=== PATIENT | male | born 1955 | race Caucasian/White ===

== ENCOUNTER 2020-07-19 09:59 | Outpatient (REF) | payer MEDICARE, OTHER, SELFPAY ==
--- NOTE | ~2020-07-19 | CT_ITS ---
EXAMINATION: CT CHEST SCREENING CLINICAL INFORMATION: Lung cancer screening COMPARISON: Previous chest x-rays most recent July 2014 TECHNIQUE: Multidetector volumetric CT imaging of the chest is performed without contrast using low dose technique. Additional 2D coronal and sagittal reformatted images and axial 3D maximum intensity projection (MIP) images are generated on the CT workstation. This CT examination was performed using dose optimization techniques as appropriate, variously including the following: *Automated exposure control *Adjustment of mA and/or kV according to patient size (this includes techniques or standardized protocols for targeted exams where dose is matched to indication/reason for exam; i.e. extremities or head) *Use of iterative reconstruction technique DLP: 72 mGy-cm FINDINGS: LUNGS: There is evidence of mild edema. There is a small 2 mm peripheral or subpleural left upper lobe nodule axial image 308 series 5. There is a 1.5 cm cyst in the left lower lobe axial image 426 series 5. There is scarring or subsegmental atelectasis in the left lung base the left lower lobe. The lungs are otherwise clear. MEDIASTINUM: There is mild coronary artery calcification. The mediastinum is otherwise normal. PLEURA: There is no pleural effusion. No pleural mass or thickening. AXILLA: No lymphadenopathy. UPPER ABDOMEN: Unremarkable OSSEOUS STRUCTURES: There are mild degenerative changes of the spine. CT/CT lung screening IMPRESSION: Mild emphysema. Small 2 mm left upper lobe nodule and scarring or subsegmental atelectasis in the left lower lobe. Mild coronary artery calcification. ASSESSMENT: Lung-RADS category 2: Benign RECOMMENDATION: Annual low-dose chest CT follow-up recommended.
== END 2020-07-19 10:00 | disposition home or self-care (01) ==
LOC: HO.CT 09:59
PROVIDERS: PCP Registered Nurse; Visit Provider Surgery
DX: Z12.2 Encounter for screening for malignant neoplasm of respiratory organs (principal); Z87.891 Personal history of nicotine dependence
CPT/HCPCS: 71271

== ENCOUNTER → 2022-03-24 13:49 | Outpatient (BNVA) | payer MEDICARE, OTHER, SELFPAY | PROVIDERS: PCP Registered Nurse; Visit Provider Internal Medicine | DX: M53.3 Sacrococcygeal disorders, not elsewhere classified (principal) | CPT/HCPCS: 99202 ==

== ENCOUNTER 2022-04-09 13:00 | Day surgery (SDC) | payer MEDICARE, OTHER, SELFPAY ==
--- NOTE | ~2022-04-09 | FL_ITS ---
EXAMINATION: XR FLUOROSCOPY WITH IMAGES CLINICAL INFORMATION: Back pain. Radiofrequency ablation. COMPARISON: MR lumbar spine 01/22/2016 TECHNIQUE: Fluoroscopy Supervised By: Dr. Conor Arroyo. Fluoroscopy Time: 0.7 minutes. Cumulative Dose: 32.6 mGy. DAP: 5.51 Gycm2. Images: 8. FINDINGS: There are 3 needles/electrodes overlying the left sacral wing. There are postsurgical changes lower lumbar spine with fusion hardware and probable disc spacer. FL/FL guidance in OR IMPRESSION: Fluoroscopy for pain management procedure.
[2022-04-09 13:53] VITALS: BMI 29.9
[2022-04-09 16:03] VITALS: BP 152/76; PULSE 53; RESP 16; TEMP 37.1; O2SAT 95
--- NOTE | 2022-04-10 11:48 | MHC.SHP ---
Pre-Procedural Eval Section A Date of Service: 04/09/22 The patient is an INPATIENT: No Changes since office visit: Yes Patient answered all questions The History & Physical has been completed within 30 days and I have reviewed it.: Yes Section B Chief Complaint: Sacrococcygeal disorders, not elsewhere classified Present Medications: see Short Stay Collaborative assessment Medical History: No relevant PMH History of Previous Operations: No relevant previous surgery Allergies: Allergies Allergy/AdvReac Type Severity Reaction Status Date / Time iodine [Iodine] Allergy Severe HIVES Verified 03/24/22 14:00 Penicillins Allergy Severe RASH Verified 03/24/22 14:00 sulfamethoxazole Allergy Severe RASH Verified 03/24/22 14:00 [From Decra] trimethoprim [From Decra] Allergy Severe RASH Verified 03/24/22 14:00 pravastatin Allergy Unknown Muscle Pain Verified 03/24/22 14:00 rosuvastatin Allergy Unknown Muscle Pain Verified 03/24/22 14:00 Seafood Allergy Severe HIVES Uncoded 03/24/22 14:00 Splenda Allergy Unknown Diarrhea Uncoded 03/24/22 14:00 Tetanus and Diphtheria Toxoid Allergy Unknown SWELLING Uncoded 03/24/22 14:00 Review of Systems Sugical H&P ROS: Negative: Constitution, Cardiovascular and Respiratory Exam Surgical H&P Exam: Normal: HEENT, Normal: Heart and Normal: Lungs Plan Diagnosis/Plan: Unchanged I have reviewed the history and physical and performed a pertinent physical examination on my patient. No changes have occurred unless specified. Time Spent With Patient Time: Total time managing care of this patient today ____ minutes.
--- NOTE | 2022-04-10 12:04 | W.PM.OPN ---
Operative Note Operative Note Date of Service: 04/09/22 Narrative: Cooled radiofrequency ablation, LEft L5 dorsal ramus and lateral branches of the S1, S2, S3 posterior primary rami nerves - fluoroscopic guided After obtaining written consent, pre-procedure blood pressure and heart rate were stable and recorded in the nursing record. The patient was placed prone on the fluoroscopy table. The area overlying the peripheral nerves was widely prepped with chloraprep, allowed to dry and sterilely draped. Using fluoroscopy, the appropriate landmarks were identified. The skin overlying the target was anesthetized with 0.5% lidocaine. 18 gauge 50mm radiofrequency needles were advanced under fluoroscopic guidance to the sacral ala (L5 medial branch) and around the lateral margins of the S1, S2 & S3 foramina (sacral lateral branches). Verification was done using lateral and AP views. Aspiration was negative for heme. Impedences were verified under 600 ohms. Motor testing (2 Hz) confirmed needle placement at each site within the appropriate voltage thresholds. Each site was injected with 0.5 ml 2% preservative-free lidocaine. Radiofrequency lesioning was performed for 165 seconds at 80 deg Celcius tissue temperature. Each site was then injected with 0.5 ml 0.5% preservative-free ropivacaine. The needles were removed, skin cleansed and a sterile bandage was applied. The patient tolerated the procedure well and no complications were encountered. No immediate evidence of skin damage was seen. Following the procedure the patient's vital signs were stable. The patient was discharged home in good condition with post-procedural instructions. Time Out: Immediately prior to the procedure, the following was verbally confirmed that there is a signed consent form and that the correct patient, planned procedure, site and side are consistent with documentation and that necessary equipment and/or blood products are available prior to the start of the case. Complications: none EBL: <5 cc
--- NOTE | 2022-04-10 12:05 | PM.OP ---
Brief Operative Note Date of Service: 04/09/22 Pre-op diagnosis: Sacroiliac joint pain Post-op diagnosis: same Procedure: Cooled radiofrequency ablation, Left L5 dorsal ramus and lateral branches of the S1, S2, S3 posterior primary rami nerves - fluoroscopic guided Implants: None Surgeon: Conor Arroyo MD Anesthesia: local Was an Systems Architecture Analyst used for this Procedure?: No Estimated blood loss (mL): 2 Pathology: none sent Condition: stable Disposition: same day
== END 2022-04-09 16:14 | disposition home or self-care (01) ==
PROVIDERS: PCP Registered Nurse; Visit Provider Internal Medicine
PROC: (CPT 64635; principal; 2022-04-09 14:00)
DX: M53.3 Sacrococcygeal disorders, not elsewhere classified (principal); G89.29 Other chronic pain; M51.26 Other intervertebral disc displacement, lumbar region; M48.00 Spinal stenosis, site unspecified; I77.811 Abdominal aortic ectasia; I10 Essential (primary) hypertension; D64.9 Anemia, unspecified; E11.9 Type 2 diabetes mellitus without complications; J45.909 Unspecified asthma, uncomplicated; F41.1 Generalized anxiety disorder; Z79.82 Long term (current) use of aspirin; Z79.84 Long term (current) use of oral hypoglycemic drugs; Z79.899 Other long term (current) drug therapy; Z88.0 Allergy status to penicillin; Z88.2 Allergy status to sulfonamides; Z88.8 Allergy status to other drugs, medicaments and biological substances; Z98.890 Other specified postprocedural states
CPT/HCPCS: 64625; J3301

== ENCOUNTER 2022-04-23 13:03 | Day surgery (SDC) | payer MEDICARE, OTHER, SELFPAY ==
--- NOTE | ~2022-04-23 | FL_ITS ---
EXAMINATION: XR FLUOROSCOPY WITH IMAGES CLINICAL INFORMATION: Pain. RF ablation. Pain management procedures. COMPARISON: Fluoroscopic spot views 04/09/2022, MR lumbar spine 01/22/2016 TECHNIQUE: Fluoroscopy Supervised By: Dr. Conor Arroyo. Fluoroscopy Time: 0.7 minutes. Cumulative Dose: 17.9 mGy. DAP: 2.38 Gycm2. Images: 6. FINDINGS: There are 3 needles/electrodes overlying the right sacral wing. The electrodes are repositioned on another view. The lower lumbar spine shows fusion hardware and probable disc spacer as before. FL/FL guidance in OR IMPRESSION: Fluoroscopy for pain management procedure.
[2022-04-23 13:13] VITALS: BP 138/67; PULSE 72; RESP 16; TEMP 37.2; O2SAT 96
[2022-04-23 13:23] VITALS: BMI 30.1
[2022-04-23 15:33] VITALS: BP 138/72; PULSE 53; RESP 14; TEMP 36.5; O2SAT 96
--- NOTE | 2022-04-24 10:19 | MHC.SHP ---
Pre-Procedural Eval Section A Date of Service: 04/23/22 The patient is an INPATIENT: No Changes since office visit: Yes Patient answered all questions The History & Physical has been completed within 30 days and I have reviewed it.: No Section B Chief Complaint: Sacrococcygeal disorders, not elsewhere classified Relevant Family History (Specify if Yes): No Relevant Social History: None Present Medications: see Short Stay Collaborative assessment Medical History: No relevant PMH History of Previous Operations: No relevant previous surgery Allergies: Allergies Allergy/AdvReac Type Severity Reaction Status Date / Time iodine [Iodine] Allergy Severe HIVES Verified 04/23/22 13:23 Penicillins Allergy Severe RASH Verified 04/23/22 13:23 sulfamethoxazole Allergy Severe RASH Verified 04/23/22 13:23 [From Decra] trimethoprim [From Decra] Allergy Severe RASH Verified 04/23/22 13:23 pravastatin Allergy Unknown Muscle Pain Verified 04/23/22 13:23 rosuvastatin Allergy Unknown Muscle Pain Verified 04/23/22 13:23 Seafood Allergy Severe HIVES Uncoded 03/24/22 14:00 Splenda Allergy Unknown Diarrhea Uncoded 03/24/22 14:00 Tetanus and Diphtheria Toxoid Allergy Unknown SWELLING Uncoded 03/24/22 14:00 Review of Systems Sugical H&P ROS: Negative: Constitution, Cardiovascular and Respiratory Exam Surgical H&P Exam: Normal: HEENT, Normal: Heart and Normal: Lungs Plan Diagnosis/Plan: Unchanged Patient reports 65-70% pain relief on the left side following the procedure 2 weeks ago. We will proceed with a right-sided procedure today. I have reviewed the history and physical and performed a pertinent physical examination on my patient. No changes have occurred unless specified. Time Spent With Patient Time: Total time managing care of this patient today ____ minutes.
--- NOTE | 2022-04-24 10:21 | PM.OP ---
Brief Operative Note Date of Service: 04/23/22 Pre-op diagnosis: Sacroiliac joint pain Post-op diagnosis: same Procedure: Cooled radiofrequency ablation, Right L5 dorsal ramus and lateral branches of the S1, S2, S3 posterior primary rami nerves Surgeon: Conor Arroyo MD Anesthesia: local Was an Veterinary Technician Instructor used for this Procedure?: No Estimated blood loss (mL): 2 Pathology: none sent Condition: stable Disposition: same day
--- NOTE | 2022-04-24 10:21 | W.PM.OPN ---
Operative Note Operative Note Date of Service: 04/23/22 Narrative: Cooled radiofrequency ablation, Right L5 dorsal ramus and lateral branches of the S1, S2, S3 posterior primary rami nerves - fluoroscopic guided After obtaining written consent, pre-procedure blood pressure and heart rate were stable and recorded in the nursing record. The patient was placed prone on the fluoroscopy table. The area overlying the peripheral nerves was widely prepped with chloraprep, allowed to dry and sterilely draped. Using fluoroscopy, the appropriate landmarks were identified. The skin overlying the target was anesthetized with 0.5% lidocaine. 18 gauge 50mm radiofrequency needles were advanced under fluoroscopic guidance to the sacral ala (L5 medial branch) and around the lateral margins of the S1, S2 & S3 foramina (sacral lateral branches). Verification was done using lateral and AP views. Aspiration was negative for heme. Impedences were verified under 600 ohms. Motor testing (2 Hz) and lateral imaging confirmed needle placement at each site within the appropriate voltage thresholds and depth respectively. Each site was injected with 0.5 ml 0.5% ropivacaine. Radiofrequency lesioning was performed for 165 seconds at 80 deg Celcius tissue temperature. The needles were removed, skin cleansed and a sterile bandage was applied. The patient tolerated the procedure well and no complications were encountered. No immediate evidence of skin damage was seen. Following the procedure the patient's vital signs were stable. The patient was discharged home in good condition with post-procedural instructions. Time Out: Immediately prior to the procedure, the following was verbally confirmed that there is a signed consent form and that the correct patient, planned procedure, site and side are consistent with documentation and that necessary equipment and/or blood products are available prior to the start of the case. Complications: none EBL: <5 cc
== END 2022-04-23 15:55 | disposition home or self-care (01) ==
PROVIDERS: PCP Registered Nurse; Visit Provider Internal Medicine
PROC: (CPT 64635; principal; 2022-04-23 14:10)
DX: M47.816 Spondylosis without myelopathy or radiculopathy, lumbar region (principal); M53.3 Sacrococcygeal disorders, not elsewhere classified; G89.29 Other chronic pain; M51.26 Other intervertebral disc displacement, lumbar region; M48.00 Spinal stenosis, site unspecified; Z98.890 Other specified postprocedural states; I10 Essential (primary) hypertension; I77.811 Abdominal aortic ectasia; D64.9 Anemia, unspecified; F41.1 Generalized anxiety disorder; J45.909 Unspecified asthma, uncomplicated; Z79.84 Long term (current) use of oral hypoglycemic drugs; Z79.82 Long term (current) use of aspirin; Z88.0 Allergy status to penicillin; Z88.2 Allergy status to sulfonamides; Z88.8 Allergy status to other drugs, medicaments and biological substances; Z88.7 Allergy status to serum and vaccine; Z79.899 Other long term (current) drug therapy
CPT/HCPCS: 64635; 64625; J2795; J3301

== ENCOUNTER → 2022-05-30 10:56 | Outpatient (BNVA) | payer MEDICARE, OTHER, SELFPAY | PROVIDERS: PCP Registered Nurse; Visit Provider Internal Medicine | DX: M47.816 Spondylosis without myelopathy or radiculopathy, lumbar region (principal); M53.3 Sacrococcygeal disorders, not elsewhere classified; Z98.890 Other specified postprocedural states | CPT/HCPCS: 99212 ==

== ENCOUNTER 2022-07-01 11:59 | Outpatient (REF) | payer MEDICARE, OTHER, SELFPAY ==
--- NOTE | ~2022-07-01 | XR_ITS ---
EXAMINATION: Sacrum/coccyx Coccyx and lumbar spine CLINICAL INDICATION: Pain. Fall. TECHNIQUE: 3 views lumbar spine and 4 views sacrum/coccyx. FINDINGS: Lumbar spine: There is normal lumbar lordosis. The vertebral heights and alignment is normal. There is L4-L5 disc prosthesis stabilized with bilateral L4 and L5 pedicle screws and interconnecting rods. There is mild loss of L5-S1 disc height. The vertebral heights and alignment is normal. No acute fracture or dislocation seen. Sacrum and coccyx: There is no visible acute fracture, dislocation or subluxation seen. The soft tissues are normal.
== END 2022-07-01 12:00 | disposition home or self-care (01) ==
LOC: HO.XRAY 11:59
PROVIDERS: PCP Registered Nurse; Visit Provider Registered Nurse
DX: M54.50 Low back pain, unspecified (principal); Z91.81 History of falling
CPT/HCPCS: 72100; 72220

== ENCOUNTER → 2022-07-04 11:14 | Outpatient (BNVA) | payer MEDICARE, OTHER, SELFPAY | PROVIDERS: PCP Registered Nurse; Visit Provider Internal Medicine | DX: M53.3 Sacrococcygeal disorders, not elsewhere classified (principal); M47.816 Spondylosis without myelopathy or radiculopathy, lumbar region | CPT/HCPCS: Q3014 ==

== ENCOUNTER 2023-09-14 09:05 | Outpatient (AMB) | payer MEDICARE, OTHER, SELFPAY ==
[2023-09-14 09:10] VITALS: BP 140/68; PULSE 74; RESP 14; O2SAT 98; BMI 31.9
--- NOTE | 2023-09-14 09:10 | A.OFFVIS_ITS ---
Vital Signs 09/14/23 09:10 Height 5 ft 8 in Weight 210 lb BMI 31.9 BP 140/68 H Blood Pressure Location Lt brachial Position Sitting Respiration 14 Pulse 74 Pulse Source Pulse Oximeter Pulse Oximetry (%) 98 Oxygen Delivery Method Room Air Intake Visit Reasons: low back pain LAURA 06/26 Allergies iodine [Iodine] Allergy (Severe, Verified 09/14/23 09:11) HIVES Penicillins Allergy (Severe, Verified 09/14/23 09:11) RASH sulfamethoxazole [From Septra] Allergy (Severe, Verified 09/14/23 09:11) RASH trimethoprim [From Septra] Allergy (Severe, Verified 09/14/23 09:11) RASH pravastatin Allergy (Unknown, Verified 09/14/23 09:11) Muscle Pain rosuvastatin Allergy (Unknown, Verified 09/14/23 09:11) Muscle Pain Seafood Allergy (Severe, Uncoded 09/14/23 09:11) HIVES Splenda Allergy (Unknown, Uncoded 09/14/23 09:11) Diarrhea Tetanus and Diphtheria Toxoid Allergy (Unknown, Uncoded 09/14/23 09:11) SWELLING Medication List - Last Reconciled 09/14/23 by Jessica Vargas, MACKENZIE albuterol sulfate 90 mcg/actuation 2 puffs inhalation Q4H PRN aspirin (Adult Aspirin Regimen) 81 mg PO DAILY chlorthalidone 25 mg PO DAILY fluticasone propion-salmeterol 250-50 mcg/dose (Wixela Inhub) 1 inh inhalation Q12H gabapentin 400 mg PO QID lisinopril 40 mg PO DAILY lorazepam 1 mg PO Q8H PRN mecobalamin (vitamin B12) mcg PO metformin 500 mg PO BID montelukast 10 mg PO DAILY sildenafil 50 mg PO DAILY PRN HPI HPI low back pain LAURA 06/26: Details: 68-year-old male presenting for follow-up 15 months following sacroiliac joint innervation radiofrequency ablation for bilateral sacroiliac joint related pain. Patient states he had good relief for about 9-12 months following the procedure. Over the last 3-5 months his symptoms have gradually worsened, and are now back to where he started with us. He is interested in either repeating a radiofrequency ablation or trialing other long-term interventions. He has been considering a referral to [facility] for potential sacroiliac joint fusion. [facility] Medical History (Updated 09/14/23 @ 10:28 by Conor Arroyo MD) Spinal stenosis Lumbar disc herniation Hypertension Hematuria Gout Diabetes Asthma Anxiety Anemia Abdominal aortic ectasia Physical Exam Vital Signs: Last Vital Signs Pulse 74 09/14/23 09:10 Resp 14 09/14/23 09:10 BP 140/68 H 09/14/23 09:10 Pulse Ox 98 09/14/23 09:10 Oxygen Delivery Method Room Air 09/14/23 09:10 BMI result Body Mass Index 31.9 On exam today: Appears afebrile. Alert and oriented. Mood and affect appropriate. Follows and participates in conversation appropriately. Respiratory effort is unlabored. Able to transition from sit to stand unassisted. Ambulates with bilaterally normal heel strike and toe off with the help of a cane. Able to stand and walk on toes and heels. 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 I discussed repeating either an RFA or trialing a nerve stimulation device for medial cluneal nerves, which might be a more longer term solution for his problem. The patient is interested in pursuing this potentially longer-term options without the need for repeated RFA of his sacroiliac joint innervation. I went over the details of the procedure as well as the process for implantation of a PNS device for bilateral medial cluneal nerves. Patient is interested in moving forward with this plan. I will place a referral for psychologic clearance with [facility]. Patient was advised to call our office if he does not get a call from [facility] over the next 2-3 weeks. Patient is in agreement with the plan. Coding Level of Care Code Est Pt Level 4 (33991) Diagnoses Sacroiliac joint dysfunction M53.3 Cluneal neuropathy G58.8
== END 2023-09-14 09:35 | disposition home or self-care (01) ==
LOC: HO.PMC 09:05
PROVIDERS: PCP Registered Nurse; Visit Provider Internal Medicine
DX: M53.3 Sacrococcygeal disorders, not elsewhere classified (principal); G58.8 Other specified mononeuropathies
CPT/HCPCS: 99214

== ENCOUNTER → 2023-09-14 09:05 | Outpatient (BNVA) | payer MEDICARE, OTHER, SELFPAY | PROVIDERS: PCP Registered Nurse; Visit Provider Internal Medicine | DX: M53.3 Sacrococcygeal disorders, not elsewhere classified (principal); G58.8 Other specified mononeuropathies | CPT/HCPCS: 99212 ==

== ENCOUNTER 2023-11-06 11:12 | Outpatient (AMB) | payer MEDICARE, OTHER, SELFPAY ==
[2023-11-06 11:19] VITALS: BP 195/84; PULSE 71; RESP 14; O2SAT 95; BMI 31.9
--- NOTE | 2023-11-06 11:19 | A.OFFVIS_ITS ---
Vital Signs 11/06/23 11:19 Height 5 ft 8 in Weight 210 lb BMI 31.9 BP 195/84 H Blood Pressure Location Lt brachial Position Sitting Respiration 14 Pulse 71 Pulse Source Pulse Oximeter Pulse Oximetry (%) 95 Oxygen Delivery Method Room Air Intake Visit Reasons: Back pain Allergies iodine [Iodine] Allergy (Severe, Verified 11/06/23 11:20) HIVES Penicillins Allergy (Severe, Verified 11/06/23 11:20) RASH sulfamethoxazole [From Septra] Allergy (Severe, Verified 11/06/23 11:20) RASH trimethoprim [From Septra] Allergy (Severe, Verified 11/06/23 11:20) RASH pravastatin Allergy (Unknown, Verified 11/06/23 11:20) Muscle Pain rosuvastatin Allergy (Unknown, Verified 11/06/23 11:20) Muscle Pain Seafood Allergy (Severe, Uncoded 11/06/23 11:20) HIVES Splenda Allergy (Unknown, Uncoded 11/06/23 11:20) Diarrhea Tetanus and Diphtheria Toxoid Allergy (Unknown, Uncoded 11/06/23 11:20) SWELLING Medication List - Last Reconciled 11/06/23 by Jessica Vargas LPN albuterol sulfate 90 mcg/actuation 2 puffs inhalation Q4H PRN aspirin (Adult Aspirin Regimen) 81 mg PO DAILY chlorthalidone 25 mg PO DAILY fluticasone propion-salmeterol 250-50 mcg/dose (Wixela Inhub) 1 inh inhalation Q12H gabapentin 400 mg PO QID lisinopril 40 mg PO DAILY lorazepam 1 mg PO Q8H PRN mecobalamin (vitamin B12) mcg PO metformin 500 mg PO BID montelukast 10 mg PO DAILY sildenafil 50 mg PO DAILY PRN HPI HPI Back pain: Details: 68-year-old male who presents today to the office for a back pain. He has completed his second psychological evaluation. He has no concerns today to discuss with us. We are waiting for the prior authorization from the insurance company. Past Procedures: 04/23/22: Right SIJ Innervation RFA ? 90% relief. 04/09/22: Left SIJ Innervation RFA ? 90% relief. [facility] Medical History (Updated 09/14/23 @ 10:28 by Conor Arroyo MD) Spinal stenosis Lumbar disc herniation Hypertension Hematuria Gout Diabetes Asthma Anxiety Anemia Abdominal aortic ectasia Review of Systems Const All systems reviewed & are unremarkable except as noted in HPI and below Physical Exam Vital Signs: Last Vital Signs Pulse 71 11/06/23 11:19 Resp 14 11/06/23 11:19 BP 195/84 H 11/06/23 11:19 Pulse Ox 95 11/06/23 11:19 Oxygen Delivery Method Room Air 11/06/23 11:19 BMI result Body Mass Index 31.9 General: Appears afebrile. Alert and oriented. Mood and affect appropriate. Follows and participates in conversation appropriately. Respiratory effort is unlabored. Able to transition from sit to stand unassisted. Ambulates with bilaterally normal heel strike and toe off. Results Reviewed Results Reviewed: No imaging is available for review. 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 Once we receive the prior authorization approval from the insurance, we will schedule an appointment for trial of cluneal nerve Curonix PNS. Scribed for Dr. Arroyo by Sulaiman Zee, medical technologist generalist, on 11/06/2023. I, Dr. Arroyo, have personally reviewed and agree with the information entered by the scribe. Coding Level of Care Code Est Pt Level 2 (76725) Diagnoses Cluneal neuropathy G58.8 Lumbar spondylosis M47.816 Sacroiliac joint dysfunction M53.3
== END 2023-11-06 11:48 | disposition home or self-care (01) ==
PROVIDERS: PCP Registered Nurse; Visit Provider Internal Medicine
DX: G58.8 Other specified mononeuropathies (principal); M47.816 Spondylosis without myelopathy or radiculopathy, lumbar region; M53.3 Sacrococcygeal disorders, not elsewhere classified
CPT/HCPCS: 99212

== ENCOUNTER → 2023-11-06 11:12 | Outpatient (BNVA) | payer MEDICARE, OTHER, SELFPAY | PROVIDERS: PCP Registered Nurse; Visit Provider Internal Medicine | DX: G58.8 Other specified mononeuropathies (principal); M47.816 Spondylosis without myelopathy or radiculopathy, lumbar region; M53.3 Sacrococcygeal disorders, not elsewhere classified | CPT/HCPCS: 99212 ==

== ENCOUNTER 2024-02-01 11:05 | Outpatient (AMB) | payer MEDICARE, OTHER, SELFPAY ==
--- OUTSIDE RECORDS SUMMARY | 2024-02-01 11:08 | XMS_ITS | Continuity of Care Document ---
Author Organization [facility] Address [address] [address]- Care Team Providers Care Environmental Attorney Name Role Phone Lincoln KLINE, Jyothi Fragoso Primary Care Physician Encounter [facility] [place] Date(s): 12/27/21 - 01/26/22 [facility] [address] [address]- Attending Physician: Ángel Larry Admitting Physician: AdmtrÁngel Referring Physician: Admtr, Ar8 Allergies, Adverse Reactions, Alerts Substance Reaction Severity Status penicillin Active tetanus toxoid Active Septra Active iodine Active Medications Aerochamber See Instructions, # 1 each, Maintenance, use with mdi, 02/20/10 10:54:57 Start Date: 02/20/10 Status: Ordered allopurinol 300 mg oral tablet 1 tablet = 300 mg, By Mouth, Daily, 0 Refills, Maintenance Start Date: 02/20/10 Status: Ordered Aspirin = 81 mg, Daily, 0 Refills, Maintenance Start Date: 02/20/10 Status: Ordered chlorthalidone 25 mg oral tablet 25 mg, 1, tablet, By Mouth, Daily, # 90 tablet, Refills 3, Tot. Refills 3, Maintenance, 01/01/22 12:59:00 EDT, Route to Pharmacy Electronically, [facility]/pharmacy #[id number], Partial fill upon patient request if the prescription is for a schedule II opioid drug... Start Date: 01/01/22 Status: Ordered Januvia 100 mg oral tablet 1 tablet = 100 mg, By Mouth, Daily, 0 Refills, Maintenance Start Date: 02/20/10 Status: Ordered Lisinopril = 40 mg, By Mouth, Daily, 0 Refills, Maintenance Start Date: 02/20/10 Status: Ordered PredniSONE By Mouth, Daily, 0 Refills, Maintenance Start Date: 11/17/10 Status: Ordered Proventil HFA 90 mcg/inh inhalation aerosol with adapter 2 puffs, Inhalation, 4 times a day, 0 Refills, Maintenance Start Date: 02/20/10 Status: Ordered Spiriva HandiHaler 18 mcg Inhalation Capsule 1 each = 18 mcg, Inhalation, Daily, # 30 Doses, 11 Refills, Maintenance Start Date: 02/20/10 Status: Ordered Symbicort 160mcg/4.5mcg Inhaler 2 puffs, Inhalation, 2 times a day, 0 Refills, Maintenance Start Date: 02/20/10 Status: Ordered Patient Care team information Personnel Name: Lincoln KLINE, Jyothi Fragoso Address: Address: [address] [place] [id number]
--- OUTSIDE RECORDS SUMMARY | 2024-02-01 11:08 | XMS_ITS | Continuity of Care Document ---
Author Organization [facility] [place] Address [address] [place] [address]- Care Team Providers Care Bakery Chef Name Role Phone Lincoln KLINE, Jyothi Fragoso Primary Care Physician Encounter [facility] Date(s): 02/19/23 - 03/21/23 [facility] [address] [place] [address]- Attending Physician: Ángel Larry Admitting Physician: AdmÁngel vilchis Referring Physician: Admtr, Ar8 Allergies, Adverse Reactions, Alerts Substance Reaction Severity Status penicillin Active tetanus toxoid Active Other Food Allergy SPLENDA Active iodine Active Septra Active Medications Aerochamber See Instructions, # 1 [...] 01/01/22 12:59:00 EDT, Route to Pharmacy Electronically, [facility]/pharmacy #[id number], Partial fill upon patient request if the prescription is for a schedule II opioid drug... Start Date: 01/01/22 Status: Ordered Lisinopril = 40 mg, By Mouth, Daily, 0 Refills, Maintenance Start Date: 02/20/10 Status: Ordered metFORMIN 500 mg oral tablet 1 tablet = 500 mg, By Mouth, Daily, with meals, # 30 tablet, 0 Refills, Maintenance, 02/19/23 11:02:00 EST, Tablet, Partial fill upon patient request if the prescription is for a schedule II opioid drug. Start Date: 02/19/23 Status: Ordered Proventil HFA 90 mcg/inh inhalation aerosol with adapter 2 puffs, Inhalation, 4 times a day, 0 Refills, Maintenance Start Date: 02/20/10 Status: Ordered Symbicort 160mcg/4.5mcg Inhaler 2 puffs, Inhalation, 2 times a day, 0 Refills, Maintenance Start Date: 02/20/10 Status: Ordered Problem List Condition Confirmation Course Effective Dates Status Health St atus Informant Obese class I Confirmed Active Social History Social History Type Response Smoking Status Former smoker, quit more than 30 days ago entered on: 02/19/23 Sex Patient Care team information Care Team Personnel Name: Lincoln KLINE, Jyothi Fragoso Position: [facility] Outreach Member Role: PCP Address: Address: [address] [place] [address]- Care Team Related Persons Name: LORENA YUN Name: JULIÁN YUN Address: home [address] [place] [id number]
--- OUTSIDE RECORDS SUMMARY | 2024-02-01 11:08 | XMS_ITS | Continuity of Care Document ---
Author Organization [facility] Address [address] [address]- Care Team Providers Care Out Of Town Collection Clerk Name Role Phone Lincoln KLINE, Jyothi Fragoso Primary Care Physician Encounter [facility] [place] [place] Date(s): 12/27/21 - 01/03/22 [facility] [address] [address]- Attending Physician: Bertram Anders MD Admitting Physician: Bertram Anders MD Referring Physician: Bertram Anders MD Allergies, Adverse Reactions, Alerts Substance Reaction Severity [...] 01/01/22 12:59:00 EDT, Route to Pharmacy Electronically, [facility]/pharmacy #[id number], Partial fill upon patient [...] Refills, Maintenance Start Date: 02/20/10 Status: Ordered Proventil HFA 90 mcg/inh inhalation [...] Name: Lincoln KLINE, Jyothi Fragoso Address: Address: [address] [place] [id number]
--- OUTSIDE RECORDS SUMMARY | 2024-02-01 11:08 | XMS_ITS | Continuity of Care Document ---
Author Organization [facility] Address [address] [place] [address]- Care Team Providers Care Players Club Representative Name Role Phone Lincoln KLINE, Jyothi Fragoso Primary Care Physician Encounter [facility] Date(s): 12/01/23 - 12/01/[address] [address]- Discharge Disposition: A-D/C Home Attending Physician: Giovani SANTIAGO, Lorena Diza Admitting Physician: Lorena Matute MD Referring Physician: Not on Staff, Referring MD Allergies, Adverse Reactions, Alerts Substance Reaction Severity Status penicillin Active tetanus toxoid Active iodine Active Septra Active Other Food Allergy SPLENDA Active Medications Aerochamber See Instructions, # 1 [...] 01/01/22 12:59:00 EDT, Route to Pharmacy Electronically, [facility]/pharmacy #1111, Partial fill upon patient request if [...] opioid drug. Start Date: 02/19/23 Status: Ordered oxyCODONE 5 mg oral tablet 2.5 mg, Tablet, By Mouth, Once, PRN for Pain , Moderate, Routine, 12/01/23 10:01:00 EDT Start Date: 12/01/23 Stop Date: 12/01/23 Status: Completed oxyCODONE 5 mg oral tablet 2.5 mg, 0.5, tablet, By Mouth, Every 6 hours, PRN, # 5 tablet, Refills 0, Tot. Refills 0, Acute 12/07/23 11:07:00 EDT, as needed for pain, 12/01/23 11:07:00 EDT, Route to Pharmacy Electronically, [facility]/pharmacy #[id number], Partial fill upon patient request i... Start Date: 12/01/23 Stop Date: 12/07/23 Status: Ordered predniSONE 20 mg oral tablet 2 tablet = 40 mg, By Mouth, Daily, for 5 days, # 10 tablet, 0 Refills, Acute 12/06/23 11:07:00 EDT,12/01/23 11:07:00 EDT, Tablet, [facility]/pharmacy #[id number], Partial fill upon patient request if the prescription is for a schedule II opioid drug., 173, cm, 08... Start Date: 12/01/23 Stop Date: 12/06/23 Status: Ordered Proventil HFA 90 mcg/inh inhalation aerosol with adapter 2 puffs, Inhalation, 4 times a day, 0 Refills, Maintenance Start Date: 02/20/10 Status: Ordered Symbicort 160mcg/4.5mcg Inhaler 2 puffs, Inhalation, 2 times a day, 0 Refills, Maintenance Start Date: 02/20/10 Status: Ordered Problem List Condition Confirmation Course Effective Dates Status Health St atus Informant Obese class I Confirmed Active Results Radiology Reports * Exam Date Time Procedure Performing Provider Status 12/01/23 10:08 AM Ankle Min 3 Views Left Willie Grigsby; Auth (Verified) Notes: (Ankle Min 3 Views Left) Reason For Exam: Pain RESULT: Ankle Min 3 Views Left Examination: Left ankle performed on 12/01/2023. History: Hx of Present Illness: History of gout, last PM increased stiffness and pain left foot with difficulty ambulating; Reason: Pain; Clinical Question(s): Arthritis Findings: Frontal, oblique, and lateral views of the left ankle are submitted. The mortise is preserved. No fractures or dislocations are demonstrated. There is a small plantar spur. Soft tissue swelling overlies the foot and ankle. Impression: There is no osseous abnormality. Soft tissue swelling. WSN: [id number] Ordering Physician: Janet Aguirre Dictated By: Reta Chang MD Dictated Date/Time: 12/01/23 10:47 a Reviewed By: Reta Chang MD Signed By: Reta Chang MD Signed Date/Time: 12/01/23 10:47 am Transcribed By: JEANCARLOS Transcribed Date/Time: 12/01/23 10:46 am Vital Signs Most recent to oldest [Reference Range]: 1 2 3 Height 173 cm (12/01/23 11:09 AM) 173 cm (12/01/23 9:13 AM) Weight 94 kg (12/01/23:09 AM) 94 kg (12/01/23 9:13 AM) Oxygen Saturation [94-100 %] 93 % *L* (12/01/23 11:09 AM) 95 % (12/01/23 9:16 AM) Pulse Rate [55-90 bpm] 63 bpm (12/01/23 11:09 AM) 76 bpm (12/01/23 9:16 AM) Body Mass Index [18.5-24.99 kg/m2] 31.41 kg/m2 *>HHI* (12/01/23 11:09 AM) Blood Pressure [90-138/55-84 mm Hg] 138/68mm Hg (12/01/23 11:09 AM) 134/72mm Hg (12/01/23 9:16 AM) Respiratory Rate [16-30 br/min] 17 br/min (12/01/23 11:09 AM) 16 br/min (12/01/23 9:41 AM) 18 br/min (12/01/23 9:16 AM) Temperature [96.8-100.4 DegF] 98.7 DegF (12/01/23 9:16 AM) Mode of Delivery (Oxygen) Room air (12/01/23 11:09 AM) Room air (12/01/23 9:16 AM) Blood pressure sites Arm, left (12/01/23 11:09 AM) Arm, left (12/01/23 9:16 AM) Temperature Route Oral (12/01/23 9:16 AM) Dry Weight 94 kg (12/01/23 11:09 AM) 94 kg (12/01/23 9:13 AM) Social History Social History Type Response Smoking Status Former smoker, quit more than 30 days ago entered on: 02/19/23 Sex Note * Janet Vasquez: PERFORM Event Display: Patient Education Leaflets Authored Date: [id number] Renal (Kidney) Insufficiency ?? [id number] Renal (Kidney) Insufficiency Your kidneys remove waste products and extra water from your body. When your kidneys don???t work as they should, waste products build up in your blood.??The early stage of this process is called renal insufficiency.??If renal insufficiency gets worse, you can develop chronic renal failure. This??allows extra water, waste, and toxic substances to build up in your body. This can become life-threatening. You may need dialysis or a kidney transplant.??The most serious form of renal insufficiency is end-stage renal disease. Diabetes is the main cause of renal insufficiency.?? Other causes include: ??? High blood pressure ??? Hardening of the arteries ??? Lupus ??? Inflammation of the blood vessels (vasculitis) ??? Viral or bacterial infection Some bmyk-sqc-fcvaguw (OTC) pain medicines can cause renal failure if you take them for a long time. These include aspirin, ibuprofen, naproxen, and other nonsteroidal anti-inflammatory drugs (NSAIDs). Home care Follow these tips when caring for yourself at home: ??? If you have diabetes, talk with your healthcare provider about controlling your blood sugar.??Ask if you need to make any changes to your diet,??lifestyle,??or medicines. ??? If you have high blood pressure: o Take your??prescribed medicine. Your goal is to lower your blood pressure to??less than 130/80, or as recommended by your provider. oStart a regular exercise program that you enjoy.??Check with your provider to be sure your planned exercise program is right for you. o Cut back on the amount of salt (sodium) you eat.??Your providercan tell you how much salt each day is safe for you. o Monitor and record your blood pressure at home on a regular schedule. Ask your provider to teach you how to correctly check your BP. Bring the BP records with you to your appointments. ??? If you are overweight, talk with your provider about a weight loss plan. ??? If you smoke, quit.??Smoking makes kidney disease worse.??Talk with your provider about ways to help you quit.??For more information, visit: o Clearing the Air: Quit Smoking Today, a booklet from the National Cancer [place], at smokefree.gov/sites/default/files/pdf/vvjqxngq-ynq-eep-accessible.pdf o Tools, tips, and articles on quitting at www.[place].gov o The [place] [employer] Society's guide to quitting smoking at www.cancer.org/healthy/stayawayfromtobacco/guidetoquittingsmoking/ ??? Talk with your healthcare provider about any restrictions you should make in your diet. In general, you should limit the amount of protein, salt, potassium, and phosphorus.??Don???t drink too many fluids. Don???t add salt at the table and stay away from salty foods.??You may need a calcium supplement to help prevent osteoporosis. ??? If you or your family feel overwhelmed by the dietary restrictions, ask for a referral to a registered dietitian. This person can help you understandand plan your diet. ??? Talk with your provider about any medicines you are currently taking to find out if they need to be reduced or stopped. ??? Before starting any ssjp-fua-lvnpqlv (OTC) medicines, herbal supplements, or vitamins, talk with your healthcare provider or pharmacist. Make sure theywon't harm your kidneys or interact with other medicines you take. ??? Don???t take the following OTC medicines. Or make sure to talk with your provider before you take them: o Aspirin, ibuprofen, naproxen, and other NSAIDs. You may be able to use these for a short time to help with fever or pain. o Laxatives and antacids with magnesium or aluminum o Phospho-soda enemas with phosphorus o Certain stomach acid-blocking medicine, such as cimetidine or ranitidine o Decongestants with pseudoephedrine o Herbal supplements ?? Follow-up care Follow up with your healthcare provider, or as advised.??Contact 1 of the groups below for more information: ??? [place] [employer] of Kidney Patients at??www.aakp.org ??? National Kidney Foundation at www.kidney.org ??? [place] [employer] Fund at www.kidneyfund.org ??? National Kidney Disease Education Program at www.nkdep.nih.gov ?? Call 911 Call 911 if any of these occur: ??? Severe weakness, dizziness, fainting, drowsiness, or confusion ??? Chest pain or shortness of breath ??? Heart beating fast, slowly, or irregularly ?? When to get medical care Call your healthcare provider right away??if any of these occur: ??? Upset stomach (nausea) or vomiting ??? Fever of 100.4??F (38??C) or higher, or as advised by your provider ??? Unexpected weight gain or swelling in the legs, ankles, or around your eyes ??? You don???t pee as much as normal, or you aren???t able to pee ??? New symptoms ?? Last Reviewed Date: 2021 ?? The [employer]. All rights reserved. This information is not intended as a substitute for professional medical care. Always follow your healthcare professional's instructions. ?? * Janet Vasquez: PERFORM Event Display: Patient Education Leaflets Authored Date: [id number] Gout ?? [id number] Gout Gout is an inflammation of a joint caused by an inflammatory response to gout crystals in the jointfluid. This occurs when there is excess??uric acid. Uric acid is a normal waste product in the body. It builds up in the body when the kidneys can't filter enough of it from the blood. This may occurwith age. It's also associated with kidney disease. Gout occurs more often in people with obesity, diabetes, high blood pressure,??or??high??levels of??fats in the blood. It may run in families. Gouttends to come and go. A flare up of gout is called an attack. Drinking alcohol or eating certain foods (such as shellfish or??foods with additives such as high-fructose corn syrup) may increase uric acid levels in the blood and cause a gout attack. During a gout attack, the affected joint may become hot, red, swollen, and painful. If you have hadone attack of gout, you are likely to have another. An attack of gout can be treated with??medicine. If these attacks become frequent,??a daily medicine may be prescribed to help the kidneys??remove uric acid from the body. Home care During a gout attack: ??? Contact your healthcare provider for advice and therapy options at the early stages of a gout flare. Treating the flare right away can prevent it from getting worse. Your healthcare provider can prescribe medicine to improve pain and shorten your gout flare. ??? Rest painful joints. If gout affects the joints of your foot or leg, you may want to use crutches for the first few days to keep from bearing weight on the affected joint. ??? When sitting or lying down, raise the painful joint to a level higher than your heart. ??? Apply an ice pack (ice cubes in a plastic bag wrapped in a thin towel) over the injured area for 20 minutes every 1 to 2 hours the first day for pain relief. Continue this 3 to 4 times a day for swelling and pain. ??? Avoid alcohol and foods listed below (see??Preventing attacks) during a gout attack. Drink extra fluid to help flush the uricacid through your kidneys. ??? If you were prescribed a medicine to treat gout, take it as your healthcare provider has instructed. Don't skip doses. ??? Take??anti-inflammatory??medicine as directedby your healthcare provider. If you have chronic liver or kidney disease or ever had a stomach ulcer or digestive tract bleeding, talk with your doctor before using these medicines. ??? If pain medicines have been prescribed, take them exactly as directed. ? Preventing attacks ??? Follow up with your healthcare provider to assess if you would benefit from daily medicine to prevent gout flares. ??? Limit or stop alcohol??use. Excess alcohol intake can cause a gout attack. ??? Limit these foods and drinks: o Organ meats, such as kidneys and liver o Certain seafoods (anchovies, sardines, shrimp, scallops, keyes, mackerel) o Wild game, meat extracts and meat gravies o Foods and drinks sweetened with high-fructose corn syrup, such as sodas ??? Eat a healthy diet including low-fat and nonfat dairy, whole grains, and vegetables. ??? If you are??overweight, talk to your healthcare provider about a weight reduction plan. Avoid??fasting??or??extreme low calorie diets??(less than 900 calories per??day). This will increase uric acid levels in the body.??? If you??have diabetes??or??high blood pressure, work with your provider to manage these conditions. ??? Protect the joint from injury. Wear good-fitting socks and shoes. Injury can trigger a goutattack. ?? Follow-up care Follow up with your healthcare provider, or as advised.? When to get medical advice Call your healthcare provider if you have any of the following: ??? Fever over??100.4??F (38.??C)??with worsening joint pain ??? Increasing redness around the joint ??? Pain developing in another joint ??? Repeated vomiting, abdominal pain, or small amounts of blood in the vomit or stool (black or red color) Call 911 Call 911, or get immediate medical care if any of these occur: ??? Large amounts of blood in the vomit or stool (black or red color) ??? Fainting ?? Last Reviewed Date: 2021 ?? 2006-6834 The [employer]. All rights reserved. This information is not intended as a substitute for professional medical care. Always follow your healthcare professional's instructions. ?? Patient Care team information Care Team Personnel Name: Lincoln KLINE, Jyothi Fragoso Position: [facility] Outreach Member Role: PCP Address: Address: [address] [place] [address]- Care Team Related Persons Name: LORENA YUN Name: JULIÁN YUN Address: home [address] [place] [address]
--- OUTSIDE RECORDS SUMMARY | 2024-02-01 11:08 | XMS_ITS | Continuity of Care Document ---
Author Organization [facility] Address [address] [place] [address]- Care Team Providers Care Retread Builder Name Role Phone Lincoln KLINE, Jyothi Fragoso Primary Care Physician Encounter [facility] Date(s): 11/18/21 - 12/18/21 [facility] [address] [place] [address]- Allergies, Adverse Reactions, Alerts Substance Reaction Severity [...] Refills, Maintenance Start Date: 02/20/10 Status: Ordered Januvia 100 mg oral tablet [...] Refills, Maintenance Start Date: 02/20/10 Status: Ordered Care Team Personnel Name: Lincoln KLINE, Jyothi Fragoso Address: [address] [place] [address]
--- OUTSIDE RECORDS SUMMARY | 2024-02-01 11:08 | XMS_ITS | Continuity of Care Document ---
Author Organization [facility] Address [address] [place] [address]- Care Team Providers Care Wheel Alignment Mechanic Name Role Phone Lincoln KLINE, Jyothi Fragoso Primary Care Physician Encounter [facility] Date(s): 03/19/23 - 04/18/23 [facility] [address] [place] [address]- Allergies, Adverse Reactions, Alerts Substance Reaction Severity [...] 01/01/22 12:59:00 EDT, Route to Pharmacy Electronically, [facility]/pharmacy #[id number], Partial fill upon patient request [...] Personnel Name: Lincoln KLINE, Jyothi Fragoso Position: [facility] Outreach Member Role: PCP Address: Address: [address] [place] [address]- Care Team Related Persons Name: LORENA YUN Name: JULIÁN YUN Address: home [address] [place] [id number]
[2024-02-01 11:21] VITALS: BP 140/68; PULSE 68; RESP 15; O2SAT 96; BMI 32.7
--- NOTE | 2024-02-01 11:21 | A.OFFVIS_ITS ---
Vital Signs 02/01/24 11:21 Height 5 ft 8 in Weight 215 lb BMI 32.7 BP 140/68 H Blood Pressure Location Lt brachial Position Sitting Respiration 15 Pulse 68 Pulse Source Pulse Oximeter Pulse Oximetry (%) 96 Oxygen Delivery Method Room Air Intake Visit Reasons: Discussion of Other Procedure Options Allergies iodine [Iodine] Allergy (Severe, Verified 02/01/24 11:22) HIVES Penicillins Allergy (Severe, Verified 02/01/24 11:22) RASH sulfamethoxazole [From Septra] Allergy (Severe, Verified 02/01/24 11:22) RASH trimethoprim [From Septra] Allergy (Severe, Verified 02/01/24 11:22) RASH pravastatin Allergy (Unknown, Verified 02/01/24 11:22) Muscle Pain rosuvastatin Allergy (Unknown, Verified 02/01/24 11:22) Muscle Pain Seafood Allergy (Severe, Uncoded 02/01/24 11:22) HIVES Splenda Allergy (Unknown, Uncoded 02/01/24 11:22) Diarrhea Tetanus and Diphtheria Toxoid Allergy (Unknown, Uncoded 02/01/24 11:22) SWELLING Medication List - Last Reconciled 02/01/24 by Jessica Vargas LPN albuterol sulfate 90 mcg/actuation 2 puffs inhalation Q4H PRN aspirin (Adult Aspirin Regimen) 81 mg PO DAILY chlorthalidone 25 mg PO DAILY fluticasone propion-salmeterol 250-50 mcg/dose (Wixela Inhub) 1 inh inhalation Q12H gabapentin 400 mg PO QID lisinopril 40 mg PO DAILY lorazepam 1 mg PO Q8H PRN mecobalamin (vitamin B12) mcg PO metformin 500 mg PO BID montelukast 10 mg PO DAILY sildenafil 50 mg PO DAILY PRN HPI HPI Discussion of Other Procedure Options: Details: 68-year-old male who presents today to the office to discuss his questions and concerns about a potential cluneal nerve stimulator placement He inquired about the operations, risks, and benefits of the device, all of which were addressed to the patient's satisfaction. Past Procedures: 04/23/22: Right SIJ Innervation RFA ? 90% relief. 04/09/22: Left SIJ Innervation RFA ? 90% relief. [facility] Medical History (Updated 09/14/23 @ 10:28 by Conor Arroyo MD) Spinal stenosis Lumbar disc herniation Hypertension Hematuria Gout Diabetes Asthma Anxiety Anemia Abdominal aortic ectasia Review of Systems Const All systems reviewed & are unremarkable except as noted in HPI and below Physical Exam Vital Signs: Last Vital Signs Pulse 68 02/01/24 11:21 Resp 15 02/01/24 11:21 BP 140/68 H 02/01/24 11:21 Pulse Ox 96 02/01/24 11:21 Oxygen Delivery Method Room Air 02/01/24 11:21 BMI result Body Mass Index 32.7 General: Appears afebrile. Alert and oriented. Mood and affect appropriate. Follows and participates in conversation appropriately. Respiratory effort is unlabored. Able to transition from sit to stand unassisted. Ambulates with bilaterally normal heel strike and toe off. Results Reviewed Results Reviewed: No imaging is available for review. 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 He had some questions and concerns that I was able to address today in the office. He is interested in proceeding with a trial, so we will reinitiate the prior authorization process and proceed accordingly. Scribed for Dr. Arroyo by Sulaiman Zee, faculty i on call medical assistant, on 02/01/2024. I, Dr. Arroyo, have personally reviewed and agree with the information entered by the scribe. Coding Level of Care Code Est Pt Level 3 (84759) Diagnoses Cluneal neuropathy G58.8 Sacroiliac joint dysfunction M53.3
== END 2024-02-01 11:40 | disposition home or self-care (01) ==
LOC: HO.PMC 11:05
PROVIDERS: PCP Registered Nurse; Visit Provider Internal Medicine
DX: G58.8 Other specified mononeuropathies (principal); M53.3 Sacrococcygeal disorders, not elsewhere classified
CPT/HCPCS: 99213

== ENCOUNTER → 2024-02-01 11:05 | Outpatient (BNVA) | payer MEDICARE, OTHER, SELFPAY | PROVIDERS: PCP Registered Nurse; Visit Provider Internal Medicine | DX: G58.8 Other specified mononeuropathies (principal); M53.3 Sacrococcygeal disorders, not elsewhere classified | CPT/HCPCS: 99212 ==

== ENCOUNTER → 2024-04-20 11:26 | Day surgery (SDC) | payer MEDICARE, OTHER, SELFPAY ==
[2024-04-18 07:32] VITALS: BMI 32.7
--- NOTE | 2024-04-18 15:33 | HO.ANESPROP2 ---
HPI - Anesthesia Eval Consult details Narrative: 68yo M for Peripheral Nerve Stimulator Trial of Cluneal Nerve PMFSH Active Problems Active Problems: All Active Problems Cluneal neuropathy (Acute) Lumbar spondylosis (Acute) Sacroiliac joint dysfunction (Acute) Past Medical History Medical History (Updated 04/18/24 @ 15:38 by Janie Cooper NP) CKD (chronic kidney disease) Spinal stenosis Lumbar disc herniation Hypertension Hematuria Gout Diabetes Asthma Anxiety Anemia Abdominal aortic ectasia Meds Allergies Allergy/AdvReac Type Severity Reaction Status Date / Time iodine [Iodine] Allergy Severe HIVES Verified 02/01/24 11:22 Penicillins Allergy Severe RASH Verified 02/01/24 11:22 sulfamethoxazole Allergy Severe RASH Verified 02/01/24 11:22 [From ] trimethoprim [From ] Allergy Severe RASH Verified 02/01/24 11:22 pravastatin Allergy Unknown Muscle Pain Verified 02/01/24 11:22 rosuvastatin Allergy Unknown Muscle Pain Verified 02/01/24 11:22 Seafood Allergy Severe HIVES Uncoded 02/01/24 11:22 Splenda Allergy Unknown Diarrhea Uncoded 02/01/24 11:22 Tetanus and Diphtheria Toxoid Allergy Unknown SWELLING Uncoded 02/01/24 11:22 Home Medications ?Medication ?Instructions ?Recorded ?Confirmed ?Last Taken ?Type albuterol sulfate 90 mcg/actuation 2 puff inhalation Q4H PRN wheezing 03/24/22 02/01/24 Unknown History aerosol inhaler aspirin 81 mg tablet,delayed 81 mg PO DAILY 03/24/22 02/01/24 Unknown History release (Adult Aspirin Regimen) chlorthalidone 25 mg tablet 25 mg PO DAILY 03/24/22 02/01/24 Unknown History gabapentin 400 mg capsule 400 mg PO QID 03/24/22 02/01/24 Unknown History lisinopril 40 mg tablet 40 mg PO DAILY 03/24/22 02/01/24 Unknown History lorazepam 1 mg tablet 1 mg PO Q8H PRN anxiety 03/24/22 02/01/24 Unknown History mecobalamin (vitamin B12) 5,000 mcg PO 03/24/22 02/01/24 Unknown History mcg disintegrating tablet metformin 500 mg tablet 500 mg PO BID 03/24/22 02/01/24 Unknown History montelukast 10 mg tablet 10 mg PO DAILY 03/24/22 02/01/24 Unknown History sildenafil 50 mg tablet 50 mg PO DAILY PRN 03/24/22 02/01/24 Unknown History fluticasone 250 mcg-salmeterol 50 1 inh inhalation Q12H 09/14/23 02/01/24 Unknown History mcg/dose blistr powdr for inhalation (Raymond Matos) Exam Height,Weight and Vital Signs: Height 5 ft 8 in Weight 97.522 kg Pertinent Lab Results Pertinent Lab Results: CBC and BMP from [facility] 11/2023 ok except Bun/Creat elevated @ 27/1.56 Assessment and Plan Assessment Anesthesia Assessment: Chart Reviewed
[2024-04-20 12:13] VITALS: BMI 31.3
[2024-04-20 12:21] VITALS: BP 137/70; PULSE 67; RESP 16; TEMP 37.1; O2SAT 95
--- NOTE | 2024-04-20 13:28 | PC.NURSE ---
Dr. Arroyo at bedside for consent with patient- ascertained primary care sales representative for stimulator was not available for procedure and patient was cancelled.
[2024-04-20 13:58] LABS: MRSA Nasal PCR NEGATIVE (Negative); SA Nasal PCR NEGATIVE (Negative)
== END ==
LOC: HO.SSS 11:27
PROVIDERS: Registered Nurse Emergency; PCP Nurse Practitioner Family; Visit Provider Internal Medicine
DX: G58.8 Other specified mononeuropathies (principal); Z53.8 Procedure and treatment not carried out for other reasons
CPT/HCPCS: 87640; 87641; J0736

== ENCOUNTER 2024-04-27 13:39 | Day surgery (SDC) | payer MEDICARE, OTHER, SELFPAY ==
--- NOTE | ~2024-04-27 | FL_ITS ---
EXAMINATION: FL GUIDANCE ONLY HISTORY: cluneal nerve trial COMPARISON: None available. TECHNIQUE: Fluoroscopy time: 34.5 seconds. Cumulative Dose: 15.389 mGy. DAP: 4.4549 uGy-m2 (microgray-meter squared). Images: 2. FINDINGS: Images demonstrate placement of electrodes dorsal to the sacrum bilaterally. FL/FL guidance in OR IMPRESSION: Fluoroscopy during procedure. Please see procedure report for additional information. Electronically signed by: Gerardo Choudhary MD 05/04/2024 07:34 AM EST
[2024-04-27 13:49] VITALS: BP 146/63; PULSE 62; RESP 16; TEMP 37; O2SAT 98; BMI 31.5
[2024-04-27] MEDS: Lactated Ringers 1,000 ML 100 ML IVCONT (14:02)
[2024-04-27 14:10] LABS: Glucose, Whole Blood 95 mg/dL (60-115)
--- NOTE | 2024-04-27 14:57 | MHC.SHP ---
Pre-Procedural Eval Section A - 24 Hr Update-Section A only Date of Service: 04/27/24 The patient is an INPATIENT: No Changes since office visit: Yes Patient answered all questions The patient has been examined within 24 hours of the surgical procedure. The History & Physical has been completed within 30 days and I have reviewed it.: No Section B - Complete if H&P > 30 days Chief Complaint: Other specified mononeuropathies Relevant Family History (Specify if Yes): No Relevant Social History: None Present Medications: see Short Stay Collaborative assessment Medical History: No relevant PMH History of Previous Operations: No relevant previous surgery Allergies: Allergies Allergy/AdvReac Type Severity Reaction Status Date / Time iodine [Iodine] Allergy Severe HIVES Verified 04/20/24 12:10 Penicillins Allergy Severe RASH Verified 04/20/24 12:10 sulfamethoxazole Allergy Severe RASH Verified 04/20/24 12:10 [From ] trimethoprim [From ] Allergy Severe RASH Verified 04/20/24 12:10 pravastatin Allergy Unknown Muscle Pain Verified 04/20/24 12:10 rosuvastatin Allergy Unknown Muscle Pain Verified 04/20/24 12:10 Seafood Allergy Severe HIVES Uncoded 04/20/24 12:10 Splenda Allergy Unknown Diarrhea Uncoded 04/20/24 12:10 Tetanus and Diphtheria Toxoid Allergy Unknown SWELLING Uncoded 04/20/24 12:10 Review of Systems Sugical H&P ROS: Negative: Constitution, Cardiovascular and Respiratory Exam Surgical H&P Exam: Normal: HEENT, Normal: Heart and Normal: Lungs Plan Diagnosis/Plan: Unchanged I have reviewed the history and physical and performed a pertinent physical examination on my patient. No changes have occurred unless specified. Proceed with the bilateral middle cluneal nerve stimulator trial placement. Time Spent With Patient Time: Total time managing care of this patient today ____ minutes.
--- NOTE | 2024-04-27 14:57 | PM.OP ---
Brief Operative Note Date of Service: 04/27/24 Pre-op diagnosis: Cluneal neuropathy Post-op diagnosis: same Procedure: Middle cluneal nerve stimulator trial lead placement, bilateral Surgeon: Conor Arrooy MD Anesthesia: MAC Was an Supervisor Sewing Room used for this Procedure?: No Estimated blood loss (mL): 5 Pathology: none sent Condition: stable Disposition: PACU
--- NOTE | 2024-04-27 14:57 | W.PM.OPN ---
Operative Note Operative Note Date of Service: 04/27/24 Narrative: Preprocedure diagnosis: Cluneal neuropathy Postprocedure diagnosis: Same Procedure: Percutaneous trial of peripheral nerve stimulation of middle Cluneal Nerves, Bilateral After obtaining written consent, pre-procedure blood pressure and heart rate were stable and recorded in the nursing record. A peripheral IV was started. Antibiotics, clindamycin 900 mg, were given prior to the start of the procedure. The patient was positioned in prone position. The lumbosacral area was widely prepped with chloraprep and draped in sterile fashion. Using fluoroscopy, the needle entry location was estimated on each side of the lumbar area. The skin at the insertion site was anesthetized with 0.5% lidocaine. A 14 gauge coude needle was used as an introducer. The introducer was advanced subcutaneously along the length of the lumbar paraspinal muscles until contact was established with the sacrum. The introducer was then rotated and walked off the edge of the sacrum overlying the middle cluneal nerves. The stylet was removed. The electrode array was passed through the introducer using a tenting approach at a shallow angle. Fluoroscopy was used to confirm appropriate lead position. Stimulation was performed and good coverage was obtained. The leads were secured using steri-strips, Mastisol and tegaderms. The patient tolerated the procedure well. No complications were encountered. Following the procedure the patient's vital signs were stable. The patient was discharged home in good condition with post-procedural instructions. Time Out: Immediately prior to the procedure, the following was verbally confirmed that there is a signed consent form and that the correct patient, planned procedure, site and side are consistent with documentation and that necessary equipment and/or blood products are available prior to the start of the case. Complications: none EBL: <5 cc
--- NOTE | 2024-04-27 15:00 | P.CONAN_ITS ---
HPI - Anesthesia Eval Consult details Narrative: 69 yo male patient for peripheral nerve stimulator trial of cluneal nerve. Jamila ent was here last week but procedure was postponed as Rep not available PMF Active Problems Active Problems: All Active Problems (Updated 04/18/24 @ 15:38 by Janie Cooper NP) Cluneal neuropathy (Acute) Lumbar spondylosis (Acute) Sacroiliac joint dysfunction (Acute) Asthma- Uses maintenance inhalers as prescribed daily + rescue albuterol 3-4 times a day Past Medical History Medical History CKD (chronic kidney disease) Spinal stenosis Lumbar disc herniation Hypertension Hematuria Gout Diabetes Asthma Anxiety Anemia Abdominal aortic ectasia Family History Family history of problems with anesthesia: No Surgical History History of Problems with Anesthesia: No Social History Social History Are you a primary daycare manager to a significant other at home: No Do you presently have visiting nurse or other home services: No Patient Tobacco Use Status: Former Tobacco user Substance Use Frequency: Daily Have you been hit, kicked, punched, or otherwise hurt by someone within the past year? If so, by whom?: No Are you DNR?: No Advance Directives: No Advance Directives Information Provided: Yes Recently lost weight without trying: No Meds Allergies Allergy/AdvReac Type Severity Reaction Status Date / Time iodine [Iodine] Allergy Severe HIVES Verified 04/20/24 12:10 Penicillins Allergy Severe RASH Verified 04/20/24 12:10 sulfamethoxazole Allergy Severe RASH Verified 04/20/24 12:10 [From ] trimethoprim [From ] Allergy Severe RASH Verified 04/20/24 12:10 pravastatin Allergy Unknown Muscle Pain Verified 04/20/24 12:10 rosuvastatin Allergy Unknown Muscle Pain Verified 04/20/24 12:10 Seafood Allergy Severe HIVES Uncoded 04/20/24 12:10 Splenda Allergy Unknown Diarrhea Uncoded 04/20/24 12:10 Tetanus and Diphtheria Toxoid Allergy Unknown SWELLING Uncoded 04/20/24 12:10 Active Medications: Current Medications Albuterol Sulfate (Albuterol Sulfate (0.083%) 2.5 Mg/3 Ml Vial.Neb) 2.5 mg INHALE ONCE PRN PRN Reason: Shortness of Breath/Wheezing Lactated Ringer's (Lr) 1,000 mls @ 100 mls/hr IVCONT .Q10H ISA Last Admin: 04/27/24 14:02 Dose: 100 mls/hr Home Medications ?Medication ?Instructions ?Recorded ?Confirmed ?Last Taken ?Type albuterol sulfate 90 mcg/actuation 2 puff inhalation Q4H PRN wheezing 03/24/22 04/20/24 04/20/24 History aerosol inhaler aspirin 81 mg tablet,delayed 81 mg PO DAILY 03/24/22 04/20/24 Unknown History release (Adult Aspirin Regimen) chlorthalidone 25 mg tablet 25 mg PO DAILY 03/24/22 04/20/24 04/20/24 History gabapentin 400 mg capsule 400 mg PO QID 03/24/22 04/20/24 04/27/24 History lisinopril 40 mg tablet 40 mg PO DAILY 03/24/22 04/20/24 04/27/24 History lorazepam 1 mg tablet 1 mg PO Q8H PRN anxiety 03/24/22 04/20/24 Unknown History mecobalamin (vitamin B12) 5,000 mcg PO 03/24/22 02/01/24 Unknown History mcg disintegrating tablet metformin 500 mg tablet 500 mg PO BID 03/24/22 04/20/24 04/27/24 History montelukast 10 mg tablet 10 mg PO DAILY 03/24/22 04/20/24 04/20/24 History sildenafil 50 mg tablet 50 mg PO DAILY PRN Edema 03/24/22 04/20/24 Unknown History fluticasone 250 mcg-salmeterol 50 1 inh inhalation Q12H 09/14/23 04/20/24 04/27/24 History mcg/dose blistr powdr for inhalation (Wixela Inhub) Exam Height,Weight and Vital Signs: Height 5 ft 8 in Weight 93.894 kg Last Vital Signs Temp 98.6 F 04/27/24 13:49 Pulse 62 04/27/24 13:49 Resp 16 04/27/24 13:49 BP 146/63 H 04/27/24 13:49 Pulse Ox 98 04/27/24 13:49 O2 Del Method Room Air 04/27/24 13:49 Pertinent Lab Results Pertinent Lab Results: Laboratory Tests 04/27/24 14:05 POC Glucose 95 Airway Mallampati Class: II TM Dist: >3cm Neck ROM: Full Loose/Missing/Broken Teeth: Yes (Edentulous) Heart: RRR Lungs: CTAB. Diminished Assessment and Plan Assessment Anesthesia Assessment: Anesthesia Plan Discussed and Chart Reviewed Final Anesthetic Review Family History of Problems with Anesthesia: No History of Problems with Anesthesia: No NPO: Yes ASA Class: III Final Preanesthetic Review: No Changes in Pt Med Stat, Meds/Allgs Chart Review ed, Consent Obtained/Reviewed and Anes Risks/Benef Reviewed Patient Risk: Intermediate Procedure Risk: Low Assessment/Block/Sedation in SS: Assess/Block/Sedation-SS Anesthetic Plan Anesthetic Plan: MAC: Disposition: Standard PACU
--- OUTSIDE RECORDS SUMMARY | 2024-04-27 15:49 | XMS_ITS | Patient Health Record ---
Author Organization [facility] Address [address] [place] [address] Care Team Providers Care Gasoline Service Attendant Name Role Phone Vijay Hampton MD Primary Care Provider Gerardo Saenz [phone] ALLERGIES Allergen (clinical drug ingredient) Drug/Non Drug Allergy documented on EMR Reaction Allergy Type Onset Date Status Substance with sulfonamide structure and antibacterial mechanism of action (substance) sulfa (uncoded) Unknown Allergy Active Tetanus (uncoded) Unknown Allergy Ac tive Iodine (uncoded) Unknown Allergy Act sobeida Septra (uncoded) Unknown Allergy Act sobeida PCN (uncoded) Unknown Allergy Active REASON FOR REFERRAL No Information MEDICATIONS Medication SIG (Take, Route, Fr equency, Duration) Notes Start Date End Date Status Lisinopril Active Allopurinol Active MoviPrep 100 GM as directed Orally o nce for 1 dose 04/15/2011 Active ProAir HFA 04/06/2024 04/06/2024 Active Ativan Active Januvia Active Aspir-81 Active Advair Diskus Active Albuterol Sulfate HFA Active Lunesta Active predniSONE Active SOCIAL HISTORY Sex Assigned At : Social History Observation Description Sex Assigned At Unknown PROBLEMS Problem Type ICD Code Onset Dates Problem Status W/U Status Risk SNOMED Code Notes Problem Blood in stool (578.1) Active confirmed Blood in stool (294152011) Problem Unspecified constipation (564.00) Active confirmed Constipation (97598487) Problem Other symptoms involving digestive system (787.99) Active confirmed Digestive syste m symptom (027594532) PLAN OF TREATMENT Future Test Test Name Order Date COLONOSCOPY 04/15/2011 Insurance Providers Payer Name Payer Address Payer Phone Subscriber Number Group Number Insured Name Patient Relationship to Insured Coverage Start Date Coverage End Date [employer] [address] [address] [place] [id number] [place] Self - patient is the insured MEDICAL (GENERAL) HISTORY Medical History History ICD Code hypertension gout diabetes asthma he denies any history of SD, stroke, nor kidney disease Surgical History Surgery Date(Month/Year) hydrocele and orchiectomy wrist surgery surgery for a broken nose hemorrhoid surgery
[2024-04-27 16:21] VITALS: BP 137/64; PULSE 59; RESP 18; TEMP 36.4; O2SAT 95
[2024-04-27 16:36] VITALS: BP 131/71; PULSE 56; RESP 18; TEMP 36.7; O2SAT 96
== END 2024-04-27 17:09 | disposition home or self-care (01) ==
PROVIDERS: Registered Nurse Emergency; PCP Nurse Practitioner Family; Visit Provider Internal Medicine
PROC: (CPT 64555; principal; 2024-04-27 15:00)
DX: G58.8 Other specified mononeuropathies (principal); M53.3 Sacrococcygeal disorders, not elsewhere classified; E11.9 Type 2 diabetes mellitus without complications; I10 Essential (primary) hypertension; M10.9 Gout, unspecified; Z79.82 Long term (current) use of aspirin; Z79.84 Long term (current) use of oral hypoglycemic drugs; Z79.899 Other long term (current) drug therapy
CPT/HCPCS: 64555 ×2; 82947; 87081; 87640; 87641; C1897; J0736; J2003; J2250; J2704; J3010

== ENCOUNTER → 2024-04-27 13:39 | Outpatient (BNV) | payer MEDICARE, OTHER, SELFPAY | PROVIDERS: PCP Nurse Practitioner Family; Visit Provider Internal Medicine | DX: G58.8 Other specified mononeuropathies (principal) | CPT/HCPCS: 64555 ==

== ENCOUNTER 2024-05-04 10:05 | Outpatient (AMB) | payer MEDICARE, OTHER, SELFPAY ==
--- NOTE | 2024-05-04 10:13 | A.OFFVIS_ITS ---
Vital Signs 05/04/24 10:15 Height 5 ft 8 in Weight 215 lb BMI 32.7 BP 146/68 H Blood Pressure Location Lt brachial Position Sitting Respiration 16 Pulse 70 Pulse Source Pulse Oximeter Pulse Oximetry (%) 96 Oxygen Delivery Method Room Air Intake Visit Reasons: S/p Curonix B/l Cluneal Nerve PNS 04/27/24 Physician Extender Required: No Allergies iodine [Iodine] Allergy (Severe, Verified 05/04/24 10:18) HIVES Penicillins Allergy (Severe, Verified 05/04/24 10:18) RASH sulfamethoxazole [From Septra] Allergy (Severe, Verified 05/04/24 10:18) RASH trimethoprim [From Septra] Allergy (Severe, Verified 05/04/24 10:18) RASH pravastatin Allergy (Unknown, Verified 05/04/24 10:18) Muscle Pain rosuvastatin Allergy (Unknown, Verified 05/04/24 10:18) Muscle Pain Seafood Allergy (Severe, Uncoded 05/04/24 10:18) HIVES Splenda Allergy (Unknown, Uncoded 05/04/24 10:18) Diarrhea Tetanus and Diphtheria Toxoid Allergy (Unknown, Uncoded 05/04/24 10:18) SWELLING Medication List - Last Reconciled 05/04/24 by Jessica Vargas LPN albuterol sulfate 90 mcg/actuation 2 puffs inhalation Q4H PRN allopurinol 50 mg PO DAILY chlorthalidone 25 mg PO DAILY fluticasone propion-salmeterol 250-50 mcg/dose (Wixela Inhub) 1 inh inhalation Q12H gabapentin 400 mg PO QID lisinopril 40 mg PO DAILY lorazepam 1 mg PO Q8H PRN mecobalamin (vitamin B12) mcg PO metformin 500 mg PO BID montelukast 10 mg PO DAILY sildenafil 50 mg PO DAILY PRN HPI HPI S/p Curonix B/l Cluneal Nerve PNS 04/27/24: Details: History of Present Illness The patient is a 69-year-old male presenting with chronic pain following lumbar spinal surgery, known as postlaminectomy pain syndrome. Initially, he experienced significant relief from sacroiliac denervation via radiofrequency ablation (RFA), achieving 90% pain reduction for over a year. Recently, he underwent a trial of clunial nerve stimulation, which unfortunately did not alleviate his symptoms. This trial aimed to manage pain effectively with a more permanent solution but proved ineffective, as he reported no improvement. The sacroiliac joint dysfunction has been a significant source of his discomfort. The patient's brother has similar pain issues, underscoring a potential familial predisposition. Current treatment considerations focus on revisiting RFA, given its prior success, despite insurance coverage challenges. Pain Description - Chronic lower back pain following laminectomy. - Pain localized mainly in the sacroiliac joint regions. - Relief previously obtained through radiofrequency ablation for sacroiliac joint denervation, lasting over a year. - Recent clunial nerve stimulation trial did not provide relief. - Possible exacerbation of pain with certain physical activities. Physical Exam - Musculoskeletal- Examination focused on the lumbar region; lead removed intact; specifics not detailed. Pain Management - Affect: Chronic pain impacting psychological wellbeing; exploration of additional pain management strategies. - Analgesia: Previous relief with sacroiliac joint RFA; no relief from the clunial nerve stimulator trial. - Adverse Effects: No specific adverse effects from current treatments discussed. - Activities of Daily Living: Pain affects physical activity; past RFA allowed for significant functional improvement. - Aberrant Drug Related Behaviors: Not discussed; assumed managed per guidelines. [facility] Medical History CKD (chronic kidney disease) Spinal stenosis Lumbar disc herniation Hypertension Hematuria Gout Diabetes Asthma Anxiety Anemia Abdominal aortic ectasia Social History Are you a primary pediatric care coordinator to a significant other at home: No Do you presently have visiting nurse or other home services: No Patient Tobacco Use Status: Former Tobacco user Physical Exam Vital Signs: Last Vital Signs Pulse 70 05/04/24 10:15 Resp 16 05/04/24 10:15 BP 146/68 H 05/04/24 10:15 Pulse Ox 96 05/04/24 10:15 Oxygen Delivery Method Room Air 05/04/24 10:15 BMI result Body Mass Index 32.7 Assessment & Plan Assessment & Plan (1) 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 - Potential exploration of an intrathecal pump for postlaminectomy pain syndrome management, contingent on the outcome of the RFA. - Re-evaluation of treatment strategy if the proposed approaches do not lead to significant pain relief. Patient was informed and verbally consented to the use of an ambient scribe for clinic note documentation during this visit. Discussion Notes In our discussion, I reviewed the patient's lack of relief from the clunial nerve stimulator trial and emphasized the need to explore alternative strategies. We agreed to pursue another radiofrequency ablation for his sacroiliac joint dysfunction, referencing the 90% relief it previously provided. I explained the insurance approval process and potential hurdles based on past experiences. We also considered the possibility of an intrathecal pump should RFA not be viable. The patient expressed understanding and sounded optimistic about repeating the successful RFA procedure while exploring new options if necessary. Patient Instructions - Await notification regarding insurance approval for radiofrequency ablation. - Consider discussing additional options with family for broader support. - Follow up as scheduled to monitor progress and reassess the pain management plan. Coding Level of Care Code Est Pt Level 3 (89292) Diagnoses Cluneal neuropathy G58.8 Lumbar spondylosis M47.816
[2024-05-04 10:15] VITALS: BP 146/68; PULSE 70; RESP 16; O2SAT 96; BMI 32.7
--- OUTSIDE RECORDS SUMMARY | 2024-05-04 11:57 | XMS_ITS | Encounter Summary ---
Author Organization [facility] Address [phone] [facility] [place] [address] Care Team Providers Care Clinical Nursing Professor Name Role Phone Jyothi Stark [facility] Primary Care Provider Jyothi Stark [facility] Primary Care Provider Carlos Bullock MD Unavailable [phone] Carlos Bullock MD Primary Care Provider [phone] Jyothi Stark [facility] Primary Care Provider Jose D Almeida MD Unavailable Carlos Bullock MD Unavailable [phone] Conor Arroyo MD Unavailable Carlos Bullock MD Primary Care Provider [phone] Shaista Magaña [facility] Primary Care Provid er Reason for Referral * MRI/CAT Scan - Closed Specialty Diagnoses / Procedures Referred By Contac t Referred To Contact Radiology Diagnoses Arthrodesis status Procedures CT Lumbar Spine Cody Rojas PA [address] [place] [address] Referral ID Status Reason Start Date Expiration Date Visits Re quested Visits Authorized [id number] Closed 05/06/2018 05/06/2019 1 1 Encounter Details Date Type Department Care Team ([facility] st Contact Info) Description 05/06/2018 Ancillary Orders Virtual Department [address] [place] [address] Cody Rojas PA [address] [place] [address] [email or web address] Arthrodesis status Social History Tobacco Use Types Packs/Day Years Used Date Smoking Tobacco: Former Cigarettes 2 39 0 04/22/1976 - 2005 Smokeless Tobacco: Never Alcohol Use Standard Drinks/Week Comments No 0 (1 standard drink = 0.6 oz pur e alcohol) Sex and Gender Information Value Date Recorded Sex Assigned at Male 12/01/2017 10:50 AM EDT Gender Identity Male 12/01/2017 10:50 AM EDT Sexual Orientation Straight 12/01/2017 10 :50 AM EDT documented as of this encounter Plan of Treatment Upcoming Encounters Date Type Department Care Team (Late st Contact Info) Description 07/06/2024 10:30 AM EDT Office Visit [facility] [address] [place] [address] [place] [address] Shaista Magaña, MAE [address] [facility], [address] [place] [address] [email or web address] documented as of this encounter Results * CT LUMBAR SPINE WITHOUT CONTRAST (05/11/2018 9:39 AM EST) Anatomical Region Laterality Modality L-spine Computed Tomogra phy 05/11/2018 11:4 6 AM EST Impressions 05/11/2018 7:26 PM EST Changes of posterior spinal fusion at L4-5 with intervertebral cage subsidence. ?? Mild retropulsion on the left contacts the descending nerve root. TOTAL CTDIvol: 46.50 mGy POS [id number] Edited by: Aubrie Alvarez on 05/11/2018 12:17 PM Narrative 05/11/2018 7:26 PM EST COMPARISON: ??None, correlation made with radiography 2018 and MRI 04/17/2017 TECHNIQUE: ??Axial imaging through the lumbar spine performed without IV contrast. ??Coronal and sagittal reformatted images are generated. Automated exposure control utilized. FINDINGS: Bones are osteopenic. ??Bone graft harvest site at the left medial ilium. ??Extensive atherosclerotic calcifications. ??No aortic aneurysm. L2-3: Moderate generalized disc bulging again noted. ??Moderate facet arthropathy. ??Mild neural foraminal narrowing on the right. ??No significant left neural foraminal narrowing. ??Mild to moderate narrowing of the spinal canal as before. L3-4: Mild foraminal disc bulging. ??Moderate facet arthropathy. ??Moderate neural foraminal narrowing on the left and mild on the right. ??No significant spinal canal stenosis. L4-L5: Changes of posterior fusion with bilateral interpedicular screws. ??Hardware is intact. ??The left screws approach the anterior cortical margin of the vertebral bodies. ??Intervertebral spacer cage positioned just left of midline has subsided into the L5 vertebral body with approximately 6 mm loss of vertebral body height. ??Milder subsidence into the inferior L4 vertebral body. ??Very mild retropulsion which contacts the left descending nerve root. There is now slight retrolisthesis of L4. ?? Moderate to severe facet arthropathy on the right. ??Decreasing left neural foraminal narrowing. ??Right neural foramen is severely narrowed as before. ??No significant spinal canal stenosis. L5-S1: Generalized disc bulging with a tiny central disc protrusion. ??Moderate facet arthropathy. ??Moderate neural foraminal narrowing as before. ??No significant spinal canal stenosis. Bones are osteopenic. ??Bone graft harvest site at the left medial ilium.. ??Extensive after chronic calcifications. ??No aortic aneurysm. Procedure Note Divya George MD - 05/11/2018 COMPARISON: None, correlation made with radiography 2018 and MRI04/17/2017 TECHNIQUE: Axial imaging through the lumbar spine performed without IVcontrast. Coronal and sagittal reformatted images are generated.Automated exposure control utilized. FINDINGS: Bones are osteopenic. Bone graft harvest site at the left medial ilium.Extensive atherosclerotic calcifications. No aortic aneurysm. L2-3: Moderate generalized disc bulging again noted. Moderate facetarthropathy. Mild neural foraminal narrowing on the right. Nosignificant left neural foraminal narrowing. Mild to moderate narrowingof the spinal canal as before. L3-4: Mild foraminal disc bulging. Moderate facet arthropathy. Moderateneural foraminal narrowing on the left and mild on the right. Nosignificant spinal canal stenosis. L4-L5: Changes of posterior fusion with bilateral interpedicular screws.Hardware is intact. The left screws approach the anterior cortical marginof the vertebral bodies. Intervertebral spacer cage positioned just leftof midline has subsided into the L5 vertebral body with approximately 6 mmloss of vertebral body height. Milder subsidence into the inferior N0xbwpujfer body. Very mild retropulsion which contacts the left descendingnerve root. There is now slight retrolisthesis of L4. Moderate to severe facet arthropathy on the right. Decreasing left neuralforaminal narrowing. Right neural foramen is severely narrowed as before.No significant spinal canal stenosis. L5-S1: Generalized disc bulging with a tiny central disc protrusion.Moderate facet arthropathy. Moderate neural foraminal narrowing asbefore. No significant spinal canal stenosis. Bones are osteopenic. Bone graft harvest site at the left medial ilium..Extensive after chronic calcifications. No aortic aneurysm. IMPRESSION: Changes of posterior spinal fusion at L4-5 with intervertebral cagesubsidence. Mild retropulsion on the left contacts the descending nerveroot. TOTAL CTDIvol: 46.50 mGy POS [id number] Edited by: Aubrie Alvarez on 05/11/2018 12:17 [address] IM[address] XSPECIALTY O RDERABLES documented in this encounter Visit Diagnoses Diagnosis Arthrodesis status Arthrodesis status documented in this encounter Care Teams Clinical Nursing Professor Relationship Specialty Start Date End Date Jyothi Stark CNP [address] [place] [address] PCP - General Internal Medicine 12/01/17 03/08/19 Jyothi Stark CNP [address] [place] [address] [email or web address] PCP - General Internal Medicine 03/09/19 11/16/19 Carlos Bullock MD [address] [place] [address] [email or web address] PCP - General Internal Medicine 11/17/19 11/21/19 Jyothi Stark, MAE [address] [place] [address] [email or web address] PCP - General Internal Medicine 11/22/19 09/08/22 Carlos Bullock MD [address] [place] [address] [email or web address] PCP - General Internal Medicine 09/09/22 11/10/22 Shaista Magaña CNP [address] [place] [address], [address] [place] [address] [email or web address] PCP - General Family Medicine 11/11/22 Carlos Bullock MD [address] [place] [address] [email or web address] Insurance Assigned Provider 07/13/19 04/14/20 Jose D Almeida MD [address] [place] [address] [email or web address] Ophthalmology 12/05/20 Carlos Bullock MD [address] [place] [address] Insurance Assigned Provider 07/11/23 04/11/24 Conor Arroyo MD [address] [place] [id number] Internal Medicine 07/16/22 documented as of this encounter Additional Source Comments The information contained in this document represents components of the legal health record. It is not the complete legal health record.[facility]
--- OUTSIDE RECORDS SUMMARY | 2024-05-04 11:57 | XMS_ITS | Patient Health Record ---
Author Organization [facility] Address [address] [place] [address] Care Team Providers Care Puncher And Fastener Name Role Phone Vijay Hampton MD Primary Care Provider Gerardo Saenz [phone] ALLERGIES Allergen (clinical drug ingredient) Drug/Non Drug [...] stool (578.1) Active confirmed Blood in stool (235288860) Problem Unspecified constipation (564.00) Active confirmed Constipation (52525454) Problem Other symptoms involving digestive system (787.99) Active confirmed Digestive syste m symptom (981264162) PLAN OF TREATMENT Future Test Test Name Order Date COLONOSCOPY 04/15/2011 Insurance Providers Payer Name Payer Address Payer Phone Subscriber Number Group Number Insured Name Patient Relationship to Insured Coverage Start Date Coverage End Date [employer] [place] [address] [address] [place] [id number] Self - patient is the insured MEDICAL (GENERAL) HISTORY Medical History History ICD Code hypertension gout diabetes asthma he denies any history of CT, stroke, nor kidney disease Surgical History Surgery Date(Month/Year) hydrocele and orchiectomy wrist surgery surgery for a broken nose hemorrhoid surgery
--- OUTSIDE RECORDS SUMMARY | 2024-05-04 11:58 | XMS_ITS | Encounter Summary ---
Author Organization [facility] Address [phone] [place] [address] Care Team Providers Care Machine Fitter Name Role Phone Jose D Almeida MD Unavailable Carlos Bullock MD Unavailable [phone] Conor Arroyo MD Unavailable Shaista Magaña CNP Primary Care Provid er Reason for Visit * Reason Comments Medication Refill Encounter Details Date Type Department Care Team (Late st Contact Info) Description 03/31/2024 Refill [facility] [address] [place] [address] Shaista Magaña, MAE [address] [facility], [address]nd [place] [address] [email or web address] Medication Refill Social History Tobacco Use Types Packs/Day Years Used Date Smoking Tobacco: Former Cigarettes 2 39 0 04/22/1976 - 2005 Smokeless Tobacco: Never Alcohol Use Standard Drinks/Week Comments Not Currently 0 (1 standard drink = 0.6 oz pur e alcohol) Education Answer Date Recorded Are you interested in more education? Not on liliane e 08/01/2022 Are you concerned about learning? Not on file 08/01/2022 No 08/01/2022 No 08/01/2022 Digital Access Answer Date Recorded No 09/01/2022 No 09/01/2022 Reliable internet access at home? Not on file 09/01/2022 Device with a working camera? Not on file Intimate Partner Violence Answer Date R ecorded Denied Basic Needs Not on file 11/24/2022 In the past 12 months have y ou been in a relationship with a person who hurts, threatens, or tries to control you? No 11/24/2022 Worried food would run out Not on file 11/24 In the past 12 months have y ou been in a relationship with a person who hurts, threatens, or tries to control you? No 11/24/2022 Sex and Gender Information Value Date Recorded Sex Assigned at Male 12/01/2017 10:50 AM EDT Gender Identity Male 12/01/2017 10:50 AM EDT Sexual Orientation Straight 12/01/2017 10 :50 AM EDT documented as of this encounter Plan of Treatment Upcoming Encounters Date Type Department Care Team (Late st Contact Info) Description 07/06/2024 10:30 AM EDT Office Visit [facility] [address] [place] [address] [place] [address] Shaista Magaña CNP [address] [place] [address] [email or web address] documented as of this encounter Visit Diagnoses Diagnosis IRVING (generalized anxiety disorder) Generalized anxiety disorder documented in this encounter Additional Health Concerns Assessment Noted Time PHQ-2 Depression Total Score: 0 07/02/19 24 2:21 PM EDT documented as of this encounter Care Teams Machine Fitter Relationship Specialty Start Date End Date Shaista Magaña CNP [address] [place] [address] PCP - General Family Medicine 11/11/22 Jose D Almeida MD [email or web address] Ophthalmology 12/05/20 Carlos Bullock MD [address] [place] [address] [email or web address] Insurance Assigned Provider 07/11/23 04/11/24 Conor Arroyo MD [address] [place] [address] [address] [place] [address] Internal Medicine 07/16/22 documented as of this encounter Additional Source Comments The information contained in this document represents components of the legal health record. It is not the complete legal health record.[facility]
--- OUTSIDE RECORDS SUMMARY | 2024-05-04 11:58 | XMS_ITS | Clinical Summary ---
Author Organization [facility] Address [phone] [facility] [place] [address] Care Team Providers Care Sound Equipment Mechanic Name Role Phone Jose D Almeida MD Unavailable Conor Arroyo MD Unavailable Shaista Magaña [facility] Primary Care Provid er Allergies Active Allergy Reactions Criticality Noted Date Comments Colchicine Diarrhea Low 04/22/2018 Iodine Hives Medium 06/02/2017 Other 12/04/2023 Other Reaction(s): SPLENDA Penicillins Rash Low 06/02/2017 Sulfamethoxazole-Trimet hoprim Hives Medium 06/02/2017 Shellfish Containing Products Hives Medium 06/02/2017 Rfgegop-Ugj-Jgg Reductase Inhibitors Other (See Comments) Medium 06/02/2017 Muscle pain Sucralose Diarrhea Low 10/20/2018 Sulfa (Sulfonamide Antibiotics) Unknown 07/03/2023 Tetanus And Diphther. Tox (Pf) Rash Low 06/02/2017 Medications Medication Sig Dispensed Refills Start Date End Date Status clotrimazole (LOTRIMIN) 1 % cream Apply topically daily. Active cholecalciferol (VITAMIN D3) 1,000 unit tablet Take 1,000 Units by mouth daily. Active miconazole 2 % powder Apply 1 application topically as needed for itching. Active ASCORBIC ACID WITH FREDERIC HIPS 500 MG tablet Take 500 mg by mouth 2 (two) times a day. 3 8 Active VITAMIN K2 ORAL Take 100 mcg by mouth daily. Active VITAMIN B-12 1000 MCG tabletIndications: B12 deficiency Take 1 tablet (1,000 mcg total) by mouth daily. 90 tablet 3 0 Active arnica 20 % Tinc Apply topically. Ac tive aspirin (ASPIR-81) 81 MG EC tablet Take 81 mg by mouth daily. Active clindamycin (CLEOCIN T) 1 % lotionIndications: Nipple infection Apply topically 2 (two) times a day. To chest 60 mL 1 4 Active lisinopril (PRINIVIL,ZESTRIL) 40 MG tabletIndications: Essential hypertension,Medic ation refill take 1 tablet by mouth every day 90 tablet 1 4 Active metFORMIN (GLUCOPHAGE) 500 MG tabletIndications: Diabetes mellitus take 1 tablet by mouth twice a day with food 180 tablet 3 4 Active montelukast (SINGULAIR) 10 mg tabletIndications: Asthma Take 1 tablet (10 mg total) by mouth nightly at bedtime. 90 tablet 3 4 Active ketoconazole (NIZORAL) 2 % shampooIndications :Itchy scalp Apply topically 2 (two) times a week. Apply to damp skin, lather, leave on 5 minutes, and rinse. 120 mL 4 Active allopurinol (ZYLOPRIM) 100 MG tabletIndications: Acute idiopathic gout of left ankle Take 0.5 tablets (50 mg total) by mouth daily. 45 tablet 1 4 Active albuterol 90 mcg/actuation inhalerIndications :Mild persistent asthma without complication Inhale 2 puffs into the lungs every 4 (four) hours as needed for wheezing or shortness of breath/dyspnea. 18 g 3 4 Active sildenafiL (VIAGRA) 50 mg tabletIndications: Erectile dysfunction due to diseases classified elsewhere Take 1 tablet (50 mg total) by mouth daily as needed. 18 tablet 1 4 Active oxyCODONE 5 MG immediate release tabletIndications: Acute idiopathic gout of left ankle Take 0.5 tablets (2.5 mg total) by mouth every 6 (six) hours as needed (severe joint pain/gout flare). 5 tablet 4 Active fluticasone propion-salmeteroL (WIXELA INHUB) 250-50 mcg/dose DISKUSIndications: Asthma INHALE 1 PUFF BY MOUTH TWICE A DAY 60 each 11 4 Active chlorthalidone (HYGROTON) 25 MG tabletIndications: Essential hypertension,Medic ation refill TAKE 1 TABLET (25 MG TOTAL) BY MOUTH DAILY. 90 tablet 4 Active gabapentin (NEURONTIN) 400 MG capsuleIndications :Lumbosacral spondylolysis TAKE 1 CAPSULE BY MOUTH 4 TIMES A DAY. 360 capsule 4 Active LORazepam (ATIVAN) 1 MG tabletIndications: IRVING (generalized anxiety disorder) TAKE 1 TABLET BY MOUTH EVERY 8 HOURS NEEDED FOR ANXIETY 84 tablet 5 Active LORazepam (ATIVAN) 1 MG tabletIndications: IRVING (generalized anxiety disorder) TAKE 1 TABLET BY MOUTH EVERY 8 HOURS NEEDED FOR ANXIETY 84 tablet 4 04/29/19 25 Discontinued Active Problems Problem Noted Date Diagnosed Date Tremor 12/04/2023 Assessment & Plan (01/04/2024 12:59 PM EDT): Resting and intention tremor suspicious for early-stage Parkinson's disease, no worse but also has not improved. Labs were non-revealing. Scheduled with neurology (Dr Diggs) in < 3 months to discuss further workup and/or treatment. Assessment & Plan (12/04/2023 5:44 PM EDT): The tremors could be due to essential tremor or early-stage Parkinson's disease. There are no medications in his current regimen that could cause these symptoms. Labs will be ordered to check his B12 and electrolyte levels. A referral to a neurologist will be made for further evaluation, he would prefer the [facility] office if possible. Itchy scalp 12/04/2023 Assessment & Plan (12/04/2023 5:39 PM EDT): His scalp appears slightly irritated, but there are no clear signs of infection. The symptoms suggest seborrheic dermatitis, which can cause dandruff, itching, and dry skin. There are no indications of fleas or mites. A prescription for ketoconazole shampoo was provided, to be used twice a week. He should lather the shampoo, leave it on for 5 minutes, then rinse. Localized swelling of left lower leg 12/04/2023 Assessment & Plan (12/04/2023 5:46 PM EDT): Dependent edema, worse in the left leg than right leg. A referral to a vascular specialist will be made for further evaluation of his leg swelling, which is likely due to a circulation issue, possibly varicose veins. Encouraged pt to elevate his leg when at rest and consider compression stocking use. Neg naresh's, low suspicion DVT as pt reports asymmetry is chronic. Red flags/ED precautions reviewed. Gout of left ankle 12/04/2023 Overview (12/04/2023): When I woke up I could not put any weight on my left foot/ankle Assessment & Plan (01/04/2024 12:55 PM EDT): His uric acid level is elevated at 8.2, with the target being below 6. His gout flare last month has now resolved. Allopurinol 50 mg daily, has been prescribed to manage this. Will monitor uric acid levels. He was advised to avoid foods that may trigger gout flare-ups. Assessment & Plan (12/04/2023 5:39 PM EDT): He experienced a significant gout flare-up in his left ankle, which was treated in the emergency room 12/01/23 with ibuprofen and 2.5 mg of oxycodone. He was also given prednisone for inflammation. A uric acid test will be added to his labs next month. He was advised to avoid foods that may trigger gout flare-ups. For future mild gout flare-ups, he can take ibuprofen as needed. He prefers ibuprofen to naproxen or indomethacin which were also discussed. He will let us know if he experiences further gout symptoms, if recurrent a resuming allopurinol may be considered presuming renal tolerance. Lumbar spondylosis 07/03/2023 Left hip pain 07/03/2023 Assessment & Plan (07/03/2023 1:17 PM EDT): C/o new onset left hip pain for a few weeks. In the setting of left foot drop and contralateral chronic knee pain. Atraumatic, walking normally, bony injury unlikely. Possible underlying OA, consider obtaining baseline x-ray images, none available for review. Discussed sx most c/w GTPS or hip bursitis. Discussed management with rest/activity modification, gentle ROM and gradual return to normal activities, avoid exacerbating movements. Recommend Tylenol OTC as needed for pain relief. Topical lidocaine gel or patches may also help. If sx worsen or persist, consider orthopedics referral for consideration of steroid injection. Not interested in returning to physical therapy. Constipation 12/01/2022 12/01/2022 Chronic bilateral low back pain without sciatica 12/01/2022 Assessment & Plan (01/04/2024 12:58 PM EDT): Chronic lumbar back pain with left foot drop, walks with a cane and wears a back brace. History of a lumbar fusion and then a revision. Did 3-4 months of physical therapy which did help with his core strength etc. Declines return to PT. Can sit without pain but then when he gets up he has to stretch things out, feels very stiff. The top of the left foot is numb, no new nerve symptoms. Recently seen by [facility] pain clinic who recommended a spinal cord stimulator, which he ultimately decided against. Assessment & Plan (07/03/2023 1:20 PM EDT): Chronic lumbar back pain with left foot drop, walks with a cane and wears a back brace. History of a lumbar fusion and then a revision. Did 3-4 months of physical therapy which did help with his core strength etc. Declines return to PT. Can sit without pain but then when he gets up he has to stretch things out, feels very stiff. The top of the left foot is numb, no new nerve symptoms. Asking if he should see a surgeon again, we discussed I can't confidently say they will have any new options. I would recommend he return to pain management, has not seen in the last year and per their last note they may be able to offer him injections or other tx. Encouraged him to reach out directly, referral placed per his request. Assessment & Plan (12/01/2022 9:38 AM EDT): Chronic lumbar back pain with left foot drop, walks with a cane and wears a back brace. Under the care of [facility]. Feels he has not fully recovered from a fall last June, interested in participating in physical therapy. New order generated. Stage 3a chronic kidney disease 12/01/2022 Assessment & Plan (01/04/2024 12:53 PM EDT): Stable CKD3a w/ Cr 1.3 and GFR 59. Discussed the importance of good BP and blood sugar control. Avoid dehydration, renally dose medications. Uric acid was high, single but severe gout flare last month. He will start renally dosed allopurinol 50mg daily. Kidney function will be monitored to ensure safety. Assessment & Plan (12/04/2023 5:35 PM EDT): ED labs reviewed w/ Cr 1.56 and GFR 47. Slightly decreased from his baseline but generally stable. We discussed the potential impact of allopurinol on his kidney function, collaboratively deferred resuming given he has only had a single gout flare recently. Assessment & Plan (07/03/2023 1:12 PM EDT): Stable CKD3a w/ Cr 1.4 and GFR 59. Discussed the importance of good BP and blood sugar control. Avoid dehydration, renally dose medications. Continue routine monitoring q6 mos. Assessment & Plan (12/01/2022 9:24 AM EDT): Stable CKD3a w/ Cr 1.5 and GFR 50. Discussed the importance of good BP and blood sugar control. Avoid dehydration, renally dose medications. Continue routine monitoring q6 mos. Bilateral hearing loss 12/01/2022 Assessment & Plan (12/01/2022 9:41 AM EDT): Subjective and bilateral, left side worse than right. No prior audiology eval, has purchased OTC hearing aids. Will send for formal hearing testing. Vitamin D deficiency 12/01/2022 Assessment & Plan (07/03/2023 12:43 PM EDT): Recent vitamin d level low. Had not been taking his dedicated vitamin d supplement, only calcium/vitamin d tabs. He will resume 1000 iu daily. Assessment & Plan (12/01/2022 9:50 AM EDT): Continues on vitamin D3 and K2 supplements. Class 1 obesity with serious comorbidity and body mass index (BMI) of 32.0 to 32.9 in adult 12/01/2022 Assessment & Plan (07/03/2023 1:09 PM EDT): Weight stable, up only a couple lbs over the winter. BMI 32.94. Physical activity currently limited by chronic back pain and new hip pain. Continue dietary efforts, limit simple carbs and avoid concentrated sweets. Diabetes and HTN in good control. Assessment & Plan (12/01/2022 9:55 AM EDT): BMI 32.23, weight appears stable over the last year. Physical activity currently limited by ongoing back pain. Continue dietary efforts, limit simple carbs and avoid concentrated sweets. Diabetes and HTN in good control. Nodule of right lung 02/24/2022 Assessment & Plan (07/03/2023 1:04 PM EDT): Stable 2 mm left upper lobe nodule, unchanged on LDCT done September 2021. Low risk, LungRad2. Former smoker with ~78 pack year history. Quit smoking in 2005 or 2007, no further screens indicated w/ >15 yrs smoking abstinence. Assessment & Plan (12/01/2022 9:31 AM EDT): Stable 2 mm left upper lobe nodule, unchanged on most recent imaging. Low risk, LungRad2. Continue routine annual screening, due May 2023. Assessment & Plan (07/06/2022 10:35 PM EDT): Stable on most recent imaging Assessment & Plan (02/24/2022 9:41 PM EST): Reviewed CXR report showing possible 12 mm right basilar nodule with CT follow up recommended. Study ordered for additional evaluation. Lumbosacral spondylolysis 12/26/2021 Assessment & Plan (12/01/2022 9:47 AM EDT): Past history is significant for 2 lumbar surgeries, 2018 for an L4-5 posterior fusion and a revision in 2019. (surgeon: Dr Gaytan). After the last surgery he developed a foot drop on the left side, uses an ankle-foot orthosis. Walking presently with a cane and wearing a back brace for support. Usually taking gabapentin 400mg QID but recently he has not been able to find this in stock. Sacroiliac joint dysfunction 11/21/2021 Mild persistent asthma without complication 02/04 Assessment & Plan (01/04/2024 12:57 PM EDT): Stable, well managed on LABA/ICS inhaler BID (Advair), Singulair daily, and albuterol inhaler PRN. ?COPD overlap. Hyperinflation noted on CXR (2021) suggestive of COPD. No new CLARKE or exercise intolerance. DM visit q6 mos. Assessment & Plan (07/03/2023 1:14 PM EDT): Stable, well managed on LABA/ICS inhaler BID (Advair), Singulair daily, and albuterol inhaler PRN. ?COPD overlap. Hyperinflation noted on CXR (2021) suggestive of COPD. No new CLARKE or exercise intolerance. DM visit q6 mos, f/u sooner PRN. Assessment & Plan (12/01/2022 9:58 AM EDT): Stable, well managed on LABA/ICS inhaler BID (?symbicort changed to advair), Singulair daily, and albuterol inhaler PRN. DM visit q6 mos, f/u sooner PRN. 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 Manages with sildenafil PRN. Former smoker 05/12/2019 Assessment & Plan (12/01/2022 9:34 AM EDT): Significant smoking hx. Approx 2 PPD for 39 yrs. Lung cancer screening UTD. Hx of asthma. Hyperinflation noted on CXR (2021) suggestive of COPD. No new CLARKE or exercise intolerance. Assessment & Plan (05/12/2019 3:29 AM EST): Discussed role of LDCT in lung cancer screening. Reviewed benefits, limitations. Patient desires screening. Essential hypertension 05/12/2019 Assessment & Plan (01/04/2024 12:57 PM EDT): Stable, BP at goal <140/90. Continue lisinopril and chlorthalidone, recent BMP w/ normal electrolytes. Kidney fx returned to baseline. Continue home BP monitoring and dietary efforts, avoid added salt. DM visit q6 mos. Assessment & Plan (07/03/2023 1:05 PM EDT): Stable, BP near goal <130/80. Continue lisinopril and chlorthalidone, recent BMP w/ normal electrolytes (potassium very slightly high). Kidney fx stable. Continue home BP monitoring and dietary efforts, avoid added salt. DM visit q6 mos, f/u sooner PRN. Assessment & Plan (12/01/2022 9:52 AM EDT): Stable, BP near goal <130/80. Continue lisinopril and chlorthalidone, recent BMP w/ normal electrolytes. Kidney fx stable. Continue home BP monitoring and dietary efforts, avoid added salt. DM visit q6 mos, f/u sooner PRN. Assessment & Plan (07/06/2022 10:35 PM EDT): Stable on current medication regimen Assessment & Plan (02/24/2022 9:43 PM EST): Stable on current medication regimen Chronic pain of right knee 04/24/2019 Assessment & Plan (07/03/2023 1:22 PM EDT): Multifactorial chronic pain in right knee. Previous MRI (2018) w/ degeneration in the ACL and fraying/degeneration of the posterior meniscus. Suggested trial of Voltaren gel as needed, should avoid oral NSAIDs given CKD. Assessment & Plan (04/24/2019 6:13 AM EST): Continue brace use. Will f/u if any worsened sx, otherwise will plan w/u once off chronic oxycodone use. Pseudarthrosis after fusion or arthrodesis 12/14 IRVING (generalized anxiety disorder) 04/22/2018 Assessment & Plan (07/03/2023 1:13 PM EDT): Stable, IRVING managed with Ativan 1mg. Reinforced sparing use. MassPat reviewed, no concerns. Assessment & Plan (12/01/2022 9:26 AM EDT): Stable, IRVING managed with Ativan 1mg. Reinforced sparing use. MassPat reviewed, no concerns. Assessment & Plan (07/06/2022 10:36 PM EDT): Continue current medications Diabetes mellitus 12/13/2017 Assessment & Plan (01/04/2024 12:56 PM EDT): Stable T2DM w/ kidney dz. A1c 7.0, just at goal <7. Continues on metformin 500mg BID. He is advised to continue his current medication regimen. If blood sugar levels continue to rise, adjustments to his metformin dosage or the addition of new medication may be considered. Continue healthy diet and exercise as tolerated. Reports recent eye exam. Checking feet regularly. DM visit q6 mos, f/u sooner PRN. Assessment & Plan (07/03/2023 1:11 PM EDT): Stable T2DM w/ kidney dz. A1c 6.6, at goal <7. Continues on metformin 500mg BID. Continue healthy diet and exercise as tolerated. Lipids stable, LDL just above goal <100. Intolerant of statins, could consider Zetia if cholesterol starts to climb. MCR UTD. Reports recent eye exam. Checking feet regularly. DM visit q6 mos, f/u sooner PRN. Assessment & Plan (12/01/2022 9:23 AM EDT): Stable T2DM w/ kidney dz. A1c 6.5, at goal <7. Continues on metformin 500mg BID. Continue healthy diet and exercise as tolerated. MCR due. Reports recent eye exam. Checking feet regularly. DM visit q6 mos, f/u sooner PRN. Assessment & Plan (07/06/2022 10:36 PM EDT): A1C 6.5%, continue current medications and healthy diet Assessment & Plan (02/24/2022 9:43 PM EST): Well-managed Assessment & Plan (11/08/2021 7:24 PM EDT): The most recent diabetic marker was not too long ago and it was very good. As such we can get the next marker just before he sees Phoebe in February. He is okay with this and we can carry on with prescribing his medications. It took 15 minutes altogether for this visit with 12 minutes of video talk time and additional 3 minutes to review the chart from previous visits for thoroughness. We would like the next visit to be in office so we can recheck blood pressure. Assessment & Plan (05/12/2019 3:30 AM EST): Will monitor A1C in 3 months. He will cut out or restrict white chocolate, and is slowly increasing exercise. Herniated lumbar intervertebral disc 06/30/2017 Resolved Problems Problem Noted Date Diagnosed Date Resolved Date Hyperkalemia 07/03/2023 01/04/2024 Assessment & Plan (07/03/2023 1:06 PM EDT): Potassium very slightly elevated at 5.3. Usually in the 4.9 - 5.1 range. No recent changes in diet or medications. No s/sx hyperkalemia, likely pseudohyperkalemia. Will plan for routine labs to be drawn without tourniquet if possible. Cellulitis of great toe of left foot 07/06/2022 12/01/2022 Assessment & Plan (07/06/2022 10:37 PM EDT): Begin antibiotic therapy, will monitor for any ongoing erythema Fall 06/30/2022 12/01/2022 Assessment & Plan (06/30/2022 9:16 AM EDT): Will check xrays lumbar spine and sacrum d/t recent fall. Pre-RFA scheduled for 42 Left leg swelling 02/24/2022 12/01/2022 Insomnia 05/12/2019 07/03/2023 Assessment & Plan (05/12/2019 3:30 AM EST): Trial flurazepam qhs prn for 1 month. Has used well without s/e in the past. Do not use with lorazepam or with oxycodone. Demonstrates understanding. Abdominal aortic ectasia 04/29/2019 Overview (12/01/2022): No aneurysmal dilatation/ectasia of the abdominal aorta demonstrated on aorta ultrasound 05/23/2019. Blackhead 04/24/2019 12/01/2022 Assessment & Plan (04/24/2019 6:09 AM EST): Chronic concerns, referring to dermatology for removal. Headache associated with sexual activity 04/24/2019 12/01/2022 Assessment & Plan (04/24/2019 6:10 AM EST): Occasional issue only. Mason will monitor and will f/u if any persistent concerns. He is aware of need for w/u if ALMONTE continues, or if he develops any additional ALMONTE or neurologic sx. Chronic abscess of areola 04/24/2019 Assessment & Plan (04/24/2019 6:12 AM EST): Chronic bilateral abscesses, will trial regular use of warm compresses to disrupt chronic buildup. If persistent despite prevention he is agreeable to additional imaging. Asx today, but scarring is visible Medicare annual wellness visit, initial 04/22/2018 04/24/2019 Assessment & Plan (04/22/2018 8:18 AM EST): Discussed general health maintenance including: Continue healthy, balanced diet consisting of whole foods and adequate fiber; minimize processed foods. Drink 6- 8 glasses of water daily. Physical activity for at least 30 minutes most days of the week. Discussed appropriate BMI. Recommend goal of 8 hours continuous sleep per night. Please wear seatbelts regularly. Please see pt education re: health maintenance and need for f/u if any concerns. Encouraged self-breast awareness. Encouraged regular monitoring of skin lesions; consider referral for derm eval with any concerns. Discussed daily sunscreen application and minimizing prolonged UV exposure. Immunizations reviewed. Discussed importance of regular dental and opthalmology f/u. Reviewed after hours coverage and contact information. Patellar tendonitis of right knee 10/15/2017 12/01/2022 Benign prostatic hyperplasia without lower urinary tract symptoms 06/16/2017 12/01/2022 Overview (06/16/2017): Upon catheterization, false passage was established with presley blood. Cystoscopy was performed by Dr Deng. Prostatic hypertrophy was identified. An 18 gauge coude catheter will be used in the future. Risk for infection was elevated due to traumatic catheterization and L4-5 decompression was postponed. The catheter will be removed by the patient in the am. Signs and symptoms for urinary retention and infection were reviewed along with education regarding catheter removal. Follow up Dr. Deng office next week Encounters Date Type Department Care Team Description 04/29/[address] [place] [address] Shaista Magaña CNP Medication Refill 03/31/[address] [place] [address] Shaista Magaña CNP Medication Refill 03/30/[address] [place] [address] Shaista Magaña CNP Medication Refill 03/30/[address] [place] [address] Madhav Garcia, DO Medication Refill 03/21/[address] [place] [address] Shaista Magaña CNP Referral 03/15/[address] [facility] [address] [place] [address] Shaista Magaña CNP Medication Refill 02/26/[address] [facility] [address] [place] [address] Shaista Magaña CNP Medication Refill 02/17/2024 [address] [facility] [address] [place] [address] Shaista Magaña CNP 02/17/2024 Orders Only [address] [place] [address] Provider, MD Abeba from Last 3 Months Immunizations Name Administration Dates Next Due COVID-19 (Pre-01/26) Isabell Vaccine, [id number], PF 06/15/2020 Influenza High-Dose Quadriva lent Preservative Free IM 12/18/2021 Influenza High-Dose Trivalen t Preservative Free IM 12/21/2023,01/30/2019 Influenza Quadrivalent Adjuv anted Preservative Free IM 12/24/2022,01/28/2021,12/22/2019 Influenza Quadrivalent Preservative Free IM 04/06,01/21/2017 Influenza Quadrivalent w/ Preservative IM 2015 Influenza, Unspecified Formulation 05/02/2017 Pneumococcal conjugate PCV13 05/10/2019 Pneumococcal polysaccharide PPSV23 04/22/2018 RSV Vaccine (monovalent, adjuvanted) 12/29/2022 Zoster recombinant 10/10/2021,07/24/2021 Family History Medical History Relation Comments Alcohol abuse Brother 1 Cancer Brother 1 Hypertension Brother 1 Alcohol abuse Brother 2 Diabetes Brother 2 Obesity Brother 2 Depression Daughter Stroke Father Heart failure Maternal Grandfather Diabetes Mother Hypertension Mother Obesity Mother Thyroid disease Mother Heart disease Paternal Grandfather Diabetes Sister Depression Son Obesity Son Colon cancer Neg Hx Prostate cancer Neg Hx Relation Status Comments Brother 1 Alive prostate cancer Brother 2 Alive Daughter Alive Father (Age 82) Maternal Grandfather (Age 65) Maternal Grandmother (Age 95) Mother Paternal Grandfather (Age 63) Paternal Grandmother (Age 92) Sister Alive Son Alive Social History Tobacco Use Types Packs/Day Years Used Date Smoking Tobacco: Former Cigarettes 2 39 0 04/22/1976 - 2005 Smokeless Tobacco: Never Tobacco Cessation:Counseling Given: Not Answered Alcohol Use Standard Drinks/Week Comments Not Currently [...] Orientation Straight 12/01/2017 10 :50 AM EDT Last Filed Vital Signs Vital Sign Reading Time Taken Comments Blood Pressure 126/82 01/04/2024 11:23 AM EDT Pulse 65 01/04/2024 11:23 AM EDT Temperature 36.6 ??C (97.8 ??F) 01/04/2024 1 1:23 AM EDT Respiratory Rate 16 10/14/2022 3:04 PM EDT Oxygen Saturation 97% 01/04/2024 11: 23 AM EDT Inhaled Oxygen Concentration - - Weight 97.9 kg (215 lb 12.8 oz) 024 11:23 AM EDT Height 172.7 cm (5' 7.99 ) 01/04/2024 1 1:23 AM EDT Body Mass Index 32.82 01/04/2024 11:23 AM EDT Plan of Treatment Upcoming Encounters Date Type Department Care Team (Late st Contact Info) Description 07/06/2024 10:30 AM EDT Office Visit [facility] [address] [place] [address] Shaista Magaña, IMPLEMENTATION LEAD [address] [facility], 2nd Floor [place] [address] [email or web address] Due Date Last Done Comments HEPATITIS B SCREENING 1971 COLOGUARD 1998 FIT TEST 1998 FOBT 1998 SIGMOIDOSCOPY 1998 VIRTUAL COLONOSCOPY 1998 LIPID PANEL 06/29/2024 06/30/2023, 06/05, 06/26/2022, Additional history exists HEMOGLOBIN A1C 06/30/2024 01/01/2024, 06/05, 11/28/2022, Additional history exists DEPRESSION SCREENING 07/01/2024 07/02/2023 BLOOD PRESSURE 07/03/2024 01/04/2024 CREATININE LEVEL 12/31/2024 01/01/2024, , 06/30/2023, Additional history exists POTASSIUM LEVEL 12/31/2024 01/01/2024, 11/05, 06/30/2023, Additional history exists DIABETIC EYE EXAM 02/16/2025 02/17/2024, , 01/05/2020, Additional history exists COLONOSCOPY 11/16/2029 11/17/2019, 11/04, 04/10/2006 COLORECTAL CANCER SCREENING 11/16/2029 PNEUMOCOCCAL VACCINES (50+ years) Completed 05/10/2019, 04/22/2018 ABDOMINAL AORTIC ANEURYSM (AAA) SCREENING Completed 05/23/2019, 04/29/2018 ZOSTER VACCINES Completed 10/10/2021, 07/24/2021 HEPATITIS C SCREENING Completed 11/28/2022, 023 RSV VACCINE Completed 12/29/2022 COVID-19 VACCINE Completed 12/21/2023, , 08/06/2022, Additional history exists INFLUENZA VACCINE Completed 12/21/2023, , 12/24/2022, Additional history exists SMOKING STATUS SCREENING (Once After 26 Yrs) Completed 01/04/2024 HEPATITIS A VACCINES Aged Out No long er eligible based on patient's age to complete this topic HEPATITIS B VACCINES Aged Out No long er eligible based on patient's age to complete this topic HIB VACCINES Aged Out No longer eligi ble based on patient's age to complete this topic MENINGOCOCCAL VACCINES (ACWY) Aged Out No longer eligible based on patient's age to complete this topic Medical Devices Implanted Type Area Metal Miner Blasting Device Identifier Shelf Expiration Date Model / Serial / Lot Graft Bone 1 To 8mm 30 Readi Allo Chip Cancellous Crushed Void Filler Preservon - [id number] Implanted:Qty : 1 on 12/14/2018 by Armond Maldonado MD at [facility] BONETISSUE Spine Lumbar [employer] 09/13/2023 [id number] / [id number] / Set Screw 5.5mm Spine Cd Horizon Legacy Ss Break Off - [id number] Implanted:Qty : 4 on 12/14/2018 by Armond Maldonado MD at [facility] NODATA Spine Lumbar [employer] [id number] / / Screw Bone 50x6.5mm Spine Horizon Legacy Spinal System Ti Multiaxial - [id number] Implanted:Qty : 1 on 12/14/2018 by Armond Maldonado MD at [facility] NODATA Spine Lumbar [employer] [id number] / / Spacer Capstone Peek 15x32 - [id number] Implanted:Qty : 1 on 06/30/2017 by Armond Maldonado MD at [facility] N/A: Back [employer] 05/09/2018 [id number] / / [id number] Set Screw Sextant - [id number] Implanted:Qty : 4 on 06/30/2017 by Armond Maldonado MD at [facility] N/A: Back [employer] [id number] / / Description:L4/5 Screw Spine Sextant 6.5x50mm - [id number] Implanted:Qty : 2 on 06/30/2017 by Armond Maldonado MD at [facility] N/A: Back [employer] [id number] / / Description:L4/5 Screw Bone 7.5x50mm Spine Multi Axial Cannulated Legacy - [id number] Implanted:Qty : 2 on 06/30/2017 by Armond Maldonado MD at [facility] N/A: Back [employer] [id number] / / Description:L4/5 Jaguar Spinal Sextant 5.5x40mm - [id number] Implanted:Qty : 2 on 06/30/2017 by Armond Maldonado MD at [facility] N/A: Back [employer] [id number] / / Screw Bone 7.5x50mm Spine Horizon Legacy Spinal System Ti Multiaxial - [id number] Implanted:Qty : 3 on 12/14/2018 by Armond Maldonado MD at [facility] Spine Lumbar [employer] [id number] / / Spine Jaguar 5.5mmx40 Spinal Legacy Titanium Prebent Curved Thoracic Lumbar Sacral - [id number] Implanted:Qty : 1 on 12/14/2018 by Armond Maldonado MD at [facility] Spine Lumbar [employer] [id number] / / Spine Jaguar 5.5x45mm Legacy Titanium Prebent Thoracic Lumbar Sacral - [id number] Implanted:Qty : 1 on 12/14/2018 by Armond Maldonado MD at [facility] Spine Lumbar [employer] [id number] / / Procedures Procedure Name Priority Date/Time Associated Diagnosis Comments DIABETES EYE EXAM FOR RESULT ENTRY ONLY Routine 02/17/2024 11:31 AM EST HEMOGLOBIN A1C Routine 01/01/2024 10:34 AM EDT Type 2 diabetes mellitus with stage 3a chronic kidney disease, without long-term current use of insulin BASIC METABOLIC PANEL Routine 01/01/2024 10:34 AM EDT Essential hypertension Hyperkalemia Type 2 diabetes mellitus with stage 3a chronic kidney disease, without long-term current use of insulin LIPID PANEL Routine 06/30/2023 10:56 AM EDT Type 2 diabetes mellitus with stage 3a chronic kidney disease, without long-term current use of insulin HEPATITIS C ANTIBODY, QUALITATIVE Routine 11/28/2022 9:45 AM EDT Need for hepatitis C screening test COLONOSCOPY FOR RESULT ENTRY ONLY Routine 11/17/2019 US AORTA DUPLEX COMPLETE Routine 05/23/2019 8:06 AM EST Abdominal aortic ectasia from Last 3 Months or Most Recently Relevant to Health Maintenance Results * DIABETES EYE EXAM FOR RESULT ENTRY ONLY (02/17/2024 11:31 AM EST) Historical Provider MD MINA Sheriff * (ABNORMAL) Hemoglobin A1c (01/01/2024 10:34 AM EDT) HEMOGLOBIN A1C 7.0(H) 4.3 - 5.8 % [facility] Blood 01/01/2024 10:3 4 AM EDT 01/01/2024 10:40 AM EDT Shaista Magaña IMPLEMENTATION LEAD LAB BLOOD OR DERABLES [facility] [address], [place] [id number] * (ABNORMAL) Basic metabolic panel (01/01/2024 10:34 AM EDT) SODIUM 139 133 - 146 mmol/L [facility] CHLORIDE 102 96 - 108 mmol/L [facility] POTASSIUM 5.0 3.3 - 5.1 mmol/L [facility] CO2 27 21 - 35 mmol/L [facility] BUN 21(H) 6 - 19 mg/dL [facility] CREATININE 1.30 0.5 - 1.5 mg/dL [facility] GLUCOSE 135(H) 70 - 99 mg/dL [facility] CALCIUM 9.6 8.4 - 10.3 mg/dL [facility] EGFR 59(L) >59 mL/min/1.7 3m2 [facility] Comment:Estimated glomerular filtration rate calculated using the CKD-EPI refit equation. ANION GAP 15 10 - 20 mmol/L [facility] Blood 01/01/2024 10:3 4 AM EDT 01/01/2024 10:40 AM EDT Shaista Mckenzie Archana [facility] LAB BLOOD OR DERABLES Performing Organization Address City/[facility]/ZIP Co de Phone Number [address] [address] * (ABNORMAL) Lipid panel (06/30/2023 10:56 AM EDT) HDL 42 mg/dL [facility] Comment: ? Interpretation <40 mg/dL: Low HDL cholesterol (major risk factor for CHD) Greater than or equal to 60 mg/dL: High HDL cholesterol ( negative risk factor for CHD) HDL - cholesterol is affected by a number of factors, e.g. smoking, excerise, hormones, sex and age. CHOLESTEROL 192 0 - 240 mg/dL [facility] TRIGLYCERIDES 227(H) 30 - 160 mg/dL [facility] LDL 105 50 - 129 mg/dL [facility] Comment: LDL levels in terms of risk for coronary heart disease: <100 mg/dL: Optimal 100-129 mg/dL: Near or above optimal 130-159 mg/dL: Borderline high 160-189 mg/dL: High >190 mg/dL: Very High CARDIAC RISK RATIO 4.6 3.4 - 5.0 C [facility] Blood 06/30/2023 10:5 6 AM EDT 06/30/2023 10:58 AM EDT Shaista Mckenzie Archana [facility] LAB BLOOD OR DERABLES Performing Organization Address City/[facility]/ZIP Co de Phone Number [address] [address] * Hepatitis C antibody, qualitative (11/28/2022 9:45 AM EDT) HCV NON-REACTIV E NON-REACTI VE [facility] Blood 11/28/2022 9:45 AM EDT 11/28/2022 9:49 AM EDT Jyothi Fouzia Stark CNP LAB BLOOD ORDE MAYRSOL [address] [address] * COLONOSCOPY FOR RESULT ENTRY ONLY (11/17/2019) Historical Provider MD MINA CHUN E * US Aorta Duplex Complete (05/23/2019 8:06 AM EST) Anatomical Region Laterality Modality Aorta Ultrasound 05/23/2019 8:38 AM EST Impressions 05/23/2019 8:54 AM EST No aneurysmal dilatation/ectasia of the abdominal aorta demonstrated on today's images. POS - [id number] Narrative 05/23/2019 8:54 AM EST EXAM: ??US AORTA DUPLEX COMPLETE COMPARISON: April 29, 2018 FINDINGS: There are atherosclerotic plaques with calcifications throughout the aorta. Aortic measurements as follows: Aorta proximal: 2.6 x 2.4 cm Aorta middle: 2.0 x 2.0 cm Aorta distal: 1.8 x 1.7 cm Right common iliac artery: 0.9 cm Left common cardiac artery: 0.9 cm Procedure Note Maia Alvarado MD - 05/23/2019 EXAM: US AORTA DUPLEX COMPLETE COMPARISON: April 29, 2018 FINDINGS: There are atherosclerotic plaques with calcifications throughout theaorta. Aortic measurements as follows: Aorta proximal: 2.6 x 2.4 cm Aorta middle: 2.0 x 2.0 cm Aorta distal: 1.8 x 1.7 cm Right common iliac artery: 0.9 cm Left common cardiac artery: 0.9 cm IMPRESSION: No aneurysmal dilatation/ectasia of the abdominal aorta demonstrated ontoday's images. POS - [id number] Jyothi Stark IMPLEMENTATION LEAD IMG US ABDOMEN from Last 3 Months or Most Recently Relevant to Health Maintenance Advance Directives * Full Code (Presumed) (Latest Code Status on File) Date Activated Date Inactivated Comments 12/14/2018 5:24 PM 12/17/2018 4:15 PM * Full Code (Presumed) Date Activated Date Inactivated Comments 06/30/2017 6:32 PM 07/02/2017 2:57 PM Care Teams Sound Equipment Mechanic Relationship Specialty Start Date End Date Archana Shaista MAE Mckenzie [address] [place] [address], [address] [place] [address] PCP - General Family Medicine 11/11/22 Jose D Almeida MD Ophthalmology 12/05/20 Conor Arroyo MD [address] [place] [address] [address] [place] [address] Internal Medicine 07/16/22 Additional Source Comments The information contained in this document represents components of the legal health record. It is not the complete legal health record.[facility]
--- OUTSIDE RECORDS SUMMARY | 2024-05-04 11:58 | XMS_ITS | Encounter Summary ---
Author Organization [facility] Address [phone] [facility] [place] [address] Care Team Providers Care Fur Repairer Name Role Phone Jyothi Stark [facility] Primary Care Provider Jyothi Stark [facility] Primary Care Provider Carlos Bullock MD Unavailable [phone] Carlos Bullock MD Primary Care Provider [phone] Jyothi Stark [facility] Primary Care Provider Jose D Almeida MD Unavailable Carlos Bullock MD Unavailable [phone] Conor Arroyo MD Unavailable Carlos Bullock MD Primary Care Provider [phone] Shaista Magaña [facility] Primary Care Provid er Reason for Referral * MRI/CAT Scan - Closed Specialty Diagnoses / Procedures Referred By Contac t Referred To Contact Radiology Diagnoses Low back pain, unspecified back pain laterality, unspecified chronicity, with sciatica presence unspecified Arthrodesis status Procedures MRI Lumbar Spine Cody Rojas PA [address] [place] [address] Referral ID Status Reason Start Date Expiration Date Visits Re quested Visits Authorized [id number] Closed 06/14/2018 06/14/2019 1 1 Encounter Details Date Type Department Care Team (Late st Contact Info) Description 06/14/2018 Ancillary Orders Virtual Department [address] [place] [address] Cody Rojas PA [address] [place] [phone] [email or web address] Low back pain, unspecified back pain laterality, unspecified chronicity, with sciatica presence unspecified; Arthrodesis status Social History Tobacco Use Types [...] Encounters Date Type Department Care Team (Late Contact Info) Description 07/06/2024 10:30 AM EDT Office Visit [facility] [address] [place] [address] [place] [address] Shaista Magaña, MAE [address] [facility], [address]nd [place] [address] [email or web address] documented as of this encounter Results * MRI LUMBAR SPINE (NEURO) WITH AND WITHOUT CONTRAST (06/22/2018 2:40 PM EDT) Anatomical Region Laterality Modality L-spine Magnetic Resonan ce 06/22/2018 4:34 PM EDT Impressions 06/23/2018 11:46 AM EDT 1. ??Fusion hardware at L4-L5. 2. ??Severe left and moderate right neural foraminal stenosis at L4-L5 predominantly from marginal bony spurring and facet hypertrophic changes. 3. ??Moderate bilateral neural foraminal narrowing at L5-S1. Severe left and mild right neural foraminal narrowing at L3-L4. 4. ??See above for each individual level for detail. Edited by: Aubrie Alvarez on 06/23/2018 9:22 AM Narrative 06/23/2018 11:46 AM EDT MRI LUMBAR SPINE (NEURO) WITH AND WITHOUT CONTRAST ? HISTORY: Low back pain, unspecified back pain laterality, unspecified chronicity, with sciatica presence unspecified, Arthrodesis status. SURGERY JUNE 2017 , Pt states 6-7 weeks ago woke up with LBP and left buttocks pain into left posterior thigh, weakness in both legs, numbness in right thigh / has had drop foot since surgery on left , numbness and tingling in left lower leg into foot, pain in right buttocks at times also , not all sx went away after surgery ?? COMPARISON: CT lumbar spine 05/11/2018. TECHNIQUE: MRI examination of the lumbar spine: Sagittal T1, sagittal T2, sagittal STIR, axial T2, axial T1, postcontrast sagittal and axial T1 sequences, 18 mL Dotarem contrast IV. FINDINGS: Normal appearance of the distal conus terminating at the L1-L2 level. Vertebrae are normal in height and alignment. No compression fractures. There is posterior fusion hardware at L4-L5 with bilateral transpedicular screws and posterior fusion rods. There is mild T1 hypointense and T2 hyperintense marrow edema inferior endplate of L4 and superior endplate of L5, with a disc cage device at L4-L5. There is artifactual signal from the hardware. Minimal subcutaneous edema superficial to the spinous processes from surgical incision. There is no soft tissue fluid collection. Evaluation of the individual disc levels: T12-L1: No focal disc herniation or central or neural foraminal narrowing. L1-2: Mild disc desiccation. No focal disc herniation or central or neural foraminal narrowing. L2-3: Mild loss of disc height with desiccation. There is diffuse disc bulging and moderate facet hypertrophy. There is mild to moderate central canal narrowing and mild to moderate bilateral neural foraminal narrowing. L3-4: Normal disc height. Minimal disc desiccation. Moderate bilateral facet hypertrophy. No significant central canal narrowing. There is severe left and mild right neural foraminal stenosis. L4-5: Surgical changes at this level. Mild disc bulging into the neural foramen. Bilateral facet hypertrophy. Small protruding bone/ridgelike focal spurring from the posterior inferior corner of L5 on the left causing severe left neural foraminal stenosis. There is moderate right neural foraminal stenosis. No significant canal stenosis. L5-S1: Mild disc desiccation and diffuse disc bulging. Mild facet hypertrophic changes bilaterally. No significant central canal narrowing. There is moderate bilateral neural foraminal narrowing. Procedure Note Arianne Stewart MD - 06/23/2018 MRI LUMBAR SPINE (NEURO) WITH AND WITHOUT CONTRAST HISTORY: Low back pain, unspecified back pain laterality, unspecifiedchronicity, with sciatica presence unspecified, Arthrodesis status.SURGERY JUNE 2017 , Pt states 6-7 weeks ago woke up with LBP and leftbuttocks pain into left posterior thigh, weakness in both legs, numbnessin right thigh / has had drop foot since surgery on left , numbness andtingling in left lower leg into foot, pain in right buttocks at times also, not all sx went away after surgery ?? COMPARISON: CT lumbar spine 05/11/2018. TECHNIQUE: MRI examination of the lumbar spine: Sagittal T1, sagittal T2,sagittal STIR, axial T2, axial T1, postcontrast sagittal and axial [id number], 18 mL Dotarem contrast IV. FINDINGS: Normal appearance of the distal conus terminating at the L1-L2 level. Vertebrae are normal in height and alignment. No compression fractures.There is posterior fusion hardware at L4-L5 with bilateral transpedicularscrews and posterior fusion rods. There is mild T1 hypointense and [id number] marrow edema inferior endplate of L4 and superior endplate ofL5, with a disc cage device at L4-L5. There is artifactual signal from thehardware. Minimal subcutaneous edema superficial to the spinous processesfrom surgical incision. There is no soft tissue fluid collection. Evaluation of the individual disc levels: T12-L1: No focal disc herniation or central or neural foraminalnarrowing. L1-2: Mild disc desiccation. No focal disc herniation or central or neuralforaminal narrowing. L2-3: Mild loss of disc height with desiccation. There is diffuse discbulging and moderate facet hypertrophy. There is mild to moderate centralcanal narrowing and mild to moderate bilateral neural foraminalnarrowing. L3-4: Normal disc height. Minimal disc desiccation. Moderate bilateralfacet hypertrophy. No significant central canal narrowing. There is severeleft and mild right neural foraminal stenosis. L4-5: Surgical changes at this level. Mild disc bulging into the neuralforamen. Bilateral facet hypertrophy. Small protruding bone/ridgelikefocal spurring from the posterior inferior corner of L5 on the leftcausing severe left neural foraminal stenosis. There is moderate rightneural foraminal stenosis. No significant canal stenosis. L5-S1: Mild disc desiccation and diffuse disc bulging. Mild facethypertrophic changes bilaterally. No significant central canal narrowing.There is moderate bilateral neural foraminal narrowing. IMPRESSION: 1. Fusion hardware at L4-L5. 2. Severe left and moderate right neural foraminal stenosis at L4- [id number] from marginal bony spurring and facet hypertrophicchanges. 3. Moderate bilateral neural foraminal narrowing at L5-S1. Severe leftand mild right neural foraminal narrowing at L3-L4. 4. See above for each individual level for detail. Edited by: Aubrie Alvarez on 06/23/2018 9:22 AM Cody BANEGAS IMG MR XSPECIALTY documented in this encounter Visit Diagnoses Diagnosis Low back pain, unspecified back pain laterality, unspecified chronicity, with sciatica presence unspecified Arthrodesis status Low back pain, unspecified back pain laterality, unspecified chronicity, with sciatica presence unspecified Arthrodesis status documented in this encounter Care Teams Fur Repairer Relationship Specialty Start Date End Date Jyothi Stark CNP [address] [place] [address] PCP - General Internal Medicine 12/01/17 03/08/19 Jyothi Stark CNP [address] [place] [address] PCP - General Internal Medicine 03/09/19 11/16/19 Carlos Bullock MD [address] [place] [address] PCP - General Internal Medicine 11/17/19 11/21/19 Jyothi Stark, MAE [address] [place], [place] PCP - General Internal Medicine 11/22/19 09/08/22 Carlos Bullock MD [address] [place], [place] PCP - General Internal Medicine 09/09/22 11/10/22 Shaista Magaña CNP [address] [place] [address], [address] [place] [address] [email or web address] PCP - General Family Medicine 11/11/22 Carlos Bullock MD [address] [place] [address] Insurance Assigned Provider 07/13/19 04/14/20 Jose D Almeida MD [address] [place] [id number] Ophthalmology 12/05/20 Carlos Bullock MD [address] [place] [phone] Insurance Assigned Provider 07/11/23 04/11/24 Conor Arroyo MD [address] [place] [address] [address] [place] [address] Internal Medicine 07/16/22 documented as of this encounter Additional Source Comments The information contained in this document represents components of the legal health record. It is not the complete legal health record.[facility]
--- OUTSIDE RECORDS SUMMARY | 2024-05-04 11:58 | XMS_ITS | Encounter Summary ---
Author Organization [facility] Address [phone] [facility] [place] [address] Care Team Providers Care Color Paste Mixer Name Role Phone Jyothi Stark INSURANCE CLAIMS ADJUSTER Primary Care Provider Jose D Almeida MD Unavailable Carlos Bullock MD Unavailable [phone] Conor Arroyo MD Unavailable Carlos Bullock MD Primary Care Provider [phone] Shaista Magaña CNP Primary Care Provid er Encounter Details Date Type Department Care Team (Late st Contact Info) Description 08/09/2021 Procedure [facility], Ct Scan - [address] [address] Social History Tobacco Use Types Packs/Day Years [...] Description 07/06/2024 10:30 AM EDT Office Visit [facility] [address] [place] [address] [place] [address] Shaista Magaña, MAE [address] [place] [address], [address] [place] [address] [email or web address] documented as of this encounter Visit Diagnoses Not on filedocumented in this encounter Additional Health Concerns Assessment Noted Time PHQ-2 Depression Total Score: 1 06/16/19 22 11:12 AM EST documented as of this encounter Care Teams Color Paste Mixer Relationship Specialty Start Date End Date Jyothi Stark CNP [address] [place] [address] PCP - General Internal Medicine 11/22/19 09/08/22 Carlos Bullock MD [address] [place] [address] PCP - General Internal Medicine 09/09/22 11/10/22 Shaista Magaña CNP [address] [place] [address], [address] [place] [id number] [email or web address] PCP - General Family Medicine 11/11/22 Jose D Almeida MD [address] [place] [address] Ophthalmology 12/05/20 Carlos Bullock MD [address] [place] [address] Insurance Assigned Provider 07/11/23 04/11/24 Conor Arroyo MD [address] [place] [address] [address] [place] [id number] Internal Medicine 07/16/22 documented as of this encounter Additional Source Comments The information contained in this document represents components of the legal health record. It is not the complete legal health record.[facility]
--- OUTSIDE RECORDS SUMMARY | 2024-05-04 11:58 | XMS_ITS | Encounter Summary ---
Author Organization [facility] Address [phone] Formerly [facility] [place] [address] Care Team Providers Care Editor Continuity And Script Name Role Phone Jyothi Stark [facility] Primary Care Provider Jyothi Stark [facility] Primary Care Provider Carlos Bullock MD Unavailable [phone] Carlos Bullock MD Primary Care Provider [phone] Jyothi Stark [facility] Primary Care Provider Jose D Almeida MD Unavailable Carlos Bullock MD Unavailable [phone] Conor Arroyo MD Unavailable Carlos Bullock MD Primary Care Provider [phone] Shaista Magaña [facility] Primary Care Provid er Encounter Details Date Type Department Care Team (Late st Contact Info) Description 06/14/2018 Procedure Pass [facility], [address] [place] [address] Social History Tobacco Use Types Packs/Day Years [...] AM EDT documented as of this encounter Last Filed Vital Signs Vital Sign Reading Time Taken Comments Blood Pressure - - Pulse - - Temperature - - Respiratory Rate - - Oxygen Saturation - - Inhaled Oxygen Concentration - - Weight 90.7 kg (200 lb) 06/15/2018 6:46 PM EDT Height 177.8 cm (5' 10 ) 06/15/2018 6:46 PM EDT Body Mass Index 28.7 06/15/2018 6:46 PM EDT documented in this encounter Plan of Treatment Upcoming Encounters Date Type Department Care Team (Late st Contact Info) Description 07/06/2024 10:30 AM EDT Office Visit [facility] [address] [place] [address] [place] [address] Shaista Magñaa CNP [address] [facility], 2nd [place] [address] [email or web address] documented as of this encounter Visit Diagnoses Not on filedocumented in this encounter Care Teams Editor Continuity And Script Relationship Specialty Start Date End Date Jyothi Stark CNP [address] [place] [address] PCP - General Internal Medicine 12/01/17 03/08/19 Jyothi Stark CNP [address] [place] [address] PCP - General Internal Medicine 03/09/19 11/16/19 Carlos Bullock MD [address] [place], [place] [id number] PCP - General Internal Medicine 11/17/19 11/21/19 Jyothi Stark CNP [address] [place] [address] PCP - General Internal Medicine 11/22/19 09/08/22 Carlos Bullock MD [address] [place] [address] PCP - General Internal Medicine 09/09/22 11/10/22 Shaista Magaña CNP [address] [place] [address], 2nd [place] [address] [email or web address] PCP - General Family Medicine 11/11/22 Carlos Bullock MD [address] [place] [address] Insurance Assigned Provider 07/13/19 04/14/20 Jose D Almeida MD [address] [place] [address] Ophthalmology 12/05/20 Carlos Bullock MD [address] [place] [address] Insurance Assigned Provider 07/11/23 04/11/24 Conor Arroyo MD [address] [place] [address] [place] [id number] Internal Medicine 07/16/22 documented as of this encounter Additional Source Comments The information contained in this document represents components of the legal health record. It is not the complete legal health record.[facility]
--- OUTSIDE RECORDS SUMMARY | 2024-05-04 11:59 | XMS_ITS | Encounter Summary ---
Author Organization [facility] Address [phone] [facility] [place] [address] Care Team Providers Care Air Brush Operator Name Role Phone Jyothi Stark [facility] Primary Care Provider Jose D Almeida MD Unavailable Carlos Bullock MD Unavailable [phone] Conor Arroyo MD Unavailable Carlos Bullock MD Primary Care Provider [phone] Shaista Magaña [facility] Primary Care Provid er Encounter Details Date Type Department Care Team (Late st Contact Info) Description 02/24/2022 Procedure Pass [facility], Ct Scan - [address] [address] Social History Tobacco Use Types Packs/Day Years [...] 10:30 AM EDT Office Visit [facility] [address] [place] [address] [place] [address] Shaista Magaña CNP [address] [place] [address], 2nd [place] [address] [email or web address] documented as of this encounter Visit Diagnoses Not on filedocumented in this encounter Additional Health Concerns Assessment Noted Time PHQ-2 Depression Total Score: 1 06/16/19 22 11:12 AM EST documented as of this encounter Care Teams Air Brush Operator Relationship Specialty Start Date End Date Jyothi Stark CNP [address] [place] [address] PCP - General Internal Medicine 11/22/19 09/08/22 Carlos Bullock MD [address] [place] [address] PCP - General Internal Medicine 09/09/22 11/10/22 Shaista Magaña CNP [address] [place] [address], [address] [place] [address] PCP - General Family Medicine 11/11/22 Jose D Almeida MD [address] [place] [address] Ophthalmology 12/05/20 Carlos Bullock MD [address] [place] [address] Insurance Assigned Provider 07/11/23 04/11/24 Conor Arroyo MD [address] [place] [address] [address] [place] [id number] Internal Medicine 07/16/22 documented as of this encounter Additional Source Comments The information contained in this document represents components of the legal health record. It is not the complete legal health record.[facility]
--- OUTSIDE RECORDS SUMMARY | 2024-05-04 11:59 | XMS_ITS | Encounter Summary ---
Author Organization [facility] Address [phone] [facility] [place] [address] Care Team Providers Care Seismic Plotter Name Role Phone Jyothi Stark [facility] Primary Care Provider Jyothi Stark [facility] Primary Care Provider Carlos Bullock MD Unavailable [phone] Carlos Bullock MD Primary Care Provider Jyothi Stark [facility] Primary Care Provider Jose D Almeida MD Unavailable Carlos Bullock MD Unavailable [phone] Conor Arroyo MD Unavailable Carlos Bullock MD Primary Care Provider [phone] Shaista Magaña [facility] Primary Care Provid er Encounter Details Date Type Department Care Team (Late st Contact Info) Description 10/16/2018 Ancillary Orders [facility], X-Ray - [address] [place] [address] Armond Maldonado MD [address] [place] [address] [email or web address] Fusion of spine of lumbar region Social History Tobacco Use Types Packs/Day Years [...] Description 07/06/2024 10:30 AM EDT Office Visit [facility] [address] [place] [address] Shaista Magaña, YOUTH SERVICES SPECIALIST [address], [address] [place] [address] [email or web address] documented as of this encounter Results * XR LUMBOSACRAL SPINE 2-3 VIEWS (10/16/2018 12:10 PM EDT) Anatomical Region Laterality Modality L-spine Radiographic Franchesca ging 10/16/2018 1:49 PM EDT Impressions 10/16/2018 1:53 PM EDT No change. POS - [id number] Edited by: Malu Woodson on 10/16/2018 1:52 PM Narrative 10/16/2018 1:53 PM EDT AP, lateral, and coned-down lateral views lumbar spine. Compare to radiographs June 11 and 2018. L4-5 fusion hardware again noted. No fracturing seen. No bony ankylosis apparent. No progressive disc height loss at other levels. No compression deformity. No gross sclerosis or erosion at SI joints. Atherosclerotic change in the aorta without aneurysmal dilatation apparent. Procedure Note Kelli Brewster MD - 10/16/2018 AP, lateral, and coned-down lateral views lumbar spine. Compare toradiographs June 11 and 2018. L4-5 fusion hardware againnoted. No fracturing seen. No bony ankylosis apparent. No progressive discheight loss at other levels. No compression deformity. No gross sclerosisor erosion at SI joints. Atherosclerotic change in the aorta withoutaneurysmal dilatation apparent. IMPRESSION: No change. POS - [id number] Edited by: Malu Woodson on 10/16/2018 1:52 PM Armond Maldonado MD IMG XR SPINE documented in this encounter Visit Diagnoses Diagnosis Fusion of spine of lumbar region Fusion of spine of lumbar region documented in this encounter Care Teams Seismic Plotter Relationship Specialty Start Date End Date Jyothi Stark CNP [address] [place] [address] PCP - General Internal Medicine 12/01/17 03/08/19 Jyothi Stark CNP [address] [place] [address] PCP - General Internal Medicine 03/09/19 11/16/19 Carlos Bullock MD [address] [place] [address] PCP - General Internal Medicine 11/17/19 11/21/19 Jyothi Stark CNP [address] [place] [address] PCP - General Internal Medicine 11/22/19 09/08/22 Carlos Bullock MD [address] [place] [address] PCP - General Internal Medicine 09/09/22 11/10/22 Shaista Magaña CNP [address] [place] [address], 2nd [place] [address] [email or web address] PCP - General Family Medicine 11/11/22 Carlos Bullock MD [address] [place] [address] [email or web address] Insurance Assigned Provider 07/13/19 04/14/20 Jose D Almeida MD [address] [place] [address] [email or web address] Ophthalmology 12/05/20 Carlos Bullock MD [address] [place] [address] Insurance Assigned Provider 07/11/23 04/11/24 Conor Arroyo MD [address] [place] [address] [place] [phone] Internal Medicine 07/16/22 documented as of this encounter Additional Source Comments The information contained in this document represents components of the legal health record. It is not the complete legal health record.[facility]
--- OUTSIDE RECORDS SUMMARY | 2024-05-04 11:59 | XMS_ITS | Encounter Summary ---
Author Organization [facility] Address [phone] [facility] [place] [address] Care Team Providers Care Fisher Seal Name Role Phone Jytohi Stark [facility] Primary Care Provider Jyothi Stark [facility] Primary Care Provider Carlos Bullock MD Unavailable [phone] Carlos Bullock MD Primary Care Provider [phone] Jyothi Stark [facility] Primary Care Provider Jose D Almeida MD Unavailable Carlos Bullock MD Unavailable [phone] Conor Arroyo MD Unavailable Carlos Bullock MD Primary Care Provider [phone] Shaista Magaña [facility] Primary Care Provid er Encounter Details Date Type Department Care Team (Late st Contact Info) Description 01/28/2018 Transcribe Orders [facility] [address] [place], [place] [phone] Jyothi Stark [facility] [address] [place], [place] [id number] [email or web address] Social History Tobacco Use Types Packs/Day Years Used Date Smoking Tobacco: Former Cigarettes Q uit: 2006 Smokeless Tobacco: Never Alcohol Use Standard Drinks/Week [...] Description 07/06/2024 10:30 AM EDT [facility] [address] [place] [address] [place] [address] Shaista Magaña CNP [address] [facility], [address]nd [place] [address] documented as of this encounter Visit Diagnoses Not on filedocumented in this encounter Care Teams Fisher Seal Relationship Specialty Start Date End Date Jyothi Stark CNP [address] [place] [address] PCP - General Internal Medicine 12/01/17 03/08/19 Jyothi Stark CNP [address] [place] [address] PCP - General Internal Medicine 03/09/19 11/16/19 Carlos Bullock MD [address] [place] [address] PCP - General Internal Medicine 11/17/19 11/21/19 Jyothi Stark CNP [address] [place] [address] PCP - General Internal Medicine 11/22/19 09/08/22 Carlos Bullock MD [address] [place] [address] PCP - General Internal Medicine 09/09/22 11/10/22 Shaista Magaña CNP [address] [place] [address], 2nd [place] [address] [email or web address] PCP - General Family Medicine 11/11/22 Carlos Bullock MD [address] [place] [address] Insurance Assigned Provider 07/13/19 04/14/20 Jose D Almeida MD [address] [place] [address] [email or web address] Ophthalmology 12/05/20 Carlos Bullock MD [address] [place] [address] Insurance Assigned Provider 07/11/23 04/11/24 Conor Arroyo MD [address] [place] [address] [address] [place] [id number] Internal Medicine 07/16/22 documented as of this encounter Additional Source Comments The information contained in this document represents components of the legal health record. It is not the complete legal health record.[facility]
--- OUTSIDE RECORDS SUMMARY | 2024-05-04 11:59 | XMS_ITS | Encounter Summary ---
Author Organization [facility] Address [phone] [facility] [place] [address] Care Team Providers Care Wrapper Stemmer Operator Name Role Phone Jyothi Stark [facility] Primary Care Provider Jyothi Stark [facility] Primary Care Provider Carlos Bullock MD Unavailable [phone] Carlos Bullock MD Primary Care Provider [phone] Jyothi Stark [facility] Primary Care Provider Jose D Almeida MD Unavailable Carlos Bullock MD Unavailable [phone] Conor Arroyo MD Unavailable Carlos Bullock MD Primary Care Provider [phone] Shaista Magaña [facility] Primary Care Provid er Encounter Details Date Type Department Care Team (Latest Contact Info) Description 01/13/2018 Transcribe Orders [facility] Laboratory [address] [place], [place] [phone] Jyothi Stark [facility] [address] [place], [place] [id number] [email or web address] Routine check-up (Primary Dx) Social History Tobacco Use Types Packs/Day Years [...] Description 07/06/2024 10:30 AM EDT [facility] [facility] [address] [place] [address] [place] [address] Shaista Magaña CNP [address] [facility], [address]nd [place] [address] [email or web address] documented as of this encounter Visit Diagnoses Diagnosis Routine check-up- Primary Routine general medical examination at a health care facility documented in this encounter Care Teams Wrapper Stemmer Operator Relationship Specialty Start Date End Date Jyothi Stark CNP [address] [place] [address] PCP - General Internal Medicine 12/01/17 03/08/19 Jyothi Stark CNP [address] [place] [address] PCP - General Internal Medicine 03/09/19 11/16/19 Carlos Bullock MD [address] [place] [address] PCP - General Internal Medicine 11/17/19 11/21/19 Jyothi Stark CNP [address] [place] [address] PCP - General Internal Medicine 11/22/19 09/08/22 Carlos Bullock MD [address] [place] [address] [email or web address] PCP - General Internal Medicine 09/09/22 11/10/22 Archana Shaista Magaly, MAE [address] [place] [address], [address] [place] [address] [email or web address] PCP - General Family Medicine 11/11/22 Carlos Bullock MD [address] [place] [address] Insurance Assigned Provider 07/13/19 04/14/20 Jose D Almeida MD [address] [place] [address] Ophthalmology 12/05/20 Carlos Bullock MD [address] [place] [address] Insurance Assigned Provider 07/11/23 04/11/24 Conor Arroyo MD [address] [place] [address] [place] [id number] Internal Medicine 07/16/22 documented as of this encounter Additional Source Comments The information contained in this document represents components of the legal health record. It is not the complete legal health record.[facility]
--- OUTSIDE RECORDS SUMMARY | 2024-05-04 12:00 | XMS_ITS | Encounter Summary ---
Author Organization [facility] Address [phone] [facility] [place] [address] Care Team Providers Care Search Engine Optimization Specialist Name Role Phone Unknown, Unknown Primary Care Provider Vijay Zafar MD Primary Care Provider Jyothi Stark [facility] Primary Care Provider Jyothi Stark [facility] Primary Care Provider Carlos Bullock MD Unavailable [phone] Carlos Bullock MD Primary Care Provider Jyothi Stark [facility] Primary Care Provider Jose D Almeida MD Unavailable Carlos Bullock MD Unavailable [phone] Conor Arroyo MD Unavailable Carlos Bullcok MD Primary Care Provider [phone] Shaista Magaña [facility] Primary Care Provid er Encounter Details Date Type Department Care Team (Late st Contact Info) Description 04/15/2017 Ancillary Orders Virtual Department [address] [place] [address] Armond Maldonado MD [address] [place] [address] [email or web address] Acute low back pain, unspecified back pain laterality, with sciatica presence unspecified; Left leg pain; Left foot drop Social History Tobacco Use Types Packs/Day Years Used Date Smoking Tobacco: Never Assessed Sex and Gender Information Value Date Recorded Sex Assigned at Male 12/01/2017 10:50 AM EDT Gender Identity Male 12/01/2017 10:50 AM EDT Sexual Orientation Straight 12/01/2017 10 :50 AM EDT documented as of this encounter Plan of Treatment Upcoming Encounters Date Type Department Care Team (Late st Contact Info) Description 07/06/2024 10:30 AM EDT Office Visit [facility] [address] [place] [address] Shaista Magaña, CAFE MANAGER [address], [address] [place], [place] [address] [email or web address] documented as of this encounter Results * MRI LUMBAR SPINE (BONE) WITHOUT CONTRAST (04/17/2017 7:06 PM EST) Anatomical Region Laterality Modality L-spine Magnetic Resonan ce 04/17/2017 8:33 PM EST Impressions 04/17/2017 9:43 PM EST Severe bilateral neural foraminal narrowing at L4-5 secondary to severe facet arthropathy and disc disease with marked flattening of the left exiting nerve root. Moderate neural foraminal narrowing on the left at L3-4 and bilaterally at L5- S1. No high-grade spinal canal stenosis. Other degenerative changes as described. POS - [id number] Edited by: Malu Woodson on 04/17/2017 8:49 PM Narrative 04/17/2017 9:43 PM EST HISTORY: Left foot drop. ??Low back pain. COMPARISON: None. CORRELATION: Radiography 06/09/2016 and 12/11/2011. TECHNIQUE: Exam performed on a 1.5 Latonya high-field MRI scanner. ??Sagittal T1, T2 and STIR, axial T1 and T2 sequences were obtained. FINDINGS: Conus medullaris terminates at L1-2 which is within normal limits. ??No abnormal cord signal. Mild dextroscoliosis. ??No compression deformities. ??No suspicious bone lesion. L1-L2: Disc desiccation without significant disc bulging. ??Moderate facet arthropathy. ??No significant neural foraminal narrowing or spinal canal stenosis. L2-L3: Disc desiccation, mild loss of disc height and moderate generalized disc bulging. ??Moderate facet arthropathy. ??Mild neural foraminal narrowing on the right. ??No significant left neural foraminal narrowing. ??Mild to moderate narrowing of the spinal canal. L3-L4: Disc desiccation with minimal foraminal disc bulging. ??Moderate facet arthropathy. ??Moderate neural foraminal narrowing on the left and mild on the right. ??No significant spinal canal narrowing. L4-L5: Disc desiccation and generalized disc bulging. ??Severe facet arthropathy. ??Severe bilateral neural foraminal narrowing greater on the left where there is marked flattening of the exiting nerve root. ??No significant spinal canal stenosis. L5-S1: Mild generalized disc bulging with a probable small left central disc protrusion. ??Moderate bilateral facet arthropathy. ??Neural foramina are moderately narrowed. ??Possible conjoined nerve root on the left. ??No significant spinal canal stenosis. Several small bright T2 signal lesions within the kidneys statistically represent cysts. Procedure Note Divya George MD - 04/17/2017 HISTORY: Left foot drop. Low back pain. COMPARISON: None. CORRELATION: Radiography 06/09/2016 and 12/11/2011. TECHNIQUE: Exam performed on a 1.5 Latonya high-field MRI scanner. SagittalT1, T2 and STIR, axial T1 and T2 sequences were obtained. FINDINGS: Conus medullaris terminates at L1-2 which is within normal limits. Noabnormal cord signal. Mild dextroscoliosis. No compression deformities. No suspicious bonelesion. L1-L2: Disc desiccation without significant disc bulging. Moderate facetarthropathy. No significant neural foraminal narrowing or spinal canalstenosis. L2-L3: Disc desiccation, mild loss of disc height and moderate generalizeddisc bulging. Moderate facet arthropathy. Mild neural foraminalnarrowing on the right. No significant left neural foraminal narrowing.Mild to moderate narrowing of the spinal canal. L3-L4: Disc desiccation with minimal foraminal disc bulging. Moderatefacet arthropathy. Moderate neural foraminal narrowing on the left andmild on the right. No significant spinal canal narrowing. L4-L5: Disc desiccation and generalized disc bulging. Severe facetarthropathy. Severe bilateral neural foraminal narrowing greater on theleft where there is marked flattening of the exiting nerve root. Nosignificant spinal canal stenosis. L5-S1: Mild generalized disc bulging with a probable small left centraldisc protrusion. Moderate bilateral facet arthropathy. Neural foraminaare moderately narrowed. Possible conjoined nerve root on the left. Nosignificant spinal canal stenosis. Several small bright T2 signal lesions within the kidneys statisticallyrepresent cysts. IMPRESSION: Severe bilateral neural foraminal narrowing at L4-5 secondary to severefacet arthropathy and disc disease with marked flattening of the leftexiting nerve root. Moderate neural foraminal narrowing on the left at L3-4 and bilaterally atL5-S1. No high-grade spinal canal stenosis. Other degenerative changes as described. POS - [id number] Edited by: Malu Woodson on 04/17/2017 8:49 PM Armond Maldonado MD IMG MR XSPECIALTY documented in this encounter Visit Diagnoses Diagnosis Acute low back pain, unspecified back pain laterality, with sciatica presence unspecified Left leg pain Pain in soft tissues of limb Left foot drop Other acquired deformity of ankle and foot Acute low back pain, unspecified back pain laterality, with sciatica presence unspecified Left leg pain Pain in soft tissues of limb Left foot drop Other acquired deformity of ankle and foot documented in this encounter Care Teams Search Engine Optimization Specialist Relationship Specialty Start Date End Date Unknown, Unknown, MD PCP - General 04/15/17 04/28/17 Vijay Hampton MD [address] [place] [address] PCP - General Internal Medicine 04/29/17 11/30/17 Jyothi Stark CNP [address] [place] [address] PCP - General Internal Medicine 12/01/17 03/08/19 Jyothi Stark, MAE [address] [place] [address] [email or web address] PCP - General Internal Medicine 03/09/19 11/16/19 Carlos Bullock MD [address] [place] [address] [email or web address] PCP - General Internal Medicine 11/17/19 11/21/19 Jyothi Stark CNP [address] [place] [address] [email or web address] PCP - General Internal Medicine 11/22/19 09/08/22 Carlos Bullock MD [address] [place] [address] PCP - General Internal Medicine 09/09/22 11/10/22 Shaista Magaña CNP [address] [place] [address], [address] [place] [address] [email or web address] PCP - General Family Medicine 11/11/22 Carlos Bullock MD [address] [place] [address] [email or web address] Insurance Assigned Provider 07/13/19 04/14/20 Jose D Almeida MD [address] [place] [address] Ophthalmology 12/05/20 Carlos Bullock MD [address] [place] [phone] Insurance Assigned Provider 07/11/23 04/11/24 Conor Arroyo MD [address] [place] [address] Internal Medicine 07/16/22 documented as of this encounter Additional Source Comments The information contained in this document represents components of the legal health record. It is not the complete legal health record.[facility]
--- OUTSIDE RECORDS SUMMARY | 2024-05-04 12:00 | XMS_ITS | Encounter Summary ---
Author Organization [facility] Address [phone] Critical access [place] [address] Care Team Providers Care Automotive Quality Engineer Name Role Phone Vijay Hampton MD Primary Care Provider Jyothi Stark CNP Primary Care Provider Jyothi Stark CNP Primary Care Provider Carlos Bullock MD Unavailable Carlos Bullock MD Primary Care Provider [phone] Jyothi Stark CNP Primary Care Provider Jose D Almeida MD Unavailable Carlos Bullock MD Unavailable [phone] Conor Arroyo MD Unavailable Carlos Bullock MD Primary Care Provider [phone] Shaista Magaña [facility] Primary Care Provid er Encounter Details Date Type Department Care Team (Latest Contact Info) Description 07/21/2017 Ancillary Orders [facility] X-Ray - [facility] [address] [place] [address] Cody Rojas PA [address] [place] [phone] [email or web address] Lumbar radiculopathy; Spinal stenosis of lumbar region without neurogenic claudication Social History Tobacco Use Types Packs/Day Years [...] Description 07/06/2024 10:30 AM EDT Office Visit [facility] [address] [place] [address] Shaista Magaña, MAE [address] [facility], 2nd [place] [address] [email or web address] documented as of this encounter Results * XR LUMBOSACRAL SPINE 2-3 VIEWS (07/21/2017 1:41 PM EDT) Anatomical Region Laterality Modality L-spine Radiographic Franchesca ging 07/21/2017 2:05 PM EDT Impressions 07/21/2017 2:09 PM EDT Postsurgical changes evident at L4-5. Minor disc space narrowing evident at L2-3 and L5-S1. Minimal thoracolumbar curve convex to the right. S/S: Low back pain, lumbar radiculopathy, prior lumbar surgery 3 weeks ago ? POS - [id number] Narrative 07/21/2017 2:09 PM EDT COMPARISON: MRI lumbar spine April 17, 2017 and x-ray lumbar spine June 09, 2016 FINDINGS: AP and lateral views of the lumbar spine are obtained. Postsurgical changes are evident at the L4-5 level with dorsal short segment fixation rods evident bilaterally and L4-5 intervertebral disc surgery evident. Minor disc space narrowing at L2-3 and L5-S1 is suggested. There is minimal upper lumbar spurring noted. No compression fracture or subluxation is seen. Procedure Note Nic Crowley MD - 07/21/2017 COMPARISON: MRI lumbar spine April 17, 2017 and x-ray lumbar spine 2016 FINDINGS: AP and lateral views of the lumbar spine are obtained. Postsurgical changes are evident at the L4-5 level with dorsal shortsegment fixation rods evident bilaterally and L4-5 intervertebral discsurgery evident. Minor disc space narrowing at L2-3 and L5-S1 is suggested. There is minimal upper lumbar spurring noted. No compression fracture or subluxation is seen. IMPRESSION: Postsurgical changes evident at L4-5. Minor disc space narrowing evidentat L2-3 and L5-S1. Minimal thoracolumbar curve convex to the right. S/S: Low back pain, lumbar radiculopathy, prior lumbar surgery 3 weeks ago POS - [id number] Cody BANEGAS IMG XR SPINE documented in this encounter Visit Diagnoses Diagnosis Lumbar radiculopathy Thoracic or lumbosacral neuritis or radiculitis, unspecified Spinal stenosis of lumbar region without neurogenic claudication Lumbar radiculopathy Thoracic or lumbosacral neuritis or radiculitis, unspecified Spinal stenosis of lumbar region without neurogenic claudication documented in this encounter Care Teams Automotive Quality Engineer Relationship Specialty Start Date End Date Po, Vijay Soni MD [address] [place] [phone] PCP - General Internal Medicine 04/29/17 11/30/17 Jyothi Stark CNP [address] [place] [address] PCP - General Internal Medicine 12/01/17 03/08/19 Jyothi Stark CNP [address] [place] [address] PCP - General Internal Medicine 03/09/19 11/16/19 Carlos Bullock MD [address] [place] [address] [email or web address] PCP - General Internal Medicine 11/17/19 11/21/19 Jyothi Stark, MAE [address] [place], [place] PCP - General Internal Medicine 11/22/19 09/08/22 Carlos Bullock MD [address] [place], [place] [email or web address] PCP - General Internal Medicine 09/09/22 11/10/22 Shaista Magaña CNP [address] [place] [address], 2nd [place] [address] [email or web address] PCP - General Family Medicine 11/11/22 Carlos Bullock MD [address] [place] [address] [email or web address] Insurance Assigned Provider 07/13/19 04/14/20 Jose D Almeida MD [address] [place] [address] Ophthalmology 12/05/20 Carlos Bullock MD [address] [place] [address] Insurance Assigned Provider 07/11/23 04/11/24 Conor Arroyo MD [address] [place] [address] [address] [place] [address] Internal Medicine 07/16/22 documented as of this encounter Additional Source Comments The information contained in this document represents components of the legal health record. It is not the complete legal health record.[facility]
--- OUTSIDE RECORDS SUMMARY | 2024-05-04 12:00 | XMS_ITS | Encounter Summary ---
Author Organization [facility] Address [phone] [facility] [place] [address] Care Team Providers Care Magneto Specialist Name Role Phone VickietammyJyothi [facility] Primary Care Provider Jose D Almeida MD Unavailable Carlos Bullock MD Unavailable [phone] Conor Arroyo MD Unavailable Carlos Bullock MD Primary Care Provider [phone] Shaista Magaña [facility] Primary Care Provid er Encounter Details Date Type Department Care Team (Late st Contact Info) Description 08/09/2021 Procedure Pass [address] [place] [address] Social History Tobacco Use Types Packs/Day Years [...] - Inhaled Oxygen Concentration - - Weight 95.3 kg (210 lb) 08/12/2021 5:46 PM EDT Height 172.7 cm (5' 8 ) 08/12/2021 5:46 PM EDT Body Mass Index 31.93 08/12/2021 5:46 PM EDT documented in this encounter Plan of Treatment Upcoming Encounters Date Type Department Care Team (Late st Contact Info) Description 07/06/2024 10:30 AM EDT Office Visit [facility] [address] [place] [address] [place] [address] Shaista Magaña CNP [address] [place] [address], [address] [place] [address] documented as of this encounter Visit Diagnoses Not on filedocumented in this encounter Additional Health Concerns Assessment Noted Time PHQ-2 Depression Total Score: 1 06/16/19 22 11:12 AM EST documented as of this encounter Care Teams Magneto Specialist Relationship Specialty Start Date End Date Jyothi Stark CNP [address] [place] [address] PCP - General Internal Medicine 11/22/19 09/08/22 Carlos Bullock MD [address] [place] [address] PCP - General Internal Medicine 09/09/22 11/10/22 Shaista Magaña CNP [address] [place] [address] PCP - General Family Medicine 11/11/22 Jose D Almeida MD [address] [place] [address] Ophthalmology 12/05/20 Carlos Bullock MD [address] [place] [address] [email or web address] Insurance Assigned Provider 07/11/23 04/11/24 Conor Arroyo MD [address] [place] [address] [place] [address] Internal Medicine 07/16/22 documented as of this encounter Additional Source Comments The information contained in this document represents components of the legal health record. It is not the complete legal health record.[facility]
--- OUTSIDE RECORDS SUMMARY | 2024-05-04 12:00 | XMS_ITS | Encounter Summary ---
Author Organization [facility] Address [phone] [facility], [facility] [address] Care Team Providers Care Supervisor Major Appliance Assembly Name Role Phone Vijay Hampton MD Primary Care Provider Jyothi Stark CNP Primary Care Provider Jyothi Stark CNP Primary Care Provider Carlos Bullock MD Unavailable [phone] Carlos Bullock MD Primary Care Provider Jyothi Stark CNP Primary Care Provider Jose D Almeida MD Unavailable Carlos Bullock MD Unavailable [phone] Conor Arroyo MD Unavailable Carlos Bullock MD Primary Care Provider Shaista Magaña [facility] Primary Care Provid er Encounter Details Date Type Department Care Team (Late st Contact Info) Description 06/30/2017 Procedure Pass OR Admitting Dept - Virtual Department [address] [place], [place] [id number] Social History Tobacco Use Types Packs/Day Years [...] EDT Office Visit [facility] [address] [place] [address] [place] [address] Shaista Magaña CNP [address] [facility], 2nd [place] [address] documented as of this encounter Visit Diagnoses Not on filedocumented in this encounter Care Teams Supervisor Major Appliance Assembly Relationship Specialty Start Date End Date Vijay Hampton MD [address] [place] [address] PCP - General Internal Medicine 04/29/17 11/30/17 Jyothi Stark CNP [address] [place] [address] PCP - General Internal Medicine 12/01/17 03/08/19 Jyothi Stark CNP [address] [place] [address] PCP - General Internal Medicine 03/09/19 11/16/19 Carlos Bullock MD [address] [place] [address] PCP - General Internal Medicine 11/17/19 11/21/19 Jyothi Stark CNP [address] [place] [address] PCP - General Internal Medicine 11/22/19 09/08/22 Carlos Bullock MD [address] [place] [address] PCP - General Internal Medicine 09/09/22 11/10/22 Shaista Magaña CNP [address] [place] [address], 2[address] [place] [address] [email or web address] PCP - General Family Medicine 11/11/22 Carlos Bullock MD [address] [place] [address] Insurance Assigned Provider 07/13/19 04/14/20 Jose D Almeida MD [address] [place] [address] Ophthalmology 12/05/20 Carlos Bullock MD [address] [place] [address] [email or web address] Insurance Assigned Provider 07/11/23 04/11/24 Conor Arroyo MD [address] [place] [address] [place] [address] Internal Medicine 07/16/22 documented as of this encounter Additional Source Comments The information contained in this document represents components of the legal health record. It is not the complete legal health record.[facility]
--- OUTSIDE RECORDS SUMMARY | 2024-05-04 12:00 | XMS_ITS | Encounter Summary ---
Author Organization [facility] Address [phone] [facility] [place] [address] Care Team Providers Care Residential Carpenter Name Role Phone Unavailable Primary Care Provider Unavailabl e Reason for Visit * MRI/CAT Scan - Closed Specialty Diagnoses / Procedures Referred By Contac t Referred To Contact Procedures MRI Spine (Bone) Outside (No Interpretation) System, Provider Not In, [facility] [address] [address] Referral ID Status Reason Start Date Expiration Date Visits Re quested Visits Authorized [id number] Closed 06/15/2017 06/15/2018 1 1 Encounter Details Date Type Department Care Team (Late st Contact Info) Description 01/22/2016 Hospital Encounter [facility],Outside Imaging [address] [place] [address] System, Provider Not In, [facility] [employer] [address] [address] Social History Tobacco Use Types Packs/Day Years [...] 07/06/2024 10:30 AM EDT Office Visit [facility] [address] [place] [address] Shaista Magaña, MAE [address] [facility], [address] [place] [address] [email or web address] Surgical documented as of this encounter Procedures Procedure Name Priority Date/Time Associated Diagnosis Comments MRI SPINE MUSCULOSKELETAL FOCUS OUTSIDE (NO INTERPRETATION) Routine 01/22/2016 12:00 AM EDT documented in this encounter Results * MRI Spine (Bone) Outside (No Interpretation) (01/22/2016 12:00 AM EDT) Narrative SYSTEMGENERATED, DOCUMENTATION - 06/15/2017 11:46 AM EDT This study is for PACS storage only and not for interpretation. Provider Not In System PhD IMG OUTSIDE I MAGING W/OUT INTERPRETATION documented in this encounter Visit Diagnoses Not on filedocumented in this encounter Additional Source Comments The information contained in this document represents components of the legal health record. It is not the complete legal health record.[facility]
--- OUTSIDE RECORDS SUMMARY | 2024-05-04 12:00 | XMS_ITS | Encounter Summary ---
Author Organization [facility] Address [phone] [place] [address] Care Team Providers Care Powder Nipper Name Role Phone Jyothi Stark [facility] Primary Care Provider Jyothi Stark [facility] Primary Care Provider Carlos Bullock MD Unavailable [phone] Carlos Bullock MD Primary Care Provider [phone] Jyothi Stark [facility] Primary Care Provider Jose D Almeida MD Unavailable Carlos Bullock MD Unavailable [phone] Conor Arroyo MD Unavailable Carlos Bullock MD Primary Care Provider [phone] Shaista Magaña [facility] Primary Care Provid er Encounter Details Date Type Department Care Team (Late st Contact Info) Description 12/14/2018 Procedure Pass OR Admitting Dept - Virtual Department [address] [place] [address] Social History Tobacco Use Types Packs/Day Years [...] 07/06/2024 10:30 AM EDT Office Visit [facility] [address] [place], [place] [address] Shaista Magaña CNP [address] [facility], [address]nd [place] [address] documented as of this encounter Visit Diagnoses Not on filedocumented in this encounter Care Teams Powder Nipper Relationship Specialty Start Date End Date Jyothi Stark CNP [address] [place] [address] PCP - General Internal Medicine 12/01/17 03/08/19 Jyothi Stark CNP [address] [place] [address] PCP - General Internal Medicine 03/09/19 11/16/19 Carlos Bullock MD [address] [place] [address] PCP - General Internal Medicine 11/17/19 11/21/19 Jyothi Stark CNP [address] [place] [address] PCP - General Internal Medicine 11/22/19 09/08/22 Carlos Bullock MD [address] [place] [address] PCP - General Internal Medicine 09/09/22 11/10/22 Shaista Magaña CNP [address] [place] [address], 2nd [place] [address] [email or web address] PCP - General Family Medicine 11/11/22 Carlos Bullock MD [address] [place] [address] Insurance Assigned Provider 07/13/19 04/14/20 Jose D Almeida MD [address] [place] [address] [email or web address] Ophthalmology 12/05/20 Carlos Bullock MD [address] [place] [address] Insurance Assigned Provider 07/11/23 04/11/24 Coonr Arroyo MD [address] [place] [address] [place] [address] Internal Medicine 07/16/22 documented as of this encounter Additional Source Comments The information contained in this document represents components of the legal health record. It is not the complete legal health record.[facility]
--- OUTSIDE RECORDS SUMMARY | 2024-05-04 12:00 | XMS_ITS | Encounter Summary ---
Author Organization [facility] Address [phone] [facility] [place] [address] Care Team Providers Care Warehouse Shipper Name Role Phone Vijay Hampton MD Primary Care Provider Jyothi Stark CNP Primary Care Provider Jyothi Stark CNP Primary Care Provider Carlos Bullock MD Unavailable [phone] Carlos Bullock MD Primary Care Provider Jyothi Stark CNP Primary Care Provider Jose D Almeida MD Unavailable Carlos Bullock MD Unavailable [phone] Conor Arroyo MD Unavailable Carlos Bullcok MD Primary Care Provider Shaista Magaña [facility] Primary Care Provid er Encounter Details Date Type Department Care Team (Late st Contact Info) Description 06/15/2017 Procedure Pass [facility],Outside Imaging [address] [place], [place] [id number] Social History Tobacco Use Types Packs/Day Years [...] EDT Office Visit [facility] [address] [place] [address] Shaista Magaña CNP 170 [facility], 2nd [place] [address] documented as of this encounter Visit Diagnoses Not on filedocumented in this encounter Care Teams Warehouse Shipper Relationship Specialty Start Date End Date Vijay Hampton MD [address] [place] [address] PCP - General Internal Medicine 04/29/17 11/30/17 Jyothi Stark CNP [address] [place] [address] PCP - General Internal Medicine 12/01/17 03/08/19 Jyothi Stark CNP [address] [place] [address] PCP - General Internal Medicine 03/09/19 11/16/19 Carlos Bullock MD [address] [place] [address] PCP - General Internal Medicine 11/17/19 11/21/19 Jyothi Stark CNP [address] [place] [address] PCP - General Internal Medicine 11/22/19 09/08/22 Carlos Bullock MD [address] [place] [address] PCP - General Internal Medicine 09/09/22 11/10/22 Shaista Magaña CNP [address] [place] [address], 2nd [place] [address] PCP - General Family Medicine 11/11/22 Carlos Bullock MD [address] [place] [address] Insurance Assigned Provider 07/13/19 04/14/20 Jose D Almeida MD [address] [place] [address] Ophthalmology 12/05/20 Carlos Bullock MD [address] [place] [address] Insurance Assigned Provider 07/11/23 04/11/24 Conor Arroyo MD [address] [place] [address] [place] [address] Internal Medicine 07/16/22 documented as of this encounter Additional Source Comments The information contained in this document represents components of the legal health record. It is not the complete legal health record.[facility]
--- OUTSIDE RECORDS SUMMARY | 2024-05-04 12:00 | XMS_ITS | Encounter Summary ---
Author Organization [facility] Address [phone] [facility] [place] [address] Care Team Providers Care Engine Repairer Production Name Role Phone Jyothi Stark [facility] Primary Care Provider Carlos Bullock MD Unavailable [phone] Carlos Bullock MD Primary Care Provider [phone] Jyothi Stark [facility] Primary Care Provider Jose D Almeida MD Unavailable Carlos Bullock MD Unavailable [phone] Conor Arroyo MD Unavailable Carlos Bullock MD Primary Care Provider [phone] Shaista Magaña [facility] Primary Care Provid er Encounter Details Date Type Department Care Team (Late st Contact Info) Description 03/09/2019 Ancillary Orders [facility], X-Ray - [facility] [address] [place] [address] Armond Maldonado MD [address] [place] [address] [email or web address] S/P lumbar fusion Social History Tobacco Use Types Packs/Day Years [...] 07/06/2024 10:30 AM EDT Office Visit [facility] [address] [place] [address] Shaista Magaña, MAE 170 [facility], [address]nd [place] [address] [email or web address] documented as of this encounter Results * XR LUMBOSACRAL SPINE 2-3 VIEWS (03/09/2019 2:42 PM EST) Anatomical Region Laterality Modality L-spine Radiographic Franchesca ging 03/10/2019 8:13 AM EST Impressions 03/10/2019 8:15 AM EST Mild increase in lower lumbar scoliosis. Otherwise stable appearance of the lumbosacral spine. POS [id number] Narrative 03/10/2019 8:15 AM EST 4 views. Compare 10/16/2018. No complications of prior L4-5 fusion. No compression fracture or other acute bony injury. Mild increase in lower lumbar dextroscoliosis compared to 10/16/2018. The other vertebral bodies are well-aligned. No change in disc heights. No evidence of metastatic disease or osteomyelitis Procedure Note Sean Red MD - 03/10/2019 4 views. Compare 10/16/2018. No complications of prior L4-5 fusion. No compression fracture or other acute bony injury. Mild increase in lower lumbar dextroscoliosis compared to 10/16/2018. Theother vertebral bodies are well-aligned. No change in disc heights. No evidence of metastatic disease or osteomyelitis IMPRESSION: Mild increase in lower lumbar scoliosis. Otherwise stable appearance ofthe lumbosacral spine. POS [id number] Armond Maldonado MD IMG XR SPINE documented in this encounter Visit Diagnoses Diagnosis S/P lumbar fusion Arthrodesis status S/P lumbar fusion Arthrodesis status documented in this encounter Care Teams Engine Repairer Production Relationship Specialty Start Date End Date Jyothi Stark CNP [address] [place] [address] [email or web address] PCP - General Internal Medicine 03/09/19 11/16/19 Carlos Bullock MD [address] [place] [address] PCP - General Internal Medicine 11/17/19 11/21/19 Jyothi Stark CNP [address] [place] [address] PCP - General Internal Medicine 11/22/19 09/08/22 Carlos Bullock MD [address] [place] [address] PCP - General Internal Medicine 09/09/22 11/10/22 Shaista Magaña CNP [address] [place] [address], 2[address] [place] [address] [email or web address] PCP - General Family Medicine 11/11/22 Carlos Bullock MD [address] [place] [address] [email or web address] Insurance Assigned Provider 07/13/19 04/14/20 Jose D Almeida MD [address] [place] [address] [email or web address] Ophthalmology 12/05/20 Carlos Bullock MD [address] [place] [address] [email or web address] Insurance Assigned Provider 07/11/23 04/11/24 Conor Arroyo MD [address] [place] [address] [place] [address] Internal Medicine 07/16/22 documented as of this encounter Additional Source Comments The information contained in this document represents components of the legal health record. It is not the complete legal health record.[facility]
--- OUTSIDE RECORDS SUMMARY | 2024-05-04 12:00 | XMS_ITS | Encounter Summary ---
Author Organization [facility] Address [phone] [facility] [email or web address] [address] Care Team Providers Care Crane Assembler Name Role Phone Unknown, Unknown Primary Care Provider Vijay Zafar MD Primary Care Provider [phone] yJothi Stark [facility] Primary Care Provider Jyothi Stark [facility] Primary Care Provider Carlos Bullock MD Unavailable [phone] Carlos Bullock MD Primary Care Provider Jyothi Stark [facility] Primary Care Provider Jose D Almeida MD Unavailable Carlos Bullock MD Unavailable [phone] Conor Arroyo MD Unavailable Carlos Bullock MD Primary Care Provider [phone] Shaista Magaña [facility] Primary Care Provid er Encounter Details Date Type Department Care Team (Late st Contact Info) Description 04/15/2017 Procedure Pass [facility], [address] [address] Social History Tobacco Use Types Packs/Day Years [...] - Inhaled Oxygen Concentration - - Weight 88.9 kg (196 lb) 04/15/2017 6:38 PM EST Height 177.8 cm (5' 10 ) 04/15/2017 6:38 PM EST Body Mass Index 28.12 04/15/2017 6:38 PM EST documented in this encounter Plan of Treatment Upcoming Encounters Date Type Department Care Team (Late st Contact Info) Description 07/06/2024 10:30 AM EDT Office Visit [facility] [address] [place] [address] [place] [address] Shaista Magaña CNP [address] [place] [address], 2nd [place] [address] [email or web address] documented as of this encounter Visit Diagnoses Not on filedocumented in this encounter Care Teams Crane Assembler Relationship Specialty Start Date End Date Unknown, Unknown, MD PCP - General 04/15/17 04/28/17 Po, Vijay Soni MD [address] [place] [address] PCP - General Internal Medicine 04/29/17 11/30/17 Jyothi Stark CNP [address] [place] [address] [email or web address] PCP - General Internal Medicine 12/01/17 03/08/19 Jyothi Stark CNP [address] [place] [address] PCP - General Internal Medicine 03/09/19 11/16/19 Carlos Bullock MD [address] [place], [place] [id number] PCP - General Internal Medicine 11/17/19 11/21/19 Jyothi Stark, OTA [address] [place] [address] PCP - General Internal Medicine 11/22/19 09/08/22 Carlos Bullock MD [address] [place] [address] PCP - General Internal Medicine 09/09/22 11/10/22 Shaista Magaña CNP [address] [place] [address], 2nd [place] [address] [email or web address] PCP - General Family Medicine 11/11/22 Carlos Bullock MD [address] [place] [address] [email or web address] Insurance Assigned Provider 07/13/19 04/14/20 Jose D Almeida MD [address] [place] [address] [email or web address] Ophthalmology 12/05/20 Carlos Bullock MD [address] [place] [address] Insurance Assigned Provider 07/11/23 04/11/24 Conor Arroyo MD [address] [place] [address] [place] [id number] Internal Medicine 07/16/22 documented as of this encounter Additional Source Comments The information contained in this document represents components of the legal health record. It is not the complete legal health record.[facility]
--- OUTSIDE RECORDS SUMMARY | 2024-05-04 12:00 | XMS_ITS | Encounter Summary ---
Author Organization [facility] Address [phone] [facility] [place] [address] Care Team Providers Care Serials Librarian Name Role Phone Vijay Hampton MD Primary Care Provider Jyothi Stark CNP Primary Care Provider Jyothi Stark CNP Primary Care Provider Carlos Bullock MD Unavailable [phone] Carlos Bullock MD Primary Care Provider Jyothi Stark CNP Primary Care Provider Jose D Almeida MD Unavailable Carlos Bullock MD Unavailable [phone] Conor Arroyo MD Unavailable Carlos Bullock MD Primary Care Provider Shaista Magaña [facility] Primary Care Provid er Encounter Details Date Type Department Care Team (Late st Contact Info) Description 10/13/2017 Ancillary Orders Virtual Department 30 [place] [address] Armond Maldonado MD [address] [place] [address] [email or web address] Pain of lower extremity, unspecified laterality Social History Tobacco Use Types Packs/Day Years [...] Description 07/06/2024 10:30 AM EDT [facility] [address] [place] [address] Shaista Magaña, CUTTING MACHINE TENDER 170 [facility], 2nd Floor [place] [address] [email or web address] documented as of this encounter Results * XR LUMBOSACRAL SPINE 2-3 VIEWS (10/14/2017 11:39 AM EDT) Anatomical Region Laterality Modality L-spine Radiographic Franchesca ging 10/14/2017 11:4 6 AM EDT Impressions 10/14/2017 11:47 AM EDT No significant interval change from 07/21/2017 apparent. POS [id number] Narrative 10/14/2017 11:47 AM EDT COMPARISON: ??07/21/2017 FINDINGS: Frontal and lateral views were obtained revealing no significant interval change in position or alignment of the vertebral bodies or fusion hardware. ??No acute bony abnormality suggested. Procedure Note Tracy Rivers MD - 10/14/2017 COMPARISON: 07/21/2017 FINDINGS: Frontal and lateral views were obtained revealing no significant intervalchange in position or alignment of the vertebral bodies or fusionhardware. No acute bony abnormality suggested. IMPRESSION: No significant interval change from 07/21/2017 apparent. POS [id number] Armond Maldonado MD IMG XR SPINE documented in this encounter Visit Diagnoses Diagnosis Pain of lower extremity, unspecified laterality Pain of lower extremity, unspecified laterality documented in this encounter Care Teams Serials Librarian Relationship Specialty Start Date End Date Memo, Vijay Soni MD [address] [place] [address] PCP - General Internal Medicine 04/29/17 11/30/17 Jyothi Stark CNP [address] [place] [address] [email or web address] PCP - General Internal Medicine 12/01/17 03/08/19 Jyothi Stark CNP [address] [place] [address] PCP - General Internal Medicine 03/09/19 11/16/19 Carlos Bullock MD [address] [place] [address] [email or web address] PCP - General Internal Medicine 11/17/19 11/21/19 Jyothi Stark CNP [address] [place] [address] PCP - General Internal Medicine 11/22/19 09/08/22 Carlos Bullock MD [address] [place] [address] PCP - General Internal Medicine 09/09/22 11/10/22 Shaista Magaña CNP [address] [place] [address], 2nd [place] [address] [email or web address] PCP - General Family Medicine 11/11/22 Carlos Bullock MD [address] [place] [address] [email or web address] Insurance Assigned Provider 07/13/19 04/14/20 Jose D [place] MD [address] [place] [address] [email or web address] Ophthalmology 12/05/20 Carlos Bullock MD [address] [place] [address] [email or web address] Insurance Assigned Provider 07/11/23 04/11/24 Conor Arroyo MD [address] [place] [address] [place] [address] Internal Medicine 07/16/22 documented as of this encounter Additional Source Comments The information contained in this document represents components of the legal health record. It is not the complete legal health record.[facility]
--- OUTSIDE RECORDS SUMMARY | 2024-05-04 12:00 | XMS_ITS | Encounter Summary ---
Author Organization [facility] Address [phone] [facility] [email or web address] [address] Care Team Providers Care Batch Dumper Name Role Phone Vijay Hampton MD Primary Care Provider [phone] Jyothi Stark CNP Primary Care Provider Jyothi Stark CNP Primary Care Provider Carlos Bullock MD Unavailable [phone] Carlos Bullock MD Primary Care Provider [phone] Jyothi Stark CNP Primary Care Provider Jose D Almeida MD Unavailable Carlos Bullock MD Unavailable [phone] Conor Arroyo MD Unavailable Carlos Bullock MD Primary Care Provider [phone] Shaista Magaña [facility] Primary Care Provid er Encounter Details Date Type Department Care Team (Late st Contact Info) Description 09/10/2017 Ancillary Orders Virtual Department [address] [place], [place] [phone] Cody Rojas, MAKENZIE [address] [place] [address] [phone] [email or web address] Effusion of left foot joint Social History Tobacco Use Types Packs/Day Years [...] Description 07/06/2024 10:30 AM EDT Office Visit [facility] [address] [place] [address] [place] [address] Shaista Magaña CNP 170 [facility], 2nd [place] [address] [email or web address] documented as of this encounter Visit Diagnoses Diagnosis Effusion of left foot joint documented in this encounter Care Teams Batch Dumper Relationship Specialty Start Date End Date Vijay Hampton MD [address] [place] [address] PCP - General Internal Medicine 04/29/17 11/30/17 Jyothi Stark CNP [address] [place] [address] PCP - General Internal Medicine 12/01/17 03/08/19 Jyothi Stark CNP [address] [place] [address] PCP - General Internal Medicine 03/09/19 11/16/19 Carlos Bullock MD [address] [place] [address] PCP - General Internal Medicine 11/17/19 11/21/19 Jyothi Stark CNP [address] [place] [address] PCP - General Internal Medicine 11/22/19 09/08/22 Carlos Bullock MD [address] [place] [address] PCP - General Internal Medicine 09/09/22 11/10/22 Archana Shaistarima Mckenzie, SPA ASSOCIATE [address] [place] [address], 2[address] [place] [address] PCP - General Family Medicine 11/11/22 Carlos Bullock MD [address] [place] [address] Insurance Assigned Provider 07/13/19 04/14/20 Jose D Almeida MD [address] [place] [address] Ophthalmology 12/05/20 Carlos Bullock MD [address] [place] [address] Insurance Assigned Provider 07/11/23 04/11/24 Conor Arroyo MD [address] [place] [address] Drive [address] [place] [address] Internal Medicine 07/16/22 documented as of this encounter Additional Source Comments The information contained in this document represents components of the legal health record. It is not the complete legal health record.[facility]
--- OUTSIDE RECORDS SUMMARY | 2024-05-04 12:00 | XMS_ITS | Encounter Summary ---
Author Organization [facility] Address [phone] [facility] [place] [address] Care Team Providers Care Pharmaceutical Physician Name Role Phone Vijay Hampton MD Primary Care Provider Jyothi Stark CNP Primary Care Provider Jyothi Stark CNP Primary Care Provider Carlos Bullock MD Unavailable [phone] Carlos Bullock MD Primary Care Provider Jyothi Stark CNP Primary Care Provider Jose D [place]meida MD Unavailable Carlos Bullock MD Unavailable [phone] Conor Arroyo MD Unavailable Carlos Bullock MD Primary Care Provider Shaista Magaña [facility] Primary Care Provid er Encounter Details Date Type Department Care Team (Late st Contact Info) Description 06/16/2017 Procedure Pass [place] Admitting Dept - Virtual Department [address] [place], [place] [id number] Social History Tobacco Use Types Packs/Day Years [...] EDT Office Visit [facility] [address] [place] [address] Dr [place] [address] Shaista Magaña CNP 170 [facility], 2nd [place] [address] documented as of this encounter Visit Diagnoses Not on filedocumented in this encounter Care Teams Pharmaceutical Physician Relationship Specialty Start Date End Date Vijay Hampton MD [address] [place] [address] PCP - General Internal Medicine 04/29/17 11/30/17 Jyothi Stark CNP [address] [place] [address] PCP - General Internal Medicine 12/01/17 03/08/19 Jyothi Stark CNP [address] [place] [address] PCP - General Internal Medicine 03/09/19 11/16/19 Carlos Bullock MD [address] [place] [address] PCP - General Internal Medicine 11/17/19 11/21/19 Jyothi Stark CNP [address] [place] [address] PCP - General Internal Medicine 11/22/19 09/08/22 Carlos Bullock MD [address] [place] [address] PCP - General Internal Medicine 09/09/22 11/10/22 Shaista Magaña CNP [address] [place] [address], 2nd [place] [address] [email or web address] PCP - General Family Medicine 11/11/22 Carlos Bullock MD [address] [place] [address] Insurance Assigned Provider 07/13/19 04/14/20 Jose D [place]meida MD [address] [place] [address] Ophthalmology 12/05/20 Carlos Bullock MD [address] [place] [address] [email or web address] Insurance Assigned Provider 07/11/23 04/11/24 Conor Arroyo MD [address] [place] [address] [place] [address] Internal Medicine 07/16/22 documented as of this encounter Additional Source Comments The information contained in this document represents components of the legal health record. It is not the complete legal health record.[facility]
--- OUTSIDE RECORDS SUMMARY | 2024-05-04 12:00 | XMS_ITS | Encounter Summary ---
Author Organization [facility] Address [phone] [facility] [place] [address] Care Team Providers Care Detective Name Role Phone Vijay Hampton MD Primary Care Provider Jyothi Stark CNP Primary Care Provider Jyothi Stark [facility] Primary Care Provider Carlos Bullock MD Unavailable [phone] Carlos Bullock MD Primary Care Provider Jyothi Stark [facility] Primary Care Provider Jose D Almeida MD Unavailable Carlos Bullock MD Unavailable [phone] Conor Arroyo MD Unavailable Carlos Bullock MD Primary Care Provider Shaista Magaña [facility] Primary Care Provid er Reason for Referral * MRI/CAT Scan - Closed Specialty Diagnoses / Procedures Referred By Contac t Referred To Contact Procedures MRI Spine (Bone) Outside (No Interpretation) System, Provider Not In, PhD [address] [address] Referral ID Status Reason Start Date Expiration Date Visits Re quested Visits Authorized [id number] Closed 06/15/2017 06/15/2018 1 1 Encounter Details Date Type Department Care Team (Late st Contact Info) Description 06/15/2017 Ancillary Orders [facility],Outside Imaging [address] [place] [address] System, Provider Not In, [place] [address] Social History Tobacco Use Types Packs/Day Years [...] Description 07/06/2024 10:30 AM EDT Office Visit [facility] [address] [place] [address] [place] [address] Shaista Magaña CNP [address] [facility], 2nd [place] [address] [email or web address] documented as of this encounter Results * MRI Spine (Bone) Outside (No Interpretation) (01/22/2016 12:00 AM EDT) Narrative SYSTEMGENERATED, DOCUMENTATION - 06/15/2017 11:46 AM EDT This study is for PACS storage only and not for interpretation. Provider Not In System PhD IMG OUTSIDE I HELEN W/OUT INTERPRETATION documented in this encounter Visit Diagnoses Not on filedocumented in this encounter Care Teams Detective Relationship Specialty Start Date End Date Vijay Hampton MD [address] [place] [address] PCP - General Internal Medicine 04/29/17 11/30/17 Jyothi Stark CNP [address] [place] [address] PCP - General Internal Medicine 12/01/17 03/08/19 Jyothi Stark, MAE [address] [place] [address] [email or web address] PCP - General Internal Medicine 03/09/19 11/16/19 Carlos Bullock MD [address] [place] [address] [email or web address] PCP - General Internal Medicine 11/17/19 11/21/19 Jyothi Stark CNP [address] [place] [address] [email or web address] PCP - General Internal Medicine 11/22/19 09/08/22 Carlos Bullock MD [address] [place] [address] [email or web address] PCP - General Internal Medicine 09/09/22 11/10/22 Shaista Magaña CNP [address] [place] [address], 2nd [place] [address] [email or web address] PCP - General Family Medicine 11/11/22 Carlos Bullock MD [address] [place] [address] [email or web address] Insurance Assigned Provider 07/13/19 04/14/20 Jose D Almeida MD [address] [place] [address] [email or web address] Ophthalmology 12/05/20 Carlos Bullock MD [address] [place] [address] [email or web address] Insurance Assigned Provider 07/11/23 04/11/24 Conor Arroyo MD [address] [place] [address] Internal Medicine 07/16/22 documented as of this encounter Additional Source Comments The information contained in this document represents components of the legal health record. It is not the complete legal health record.[facility]
== END 2024-05-04 10:31 | disposition home or self-care (01) ==
PROVIDERS: PCP Registered Nurse; Visit Provider Internal Medicine
DX: G58.8 Other specified mononeuropathies (principal); M47.816 Spondylosis without myelopathy or radiculopathy, lumbar region
CPT/HCPCS: 99024

== ENCOUNTER → 2024-05-04 10:05 | Outpatient (BNVA) | payer MEDICARE, OTHER, SELFPAY | PROVIDERS: PCP Registered Nurse; Visit Provider Internal Medicine | DX: G58.8 Other specified mononeuropathies (principal); M47.816 Spondylosis without myelopathy or radiculopathy, lumbar region | CPT/HCPCS: 99212 ==

== ENCOUNTER 2024-06-23 06:17 | Outpatient (REF) | payer MEDICARE, OTHER, SELFPAY ==
--- NOTE | ~2024-06-23 | FL_ITS ---
EXAMINATION: FL GUIDANCE ONLY HISTORY: M53.3 - Sacrococcygeal disorders, not elsewhere classified COMPARISON: None available. TECHNIQUE: Fluoroscopy time: 0.3 minutes. Cumulative Dose: 5.72 mGy. DAP: 0.0749 mGym2 Images: 5. FINDINGS: Images demonstrate multiple needles in place over the left hemisacrum. FL/FL guidance in treatment room IMPRESSION: Fluoroscopy during procedure. Please see procedure report for additional information. Electronically signed by: Gerardo Choudhary MD 06/23/2024 02:55 PM EDT
== END 2024-06-23 06:18 | disposition home or self-care (01) ==
LOC: CF 06:17
PROVIDERS: Visit Provider Internal Medicine
DX: M47.817 Spondylosis without myelopathy or radiculopathy, lumbosacral region (principal); M53.3 Sacrococcygeal disorders, not elsewhere classified; G58.8 Other specified mononeuropathies
CPT/HCPCS: 64635; J2003; J2795; Q9967

== ENCOUNTER 2024-06-23 10:10 | Outpatient (AMB) | payer MEDICARE, OTHER, SELFPAY ==
[2024-06-23 10:23] VITALS: BP 140/75; PULSE 66; RESP 16; O2SAT 94
--- NOTE | 2024-06-23 10:23 | MHC.OFFVIS ---
Vital Signs 06/23/24 10:23 06/23/24 12:09 BP 140/75 H 143/77 H Blood Pressure Location Lt brachial Lt brachial Position Sitting Sitting Respiration 16 16 Pulse 66 53 Pulse Source Pulse Oximeter Pulse Oximeter Pulse Oximetry (%) 94 93 Oxygen Delivery Method Room Air Room Air Intake Visit Reasons: Left SIJ innervation RFA/ valium & oxy Intake Note: Valium and oxy taken prior to his arrival as ordered Green [facility] Department Supervisor Required: No Allergies iodine [Iodine] Allergy (Severe, Verified 07/07/24 10:39) HIVES Penicillins Allergy (Severe, Verified 07/07/24 10:39) RASH sulfamethoxazole [From Septra] Allergy (Severe, Verified 07/07/24 10:39) RASH trimethoprim [From Septra] Allergy (Severe, Verified 07/07/24 10:39) RASH pravastatin Allergy (Unknown, Verified 07/07/24 10:39) Muscle Pain rosuvastatin Allergy (Unknown, Verified 07/07/24 10:39) Muscle Pain Seafood Allergy (Severe, Uncoded 07/07/24 10:39) HIVES Splenda Allergy (Unknown, Uncoded 07/07/24 10:39) Diarrhea Tetanus and Diphtheria Toxoid Allergy (Unknown, Uncoded 07/07/24 10:39) SWELLING Medication List - Last Reconciled 06/23/24 by Jessica Vargas LPN albuterol sulfate 90 mcg/actuation 2 puffs inhalation Q4H PRN allopurinol 50 mg PO DAILY chlorthalidone 25 mg PO DAILY diazepam (Valium) 5 mg PO ONCE PRN fluticasone propion-salmeterol 250-50 mcg/dose (Wixela Inhub) 1 inh inhalation Q12H gabapentin 400 mg PO QID lisinopril 40 mg PO DAILY lorazepam 1 mg PO Q8H PRN mecobalamin (vitamin B12) mcg PO metformin 500 mg PO BID montelukast 10 mg PO DAILY oxycodone 10 mg PO ONCE PRN sildenafil 50 mg PO DAILY PRN HPI HPI Left SIJ innervation RFA/ valium & oxy: Details: Patient presents for scheduled procedure. Denies any recent cough, cold, infection, fever or other significant changes in medical history since last office visit. [facility] Medical History CKD (chronic kidney disease) Spinal stenosis Lumbar disc herniation Hypertension Hematuria Gout Diabetes Asthma Anxiety Anemia Abdominal aortic ectasia Social History Are you a primary caregiver services home to a significant other at home: No Do you presently have visiting nurse or other home services: No Patient Tobacco Use Status: Former Tobacco user Physical Exam Vital Signs: Last Vital Signs Pulse 53 06/23/24 12:09 Resp 16 06/23/24 12:09 BP 143/77 H 06/23/24 12:09 Pulse Ox 93 06/23/24 12:09 Oxygen Delivery Method Room Air 06/23/24 12:09 Office Procedures Details: Cooled radiofrequency ablation, LEFT L5 dorsal ramus and lateral branches of the S1, S2, S3 posterior primary rami nerves - fluoroscopic guided After obtaining written consent, pre-procedure blood pressure and heart rate were stable and recorded in the nursing record. The patient was placed prone on the fluoroscopy table. The area overlying the peripheral nerves was widely prepped with chloraprep, allowed to dry and sterilely draped. Using fluoroscopy, the appropriate landmarks were identified. The skin overlying the target was anesthetized with 0.5% lidocaine. 18 gauge 50mm radiofrequency needles were advanced under fluoroscopic guidance to the sacral ala (L5 medial branch) and around the lateral margins of the S1, S2 & S3 foramina (sacral lateral branches). Verification was done using lateral and AP views. Aspiration was negative for heme. Impedences were verified under 600 ohms. Motor testing (2 Hz) confirmed needle placement at each site within the appropriate voltage thresholds. Each site was injected with 0.5 ml 2% preservative-free lidocaine. Radiofrequency lesioning was performed for 165 seconds at 80 deg Celcius tissue temperature. Each site was then injected with 0.5 ml 0.5% preservative-free ropivacaine. The needles were removed, skin cleansed and a sterile bandage was applied. The patient tolerated the procedure well and no complications were encountered. No immediate evidence of skin damage was seen. Following the procedure the patient's vital signs were stable. The patient was discharged home in good condition with post-procedural instructions. Time Out: Immediately prior to the procedure, the following was verbally confirmed that there is a signed consent form and that the correct patient, planned procedure, site and side are consistent with documentation and that necessary equipment and/or blood products are available prior to the start of the case. 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 Patient tolerated procedure well and was discharged home in stable condition with discharge instructions. All questions were answered. We will follow-up via telephone or in clinic to assess response to therapy. A follow-up appointment was made during today's visit. Orders: Orders FL guidance in treatment room 06/23/24 M53.3 - Sacrococcygeal disorders, not elsewhere classified Medications: New diazepam (Valium) please take 30minutes prior to arrival for procedure 5 mg PO ONCE PRN 1 tab 0RF sleep oxycodone please take 30minutes prior to arrival for procedure 10 mg PO ONCE PRN 1 tab 0RF pain Coding Level of Care Code Procedure Only Diagnoses Sacroiliac joint pain M53.3 Cluneal neuropathy G58.8
[2024-06-23 12:09] VITALS: BP 143/77; PULSE 53; RESP 16; O2SAT 93
== END 2024-06-23 12:03 | disposition home or self-care (01) ==
LOC: HO.PMCPRC 10:10
PROVIDERS: PCP Registered Nurse; Visit Provider Internal Medicine
DX: M47.817 Spondylosis without myelopathy or radiculopathy, lumbosacral region (principal); M53.3 Sacrococcygeal disorders, not elsewhere classified; G58.8 Other specified mononeuropathies
CPT/HCPCS: 64635

== ENCOUNTER 2024-07-07 07:56 | Outpatient (REF) | payer MEDICARE, OTHER, SELFPAY ==
--- NOTE | ~2024-07-07 | FL_ITS ---
EXAMINATION: FL GUIDANCE ONLY HISTORY: M53.3 - Sacrococcygeal disorders, not elsewhere classified COMPARISON: None available. TECHNIQUE: Fluoroscopy time: 0.4 minutes. Cumulative Dose: 8.08 mGy. DAP: 0.0974 mGym2 Images: 2. FINDINGS: Fluoroscopic spot films of the sacrum in the lateral projection demonstrate multiple needles dorsal to the sacrum. FL/FL guidance in treatment room IMPRESSION: Fluoroscopy during procedure. Please see procedure report for additional information. Electronically signed by: Gerardo Choudhary MD 07/08/2024 07:28 AM EDT
--- OUTSIDE RECORDS SUMMARY | 2024-07-07 08:00 | XMS_ITS | Patient Health Record ---
Author Organization [facility] Address [address] [place] [address] Care Team Providers Care Data Specialist Name Role Phone Vijay Hampton MD Primary Care Provider Gerardo Saenz [phone] Allergies Allergen (clinical drug ingredient) Drug/Non Drug Allergy documented on EMR Reaction Allergy Type Onset Date Status Substance with sulfonamide structure and antibacterial mechanism of action (substance) sulfa (uncoded) Unknown Allergy Active Tetanus (uncoded) Unknown Allergy Ac tive Iodine (uncoded) Unknown Allergy Act sobeida Septra (uncoded) Unknown Allergy Act sobeida PCN (uncoded) Unknown Allergy Active Reason For Referral No Information Medications Medication SIG (Take, Route, Fr equency, Duration) Notes Start Date End Date Status Lisinopril Active Allopurinol Active MoviPrep 100 GM as directed Orally o nce for 1 dose 04/15/2011 Active ProAir HFA 04/06/2024 04/06/2024 Active Ativan Active Januvia Active Aspir-81 Active Advair Diskus Active Albuterol Sulfate HFA Active Lunesta Active predniSONE Active Problems Problem Type SNOMED Code ICD Code Onset Dates Problem Status W/U Status Risk Notes Problem Constipation (93819762) Unspecified constipation (564.00) Active confirmed Problem Blood in stool (192575770) Blood in stool (578.1) Active confirmed Problem Digestive system symptom (704537417) Other symptoms involving digestive system (787.99) Active confirmed Plan Of Treatment Future Test Test Name Order Date COLONOSCOPY 04/15/2011 Insurance Providers Payer Name Payer Address Payer Phone Subscriber Number Group Number Insured Name Patient Relationship to Insured Coverage Start Date Coverage End Date [employer] [place] [address] [place] [address] [id number] LORENA YUN Self - patient is the insured Medical (General) History Medical History History ICD Code hypertension gout diabetes asthma he denies any history of ID, stroke, nor kidney disease Surgical History Surgery Date(Month/Year) hydrocele and orchiectomy wrist surgery surgery for a broken nose hemorrhoid surgery
--- OUTSIDE RECORDS SUMMARY | 2024-07-07 08:00 | XMS_ITS | Encounter Summary ---
Author Organization [facility] Address [address] [facility] [address] [place] [address] Phone Care Team Providers Care Specialty Sales Consultant Name Role Phone Jyothi Stark [facility] Primary Care Provider Jyothi Stark [facility] Primary Care Provider Carlos Bullock MD Unavailable [phone] Carlos Bullock MD Primary Care Provider [phone] Jyothi Stark [facility] Primary Care Provider Jose D Almeida MD Unavailable Carlos Bullock MD Unavailable [phone] Conor Arroyo MD Unavailable Carlos Bullock MD Primary Care Provider [phone] Shaista Magaña [facility] Primary Care Provid er Reason for Referral * MRI/CAT Scan - Closed Specialty Diagnoses / Procedures Referred By Contac t Referred To Contact Radiology Diagnoses Arthrodesis status Procedures CT Lumbar Spine Cody Rojas PA [address] [place] [address] Referral ID Status Reason Start Date Expiration Date Visits Re quested Visits Authorized [id number] Closed 05/06/2018 05/06/2019 1 1 Encounter Details Date Type Department Care Team (Late st Contact Info) Description 05/06/2018 Ancillary Orders Virtual Department [address] [place] [address] Cody Rojas PA [address] [place] [address] [email or web address] Arthrodesis status Social History Tobacco Use Types [...] Care Team (Late st Contact Info) Description 08/03/2024 8:30 AM EDT Office Visit [facility] [address] [place] [address] [place] [address] Shaista Magaña, METAL FABRICATOR [address] [facility], 2nd [place] [address] [email or web address] documented as of this encounter Results * CT LUMBAR SPINE WITHOUT CONTRAST (05/11/2018 9:39 AM EST) Anatomical Region Laterality Modality L-spine Computed Tomogra phy 05/11/2018 11:4 6 AM EST Impressions 05/11/2018 7:26 PM EST Changes of posterior spinal fusion at L4-5 with intervertebral cage subsidence. ?? Mild retropulsion on the left contacts the descending nerve root. TOTAL CTDIvol: 46.50 mGy POS [id number] Edited by: Aubrie Alvarez on 05/11/2018 12:17 [...] body height. Milder subsidence into the inferior [id number] body. Very mild retropulsion which contacts the [...] descending nerveroot. TOTAL CTDIvol: 46.50 mGy POS [id number] Edited by: Aubrie Alvarez on 05/11/2018 12:[address] XSPECIALTY O RDERABLES documented in this encounter Visit Diagnoses Diagnosis Arthrodesis status Arthrodesis status documented in this encounter Care Teams Specialty Sales Consultant Relationship Specialty Start Date End Date Jyothi Stark CNP [address] [place] [address] PCP - General Internal Medicine 12/01/17 03/08/19 Jyothi Stark CNP [address] [place] [address] [email or web address] PCP - General Internal Medicine 03/09/19 11/16/19 Carlos Bullock MD [address] [place] [address] [email or web address] PCP - General Internal Medicine 11/17/19 11/21/19 Jyothi Stark, METAL FABRICATOR [address] [place] [address] [email or web address] PCP - General Internal Medicine 11/22/19 09/08/22 Carlos Bullock MD [address] [place] [address] [email or web address] PCP - General Internal Medicine 09/09/22 11/10/22 Shaista Magaña CNP [address] [place] [address], 2[address] [place] [address] [email or web address] PCP - General Family Medicine 11/11/22 Carlos Bullock MD [address] [place] [address] [email or web address] Insurance Assigned Provider 07/13/19 04/14/20 Jose D Almeida MD [address] [place] [address] [email or web address] Ophthalmology 12/05/20 Carlos Bullock MD [address] [place] [address] [email or web address] Insurance Assigned Provider 07/11/23 04/11/24 Conor Arroyo MD [address] [facility] [address] [place] [address] Internal Medicine 07/16/22 documented as of this encounter Additional Source Comments The information contained in this document represents components of the legal health record. It is not the complete legal health record.[facility]
--- OUTSIDE RECORDS SUMMARY | 2024-07-07 08:00 | XMS_ITS | Encounter Summary ---
Author Organization [facility] Address [address] [facility] [address] [place] [address] Phone Care Team Providers Care Mapping Editor Name Role Phone Jyothi Stark [facility] Primary Care Provider Jyothi Stark [facility] Primary Care Provider Carlos Bullock MD Unavailable [phone] Carlos Bullock MD Primary Care Provider [phone] Jyothi Stark [facility] Primary Care Provider Jose D Almeida MD Unavailable Carlos Bullock MD Unavailable [phone] Conor Arroyo MD Unavailable Carlos Bullock MD Primary Care Provider [phone] Shaista Magaña [facility] Primary Care Provid er Encounter Details Date Type Department Care Team (Late st Contact Info) Description 06/11/2018 Ancillary Orders [facility], X-Ray - [facility] [address] [place] [address] Cody Rojas, MAKENZIE [address] [place] [email or web address] Fusion of spine, lumbar region Social History Tobacco Use Types [...] Description 08/03/2024 8:30 AM EDT Office Visit [facility] [address] [place] [address] Shaista Magaña, ORACLE FORMS DEVELOPER [address] [facility], 2nd Floor [place] [address] [email or web address] documented as of this encounter Results * XR LUMBOSACRAL SPINE BENDING VIEWS ONLY (06/11/2018 10:12 AM EST) Anatomical Region Laterality Modality L-spine Radiographic Franchesca ging 06/11/2018 10:5 9 AM EST Impressions 06/11/2018 11:10 AM EST No significant change in alignment. POS - [id number] ?? Narrative 06/11/2018 11:10 AM EST XR LUMBOSACRAL SPINE BENDING VIEWS ONLY ? HISTORY: FUSION OF SPINE, LUMBAR REGION TECHNIQUE: Lateral views lumbar spine in neutral, flexion and extension. COMPARISON: 2018. FINDINGS: There is decreased bone mineralization. There is posterior fusion hardware at L4-L5 with intervertebral cage device. There is slight (3 mm) retrolisthesis of L4 on L5 which appears without change in all 3 lateral images. The other vertebrae are normal in alignment. There is mild disc space narrowing at L2-L3 and L5-S1. Procedure Note Arianne Stewart MD - 06/11/2018 XR LUMBOSACRAL SPINE BENDING VIEWS ONLY HISTORY: FUSION OF SPINE, LUMBAR REGION TECHNIQUE: Lateral views lumbar spine in neutral, flexion and extension. COMPARISON: 2018. FINDINGS: There is decreased bone mineralization. There is posterior fusion hardwareat L4- L5 with intervertebral cage device. There is slight (3 mm) retrolisthesis of L4 on L5 which appears withoutchange in all 3 lateral images. The other vertebrae are normal inalignment. There is mild disc space narrowing at L2-L3 and L5-S1. IMPRESSION: No significant change in alignment. POS - [id number] Cody BANEGAS IMG XR SPINE documented in this encounter Visit Diagnoses Diagnosis Fusion of spine, lumbar region Fusion of spine, lumbar region documented in this encounter Care Teams Mapping Editor Relationship Specialty Start Date End Date Jyothi Stark CNP [address] [place] [address] PCP - General Internal Medicine 12/01/17 03/08/19 Jyothi Stark CNP [address] [place] [address] PCP - General Internal Medicine 03/09/19 11/16/19 Carlos Bullock MD [address] [place] [address] PCP - General Internal Medicine 11/17/19 11/21/19 Jyothi Stark CNP [address] [place] [address] PCP - General Internal Medicine 11/22/19 09/08/22 Carlos Bullock MD [address] [place] [address] PCP - General Internal Medicine 09/09/22 11/10/22 Archana Shaista MAE Mckenzie [address] [place] [address], [address] [place] [address] [email or web address] PCP - General Family Medicine 11/11/22 Carlos Bullock MD [address] [place] [address] [email or web address] Insurance Assigned Provider 07/13/19 04/14/20 Jose D Almeida MD [address] [place] [address] [email or web address] Ophthalmology 12/05/20 Carlos Bullock MD [address] [place] [address] [email or web address] Insurance Assigned Provider 07/11/23 04/11/24 Conor Arroyo MD [address] [place] [address] [place] [address] Internal Medicine 07/16/22 documented as of this encounter Additional Source Comments The information contained in this document represents components of the legal health record. It is not the complete legal health record.[facility]
--- OUTSIDE RECORDS SUMMARY | 2024-07-07 08:01 | XMS_ITS | Encounter Summary ---
Author Organization [facility] Address [address] [facility] [address] [place] [address] Phone Care Team Providers Care Commercial Real Estate Appraiser Name Role Phone Jyothi Stark [facility] Primary Care Provider Jyothi Stark [facility] Primary Care Provider Carlos Bullock MD Unavailable [phone] Carlos Bullock MD Primary Care Provider Jyothi Stark [facility] Primary Care Provider Jose D Almeida MD Unavailable Carlos Bullock MD Unavailable [phone] Conor Arroyo MD Unavailable Carlos Bullock MD Primary Care Provider [phone] Shaista Magaña [facility] Primary Care Provid er Encounter Details Date Type Department Care Team (Latest Contact Info) Description 01/13/2018 Transcribe Orders [facility] Laboratory [address] [place], [place] [phone] Jyothi Stark [facility] [address] [place], [place] [phone] [email or web address] Routine check-up (Primary Dx) Social History [...] Description 08/03/2024 8:30 AM EDT Office Visit [facility] [address] [place] [address] Shaista Magaña CNP 170 [facility], 2nd [place] [address] [email or web address] documented as of this encounter Visit Diagnoses Diagnosis Routine check-up- Primary Routine general medical examination at a health care facility documented in this encounter Care Teams Commercial Real Estate Appraiser Relationship Specialty Start Date End Date Jyothi Stark CNP [address] [place] [address] PCP - General Internal Medicine 12/01/17 03/08/19 Jyothi Stark CNP [address] [place] [address] PCP - General Internal Medicine 03/09/19 11/16/19 Carlos Bullock MD 40 [place] [address] PCP - General Internal Medicine 11/17/19 11/21/19 Jyothi Stark CNP 40 [place] [address] PCP - General Internal Medicine 11/22/19 09/08/22 Carlos Bullock MD 40 [place] [address] PCP - General Internal Medicine 09/09/22 11/10/22 Shaista Magaña CNP [address] [place] [address], 2nd [place] [address] [email or web address] PCP - General Family Medicine 11/11/22 Carlos Bullock MD [address] [place] [address] Insurance Assigned Provider 07/13/19 04/14/20 Jose D Almeida MD 40 [place] [address] Ophthalmology 12/05/20 Carlos Bullock MD [address] [place] [address] [email or web address] Insurance Assigned Provider 07/11/23 04/11/24 Conor Arroyo MD [address] [place] [address] [place] [address] Internal Medicine 07/16/22 documented as of this encounter Additional Source Comments The information contained in this document represents components of the legal health record. It is not the complete legal health record.[facility]
--- OUTSIDE RECORDS SUMMARY | 2024-07-07 08:01 | XMS_ITS | Encounter Summary ---
Author Organization [facility] Address [address] [facility] [address] [place] [address] Phone Care Team Providers Care Bridal Gown Fitter Name Role Phone Vijay Hampton MD Primary Care Provider [phone] Jyothi Stark CNP Primary Care Provider Jyothi Stark CNP Primary Care Provider Carlos Bullock MD Unavailable [phone] Carlos Bullock MD Primary Care Provider Jyothi Stark CNP Primary Care Provider Jose D Almeida MD Unavailable Carlos Bullock MD Unavailable [phone] Conor Arroyo MD Unavailable Carlos Bullock MD Primary Care Provider [phone] Shaista Magaña [facility] Primary Care Provid er Encounter Details Date Type Department Care Team (Late st Contact Info) Description 09/10/2017 Ancillary Orders Virtual Department 30 [place] [address] Cody Rojas PA [address] [place] [address] [email or web address] Effusion of left foot joint Social History [...] Description 08/03/2024 8:30 AM EDT Office Visit [facility] [address] [place] [address] [place] [address] Shaista Magaña CNP [address] [place] [address], 2nd [place] [address] [email or web address] documented as of this encounter Visit Diagnoses Diagnosis Effusion of left foot joint documented in this encounter Care Teams Bridal Gown Fitter Relationship Specialty Start Date End Date Memo, Vijay Soni MD [address] [place] [address] PCP - General Internal Medicine 04/29/17 11/30/17 Jyothi Stark CNP [address] [place] [address] PCP - General Internal Medicine 12/01/17 03/08/19 Jyothi Stark CNP [address] [place] [address] PCP - General Internal Medicine 03/09/19 11/16/19 Carlos Bullock MD 40 [place], [place] 8638607 PCP - General Internal Medicine 11/17/19 11/21/19 Jyothi Stark Fouzia, MAE 40 [place] [address] PCP - General Internal Medicine 11/22/19 09/08/22 Carlos Bullock MD [address] [place] [address] PCP - General Internal Medicine 09/09/22 11/10/22 Shaista Magaña CNP [address] [place] [address], 2nd [place] [address] [email or web address] PCP - General Family Medicine 11/11/22 Carlos Bullock MD [address] [place] [address] Insurance Assigned Provider 07/13/19 04/14/20 Jose D Almeida MD [address] [place] [address] Ophthalmology 12/05/20 Carlos Bullock MD [address] [place] [address] Insurance Assigned Provider 07/11/23 04/11/24 Conor Arroyo MD [address] [place] [address] [place] [address] Internal Medicine 07/16/22 documented as of this encounter Additional Source Comments The information contained in this document represents components of the legal health record. It is not the complete legal health record.[facility]
--- OUTSIDE RECORDS SUMMARY | 2024-07-07 08:01 | XMS_ITS | Encounter Summary ---
Author Organization [facility] Address 399 [facility] [address] [place] [address] Phone Care Team Providers Care Crane Chaser Name Role Phone Jyothi Stark [facility] Primary Care Provider Jyothi Stark [facility] Primary Care Provider Carlos Bullock MD Unavailable [phone] Carlos Bullock MD Primary Care Provider Jyothi Stark [facility] Primary Care Provider Jose D Almeida MD Unavailable Carlos Bullock MD Unavailable [phone] Conor Arroyo MD Unavailable Carlos Bullock MD Primary Care Provider [phone] Shaista Magaña [facility] Primary Care Provid er Encounter Details Date Type Department Care Team (Late st Contact Info) Description 06/14/2018 Procedure Pass [facility], [facility] - [address] [place] [address] Social History Tobacco Use Types Packs/Day Years [...] Description 08/03/2024 8:30 AM EDT Office Visit [facility] [address] [place] [address] [place] [address] Shaista Magaña CNP 170 [facility], 2nd [place] [address] [email or web address] documented as of this encounter Visit Diagnoses Not on filedocumented in this encounter Care Teams Crane Chaser Relationship Specialty Start Date End Date Jyothi Stark CNP 40 [place] [address] [email or web address] PCP - General Internal Medicine 12/01/17 03/08/19 Jyothi Stark CNP 40 [place] [address] PCP - General Internal Medicine 03/09/19 11/16/19 Carlos Bullock MD 40 [place] [address] PCP - General Internal Medicine 11/17/19 11/21/19 Jyothi Stark CNP 40 [place] [address] PCP - General Internal Medicine 11/22/19 09/08/22 Carlos Bullock MD 40 [place] [address] PCP - General Internal Medicine 09/09/22 11/10/22 Shaista Magaña, MAE [address] [place] [address], 2nd [place] [address] PCP - General Family Medicine 11/11/22 Carlos Bullock MD 40 [place] [address] Insurance Assigned Provider 07/13/19 04/14/20 Jose D Almeida MD 40 [place] [address] Ophthalmology 12/05/20 Carlos Bullock MD 40 [place] [address] Insurance Assigned Provider 07/11/23 04/11/24 Conor Arroyo MD [address] [place] [address] [place] [address] Internal Medicine 07/16/22 documented as of this encounter Additional Source Comments The information contained in this document represents components of the legal health record. It is not the complete legal health record.[facility]
--- OUTSIDE RECORDS SUMMARY | 2024-07-07 08:01 | XMS_ITS | Encounter Summary ---
Author Organization [facility] Address [address] [facility] [address] [place] [address] Phone Care Team Providers Care Brood Station Manager Name Role Phone Jyothi Stark [facility] Primary Care Provider Jyothi Stark [facility] Primary Care Provider Carlos Bullock MD Unavailable [phone] Carlos Bullock MD Primary Care Provider Jyothi Stark CNP Primary Care Provider Jose D Almeida MD Unavailable Carlos Bullock MD Unavailable [phone] Conor Arroyo MD Unavailable Carlos Bullock MD Primary Care Provider [phone] Shaista Magaña [facility] Primary Care Provid er Encounter Details Date Type Department Care Team (Late st Contact Info) Description 01/13/2018 Transcribe Orders [facility] Laboratory [address] [place], [place] [phone] Jyothi Stark, [facility] 40 [place], [place] [id number] [email or web address] Social History Tobacco Use Types Packs/Day Years [...] Description 08/03/2024 8:30 AM EDT Office [facility] [place] [facility] [address] [place] [address] [place] [id number] Shaista Magaña CNP [address] [facility], 2nd [place] [address] [email or web address] documented as of this encounter Visit Diagnoses Not on filedocumented in this encounter Care Teams Brood Station Manager Relationship Specialty Start Date End Date Jyothi Stark CNP 40 [place] [address] PCP - General Internal Medicine 12/01/17 03/08/19 Jyothi Stark CNP 40 [place] [address] PCP - General Internal Medicine 03/09/19 11/16/19 Carlos Bullock MD 40 [place] [address] PCP - General Internal Medicine 11/17/19 11/21/19 Jyothi Stark CNP 40 [place] [address] PCP - General Internal Medicine 11/22/19 09/08/22 Carlos Bullock MD 40 [place] [address] PCP - General Internal Medicine 09/09/22 11/10/22 Shaista Magaña CNP [address] [place] [address], 2nd [place] [address] [email or web address] PCP - General Family Medicine 11/11/22 Carlos Bullock MD [address] [place] [address] [email or web address] Insurance Assigned Provider 07/13/19 04/14/20 Jose D Almeida MD [address] [place] [address] [email or web address] Ophthalmology 12/05/20 Carlos Bullock MD 40 [place] [address] Insurance Assigned Provider 07/11/23 04/11/24 Conor Arroyo MD [address] [place] [address] Drive [address] [place] [address] Internal Medicine 07/16/22 documented as of this encounter Additional Source Comments The information contained in this document represents components of the legal health record. It is not the complete legal health record.[facility]
--- OUTSIDE RECORDS SUMMARY | 2024-07-07 08:01 | XMS_ITS | Encounter Summary ---
Author Organization [facility] Address [address] [address] Phone Care Team Providers Care Pallet Repairer Name Role Phone Jyothi Stark [facility] Primary Care Provider Jyothi Stark [facility] Primary Care Provider Carlos Bullock MD Unavailable [phone] Carlos Bullock MD Primary Care Provider [phone] Jyothi Stark [facility] Primary Care Provider Jose D Almeida MD Unavailable Carlos Bullock MD Unavailable [phone] Conor Arroyo MD Unavailable Carlos Bullock MD Primary Care Provider [phone] Shaista Magaña [facility] Primary Care Provid er Reason for Referral * MRI/CAT Scan - Closed Specialty Diagnoses / Procedures Referred By Contac t Referred To Contact Radiology Diagnoses Low back pain, unspecified back pain laterality, unspecified chronicity, with sciatica presence unspecified Arthrodesis status Procedures MRI Lumbar Spine Cody Rojas PA [address] [place] [address] Referral ID Status Reason Start Date Expiration Date Visits Re quested Visits Authorized [id number] Closed 06/14/2018 06/14/2019 1 1 Encounter Details Date Type Department Care Team (Late st Contact Info) Description 06/14/2018 Ancillary Orders Virtual Department 30 [place] [address] Cody Rojas PA [address] [place] [address] [email or web address] Low back pain, unspecified back pain laterality, [...] Department Care Team (Late Contact Info) Description 08/03/2024 8:30 AM EDT Office Visit [facility] [address] [place] [address] [place] [address] Shaista Magaña, MAE 170 [facility], 2nd [place] [address] [email or web address] documented as of this encounter Results * [...] T2, axial T1, postcontrast sagittal and axial [id number], 18 mL Dotarem contrast IV. FINDINGS: Normal appearance of the distal conus terminating at the L1-L2 level. Vertebrae are normal in height and alignment. No compression fractures.There is posterior fusion hardware at L4-L5 with bilateral transpedicularscrews and posterior fusion rods. There is mild T1 hypointense and O2fxysetftbcsg marrow edema inferior endplate of L4 and [...] moderate right neural foraminal stenosis at L4- T2txhhesvwocaos from marginal bony spurring and facet hypertrophicchanges. [...] status documented in this encounter Care Teams Pallet Repairer Relationship Specialty Start Date End Date Jyothi Stark CNP [address] [place] [address] PCP - General Internal Medicine 12/01/17 03/08/19 Jyothi Stark CNP [address] [place] [address] PCP - General Internal Medicine 03/09/19 11/16/19 Carlos Bullock MD [address] [place] [address] [email or web address] PCP - General Internal Medicine 11/17/19 11/21/19 Jyothi Stark, MAE [address] [place], [place] [email or web address] PCP - General Internal Medicine 11/22/19 09/08/22 Carlos Bullock MD [address] [place] [address] [email or web address] PCP - General Internal Medicine 09/09/22 11/10/22 Shaista Magaña CNP [address] [place] [address], 2nd [place] [address] [email or web address] PCP - General Family Medicine 11/11/22 Carlos Bullock MD [address] [place] [address] [email or web address] Insurance Assigned Provider 07/13/19 04/14/20 Jose D Almeida MD [address] [place] [address] [email or web address] Ophthalmology 12/05/20 Carlos Bullock MD [address] [place] [address] [email or web address] Insurance Assigned Provider 07/11/23 04/11/24 Conor Arroyo MD [address] [place] [address] Drive [address] [place] [address] Internal Medicine 07/16/22 documented as of this encounter Additional Source Comments The information contained in this document represents components of the legal health record. It is not the complete legal health record.[facility]
--- OUTSIDE RECORDS SUMMARY | 2024-07-07 08:01 | XMS_ITS | Encounter Summary ---
Author Organization [facility] Address [address] [facility] [address] [place] [address] Phone Care Team Providers Care Bed Worker Name Role Phone VickietammyJyothigh [facility] Primary Care Provider Jose D Almeida MD Unavailable Carlos Bullock MD Unavailable [phone] Conor Arroyo MD Unavailable Carlos Bullock MD Primary Care Provider [phone] Shaista Magaña [facility] Primary Care Provid er Encounter Details Date Type Department Care Team (Late st Contact Info) Description 08/09/2021 Procedure Pass [facility], Ct Scan - [address] [address] Social History Tobacco Use Types Packs/Day Years [...] Description 08/03/2024 8:30 AM EDT Office Visit [facility] [address] [place] [address] [place] [address] Shaista Magaña CNP 170 [facility], 2nd [place] [address] [email or web address] documented as of this encounter Visit Diagnoses Not on filedocumented in this encounter Additional Health Concerns Assessment Noted Time PHQ-2 Depression Total Score: 1 06/16/19 22 11:12 AM EST documented as of this encounter Care Teams Bed Worker Relationship Specialty Start Date End Date Jyothi Stark CNP [address] [place] [address] [email or web address] PCP - General Internal Medicine 11/22/19 09/08/22 Carlos Bullock MD [address] [place] [address] PCP - General Internal Medicine 09/09/22 11/10/22 Shaista Magaña CNP 170 [facility], 2nd [place] [address] [email or web address] PCP - General Family Medicine 11/11/22 Jose D Almeida MD 40 [place] [address] Ophthalmology 12/05/20 Carlos Bullock MD [address] [place] [address] Insurance Assigned Provider 07/11/23 04/11/24 Conor Arroy[address] [place] [address] Internal Medicine 07/16/22 documented as of this encounter Additional Source Comments The information contained in this document represents components of the legal health record. It is not the complete legal health record.[facility]
--- OUTSIDE RECORDS SUMMARY | 2024-07-07 08:01 | XMS_ITS | Encounter Summary ---
Author Organization [facility] Address [address] [place] [address] Phone Care Team Providers Care Decorating Machine Tender Name Role Phone Vijay [place] MD Primary Care Provider [phone] Jyothi Stark CNP Primary Care Provider Jyothi Stark CNP Primary Care Provider Carlos Bullock MD Unavailable [phone] Carlos Bullock MD Primary Care Provider [phone] Jyothi Stark CNP Primary Care Provider Jose D Almeida MD Unavailable Carlos Bullock MD Unavailable [phone] Conor Arroyo MD Unavailable Carlos Bullock MD Primary Care Provider [phone] Shaista Magaña [facility] Primary Care Provid er Encounter Details Date Type Department Care Team (Late st Contact Info) Description 06/30/2017 Procedure Pass [place] Admitting Dept - Virtual Department [address] [place], [place] [id number] Social History Tobacco Use Types Packs/Day Years [...] Description 08/03/2024 8:30 AM EDT Office Visit [facility] [facility] [address] [place] [address] [place] [address] Shaista Magaña CNP 170 [facility], 2nd [place] [address] documented as of this encounter Visit Diagnoses Not on filedocumented in this encounter Care Teams Decorating Machine Tender Relationship Specialty Start Date End Date Vijay Hampton MD [address] [place] [address] PCP - General Internal Medicine 04/29/17 11/30/17 Jyothi Stark CNP [address] [place] [address] PCP - General Internal Medicine 12/01/17 03/08/19 Jyothi Stark CNP [address] [place] [address] PCP - General Internal Medicine 03/09/19 11/16/19 Carlos Bullock MD [address] [place] [address] PCP - General Internal Medicine 11/17/19 11/21/19 Jyothi Stark CNP [address] [place] [address] PCP - General Internal Medicine 11/22/19 09/08/22 Carlos Bullock MD [address] [place] [address] PCP - General Internal Medicine 09/09/22 11/10/22 Shaista Magaña CNP [address] [place] [address], 2[address] [place] [address] PCP - General Family Medicine 11/11/22 Carlos Bullock MD [address] [place] [address] Insurance Assigned Provider 07/13/19 04/14/20 Jose D Almeida MD [address] [place] [address] Ophthalmology 12/05/20 Carlos Bullock MD [address] [place] [address] Insurance Assigned Provider 07/11/23 04/11/24 Conor Arroyo MD [address] [place] [address] [address] [place] [address] Internal Medicine 07/16/22 documented as of this encounter Additional Source Comments The information contained in this document represents components of the legal health record. It is not the complete legal health record.[facility]
--- OUTSIDE RECORDS SUMMARY | 2024-07-07 08:01 | XMS_ITS | Encounter Summary ---
Author Organization [facility] Address [address] [facility] [address] [place] [address] Phone Care Team Providers Care Belt Sander Name Role Phone Jose D Almeida MD Unavailable Conor Arroyo MD Unavailable Shaista Magaña CNP Primary Care Provid er Reason for Referral * Consultation (Routine) - New Request Specialty Diagnoses / Procedures Referred By Shakira t Referred To Contact Neurology Diagnoses Tremor Shaista Magaña CNP [address] [facility], [address] [place] [address] Email: [email or web address] Referral ID Status Reason Start Date Expiration Date V isits Requested Visits Authorized [id number] New Request 07/06/2024 07/06/2025 1 1 Reason for Visit * Reason Comments Annual Exam Encounter Details Date Type Department Care Team (Late st Contact Info) Description 07/06/2024 10:30 AM EDT Office Visit [facility] [address] [place] [address] [place] [phone] Shaista Magaña CNP [address] [facility], [address] [place] [address] [email or web address] Encounter for health maintenance examination in adult (Primary Dx); Encounter for screening for depression; Acute idiopathic gout of left ankle; Decreased GFR; Tremor; Urinary urgency Social History Tobacco Use Types Packs/Day Years [...] your housing situation today? I have cheryl sing 06/30/2024 How many times have you move [...] Sign Reading Time Taken Comments Blood Pressure 132/84 07/06/2024 11:41 AM EDT Pulse 79 07/06/2024 10:15 AM EDT Temperature 36 ??C (96.8 ??F) 07/06/2024 10:15 AM EDT Respiratory Rate - - Oxygen Saturation 97% 07/06/2024 10:15 AM EDT Inhaled Oxygen Concentration - - Weight 93 kg (205 lb) 07/06/2024 10:15 AM EDT Height - - Body Mass Index 31.18 01/04/2024 11:23 AM EDT documented in this encounter Plan of Treatment Upcoming Encounters Date Type Department Care Team (Late st Contact Info) Description 08/03/2024 8:30 AM EDT Office Visit [facility] [address] [place] [address] Shaista Magaña, MAE [address] [facility], 2nd [place] [address] [email or web address] Scheduled Orders Name Type Priority Associated Diagnoses Orde r Schedule PSA, free and total Lab Routine Urinary urgency Expected: 07/27/2024 (Approximate), Expires: 01/05/2025 Basic metabolic panel Lab Routine Decreased GFR Expected: 07/27/2024 (Approximate), Expires: 01/05/2025 Scheduled Referrals Name Type Priority Associated Diagnoses Order Schedule Ambulatory referral to [facility] Neurology - Employed Practices Outpatient Referral Routine Tremor Ordered: 07/06/2024 documented as of this encounter Visit Diagnoses Diagnosis Encounter for health maintenance examination in adult- Primary Encounter for screening for depression Acute idiopathic gout of left ankle Decreased GFR Tremor Abnormal involuntary movements Urinary urgency Urgency of urination documented in this encounter Additional Health Concerns Assessment Noted Time PHQ-2 Depression Total Score: 1 07/01/19 25 1:10 PM EDT documented as of this encounter Care Teams Belt Sander Relationship Specialty Start Date End Date Shaista MagañaMAE [address] [place] [address], 2nd [place] [address] PCP - General Family Medicine 11/11/22 Jose D Almeida MD Ophthalmology 12/05/20 Conor Arroyo MD [address] [facility] [address] [place] [address] Internal Medicine 07/16/22 documented as of this encounter Additional Source Comments The information contained in this document represents components of the legal health record. It is not the complete legal health record.[facility]
--- OUTSIDE RECORDS SUMMARY | 2024-07-07 08:01 | XMS_ITS | Encounter Summary ---
Author Organization [facility] Address [address] [facility] [address] [place] [address] Phone Care Team Providers Care Customs Collector Name Role Phone Jyothi Stark [facility] Primary Care Provider Jyothi Stark [facility] Primary Care Provider Carlos Bullock MD Unavailable [phone] Carlos Bullock MD Primary Care Provider Jyothi Stark CNP Primary Care Provider Jose D Almeida MD Unavailable Carlos Bullock MD Unavailable [phone] Conor Arroyo MD Unavailable Carlos Bullock MD Primary Care Provider [phone] Shaista Magaña [facility] Primary Care Provid er Encounter Details Date Type Department Care Team (Late st Contact Info) Description 01/28/2018 Transcribe Orders [facility] [address] [place], [place] [id number] Jyothi Stark, [facility] [address] [place], [place] [id number] Social History Tobacco Use Types Packs/Day Years [...] Description 08/03/2024 8:30 AM EDT [facility] [address] [place] [address] [place] [address] Shaista Magaña CNP [address] [facility], 2nd [place] [address] [email or web address] documented as of this encounter Visit Diagnoses Not on filedocumented in this encounter Care Teams Customs Collector Relationship Specialty Start Date End Date Jyothi Stark CNP [address] [place] [address] PCP - General Internal Medicine 12/01/17 03/08/19 Jyothi Stark CNP [address] [place] [address] PCP - General Internal Medicine 03/09/19 11/16/19 Carlos Bullock MD [address] [place] [address] PCP - General Internal Medicine 11/17/19 11/21/19 Jyothi Stark CNP [address] [place] [address] PCP - General Internal Medicine 11/22/19 09/08/22 Carlos Bullock MD [address] [place] [address] PCP - General Internal Medicine 09/09/22 11/10/22 Shaista Magaña CNP [address] [place] [address], [address] [place] [address] [email or web address] PCP - General Family Medicine 11/11/22 Carlos Bullock MD [address] [place] [address] [email or web address] Insurance Assigned Provider 07/13/19 04/14/20 Jose D Almeida MD [address] [place] [address] [email or web address] Ophthalmology 12/05/20 Carlos Bullock MD [address] [place] [address] Insurance Assigned Provider 07/11/23 04/11/24 Conor Arroyo MD [address] [place] [address] [address] [place] [address] Internal Medicine 07/16/22 documented as of this encounter Additional Source Comments The information contained in this document represents components of the legal health record. It is not the complete legal health record.[facility]
--- OUTSIDE RECORDS SUMMARY | 2024-07-07 08:01 | XMS_ITS | Encounter Summary ---
Author Organization [facility] Address [address] [address] Phone Care Team Providers Care Army Ranger Name Role Phone Vijay Hampton MD Primary Care Provider Jyothi Stark CNP Primary Care Provider Jyothi Stark LEAD RECOVERER Primary Care Provider Carlos Bullock MD Unavailable [phone] Carlos Bullock MD Primary Care Provider Jyothi Stark CNP Primary Care Provider Jose D Almeida MD Unavailable Carlos Bullock MD Unavailable [phone] Conor Arroyo MD Unavailable Carlos Bullock MD Primary Care Provider Shaista Magaña [facility] Primary Care Provid er Encounter Details Date Type Department Care Team (Late st Contact Info) Description 10/13/2017 Ancillary Orders Virtual Department 30 [place] [address] Armond Maldonado MD [address] [place] [address] [email or web address] Pain of lower extremity, unspecified laterality Social [...] 08/03/2024 8:30 AM EDT Office Visit [facility] [address] [place] [address] Shaista Magaña, LEAD RECOVERER [address] [facility], 2nd [place] [address] [email or web address] documented as of this encounter Results * [...] laterality documented in this encounter Care Teams Army Ranger Relationship Specialty Start Date End Date Memo, Vijay Soni MD [address] [place] [address] PCP - General Internal Medicine 04/29/17 11/30/17 Jyothi Stark CNP [address] [place] [address] PCP - General Internal Medicine 12/01/17 03/08/19 Jyothi Stark CNP [address] [place] [address] PCP - General Internal Medicine 03/09/19 11/16/19 Carlos Bullock MD [address] [place] [address] PCP - General Internal Medicine 11/17/19 11/21/19 Jyothi Stark CNP [address] [place] [address] PCP - General Internal Medicine 11/22/19 09/08/22 Carlos Bullock MD [address] [place] [address] PCP - General Internal Medicine 09/09/22 11/10/22 Shaista Magaña CNP [address] [place] [address], 2nd [place] [address] [email or web address] PCP - General Family Medicine 11/11/22 Carlos Bullock MD [address] [place] [address] [email or web address] Insurance Assigned Provider 07/13/19 04/14/20 Jose D Almeida MD [address] [place] [address] [email or web address] Ophthalmology 12/05/20 Carlos Bullock MD [address] [place] [address] [email or web address] Insurance Assigned Provider 07/11/23 04/11/24 Conor Arroyo MD [address] [place] [address] [address] [place] [address] Internal Medicine 07/16/22 documented as of this encounter Additional Source Comments The information contained in this document represents components of the legal health record. It is not the complete legal health record.[facility]
--- OUTSIDE RECORDS SUMMARY | 2024-07-07 08:01 | XMS_ITS | Encounter Summary ---
Author Organization [facility] Address [address] [facility] [address] [place] [address] Phone Care Team Providers Care Account Liaison Name Role Phone Jose D Almeida MD Unavailable Conor Arroyo MD Unavailable Shaista Magaña CNP Primary Care Provid er Encounter Details Date Type Department Care Team (Late st Contact Info) Description 07/06/2024 6:28 PM EDT - 07/06/2024 11:59 PM EDT Hospital Encounter [facility] [address] [place] [address] Shaista Magaña, MAE [address], [address]nd [place] [address] [email or web address] Discharge Disposition: Home or Self Care Social History Tobacco Use Types Packs/Day Years [...] AM EDT documented as of this encounter Medications at Time of Discharge Medication Sig Dispensed Refills Start Date End Date albuterol 90 mcg/actuation inhalerIndications:Mil d persistent asthma without complication Inhale 2 puffs into the lungs every 4 (four) hours as needed for wheezing or shortness of breath/dyspnea. 18 g 3 02/03/2024 arnica 20 % Tinc Apply topically. ASCORBIC ACID WITH FREDERIC HIPS 500 MG tablet Take 500 mg by mouth 2 (two) times a day. 3 11/04/2017 aspirin (ASPIR-81) 81 MG EC tablet Take 81 mg by mouth daily. carbidopa-levodopa (SINEMET) 25-100 mg per tabletIndications:Trem or Take 1 tablet by mouth 2 (two) times a day for 14 days, THEN 1 tablet 3 (three) times a day for 14 days. 70 tablet 07/06/2024 08/03/2024 chlorthalidone (HYGROTON) 25 MG tabletIndications:Esse ntial hypertension Take 1 tablet (25 mg total) by mouth daily. 90 tablet 06/09/2024 cholecalciferol (VITAMIN D3) 1,000 unit tablet Take 1,000 Units by mouth daily. clindamycin (CLEOCIN T) 1 % lotionIndications:Nipp le infection Apply topically 2 (two) times a day. To chest 60 mL 1 08/06/2023 clotrimazole (LOTRIMIN) 1 % cream Apply topically daily. fluticasone propion-salmeteroL (WIXELA INHUB) 250-50 mcg/dose DISKUSIndications:Asth ma INHALE 1 PUFF BY MOUTH TWICE A DAY 60 each 11 02/26/2024 gabapentin (NEURONTIN) 400 MG capsuleIndications:Lum bosacral spondylolysis TAKE 1 CAPSULE BY MOUTH 4 TIMES A DAY. 360 capsule 03/31/2024 ketoconazole (NIZORAL) 2 % shampooIndications:Itc hy scalp Apply topically 2 (two) times a week. Apply to damp skin, lather, leave on 5 minutes, and rinse. 120 mL 12/07/2023 lisinopril (PRINIVIL,ZESTRIL) 40 MG tabletIndications:Esse ntial hypertension Take 1 tablet (40 mg total) by mouth daily. 90 tablet 06/09/2024 LORazepam (ATIVAN) 1 MG tabletIndications:IRVING (generalized anxiety disorder) TAKE 1 TABLET BY MOUTH EVERY 8 HOURS NEEDED FOR ANXIETY 84 tablet 06/27/2024 metFORMIN (GLUCOPHAGE) 500 MG tabletIndications:Diab etes mellitus take 1 tablet by mouth twice a day with food 180 tablet 3 09/15/2023 miconazole 2 % powder Apply 1 application topically as needed for itching. montelukast (SINGULAIR) 10 mg tabletIndications:Asth ma Take 1 tablet (10 mg total) by mouth nightly at bedtime. 90 tablet 3 11/10/2023 oxyCODONE 5 MG immediate release tabletIndications:Acut e idiopathic gout of left ankle Take 0.5 tablets (2.5 mg total) by mouth every 6 (six) hours as needed (severe joint pain/gout flare). 5 tablet 02/17/2024 predniSONE (DELTASONE) 10 MG tabletIndications:Acut e idiopathic gout of left ankle Take 4 tablets (40 mg total) by mouth daily for 3 days, THEN 3 tablets (30 mg total) daily for 1 day, THEN 2 tablets (20 mg total) daily for 1 day, THEN 1 tablet (10 mg total) daily for 1 day. As needed for gout flares, start at first sign.. 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 18 tablet 1 02/03/2024 VITAMIN B-12 1000 MCG tabletIndications:B12 deficiency Take 1 tablet (1,000 mcg total) by mouth daily. 90 tablet 3 06/16/2019 VITAMIN K2 ORAL Take 100 mcg by mouth daily. documented as of this encounter Plan of Treatment Upcoming Encounters Date Type Department Care Team (Late st Contact Info) Description 08/03/2024 8:30 AM EDT Office Visit [facility] [address] [place] [address] [place] [address] Shaista Magaña, HORIZONTAL BORING MILL SET UP OPERATOR [address] [facility], 2nd [place] [address] [email or web address] documented as of this encounter Procedures Procedure Name Priority Date/Time Associated Diagnosis Comments URINALYSIS W/REFLEX URINE CULTURE Routine 07/06/2024 6:29 PM EDT Decreased GFR Stage 3a chronic kidney disease documented in this encounter Results * Urinalysis w/reflex Urine Culture (07/06/2024 6:29 PM EDT) COLOR Yellow Yellow [facility] CLARITY Clear [facility] GLUCOSE Negative Negative [facility] BILI Negative Negative [facility] KETONES Negative Negative [facility] SPECIFIC GRAVITY 1.020 1.005 - 1.030 [facility] BLOOD Negative Negative [facility] PH 6.0 5.0 - 8.0 [facility] Protein-UA Negative Negative [facility] NITRITE Negative Negative [facility] Leukocyte esterase, ur Negative Negative [facility] Urine (Urine) 07/06/2024 6:2 9 PM EDT 07/06/2024 6:30 PM EDT Shaista Magaña MAE URINE ORDERA BLES [facility] [address] [place] [address] documented in this encounter Visit Diagnoses Diagnosis Decreased GFR Stage 3a chronic kidney disease documented in this encounter Additional Health Concerns Assessment Noted Time PHQ-2 Depression Total Score: 1 07/01/19 25 1:10 PM EDT documented as of this encounter Care Teams Account Liaison Relationship Specialty Start Date End Date Shaista MagañaMAE [address] [facility], 2nd [place] [address] PCP - General Family Medicine 11/11/22 Jose D Almeida MD Ophthalmology 12/05/20 Conor Arroyo MD [address] [place] [address] Internal Medicine 07/16/22 documented as of this encounter Additional Source Comments The information contained in this document represents components of the legal health record. It is not the complete legal health record.[facility]
--- OUTSIDE RECORDS SUMMARY | 2024-07-07 08:01 | XMS_ITS | Encounter Summary ---
Author Organization [facility] Address [address] [facility] [address] [place] [address] Phone Care Team Providers Care Business And Services Instructor Name Role Phone Jose D Almeida MD Unavailable Conor Arroyo MD Unavailable Shaista Magaña CNP Primary Care Provid er Encounter Details Date Type Department Care Team (Late st Contact Info) Description 07/06/2024 9:51 AM EDT - 07/06/2024 6:27 PM EDT Hospital Encounter [facility] [address] [place] [address] Shaista Magaña, MAE [address] [facility], 2nd [place] [address] [email or web address] Discharge Disposition: Home or Self Care Social [...] Description 08/03/2024 8:30 AM EDT Office Visit [facility] [address] [place] [address] [place] [address] Shaista Magaña, [facility] [address] [facility], 2nd [place] [address] [email or web address] documented as of this encounter Procedures Procedure Name Priority Date/Time Associated Diagnosis Comments RENAL PANEL Routine 07/06/2024 10:02 AM EDT Decreased GFR Stage 3a chronic kidney disease documented in this encounter Results * (ABNORMAL) Renal panel (07/06/2024 10:02 AM EDT) SODIUM 143 133 - 146 mmol/L [facility] POTASSIUM 5.0 3.3 - 5.1 mmol/L [facility] CHLORIDE 107 96 - 108 mmol/L [facility] CO2 26 21 - 35 mmol/L [facility] GLUCOSE 121(H) 70 - 99 mg/dL [facility] BUN 28(H) 6 - 19 mg/dL [facility] CREATININE 2.10(H) 0.5 - 1.5 mg/dL [facility] CALCIUM 9.1 8.4 - 10.3 mg/dL [facility] PHOSPHORUS 2.7 2.7 - 4.5 mg/dL [facility] ALBUMIN 4.3 3.9 - 4.8 g/dL [facility] EGFR 33(L) >59 mL/min/1.7 3m2 [facility] Comment:Estimated glomerular filtration rate calculated using the CKD-EPI refit equation. ANION GAP 15 10 - 20 mmol/L [facility] Blood 07/06/2024 10:0 2 AM EDT 07/06/2024 10:05 AM EDT Shaista Magaña CNP LAB BLOOD OR DERABLES Performing Organization Address City/State/[facility] Co de Phone Number [facility] [address] [place] [address] documented in this encounter Visit Diagnoses Diagnosis Decreased GFR Stage 3a chronic kidney disease documented in this encounter Additional Health Concerns Assessment Noted Time PHQ-2 Depression Total Score: 1 07/01/19 25 1:10 PM EDT documented as of this encounter Care Teams Business And Services Instructor Relationship Specialty Start Date End Date Shaista Magaña CNP [address] [place] [address], [address]nd [place] [address] PCP - General Family Medicine 11/11/22 Jose D Almeida MD Ophthalmology 12/05/20 Conor Arroyo MD [address] [facility] [address] [place] [address] Internal Medicine 07/16/22 documented as of this encounter Additional Source Comments The information contained in this document represents components of the legal health record. It is not the complete legal health record.[facility]
--- OUTSIDE RECORDS SUMMARY | 2024-07-07 08:01 | XMS_ITS | Encounter Summary ---
Author Organization [facility] Address [address] [facility] [address] [place] [address] Phone Care Team Providers Care Project Development Engineer Name Role Phone Jyothi Stark [facility] Primary Care Provider Jyothi Stark [facility] Primary Care Provider Carlos Bullock MD Unavailable [phone] Carlos Bullock MD Primary Care Provider Jyothi Stark [facility] Primary Care Provider Jose D Almeida MD Unavailable Carlos Bullock MD Unavailable [phone] Conor Arroyo MD Unavailable Carlos Bullock MD Primary Care Provider [phone] Shaista Magaña [facility] Primary Care Provid er Encounter Details Date Type Department Care Team (Late st Contact Info) Description 12/14/2018 Procedure Pass OR Admitting Dept - Virtual Department [address] [place] [address] Social History Tobacco Use Types Packs/Day Years [...] EDT Office Visit [facility] [address] [place] [address] [place] [address] Shaista Magñaa CNP [address] [facility], 2nd [place] [address] documented as of this encounter Visit Diagnoses Not on filedocumented in this encounter Care Teams Project Development Engineer Relationship Specialty Start Date End Date Jyothi Stark CNP [address] [place] [address] PCP - General Internal Medicine 12/01/17 03/08/19 Jyothi Stark CNP [address] [place] [address] PCP - General Internal Medicine 03/09/19 11/16/19 Carlos Bullock MD [address] [place] [address] PCP - General Internal Medicine 11/17/19 11/21/19 Jyothi Stark CNP [address] [place] [address] PCP - General Internal Medicine 11/22/19 09/08/22 Carlos Bullock MD [address] [place] [address] PCP - General Internal Medicine 09/09/22 11/10/22 Shaista Magaña CNP [address] [place] [address], 2nd [place] [address] PCP - General Family Medicine 11/11/22 Carlos Bullock MD [address] [place] [address] Insurance Assigned Provider 07/13/19 04/14/20 Jose D Almeida MD [address] [place] [address] Ophthalmology 12/05/20 Carlos Bullock MD [address] [place] [address] Insurance Assigned Provider 07/11/23 04/11/24 Conor Arroyo MD [address] [place] [address] [address] [place] [address] Internal Medicine 07/16/22 documented as of this encounter Additional Source Comments The information contained in this document represents components of the legal health record. It is not the complete legal health record.[facility]
--- OUTSIDE RECORDS SUMMARY | 2024-07-07 08:01 | XMS_ITS | Encounter Summary ---
Author Organization [facility] Address [address] [facility] [address] [place] [address] Phone Care Team Providers Care Mat Linker Name Role Phone Vijay Hampton MD Primary Care Provider Jyothi Stark CNP Primary Care Provider Jyothi Stark CNP Primary Care Provider Carlos Bullock MD Unavailable [phone] Carlos Bullock MD Primary Care Provider [phone] Jyohti Stark CNP Primary Care Provider Jose D Almeida MD Unavailable Carlos Bullock MD Unavailable [phone] Conor Arroyo MD Unavailable Carlos Bullock MD Primary Care Provider [phone] Shaista Magaña [facility] Primary Care Provid er Encounter Details Date Type Department Care Team (Late st Contact Info) Description 06/15/2017 Procedure Pass [facility],Outside Imaging [address] [place], [place] [id number] Social History Tobacco Use Types Packs/Day Years [...] 08/03/2024 8:30 AM EDT Office Visit [facility] [address] [facility] [place] [address] Shaista Magaña CNP [address] [facility], 2nd [place] [address] documented as of this encounter Visit Diagnoses Not on filedocumented in this encounter Care Teams Mat Linker Relationship Specialty Start Date End Date Vijay Hmapton MD [address] [place] [id number] PCP - General Internal Medicine 04/29/17 11/30/17 Jyothi Stark CNP [address] [place] [address] PCP - General Internal Medicine 12/01/17 03/08/19 Jyothi Stark CNP [address] [place] [address] PCP - General Internal Medicine 03/09/19 11/16/19 Carlos Bullock MD [address] [place], [place] [phone] PCP - General Internal Medicine 11/17/19 11/21/19 Jyothi Stark CNP [address] [place] [address] PCP - General Internal Medicine 11/22/19 09/08/22 Carlos Bullock MD [address] [place] [address] PCP - General Internal Medicine 09/09/22 11/10/22 Shaista Magaña CNP [address] [place] [address], [address] [place] [address] PCP - General Family Medicine 11/11/22 Carlos Bullock MD [address] [place] [address] Insurance Assigned Provider 07/13/19 04/14/20 Jose D Almeida MD [address] [place] [address] Ophthalmology 12/05/20 Carlos Bullock MD [address] [place] [address] Insurance Assigned Provider 07/11/23 04/11/24 Conor Arroyo MD [address] [place] [address] [place] [id number] Internal Medicine 07/16/22 documented as of this encounter Additional Source Comments The information contained in this document represents components of the legal health record. It is not the complete legal health record.[facility]
--- OUTSIDE RECORDS SUMMARY | 2024-07-07 08:01 | XMS_ITS | Encounter Summary ---
Author Organization [facility] Address [address] [address] Phone Care Team Providers Care Glaze Maker Name Role Phone Unknown, Unknown Primary Care Provider Vijay Zafar MD Primary Care Provider Jyothi Stark [facility] Primary Care Provider Jyothi Stark [facility] Primary Care Provider Carlos Bullock MD Unavailable Carlos Bullock MD Primary Care Provider Jyothi Stark [facility] Primary Care Provider Jose D Almeida MD Unavailable Carlos Bullock MD Unavailable [phone] Conor Arroyo MD Unavailable Carlos Bullock MD Primary Care Provider Shaista Magaña [facility] Primary Care Provid er Encounter Details Date Type Department Care Team (Late st Contact Info) Description 04/15/2017 Ancillary Orders Virtual Department [address] [place] [address] Armond Maldonado MD [address] [place] [address] [email or web address] Acute low back pain, unspecified back pain [...] 08/03/2024 8:30 AM EDT Office Visit [facility] [address] [place] [address] Shaista Magaña, [employer]S [employer] ENGINEER [address] [place], [place] [address] [email or web address] documented as of this encounter Results * [...] Other degenerative changes as described. POS - [id number] Edited by: Malu Woodson on 04/17/2017 8:49 [...] Other degenerative changes as described. POS - [id number] Edited by: Malu Woodson on 04/17/2017 8:49 [...] foot documented in this encounter Care Teams Glaze Maker Relationship Specialty Start Date End Date Unknown, Unknown, MD PCP - General 04/15/17 04/28/17 Vijay Hampton MD [address] [place] [id number] PCP - General Internal Medicine 04/29/17 11/30/17 Jyothi Stark CNP [address] [place] [address] [email or web address] PCP - General Internal Medicine 12/01/17 03/08/19 Jyothi Stark, MAE [address] [place] [address] [email or web address] PCP - General Internal Medicine 03/09/19 11/16/19 Carlos Bullock MD [address] [place] [address] [email or web address] PCP - General Internal Medicine 11/17/19 11/21/19 Jyothi Stark CNP [address] [place] [id number] [email or web address] PCP - General Internal Medicine 11/22/19 09/08/22 Carlos Bullock MD [address] [place] [id number] [email or web address] PCP - General Internal Medicine 09/09/22 11/10/22 Shaista Magaña CNP [address] [place] [address], [address] [place] [address] [email or web address] PCP - General Family Medicine 11/11/22 Carlos Bullock MD [address] [place] [id number] [email or web address] Insurance Assigned Provider 07/13/19 04/14/20 Jose D Almeida MD [address] [place] [address] [email or web address] Ophthalmology 12/05/20 Carlos Bullock MD [address] [place] [id number] [email or web address] Insurance Assigned Provider 07/11/23 04/11/24 Conor Arroyo MD [address] [place] [id number] Internal Medicine 07/16/22 documented as of this encounter Additional Source Comments The information contained in this document represents components of the legal health record. It is not the complete legal health record.[facility]
--- OUTSIDE RECORDS SUMMARY | 2024-07-07 08:01 | XMS_ITS | Clinical Summary ---
Author Organization [facility] Address [address] [facility] [address] [place] [id number] Phone Care Team Providers Care Cocoa Bean Roaster Helper Name Role Phone Jose D Almeida MD Unavailable Conor Arroyo MD Unavailable Shaista Magaña [facility] Primary Care Provid er Allergies Active Allergy Reactions Criticality Noted Date Comments Colchicine Diarrhea Low 04/22/2018 Iodine Hives Medium 06/02/2017 Other 12/04/2023 Other Reaction(s): SPLENDA Penicillins Rash Low 06/02/2017 Sulfamethoxazole-Trimet hoprim Hives Medium 06/02/2017 Shellfish Containing Products Hives Medium 06/02/2017 Vstgdxy-Oyf-Dge Reductase Inhibitors Other (See Comments) Medium 06/02/2017 Muscle pain Sucralose Diarrhea Low 10/20/2018 Sulfa (Sulfonamide Antibiotics) Unknown 07/03/2023 Tetanus And Diphther. Tox (Pf) Rash Low 06/02/2017 Tetanus And Diphtheria Toxoids Rash Low 10/23/2021 Medications Medication Sig Dispensed Refills Start Date [...] mouth daily. Active VITAMIN B-12 1000 MCG tabletIndications :B12 deficiency Take 1 tablet (1,000 mcg total) by mouth daily. 90 tablet 3 0 Active arnica 20 % Tinc Apply topically. Active aspirin (ASPIR-81) 81 MG EC tablet Take 81 mg by mouth daily. Active clindamycin (CLEOCIN T) 1 % lotionIndications :Nipple infection Apply topically 2 (two) times a day. To chest 60 mL 1 4 Active metFORMIN (GLUCOPHAGE) 500 MG tabletIndications :Diabetes mellitus take 1 tablet by mouth twice a day with food 180 tablet 3 4 Active montelukast (SINGULAIR) 10 mg tabletIndications :Asthma Take 1 tablet (10 mg total) by mouth nightly at bedtime. 90 tablet 3 4 Active ketoconazole (NIZORAL) 2 % shampooIndication s:Itchy scalp Apply topically 2 (two) times a week. Apply to damp skin, lather, leave on 5 minutes, and rinse. 120 mL 4 Active albuterol 90 mcg/actuation inhalerIndication s:Mild persistent asthma without complication Inhale 2 puffs into the lungs every 4 (four) hours as needed for wheezing or shortness of breath/dyspnea. 18 g 3 4 Active sildenafiL (VIAGRA) 50 mg tabletIndications :Erectile dysfunction due to diseases classified elsewhere Take 1 tablet (50 mg total) by mouth daily as needed. 18 tablet 1 4 Active oxyCODONE 5 MG immediate release tabletIndications :Acute idiopathic gout of left ankle Take 0.5 tablets (2.5 mg total) by mouth every 6 (six) hours as needed (severe joint pain/gout flare). 5 tablet 4 Active fluticasone propion-salmetero L (WIXELA INHUB) 250-50 mcg/dose DISKUSIndications :Asthma INHALE 1 PUFF BY MOUTH TWICE A DAY 60 each 11 4 Active gabapentin (NEURONTIN) 400 MG capsuleIndication s:Lumbosacral spondylolysis TAKE 1 CAPSULE BY MOUTH 4 TIMES A DAY. 360 capsule 4 Active lisinopril (PRINIVIL,ZESTRIL ) 40 MG tabletIndications :Essential hypertension Take 1 tablet (40 mg total) by mouth daily. 90 tablet 5 Active chlorthalidone (HYGROTON) 25 MG tabletIndications :Essential hypertension Take 1 tablet (25 mg total) by mouth daily. 90 tablet 5 Active LORazepam (ATIVAN) 1 MG tabletIndications :IRVING (generalized anxiety disorder) TAKE 1 TABLET BY MOUTH EVERY 8 HOURS NEEDED FOR ANXIETY 84 tablet 5 Active predniSONE (DELTASONE) 10 MG tabletIndications :Acute idiopathic gout of left ankle Take 4 tablets (40 mg total) by mouth daily for 3 days, THEN 3 tablets (30 mg total) daily for 1 day, THEN 2 tablets (20 mg total) daily for 1 day, THEN 1 tablet (10 mg total) daily for 1 day. As needed for gout flares, start at first sign.. 20 tablet 2 5 07/13/19 25 Active carbidopa-levodop a (SINEMET) 25-100 mg per tabletIndications :Tremor Take 1 tablet by mouth 2 (two) times a day for 14 days, THEN 1 tablet 3 (three) times a day for 14 days. 70 tablet 5 08/04/19 25 Active lisinopril (PRINIVIL,ZESTRIL ) 40 MG tabletIndications :Essential hypertension,Medi cation refill take 1 tablet by mouth every day 90 tablet 1 4 06/10/19 25 Discontinued allopurinol (ZYLOPRIM) 100 MG tabletIndications :Acute idiopathic gout of left ankle Take 0.5 tablets (50 mg total) by mouth daily. 45 tablet 1 4 07/07/19 25 Discontinued(No longer taking) chlorthalidone (HYGROTON) 25 MG tabletIndications :Essential hypertension,Medi cation refill TAKE 1 TABLET (25 MG TOTAL) BY MOUTH DAILY. 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 Itchy scalp 12/04/2023 Assessment [...] no new nerve symptoms. Recently seen by [facility] pain clinic who recommended a spinal cord [...] a back brace. Under the care of [facility]. Feels he has not fully [...] right. No prior audiology eval, has purchased OT hearing aids. Will send for formal hearing [...] screening. Reviewed benefits, limitations. Patient desires screening. Hypertension 05/12/2019 Assessment & Plan (01/04/2024 12:57 PM [...] (07/06/2022 10:36 PM EDT): Continue current medications Type 2 diabetes mellitus 12/13/2017 Assessment & Plan (01/04/2024 12:56 [...] sacrum d/t recent fall. Pre-RFA scheduled for 07/08 Left leg swelling 02/24/2022 12/01/2022 Insomnia 05/12/2019 [...] Encounters Date Type Department Care Team Description 07/06/2024 6:28 PM EDT - 07/06/2024 11:59 PM EDT Hospital Encounter [facility] Specimen Processing [address] [place] [address] Shaista Magaña CNP Discharge Disposition: Home or Self Care 07/06/2024 10:30 AM EDT Office Visit [address] [place] [address] Shaista Magaña CNP Encounter for health maintenance examination in adult (Primary Dx); Encounter for screening for depression; Acute idiopathic gout of left ankle; Decreased GFR; Tremor; Urinary urgency 07/06/2024 9:51 AM EDT - 07/06/2024 6:27 PM EDT Hospital Encounter [facility] [address] [place] [address] [place] [address] Shaista Magaña CNP Discharge Disposition: Home or Self Care 07/05/[address] [place] [address] Ilda Anglin, RN Results 07/04/2024 Orders Only [address] [place] [address] Shaista Magaña CNP Decreased GFR (Primary Dx); Stage 3a chronic kidney disease 06/30/2024 2:38 PM EDT - 06/30/2024 11:59 PM EDT Hospital Encounter [facility] Laboratory [address] [facility] [place] [address] Shaista Magaña CNP Discharge Disposition: Home or Self Care 06/26/[address] [place] [address] Shaista Magaña CNP Medication Refill 06/08/2024 Refill Breen Elza [facility] [address] [place] [address] Shaista Magaña CNP Medication Refill 05/28/2024 Refill Breen Elza [facility] [address] [place] [address] Toma Gordon MD Medication Refill 04/29/2024 Refill Breen La Paz [facility] [address] [place] [address] Shaista Magaña CNP Medication Refill from Last 3 Months Immunizations Name Administration [...] Former Cigarettes 2 39 0 04/22/1976 - 2006 Smokeless Tobacco: Never Tobacco Cessation:Counseling Given: Not [...] ??F) 07/06/2024 10:15 AM EDT Respiratory Rate 16 10/14/2022 3:04 PM EDT Oxygen Saturation 97% 07/06/2024 10:15 AM EDT Inhaled Oxygen Concentration - - Weight 93 kg (205 lb) 07/06/2024 10:15 AM EDT Height 172.7 cm (5' 7.99 ) 01/04/2024 11:23 AM E DT Body Mass Index 31.18 01/04/2024 11:23 AM EDT Plan of Treatment Upcoming Encounters Date Type Department Care Team (Late st Contact Info) Description 08/03/2024 8:30 AM EDT Office Visit [facility] [address] [place] [address] [place] [address] Shaista Magaña, MAE [address] [facility] [address] [place] [address] [email or web address] Health Maintenance Due Date Last Done Comments COLOGUARD 1998 FIT TEST 1998 FOBT 1998 SIGMOIDOSCOPY 1998 VIRTUAL COLONOSCOPY 1998 HEMOGLOBIN A1C 12/31/2024 06/30/2024, 12/06, 06/30/2023, Additional history exists BLOOD PRESSURE 01/05/2025 07/06/2024 DIABETIC EYE EXAM 02/16/2025 02/17/2024, , 01/05/2020, Additional history exists DEPRESSION SCREENING 06/30/2025 06/30/2024 LIPID PANEL 06/30/2025 06/30/2024, 06/05, 06/26/2022, Additional history exists CREATININE LEVEL 07/06/2025 07/06/2024, , 01/01/2024, Additional history exists POTASSIUM LEVEL 07/06/2025 07/06/2024, 06/05, 01/01/2024, Additional history exists COLONOSCOPY 11/16/2029 11/17/2019, 04/10/2006 COLORECTAL CANCER SCREENING 11/16/2029 PNEUMOCOCCAL VACCINES (50+ years) Completed 05/10/2019, 04/22/2018 ABDOMINAL AORTIC ANEURYSM (AAA) SCREENING Completed 05/23/2019, 04/29/2018 ZOSTER VACCINES Completed 10/10/2021, 07/24/2021 HEPATITIS C SCREENING Completed 11/28/2022, 023 RSV VACCINE Completed 12/29/2022 INFLUENZA VACCINE Completed 12/21/2023, , 12/24/2022, Additional history exists COVID-19 VACCINE Completed 06/13/2024, , 12/24/2022, Additional history exists SMOKING STATUS SCREENING (Once After 26 Yrs) Completed 07/06/2024 HEPATITIS A VACCINES Aged Out No long er eligible based on patient's age to complete this topic HIB VACCINES Aged Out No longer eligi ble based on patient's age to complete this topic MENINGOCOCCAL VACCINES (ACWY) Aged Out No longer eligible based on patient's age to complete this topic Medical Devices Implanted Type Area Piano Accompanist Device Identifier Shelf Expiration Date Model / Serial / Lot Graft Bone 1 To 8mm 30 Readi Allo Chip Cancellous Crushed Void Filler Preservon - [id number] Implanted:Qty : 1 on 12/14/2018 by Armond Maldonado MD at [facility] BONETISSUE Spine Lumbar [employer] 09/13/2023 PCAN30 / [id number] / Set Screw 5.5mm Spine Cd Horizon Legacy Ss Break Off - [id number] Implanted:Qty : 4 on 12/14/2018 by Armond Maldonado MD at [facility] NODATA Spine Lumbar [employer] [id number] / / Screw Bone 50x6.5mm Spine Horizon Legacy Spinal System Ti Multiaxial - [id number] Implanted:Qty : 1 on 12/14/2018 by Armond Maldonado MD at [facility] NODATA Spine Lumbar [employer] [id number] / / Spacer Capstone Peek 15x32 - [id number] Implanted:Qty : 1 on 06/30/2017 by Armond Maldonado MD at [facility] N/A: Back [employer] 05/09/2018 [id number] / / [id number] Set Screw Sextant - [id number] Implanted:Qty : 4 on 06/30/2017 by Armond Maldonado MD at [facility] N/A: Back [employer] [id number] / / Description:L4/5 Screw Spine Sextant 6.5x50mm - [id number] Implanted:Qty : 2 on 06/30/2017 by Armond Maldonado MD at [facility] N/A: Back [employer] [id number] / / Description:L4/5 Screw Bone 7.5x50mm Spine Multi Axial Cannulated Legacy - [id number] Implanted:Qty : 2 on 06/30/2017 by Armond Maldonado MD at [facility] N/A: Back [employer] [id number] / / Description:L4/5 Jaguar Spinal Sextant 5.5x40mm - [id number] Implanted:Qty : 2 on 06/30/2017 by Armond Maldonado MD at [facility] N/A: Back [employer] [id number] / / Screw Bone 7.5x50mm Spine Horizon Legacy Spinal System Ti Multiaxial - [id number] Implanted:Qty : 3 on 12/14/2018 by Armond Maldonado MD at [facility] Spine Lumbar [employer] [id number] / / Spine Jaguar 5.5mmx40 Spinal Legacy Titanium Prebent Curved Thoracic Lumbar Sacral - [id number] Implanted:Qty : 1 on 12/14/2018 by Armond Maldonado MD at [facility] Spine Lumbar [employer] [id number] / / Spine Jaguar 5.5x45mm Legacy Titanium Prebent Thoracic Lumbar Sacral - [id number] Implanted:Qty : 1 on 12/14/2018 by Armond Maldonado MD at [facility] Spine Lumbar [employer] [id number] / / Procedures Procedure Name Priority Date/Time Associated Diagnosis Comments URINALYSIS W/REFLEX URINE CULTURE Routine 07/06/2024 6:29 PM EDT Decreased GFR Stage 3a chronic kidney disease RENAL PANEL Routine 07/06/2024 10:02 AM EDT Decreased GFR Stage 3a chronic kidney disease MICROALBUMIN/CREATIN INE RATIO, RANDOM URINE Routine 06/30/2024 2:56 PM EDT Type 2 diabetes mellitus with stage 3a chronic kidney disease, without long-term current use of insulin HEMOGLOBIN A1C Routine 06/30/2024 2:38 PM EDT Type 2 diabetes mellitus with stage 3a chronic kidney disease, without long-term current use of insulin BASIC METABOLIC PANEL Routine 06/30/2024 2:38 PM EDT Type 2 diabetes mellitus with stage 3a chronic kidney disease, without long-term current use of insulin URIC ACID Routine 06/30/2024 2:38 PM EDT Acute idiopathic gout of left ankle LIPID PANEL Routine 06/30/2024 2:38 PM EDT Type 2 diabetes mellitus with stage 3a chronic kidney disease, without long-term current use of insulin DIABETES EYE EXAM FOR RESULT ENTRY ONLY Routine 02/17/2024 11:31 AM EST HEPATITIS C ANTIBODY, QUALITATIVE Routine 11/28/2022 9:45 AM EDT Need for hepatitis C screening test COLONOSCOPY FOR RESULT ENTRY ONLY Routine 11/17/2019 US AORTA DUPLEX COMPLETE Routine 05/23/2019 8:06 AM EST Abdominal aortic ectasia from Last 3 Months or Most Recently Relevant to Health Maintenance Results * Urinalysis w/reflex Urine Culture (07/06/2024 6:29 PM EDT) COLOR Yellow Yellow [facility] CLARITY Clear [facility] GLUCOSE Negative Negative [facility] BILI Negative Negative [facility] KETONES Negative Negative [facility] SPECIFIC GRAVITY 1.020 1.005 - 1.030 [facility] BLOOD Negative Negative [facility] PH 6.0 5.0 - 8.0 [facility] Protein-UA Negative Negative [facility] NITRITE Negative Negative [facility] Leukocyte esterase, ur Negative Negative [facility] Urine (Urine) 07/06/2024 6:2 9 PM EDT 07/06/2024 6:30 PM EDT Shaista Magaña CNP URINE ORDERA BLES Performing Organization Address City/[facility] Co de Phone Number [address] [address] * (ABNORMAL) Renal panel (07/06/2024 10:02 AM EDT) SODIUM 143 133 - 146 mmol/L [facility] POTASSIUM 5.0 3.3 - 5.1 mmol/L [facility] CHLORIDE 107 96 - 108 mmol/L [facility] CO2 26 21 - 35 mmol/L [facility] GLUCOSE 121(H) 70 - 99 mg/dL [facility] BUN 28(H) 6 - 19 mg/dL [facility] CREATININE 2.10(H) 0.5 - 1.5 mg/dL [facility] CALCIUM 9.1 8.4 - 10.3 mg/dL [facility] PHOSPHORUS 2.7 2.7 - 4.5 mg/dL [facility] ALBUMIN 4.3 3.9 - 4.8 g/dL [facility] EGFR 33(L) >59 mL/min/1.7 3m2 [facility] Comment:Estimated glomerular filtration rate calculated using the CKD-EPI refit equation. ANION GAP 15 10 - 20 mmol/L [facility] Blood 07/06/2024 10:0 2 AM EDT 07/06/2024 10:05 AM EDT Shaista Magaña CNP LAB BLOOD OR DERABLES Performing Organization Address City/[facility]/ZIP Co de Phone Number [address] [address] * (ABNORMAL) Microalbumin/creatinine ratio, random urine (06/30/2024 2:56 PM EDT) URINE MICROALBUMIN 2.6(H) 0 - 2.3 mg/dL [facility] URINE CREATININE 125 mg/dL [facility] MICROALB/CRE RATIO 20.8(H) 0 - 20 mg/g Cre [facility] Urine (Urine) 06/30/2024 2:5 6 PM EDT 06/30/2024 2:58 PM EDT Shaista Magaña [facility] URINE ORDERA BLES Performing Organization Address [facility]/ZIP Co de Phone Number [address] [address] * (ABNORMAL) Uric acid (06/30/2024 2:38 PM EDT) URIC ACID 8.9(H) 2.4 - 7.0 mg/dL [facility] Blood 06/30/2024 2:38 PM EDT 06/30/2024 2:45 PM EDT [facility] LAB BLOOD OR DERABLES Performing Organization Address [facility]/ZIP Co de Phone Number [address] [address] * (ABNORMAL) Hemoglobin A1c (06/30/2024 2:38 PM EDT) HEMOGLOBIN A1C 6.2(H) 4.3 - 5.8 % [facility] Blood 06/30/2024 2:38 PM EDT 06/30/2024 2:45 PM EDT [facility] LAB BLOOD OR DERABLES Performing Organization Address [facility]/ZIP Co de Phone Number [address] [phone] * Lipid panel (06/30/2024 2:38 PM EDT) HDL 41 mg/dL [facility] Comment: ? Interpretation <40 mg/dL: Low HDL cholesterol (major risk factor for CHD) Greater than or equal to 60 mg/dL: High HDL cholesterol ( negative risk factor for CHD) HDL - cholesterol is affected by a number of factors, e.g. smoking, excerise, hormones, sex and age. CHOLESTEROL 157 0 - 240 mg/dL [facility] TRIGLYCERIDES 147 30 - 160 mg/dL [facility] LDL 87 50 - 129 mg/dL [facility] Comment: LDL levels in terms of risk for coronary heart disease: <100 mg/dL: Optimal 100-129 mg/dL: Near or above optimal 130-159 mg/dL: Borderline high 160-189 mg/dL: High >190 mg/dL: Very High CARDIAC RISK RATIO 3.8 3.4 - 5.0 C [facility] Blood 06/30/2024 2:38 PM EDT 06/30/2024 2:45 PM EDT Shaista Magaña [facility] LAB BLOOD OR DERABLES Performing Organization Address City/State/[facility] Co de Phone Number [address] [phone] * (ABNORMAL) Basic metabolic panel (06/30/2024 2:38 PM EDT) SODIUM 143 133 - 146 mmol/L [facility] CHLORIDE 107 96 - 108 mmol/L [facility] POTASSIUM 5.4(H) 3.3 - 5.1 mmol/L [facility] CO2 27 21 - 35 mmol/L [facility] BUN 30(H) 6 - 19 mg/dL [facility] CREATININE 2.70(H) 0.5 - 1.5 mg/dL [facility] GLUCOSE 96 70 - 99 mg/dL [facility] CALCIUM 9.3 8.4 - 10.3 mg/dL [facility] EGFR 24(L) >59 mL/min/1.7 3m2 [facility] Comment:Estimated glomerular filtration rate calculated using the CKD-EPI refit equation. ANION GAP 14 10 - 20 mmol/L [facility] Blood 06/30/2024 2:38 PM EDT 06/30/2024 2:45 PM EDT Shaista Magaña STUDY SPECIALIST LAB BLOOD OR DERABLES Performing Organization Address [facility] Co de Phone Number [address] [phone] * DIABETES EYE EXAM FOR RESULT ENTRY ONLY (02/17/2024 11:31 AM EST) Historical Provider MD MINA Sheriff * Hepatitis C antibody, qualitative (11/28/2022 9:45 AM EDT) HCV NON-REACTIV E NON-REACTI VE [facility] Blood 11/28/2022 9:45 AM EDT 11/28/2022 9:49 AM EDT Jyothi Stark STUDY SPECIALIST LAB BLOOD ORDE RABLES Performing Organization Address [facility] Co de Phone Number [address] [phone] * COLONOSCOPY FOR RESULT ENTRY ONLY (11/17/2019) Historical Provider MD MINA CHUN E * US Aorta Duplex Complete (05/23/2019 8:06 AM EST) Anatomical Region Laterality Modality Aorta Ultrasound 05/23/2019 8:38 AM EST Impressions 05/23/2019 8:54 AM EST No aneurysmal dilatation/ectasia of the abdominal aorta demonstrated on today's images. POS - [id number] Narrative 05/23/2019 8:54 AM EST EXAM: ??US [...] abdominal aorta demonstrated ontoday's images. POS - [id number] Jyothi Stark STUDY SPECIALIST IMG US ABDOMEN from Last 3 Months or Most Recently Relevant to Health Maintenance Advance Directives For more information, please contact: [phone] (9AM - 5PM [facility], Thursday-Thursday) * Full Code (Presumed) (Latest Code Status on File) Date Activated Date Inactivated Comments 12/14/2018 5:24 PM 12/17/2018 4:15 PM * Full Code (Presumed) Date Activated Date Inactivated Comments 06/30/2017 6:32 PM 07/02/2017 2:57 PM Care Teams Cocoa Bean Roaster Helper Relationship Specialty Start Date End Date Shaista Magaña CNP [address] [place] [address], [address] [place] [address] PCP - General Family Medicine 11/11/22 Jose D Almeida MD Ophthalmology 12/05/20 Conor Arroyo MD [address] [facility] [address] [place] [address] Internal Medicine 07/16/22 Additional Source Comments The information contained in this document represents components of the legal health record. It is not the complete legal health record.[facility]
--- OUTSIDE RECORDS SUMMARY | 2024-07-07 08:01 | XMS_ITS | Encounter Summary ---
Author Organization [facility] Address 399 [facility] [address] [place] [address] Phone Care Team Providers Care Shipfitter Apprentice Name Role Phone Vijay Hampton MD Primary Care Provider Jyothi Stark CNP Primary Care Provider Jyothi Stark [facility] Primary Care Provider Carlos Bullock MD Unavailable [phone] Carlos Bullock MD Primary Care Provider Jyothi Stark CNP Primary Care Provider Jose D Almeida MD Unavailable Carlos Bullock MD Unavailable [phone] Conor Arroyo MD Unavailable Carlos Bullock MD Primary Care Provider [phone] Shaista Magaña [facility] Primary Care Provid er Encounter Details Date Type Department Care Team (Latest Contact Info) Description 07/21/2017 Ancillary Orders [facility], X-Ray - [address] [address] Cody Rojas PA [address] [place] [address] [email or web address] Lumbar radiculopathy; Spinal stenosis of lumbar region [...] Description 08/03/2024 8:30 AM EDT Office Visit [facility] [facility] [address] [place] [address] Shaista Magaña, MAE 170 [facility], 2nd [place] [address] [email or web address] documented as of this encounter Results * [...] seen. Procedure Note Nic Crowley MD - 04/17/2018 COMPARISON: MRI lumbar spine April 17, 2017 [...] claudication documented in this encounter Care Teams Shipfitter Apprentice Relationship Specialty Start Date End Date Memo, Vijay Soni MD [address] [place] [address] PCP - General Internal Medicine 04/29/17 11/30/17 Jyothi Stark CNP 40 [place] [address] PCP - General Internal Medicine 12/01/17 03/08/19 Jyothi Stark CNP 40 [place] [address] [email or web address] PCP - General Internal Medicine 03/09/19 11/16/19 Carlos Bullock MD 40 [place] [address] [email or web address] PCP - General Internal Medicine 11/17/19 11/21/19 Jyothi Stark, MAE [address] [place], [place] [email or web address] PCP - General Internal Medicine 11/22/19 09/08/22 Carlos Bullock MD 40 [place] [address] [email or web address] PCP - General Internal Medicine 09/09/22 11/10/22 Shaista Magaña CNP [address] [place] [address], 2nd [place] [address] [email or web address] PCP - General Family Medicine 11/11/22 Carlos Bullock MD [address] [place] [address] [email or web address] Insurance Assigned Provider 07/13/19 04/14/20 Jose D Almeida MD 40 [place] [address] [email or web address] Ophthalmology 12/05/20 Carlos Bullock MD 40 [place] [address] [email or web address] Insurance Assigned Provider 07/11/23 04/11/24 Conor Arroyo MD [address] [place] [address] Drive [address] [place] [address] Internal Medicine 07/16/22 documented as of this encounter Additional Source Comments The information contained in this document represents components of the legal health record. It is not the complete legal health record.[facility]
--- OUTSIDE RECORDS SUMMARY | 2024-07-07 08:01 | XMS_ITS | Encounter Summary ---
Author Organization [facility] Address [address] [place] [address] Phone Care Team Providers Care Oyster Opener Name Role Phone Vijay Hampton MD Primary Care Provider [phone] Jyothi Stark CNP Primary Care Provider Jyothi Stark CNP Primary Care Provider Carlos Bullock MD Unavailable [phone] Carlos Bullock MD Primary Care Provider [phone] Jyothi Stark CNP Primary Care Provider Jose D Almeida MD Unavailable Carlos Bullock MD Unavailable [phone] Conor Arroyo MD Unavailable Carlos Bullock MD Primary Care Provider [phone] Shaista Magaña [facility] Primary Care Provid er Encounter Details Date Type Department Care Team (Late st Contact Info) Description 06/16/2017 Procedure Pass OR Admitting Dept - Virtual Department [address] [place], [place] [id number] Social History Tobacco Use Types Packs/Day Years [...] 08/03/2024 8:30 AM EDT Office Visit [facility] [address] [place] [address] [place] [address] Shaista Magaña CNP 170 [facility], 2nd [place] [address] documented as of this encounter Visit Diagnoses Not on filedocumented in this encounter Care Teams Oyster Opener Relationship Specialty Start Date End Date Vijay Hampton MD [address] [place] [address] PCP - General Internal Medicine 04/29/17 11/30/17 Jyothi Stark CNP 40 [place] [address] PCP - General Internal Medicine 12/01/17 03/08/19 Jyothi Stark CNP [address] [place] [address] PCP - General Internal Medicine 03/09/19 11/16/19 Carlos Bullock MD [address] [place] [address] PCP - General Internal Medicine 11/17/19 11/21/19 Jyothi Stark CNP [address] [place] [address] PCP - General Internal Medicine 11/22/19 09/08/22 Carlos Bullock MD [address] [place] [address] PCP - General Internal Medicine 09/09/22 11/10/22 Shaista Magaña CNP [address] [place] [address], 2nd [place] [address] PCP - General Family Medicine 11/11/22 Carlos Bullock MD [address] [place] [address] Insurance Assigned Provider 07/13/19 04/14/20 Jose D Almeida MD [address] [place] [address] Ophthalmology 12/05/20 Carlos Bullock MD [address] [place] [address] Insurance Assigned Provider 07/11/23 04/11/24 Conor Arroyo MD [address] [place] [address] [address] [place] [address] Internal Medicine 07/16/22 documented as of this encounter Additional Source Comments The information contained in this document represents components of the legal health record. It is not the complete legal health record.[facility]
--- OUTSIDE RECORDS SUMMARY | 2024-07-07 08:01 | XMS_ITS | Encounter Summary ---
Author Organization [facility] Address 399 [facility] [address] [place] [address] Phone Care Team Providers Care Scanning Coordinator Name Role Phone Unavailable Primary Care Provider Unavailabl e Reason for Visit * MRI/CAT Scan - Closed Specialty Diagnoses / Procedures Referred By Contac t Referred To Contact Procedures MRI Spine (Bone) Outside (No Interpretation) System, Provider Not In, [facility] [address] [address] Referral ID Status Reason Start Date Expiration Date Visits Re quested Visits Authorized [id number] Closed 06/15/2017 06/15/2018 1 1 Encounter Details Date Type Department Care Team (Late st Contact Info) Description 01/22/2016 Hospital Encounter [facility],Outside Imaging 30 [place] [address] System, Provider Not In, PhD [employer] [email or web address] [address] Social History Tobacco Use Types Packs/Day Years [...] EDT Office Visit [facility] [address] [place] [address] [place] [address] Shaista Magaña, SCALLOP CUTTER MACHINE 170 [facility], 2nd Floor [place] [address] documented as of this encounter Procedures Procedure [...] It is not the complete legal health record.[facility]
--- OUTSIDE RECORDS SUMMARY | 2024-07-07 08:01 | XMS_ITS | Encounter Summary ---
Author Organization [facility] Address [address] [address] Phone Care Team Providers Care Cardiac Rn Name Role Phone Jyothi Stark [facility] Primary Care Provider Jyothi Stark [facility] Primary Care Provider Carlos Bullock MD Unavailable [phone] Carlos Bullock MD Primary Care Provider [phone] Jyothi Stark [facility] Primary Care Provider Jose D Almeida MD Unavailable Carlos Bullock MD Unavailable [phone] Conor Arroyo MD Unavailable Carlos Bullock MD Primary Care Provider Shaista Magaña [facility] Primary Care Provid er Encounter Details Date Type Department Care Team (Late st Contact Info) Description 10/16/2018 Ancillary Orders [facility], X-Ray - [address] [place] [address] Armond Maldonado MD [address] [place] [address] [email or web address] Fusion of spine of lumbar region Social [...] 08/03/2024 8:30 AM EDT Office Visit [facility] [address] [place] [address] Shaista Magaña, HEALTH CARE / MEDICAL JOB T[employer]LES 170 [facility], 2nd Floor [place] [address] [email or web address] documented as of this encounter Results * [...] region documented in this encounter Care Teams Cardiac Rn Relationship Specialty Start Date End Date Jyothi Stark CNP 40 [place] [address] PCP - General Internal Medicine 12/01/17 03/08/19 Jyothi Stark CNP [address] [place] [address] PCP - General Internal Medicine 03/09/19 11/16/19 Carlos Bullock MD [address] [place] [address] PCP - General Internal Medicine 11/17/19 11/21/19 Jyothi Stark CNP [address] [place] [address] PCP - General Internal Medicine 11/22/19 09/08/22 Carlos Bullock MD [address] [place] [address] PCP - General Internal Medicine 09/09/22 11/10/22 Shaista Magaña CNP [address] [place] [address], 2nd [place] [address] [email or web address] PCP - General Family Medicine 11/11/22 Carlos Bullock MD [address] [place] [address] [email or web address] Insurance Assigned Provider 07/13/19 04/14/20 Jose D Almeida MD [address] [place] [address] [email or web address] Ophthalmology 12/05/20 Carlos Bullock MD [address] [place] [address] Insurance Assigned Provider 07/11/23 04/11/24 Conor Arroyo MD 10 [facility] [address] [place] [address] Internal Medicine 07/16/22 documented as of this encounter Additional Source Comments The information contained in this document represents components of the legal health record. It is not the complete legal health record.[facility]
--- OUTSIDE RECORDS SUMMARY | 2024-07-07 08:01 | XMS_ITS | Encounter Summary ---
Author Organization [facility] Address [address] [place] [address] Phone Care Team Providers Care Clinical Research Scientist Name Role Phone Vijay Hampton MD Primary Care Provider [phone] Jyothi Stark CNP Primary Care Provider Jyothi Stark [facility] Primary Care Provider Carlos Bullock MD Unavailable [phone] Carlos Bullock MD Primary Care Provider Jyothi Stark [facility] Primary Care Provider Jose D Almeida MD Unavailable Carlos Bullock MD Unavailable [phone] Conor Arroyo MD Unavailable Carlos Bullock MD Primary Care Provider [phone] Shaista Magaña [facility] Primary Care Provid er Reason for Referral * MRI/CAT Scan - Closed Specialty Diagnoses / Procedures Referred By Contac t Referred To Contact Procedures MRI Spine (Bone) Outside (No Interpretation) System, Provider Not In, PhD [address] [address] Referral ID Status Reason Start Date Expiration Date Visits Re quested Visits Authorized [id number] Closed 06/15/2017 06/15/2018 1 1 Encounter Details Date Type Department Care Team (Late st Contact Info) Description 06/15/2017 Ancillary Orders [facility],Outside Imaging [address] [place] [address] System, Provider Not In, PhD [facility] [address] [address] Social History Tobacco Use Types Packs/Day Years [...] Upcoming Encounters Date Type Department Care Team ([facility] Contact Info) Description 08/03/2024 8:30 AM EDT Office Visit [facility] [address] [place] [address] [place] [address] Shaista Magaña CNP [address] [place] [address], 2nd [place] [address] [email or web address] documented as of this encounter Results * MRI Spine (Bone) Outside (No Interpretation) (01/22/2016 12:00 AM EDT) Narrative SYSTEMGENERATED, DOCUMENTATION - 06/15/2017 11:46 AM EDT This study is for PACS storage only and not for interpretation. Provider Not In System PhD IMG OUTSIDE I MAGING W/OUT INTERPRETATION documented in this encounter Visit Diagnoses Not on filedocumented in this encounter Care Teams Clinical Research Scientist Relationship Specialty Start Date End Date Vijay Hampton MD [address] [place] [address] PCP - General Internal Medicine 04/29/17 11/30/17 Jyothi Stark CNP 40 [place] [address] [email or web address] PCP - General Internal Medicine 12/01/17 03/08/19 Jyothi Stark CNP [address] [place] [address] [email or web address] PCP - General Internal Medicine 03/09/19 11/16/19 Carlos Bullock MD [address] [place] [address] [email or web address] PCP - General Internal Medicine 11/17/19 11/21/19 Jyothi Stark CNP [address] [place] [address] [email or web address] PCP - General Internal Medicine 11/22/19 09/08/22 Carlos Bullock MD [address] [place] [address] [email or web address] PCP - General Internal Medicine 09/09/22 11/10/22 Shaista Magaña CNP [address] [place] [address], 2nd [place] [address] [email or web address] PCP - General Family Medicine 11/11/22 Carlos Bullock MD [address] [place] [address] [email or web address] Insurance Assigned Provider 07/13/19 04/14/20 Jose D Almeida MD [address] [place] [address] [email or web address] Ophthalmology 12/05/20 Carlos Bullock MD [address] [place] [address] [email or web address] Insurance Assigned Provider 07/11/23 04/11/24 Conor Arroyo MD [address] [place] [address] Internal Medicine 07/16/22 documented as of this encounter Additional Source Comments The information contained in this document represents components of the legal health record. It is not the complete legal health record.[facility]
--- OUTSIDE RECORDS SUMMARY | 2024-07-07 08:01 | XMS_ITS | Encounter Summary ---
Author Organization [facility] Address 399 [facility] [address] [place] [address] Phone Care Team Providers Care Forestry Technician Name Role Phone Jyothi tSark [facility] Primary Care Provider Jose D Almeida MD Unavailable Carlos Bullock MD Unavailable [phone] Conor Arroyo MD Unavailable Carlos Bullock MD Primary Care Provider [phone] Shaista Magaña [facility] Primary Care Provid er Encounter Details Date Type Department Care Team (Late st Contact Info) Description 08/09/2021 Procedure Pass [address] [place] [address] Social History Tobacco Use Types Packs/Day Years [...] Description 08/03/2024 8:30 AM EDT Office Visit [facility] [address] [place] [address] [place] [address] Shaista Magaña CNP [address] [place] [address], 2nd [place] [address] documented as of this encounter Visit Diagnoses Not on filedocumented in this encounter Additional Health Concerns Assessment Noted Time PHQ-2 Depression Total Score: 1 06/16/19 22 11:12 AM EST documented as of this encounter Care Teams Forestry Technician Relationship Specialty Start Date End Date Jyothi Stark CNP [address] [place] [address] PCP - General Internal Medicine 11/22/19 09/08/22 Carlos Bullock MD [address] [place] [address] PCP - General Internal Medicine 09/09/22 11/10/22 Shaista Magaña CNP [address] [place] [address] PCP - General Family Medicine 11/11/22 Jose D Almeida MD [address] [place] [address] Ophthalmology 12/05/20 Carlos Bullock MD [address] [place] [address] [email or web address] Insurance Assigned Provider 07/11/23 04/11/24 Conor Arroyo MD [address] [place] [address] [place] [address] Internal Medicine 07/16/22 documented as of this encounter Additional Source Comments The information contained in this document represents components of the legal health record. It is not the complete legal health record.[facility]
--- OUTSIDE RECORDS SUMMARY | 2024-07-07 08:01 | XMS_ITS | Encounter Summary ---
Author Organization [facility] Address 399 [facility] [address] [place] [address] Phone Care Team Providers Care Solutions Analyst Name Role Phone [email or web address] [facility] Primary Care Provider Jose D Almeida MD Unavailable Carlos Bullock MD Unavailable [phone] Conor Arroyo MD Unavailable Carlos Bullock MD Primary Care Provider [phone] Shaista Magaña [facility] Primary Care Provid er Encounter Details Date Type Department Care Team (Late st Contact Info) Description 02/24/2022 Procedure Pass [facility], Ct Scan - [address] [address] Social History Tobacco Use Types Packs/Day Years [...] Description 08/03/2024 8:30 AM EDT Office Visit [facility] [address] [place] [address] [place] [address] Shaista Magaña CNP 170 [facility], 2nd [place] [address] [email or web address] documented as of this encounter Visit Diagnoses Not on filedocumented in this encounter Additional Health Concerns Assessment Noted Time PHQ-2 Depression Total Score: 1 06/16/19 22 11:12 AM EST documented as of this encounter Care Teams Solutions Analyst Relationship Specialty Start Date End Date Jyothi Stark CNP 40 [place] [address] [email or web address] PCP - General Internal Medicine 11/22/19 09/08/22 Carlos Bullock MD [address] [place] [address] PCP - General Internal Medicine 09/09/22 11/10/22 Shaista Magaña CNP 170 [facility], 2nd [place] [address] [email or web address] PCP - General Family Medicine 11/11/22 Jose D Almeida MD [address] [place] [address] [email or web address] Ophthalmology 12/05/20 Carlos Bullock MD [address] [place] [address] Insurance Assigned Provider 07/11/23 04/11/24 Con[address] Arroy[address] [place] [address] Internal Medicine 07/16/22 documented as of this encounter Additional Source Comments The information contained in this document represents components of the legal health record. It is not the complete legal health record.[facility]
--- OUTSIDE RECORDS SUMMARY | 2024-07-07 08:01 | XMS_ITS | Encounter Summary ---
Author Organization [facility] Address [address] [address] Phone Care Team Providers Care Supervisor Pressing Department Name Role Phone Unknown, Unknown Primary Care Provider Vijay Zafar MD Primary Care Provider Jyothi Stark CNP Primary Care Provider Jyothi Stark [facility] Primary Care Provider Carlos Bullock MD Unavailable [phone] Carlos Bullock MD Primary Care Provider Jyothi Stark [facility] Primary Care Provider Jose D Almeida MD Unavailable Carlos Bullock MD Unavailable [phone] Conor Arroyo MD Unavailable Carlos Bullock MD Primary Care Provider Shaista Magaña [facility] Primary Care Provid er Encounter Details Date Type Department Care Team (Late st Contact Info) Description 04/15/2017 Procedure Pass [facility], [address] [address] Social History Tobacco Use Types Packs/Day Years [...] 08/03/2024 8:30 AM EDT Office Visit [facility] [address] [place] [address] [place] [address] Shaista Magaña CNP [address] [place] [address], 2nd [place] [address] [email or web address] documented as of this encounter Visit Diagnoses Not on filedocumented in this encounter Care Teams Supervisor Pressing Department Relationship Specialty Start Date End Date Unknown, Unknown, MD PCP - General 04/15/17 04/28/17 Vijay Hampton MD 2 [place] [address] PCP - General Internal Medicine 04/29/17 11/30/17 Jyothi Stark CNP 40 [place] [address] PCP - General Internal Medicine 12/01/17 03/08/19 Jyothi Stark CNP [address] [place] [address] PCP - General Internal Medicine 03/09/19 11/16/19 Carlos Bullock MD [address] [place] [address] PCP - General Internal Medicine 11/17/19 11/21/19 Jyothi Stark, MAE [address] [place], [place] PCP - General Internal Medicine 11/22/19 09/08/22 Carlos Bullock MD [address] [place] [address] PCP - General Internal Medicine 09/09/22 11/10/22 Shaista Magaña CNP [address] [place] [address], 2nd [place] [address] [email or web address] PCP - General Family Medicine 11/11/22 Carlos Bullock MD [address] [place], [place] [email or web address] Insurance Assigned Provider 07/13/19 04/14/20 Jose D Almeida MD [address] [place] [address] [email or web address] Ophthalmology 12/05/20 Carlos Bullock MD [address] [place] [address] Insurance Assigned Provider 07/11/23 04/11/24 Conor Arroyo MD [address] [place] [address] [place] [id number] Internal Medicine 07/16/22 documented as of this encounter Additional Source Comments The information contained in this document represents components of the legal health record. It is not the complete legal health record.[facility]
--- OUTSIDE RECORDS SUMMARY | 2024-07-07 08:01 | XMS_ITS | Encounter Summary ---
Author Organization [facility] Address [address] [facility] [address] [place] [address] Phone Care Team Providers Care Clothes Presser Name Role Phone Jose D Almeida MD Unavailable Conor Arroyo MD Unavailable Shaista Magaña [facility] Primary Care Provid er Reason for Visit * Reason Onset Date Comments Results 07/05/2024 Encounter Details Date Type Department Care Team (Late st Contact Info) Description 07/05/2024 Telephone [facility] [address] [place] [address] [place] [id number] Ilda Anglin, IRAIDA [address] [place], [place] [address] [email or web address] Results Social History Tobacco Use Types Packs/Day Years [...] AM EDT documented as of this encounter Progress Notes * Ilda Anglin RN - 07/05/2024 9:08 AM EDT Outgoing call to patient, informed of above, states understanding. Agreeable to hold meds and will repeat labs. * Ilda Anglin RN - 07/05/2024 7:28 AM EDT Images from the original note were not included. Shaista Magaña CNP P [facility] Medical Rn Results have been reviewed. Kidney function is down by half! Unclear why that is. Please HOLD his metformin and allopurinol for now. I will enter follow-up labs and check a urine. If any flank pain, decreased or dark urine should be seen in the ED re: possible kidney injury. Otherwise should stay well hydrated and have labs re-checked. Please reach out to patient to relay results and confirm plan. documented in this encounter Plan of Treatment Upcoming Encounters Date Type Department Care Team (Late st Contact Info) Description 08/03/2024 8:30 AM EDT Office Visit [facility] [address] [place] [address] [place] [address] Shaista Magaña CNP 170 [facility], [address] [place] [address] [email or web address] documented as of this encounter Visit Diagnoses Not on filedocumented in this encounter Additional Health Concerns Assessment Noted Time PHQ-2 Depression Total Score: 1 07/01/19 25 1:10 PM EDT documented as of this encounter Care Teams Clothes Presser Relationship Specialty Start Date End Date Shaista Magaña CNP [address] [place] [address] PCP - General Family Medicine 11/11/22 Jose D Almeida MD Ophthalmology 12/05/20 Conor Arroyo MD [address] [place] [address] Internal Medicine 07/16/22 documented as of this encounter Additional Source Comments The information contained in this document represents components of the legal health record. It is not the complete legal health record.[facility]
--- OUTSIDE RECORDS SUMMARY | 2024-07-07 08:02 | XMS_ITS | Encounter Summary ---
Author Organization [facility] Address [address] [facility] [address] [place] [address] Phone Care Team Providers Care Automatic Brine Mixer Operator Name Role Phone Jyothi Stark [facility] Primary Care Provider Carlos Bullock MD Unavailable [phone] Carlos Bullock MD Primary Care Provider [phone] Jyothi Stark [facility] Primary Care Provider Jose D Almeida MD Unavailable Carlos Bullock MD Unavailable [phone] Conor Arroyo MD Unavailable Carlos Bullock MD Primary Care Provider [phone] Shaista Magaña [facility] Primary Care Provid er Encounter Details Date Type Department Care Team (Late st Contact Info) Description 03/09/2019 Ancillary Orders [facility], X-Ray - [facility] [address] [place] [address] Armond Maldonado MD [address] [place] [address] [email or web address] S/P lumbar fusion Social History Tobacco Use [...] Description 08/03/2024 8:30 AM EDT [facility] [address] [place] [address] Shaista Magaña, MAE 170 [facility], 2nd Floor [place] [address] [email or web address] documented as of this encounter Results * XR LUMBOSACRAL SPINE 2-3 VIEWS (03/09/2019 2:42 PM EST) Anatomical Region Laterality Modality L-spine Radiographic Franchesca ging 03/10/2019 8:13 AM EST Impressions 03/10/2019 8:15 AM EST Mild increase in lower lumbar scoliosis. Otherwise stable appearance of the lumbosacral spine. POS [id number] Narrative 03/10/2019 8:15 AM EST 4 views. [...] Otherwise stable appearance ofthe lumbosacral spine. POS [id number] Armond Maldonado MD IMG XR SPINE documented in this encounter Visit Diagnoses Diagnosis S/P lumbar fusion Arthrodesis status S/P lumbar fusion Arthrodesis status documented in this encounter Care Teams Automatic Brine Mixer Operator Relationship Specialty Start Date End Date Jyothi Stark CNP [address] [place] [address] [email or web address] PCP - General Internal Medicine 03/09/19 11/16/19 Carlos Bullock MD 40 [place] [address] PCP - General Internal Medicine 11/17/19 11/21/19 Jyothi Stark CNP 40 [place] [address] PCP - General Internal Medicine 11/22/19 09/08/22 Carlos Bullock MD 40 [place] [address] PCP - General Internal Medicine 09/09/22 11/10/22 Shaista Magaña CNP [address] [place] [address], 2nd [place] [address] [email or web address] PCP - General Family Medicine 11/11/22 Carlos Bullock MD 40 [place] [address] Insurance Assigned Provider 07/13/19 04/14/20 Jose D Almeida MD [address] [place] [address] [email or web address] Ophthalmology 12/05/20 Carlos Bullock MD [address] [place] [address] [email or web address] Insurance Assigned Provider 07/11/23 04/11/24 Conor Arroyo MD [address] [place] [address] [address] [place] [address] Internal Medicine 07/16/22 documented as of this encounter Additional Source Comments The information contained in this document represents components of the legal health record. It is not the complete legal health record.[facility]
--- OUTSIDE RECORDS SUMMARY | 2024-07-07 08:02 | XMS_ITS | Encounter Summary ---
Author Organization [facility] Address [address] [facility] [address] [place] [address] Phone Care Team Providers Care Ironing Pleater Name Role Phone Jose D Almeida MD Unavailable Conor Arroyo MD Unavailable Shaista Magaña [employer]PECT[employer] Primary Care Provid er Encounter Details Date Type Department Care Team (Late st Contact Info) Description 07/04/2024 Orders Only [facility] [address] [place] [address] Shaista Magaña, INSPECTOR OUTSIDE STEAM DISTRIBUTION [address] [facility], 2nd [place] [address] [email or web address] Decreased GFR (Primary Dx); Stage 3a chronic kidney disease Social History Tobacco Use Types Packs/Day Years [...] EDT Office Visit [facility] [address] [place] [address] [place] [address] Shaista Magaña, INSPECTOR OUTSIDE STEAM DISTRIBUTION 170 [facility], 2nd Floor [place] [address] [email or web address] documented as of this encounter Results * Urinalysis w/reflex Urine Culture (07/06/2024 6:29 PM EDT) COLOR Yellow Yellow [facility] CLARITY Clear [facility] GLUCOSE Negative Negative [facility] BILI Negative Negative [facility] KETONES Negative Negative [facility] SPECIFIC GRAVITY 1.020 1.005 - 1.030 [facility] BLOOD Negative Negative [facility] PH 6.0 5.0 - 8.0 [facility] Protein-UA Negative Negative [facility] NITRITE Negative Negative [facility] Leukocyte esterase, ur Negative Negative [facility] Urine (Urine) 07/06/2024 6:2 9 PM EDT 07/06/2024 6:30 PM EDT Shaista Magaña [facility] URINE ORDERA BLES Performing Organization Address City/State/[facility] Co de Phone Number [address] [address] * (ABNORMAL) Renal panel (07/06/2024 10:02 AM EDT) SODIUM 143 133 - 146 mmol/L [facility] POTASSIUM 5.0 3.3 - 5.1 mmol/L [facility] CHLORIDE 107 96 - 108 mmol/L [facility] CO2 26 21 - 35 mmol/L [facility] GLUCOSE 121(H) 70 - 99 mg/dL [facility] BUN 28(H) 6 - 19 mg/dL [facility] CREATININE 2.10(H) 0.5 - 1.5 mg/dL [facility] CALCIUM 9.1 8.4 - 10.3 mg/dL [facility] PHOSPHORUS 2.7 2.7 - 4.5 mg/dL [facility] ALBUMIN 4.3 3.9 - 4.8 g/dL [facility] EGFR 33(L) >59 mL/min/1.7 3m2 [facility] Comment:Estimated glomerular filtration rate calculated using the CKD-EPI refit equation. ANION GAP 15 10 - 20 mmol/L [facility] Blood 07/06/2024 10:0 2 AM EDT 07/06/2024 10:05 AM EDT Shaista Magaña CNP LAB BLOOD OR DERABLES [facility] [address] [place] [address] documented in this encounter Visit Diagnoses Diagnosis Decreased GFR- Primary Stage 3a chronic kidney disease documented in this encounter Additional Health Concerns Assessment Noted Time PHQ-2 Depression Total Score: 1 07/01/19 25 1:10 PM EDT documented as of this encounter Care Teams Ironing Pleater Relationship Specialty Start Date End Date Shaista Magaña CNP [address] [place] [address], 2nd [place] [address] PCP - General Family Medicine 11/11/22 Jose D Almeida MD Ophthalmology 12/05/20 Conor Arroyo MD 10 [facility] [address] [place] [address] Internal Medicine 07/16/22 documented as of this encounter Additional Source Comments The information contained in this document represents components of the legal health record. It is not the complete legal health record.[facility]
== END 2024-07-07 07:57 | disposition home or self-care (01) ==
LOC: CF 07:56
PROVIDERS: Visit Provider Internal Medicine
DX: M53.3 Sacrococcygeal disorders, not elsewhere classified (principal)
CPT/HCPCS: 64625; J2003

== ENCOUNTER 2024-07-07 10:24 | Outpatient (AMB) | payer MEDICARE, OTHER, SELFPAY ==
--- NOTE | 2024-07-07 10:38 | A.OFFVIS_ITS ---
Vital Signs 07/07/24 10:39 07/07/24 12:01 BP 140/73 H 144/74 H Blood Pressure Location Lt brachial Lt brachial Position Sitting Sitting Respiration 16 16 Pulse 62 118 H Pulse Source Pulse Oximeter Pulse Oximeter Pulse Oximetry (%) 94 90 L Oxygen Delivery Method Room Air Room Air Intake Visit Reasons: Right SIJ innervation RFA/valium & oxy Core Measures Abstractor Required: No Allergies iodine [Iodine] Allergy (Severe, Verified 07/07/24 10:39) HIVES Penicillins Allergy (Severe, Verified 07/07/24 10:39) RASH sulfamethoxazole [From Septra] Allergy (Severe, Verified 07/07/24 10:39) RASH trimethoprim [From Septra] Allergy (Severe, Verified 07/07/24 10:39) RASH pravastatin Allergy (Unknown, Verified 07/07/24 10:39) Muscle Pain rosuvastatin Allergy (Unknown, Verified 07/07/24 10:39) Muscle Pain Seafood Allergy (Severe, Uncoded 07/07/24 10:39) HIVES Splenda Allergy (Unknown, Uncoded 07/07/24 10:39) Diarrhea Tetanus and Diphtheria Toxoid Allergy (Unknown, Uncoded 07/07/24 10:39) SWELLING Medication List - Last Reconciled 07/07/24 by Jessica Vargas LPN albuterol sulfate 90 mcg/actuation 2 puffs inhalation Q4H PRN allopurinol 50 mg PO DAILY chlorthalidone 25 mg PO DAILY diazepam (Valium) 5 mg PO ONCE PRN fluticasone propion-salmeterol 250-50 mcg/dose (Wixela Inhub) 1 inh inhalation Q12H gabapentin 400 mg PO QID lisinopril 40 mg PO DAILY lorazepam 1 mg PO Q8H PRN mecobalamin (vitamin B12) mcg PO metformin 500 mg PO BID montelukast 10 mg PO DAILY oxycodone 10 mg PO ONCE PRN sildenafil 50 mg PO DAILY PRN HPI HPI Right SIJ innervation RFA/valium & oxy: Details: Patient presents for scheduled procedure. Denies any recent cough, cold, infection, fever or other significant changes in medical history since last office visit. [facility] Medical History CKD (chronic kidney disease) Spinal stenosis Lumbar disc herniation Hypertension Hematuria Gout Diabetes Asthma Anxiety Anemia Abdominal aortic ectasia Social History Are you a primary laboratory animal care veterinarian to a significant other at home: No Do you presently have visiting nurse or other home services: No Patient Tobacco Use Status: Former Tobacco user Physical Exam Vital Signs: Last Vital Signs Pulse 118 H 07/07/24 12:01 Resp 16 07/07/24 12:01 BP 144/74 H 07/07/24 12:01 Pulse Ox 90 L 07/07/24 12:01 Oxygen Delivery Method Room Air 07/07/24 12:01 Office Procedures Details: Cooled radiofrequency ablation, Right L5 dorsal ramus and lateral branches of the S1, S2, S3 posterior primary rami nerves - fluoroscopic guided After obtaining written consent, pre-procedure blood pressure and heart rate were stable and recorded in the nursing record. The patient was placed prone on the fluoroscopy table. The area overlying the peripheral nerves was widely prepped with chloraprep, allowed to dry and sterilely draped. Using fluoroscopy, the appropriate landmarks were identified. The skin overlying the target was an esthetized with 0.5% lidocaine. 18 gauge 50mm radiofrequency needles were advanced under fluoroscopic guidance to the sacral ala (L5 medial branch) and around the lateral margins of the S1, S2 & S3 foramina (sacral lateral branches). Verification was done using lateral and AP views. Aspiration was negative for heme. Impedences were verified under 600 ohms. Sensory testing (50 Hz) and then motor testing (2 Hz) confirmed needle placement at each site within the appropriate voltage thresholds. Each site was injected with 0.5-1 ml 2% preservative-free lidocaine. Radiofrequency lesioning was performed for 165 seconds at 80 deg Celcius tissue temperature. The needles were removed, skin cleansed and a sterile bandage was applied. The patient tolerated the procedure well and no complications were encountered. Following the procedure the patient's vital signs were stable. The patient was discharged home in good condition with post-procedural instructions. Time Out: Immediately prior to the procedure, the following was verbally confirmed that there is a signed consent form and that the correct patient, planned procedure, site and side are consistent with documentation and that necessary equipment and/or blood products are available prior to the start of the case. Complications: none EBL: <5 cc Additional procedure code (CPT) needed Assessment & Plan Assessment & Plan (1) Sacroiliac joint pain: Code(s): M53.3 - Sacrococcygeal disorders, not elsewhere classified Category: Medical Plan Patient is status post right sacroiliac innervation radiofrequency ablation. Patient tolerated procedure well and was discharged home in stable condition with discharge instructions. All questions were answered. We will follow-up via telephone or in clinic to assess response to therapy. A follow-up appointment was made during today's visit. Orders: Orders FL guidance in treatment room Today M53.3 - Sacrococcygeal disorders, not elsewhere classified Medications: Refilled diazepam (Valium) please take 30minutes prior to arrival for procedure 5 mg PO ONCE PRN 1 tab 0RF sleep oxycodone please take 30minutes prior to arrival for procedure 10 mg PO ONCE PRN 1 tab 0RF pain Coding Level of Care Code Procedure Only Diagnoses Sacroiliac joint pain M53.3
[2024-07-07 10:39] VITALS: BP 140/73; PULSE 62; RESP 16; O2SAT 94
--- OUTSIDE RECORDS SUMMARY | 2024-07-07 11:23 | XMS_ITS | Encounter Summary ---
Author Organization [facility] Address [address] [facility] [address] [place] [address] Phone Care Team Providers Care Shingle Bolt Cutter Name Role Phone Jyothi Stark [facility] Primary Care Provider Jyothi Stark [facility] Primary Care Provider Carlos Bullock MD Unavailable [phone] Carlos Bullock MD Primary Care Provider Jyothi Stark [facility] Primary Care Provider Jose D Almeida MD Unavailable Carlos Bullock MD Unavailable [phone] Conor Arroyo MD Unavailable Carlos Bullock MD Primary Care Provider Shaista Magaña [facility] Primary Care Provid er Encounter Details Date Type Department Care Team (Late st Contact Info) Description 06/11/2018 Ancillary Orders [facility], X-Ray - [facility] [address] [place] [address] Cody Rojas, MAKENZIE [address] [place] [id number] [email or web address] Fusion of spine, lumbar region Social History [...] Description 08/03/2024 8:30 AM EDT Office Visit [facility] [address] [place] [address] Shaista Magaña, GERONTOLOGICAL NURSE PRACTITIONER 170 [facility], 2nd Floor [place] [address] [email or web address] documented as of this encounter Results * [...] region documented in this encounter Care Teams Shingle Bolt Cutter Relationship Specialty Start Date End Date Jyothi Stark CNP [address] [place] [address] PCP - General Internal Medicine 12/01/17 03/08/19 Jyothi Stark CNP [address] [place] [address] PCP - General Internal Medicine 03/09/19 11/16/19 Carlos Bullock MD [address] [place] [address] PCP - General Internal Medicine 11/17/19 11/21/19 Jyothi Stark CNP [address] [place] [address] PCP - General Internal Medicine 11/22/19 09/08/22 Carlos Bullock MD [address] [place] [address] PCP - General Internal Medicine 09/09/22 11/10/22 Archana Shaista MAE Mckenzie [address] [place] [address], 2[address] [place] [address] [email or web address] PCP - General Family Medicine 11/11/22 Carlos Bullock MD [address] [place] [address] [email or web address] Insurance Assigned Provider 07/13/19 04/14/20 Jose D Almeida MD [address] [place] [address] [email or web address] Ophthalmology 12/05/20 Carlos Bullock MD [address] [place] [address] [email or web address] Insurance Assigned Provider 07/11/23 04/11/24 Conor Arroyo MD [address] [place] [address] [place] [id number] Internal Medicine 07/16/22 documented as of this encounter Additional Source Comments The information contained in this document represents components of the legal health record. It is not the complete legal health record.[facility]
--- OUTSIDE RECORDS SUMMARY | 2024-07-07 11:23 | XMS_ITS | Encounter Summary ---
Author Organization [facility] Address [address] [facility] [address] [place] [address] Phone Care Team Providers Care Management Trainer Name Role Phone VickietammyJyothigh [facility] Primary Care Provider Jose D Almeida MD Unavailable Carlos Bullock MD Unavailable [phone] Conor Arroyo MD Unavailable Carlos Bullock MD Primary Care Provider [phone] Shaista Magaña [facility] Primary Care Provid er Encounter Details Date Type Department Care Team (Late st Contact Info) Description 08/09/2021 Procedure [facility], Ct Scan - [address] [address] Social History Tobacco Use Types Packs/Day Years [...] Description 08/03/2024 8:30 AM EDT Office Visit [facility] [address] [place] [address] [place] [address] Shaista Magaña CNP 170 [facility], 2nd [place] [address] [email or web address] documented as of this encounter Visit Diagnoses Not on filedocumented in this encounter Additional Health Concerns Assessment Noted Time PHQ-2 Depression Total Score: 1 06/16/19 22 11:12 AM EST documented as of this encounter Care Teams Management Trainer Relationship Specialty Start Date End Date Jyothi Stark CNP [address] [place] [address] [email or web address] PCP - General Internal Medicine 11/22/19 09/08/22 Carlos Bullock MD [address] [place] [address] PCP - General Internal Medicine 09/09/22 11/10/22 Shaista Magaña CNP 170 [facility], [address]nd [place] [address] [email or web address] PCP - General Family Medicine 11/11/22 Jose D Almeida MD [address] [place] [address] Ophthalmology 12/05/20 Carlos Bullock MD [address] [place] [address] Insurance Assigned Provider 07/11/23 04/11/24 Conor Arroyo MD [address] [place] [address] Internal Medicine 07/16/22 documented as of this encounter Additional Source Comments The information contained in this document represents components of the legal health record. It is not the complete legal health record.[facility]
--- OUTSIDE RECORDS SUMMARY | 2024-07-07 11:23 | XMS_ITS | Encounter Summary ---
Author Organization Located Within [facility] Address [address] [facility] [address] [place] [address] Phone Care Team Providers Care Community Services Officer Name Role Phone Jyothi Stark [facility] Primary Care Provider Jyothi Stark [facility] Primary Care Provider Carlos Bullock MD Unavailable [phone] Carlos Bullock MD Primary Care Provider Jyothi Stark [facility] Primary Care Provider Jose D Almeida MD Unavailable Carlos Bullock MD Unavailable [phone] Conor Arroyo MD Unavailable Carlos Bullock MD Primary Care Provider Shaista Magaña [facility] Primary Care Provid er Reason for Referral * MRI/CAT Scan - Closed Specialty Diagnoses / Procedures Referred By Contac t Referred To Contact Radiology Diagnoses Arthrodesis status Procedures CT Lumbar Spine Cody Rojas PA [address] [place] [address] Referral ID Status Reason Start Date Expiration Date Visits Re quested Visits Authorized [id number] Closed 05/06/2018 05/06/2019 1 1 Encounter Details Date Type Department Care Team (Late st Contact Info) Description 05/06/2018 Ancillary Orders Virtual Department [address] [place] [address] Cody Rojas PA [address] [place] [address] [email or web address] Arthrodesis status Social History Tobacco Use Types [...] 08/03/2024 8:30 AM EDT Office Visit [facility] [address] [place] [address] [place] [address] Shaista Magaña, HYDRAULIC AUTO JACK MECHANIC [address] [facility], 2nd [place] [address] [email or web address] documented as of this encounter Results * CT LUMBAR SPINE WITHOUT CONTRAST (05/11/2018 9:39 AM EST) Anatomical Region Laterality Modality L-spine Computed Tomogra phy 05/11/2018 11:4 6 AM EST Impressions 05/11/2018 7:26 PM EST Changes of posterior spinal fusion at L4-5 with intervertebral cage subsidence. ?? Mild retropulsion on the left contacts the descending nerve root. TOTAL CTDIvol: 46.50 mGy POS [id number] Edited by: Aubrie Alvarez on 05/11/2018 12:17 [...] body height. Milder subsidence into the inferior T3illsyldhm body. Very mild retropulsion which contacts the [...] descending nerveroot. TOTAL CTDIvol: 46.50 mGy POS [id number] Edited by: Aubrie Alvarez on 05/11/2018 12:17 [address] IM[address] CT XSPECIALTY O RDERABLES documented in this encounter Visit Diagnoses Diagnosis Arthrodesis status Arthrodesis status documented in this encounter Care Teams Community Services Officer Relationship Specialty Start Date End Date Jyothi Stark CNP [address] [place] [address] PCP - General Internal Medicine 12/01/17 03/08/19 Jyothi Stark CNP [address] [place] [address] [email or web address] PCP - General Internal Medicine 03/09/19 11/16/19 Carlos Bullock MD [address] [place] [address] [email or web address] PCP - General Internal Medicine 11/17/19 11/21/19 Jyothi Stark, HYDRAULIC AUTO JACK MECHANIC [address] [place] [address] [email or web address] PCP - General Internal Medicine 11/22/19 09/08/22 Carlos Bullock MD [address] [place] [address] [email or web address] PCP - General Internal Medicine 09/09/22 11/10/22 Shaista Magaña CNP [address] [place] [address], 2nd [place] [address] [email or web address] PCP - General Family Medicine 11/11/22 Carlos Bullock MD [address] [place] [address] [email or web address] Insurance Assigned Provider 07/13/19 04/14/20 Jose D Almeida MD [address] [place] [address] [email or web address] Ophthalmology 12/05/20 Carlos Bullock MD [address] [place] [address] [email or web address] Insurance Assigned Provider 07/11/23 04/11/24 Conor Arroyo MD 10 [facility] [address] [place] [address] Internal Medicine 07/16/22 documented as of this encounter Additional Source Comments The information contained in this document represents components of the legal health record. It is not the complete legal health record.[facility]
--- OUTSIDE RECORDS SUMMARY | 2024-07-07 11:23 | XMS_ITS | Encounter Summary ---
Author Organization [facility] Address 399 [facility] [address] [place] [address] Phone Care Team Providers Care Toeing Stockings Name Role Phone Jyothi Stark [facility] Primary Care Provider Jyothi Strak [facility] Primary Care Provider Carlos Bullock MD Unavailable [phone] Carlos Bullock MD Primary Care Provider [phone] Jyothi Stark [facility] Primary Care Provider Jose D Almeida MD Unavailable Carlos Bullock MD Unavailable [phone] Conor Arroyo MD Unavailable Carlos Bullock MD Primary Care Provider [phone] Shaista Magaña [facility] Primary Care Provid er Encounter Details Date Type Department Care Team (Late st Contact Info) Description 06/14/2018 Procedure Pass [facility] - [address] [place] [address] Social History Tobacco Use Types Packs/Day Years [...] Description 08/03/2024 8:30 AM EDT Office Visit [facility] [address] [place] [address] [place] [address] Shaista Magaña CNP 170 [facility], 2nd [place] [address] [email or web address] documented as of this encounter Visit Diagnoses Not on filedocumented in this encounter Care Teams Toeing Stockings Relationship Specialty Start Date End Date Jyothi Stark CNP [address] [place] [address] [email or web address] PCP - General Internal Medicine 12/01/17 03/08/19 Jyothi Stark CNP [address] [place] [address] PCP - General Internal Medicine 03/09/19 11/16/19 Carlos Bullock MD [address] [place] [address] PCP - General Internal Medicine 11/17/19 11/21/19 Jyothi Stark CNP [address] [place] [address] PCP - General Internal Medicine 11/22/19 09/08/22 Carlos Bullock MD [address] [place] [address] PCP - General Internal Medicine 09/09/22 11/10/22 Shaista Magaña, MAE [address] [place] [address], 2nd [place] [address] PCP - General Family Medicine 11/11/22 Carlos Bullock MD [address] [place] [address] Insurance Assigned Provider 07/13/19 04/14/20 Jose D Almeida MD [address] [place] [address] Ophthalmology 12/05/20 Carlos Bullock MD [address] [place] [address] Insurance Assigned Provider 07/11/23 04/11/24 Conor Arroyo MD [address] [place] [address] [place] [address] Internal Medicine 07/16/22 documented as of this encounter Additional Source Comments The information contained in this document represents components of the legal health record. It is not the complete legal health record.[facility]
--- OUTSIDE RECORDS SUMMARY | 2024-07-07 11:23 | XMS_ITS | Encounter Summary ---
Author Organization [facility] Address [address] [address] Phone Care Team Providers Care Nut Processing Supervisor Name Role Phone Jyothi Stark [facility] Primary Care Provider Jyothi Stark [facility] Primary Care Provider Carlos Bullock MD Unavailable [phone] Carlos Bullock MD Primary Care Provider [phone] Jyothi Stark [facility] Primary Care Provider Jose D Almeida MD Unavailable Carlos Bullock MD Unavailable [phone] Conor Arroyo MD Unavailable Carlos Bullock MD Primary Care Provider Shaista Magaña [facility] Primary Care Provid er Reason for Referral * MRI/CAT Scan - Closed Specialty Diagnoses / Procedures Referred By Contac t Referred To Contact Radiology Diagnoses Low back pain, unspecified back pain laterality, unspecified chronicity, with sciatica presence unspecified Arthrodesis status Procedures MRI Lumbar Spine Cody Rojas PA [address] [place] [address] Referral ID Status Reason Start Date Expiration Date Visits Re quested Visits Authorized [id number] Closed 06/14/2018 06/14/2019 1 1 Encounter Details Date Type Department Care Team (Late st Contact Info) Description 06/14/2018 Ancillary Orders Virtual Department 30 [place] [address] Cody Rojas PA [address] [place] [address] [email or web address] Low back pain, unspecified back pain laterality, [...] Description 08/03/2024 8:30 AM EDT Office Visit [facility] [address] [place] [address] [place] [address] Shaista Magaña, MAE 170 [facility], 2nd [place] [address] [email or web address] documented as of this encounter Results * [...] T2, axial T1, postcontrast sagittal and axial F0vadefxstn, 18 mL Dotarem contrast IV. FINDINGS: Normal appearance of the distal conus terminating at the L1-L2 level. Vertebrae are normal in height and alignment. No compression fractures.There is posterior fusion hardware at L4-L5 with bilateral transpedicularscrews and posterior fusion rods. There is mild T1 hypointense and K4rksfedhomgpl marrow edema inferior endplate of L4 and [...] moderate right neural foraminal stenosis at L4- Y4qdjthopdykiip from marginal bony spurring and facet hypertrophicchanges. [...] status documented in this encounter Care Teams Nut Processing Supervisor Relationship Specialty Start Date End Date Jyothi Stark CNP [address] [place] [address] PCP - General Internal Medicine 12/01/17 03/08/19 Jyothi Stark CNP [address] [place] [address] PCP - General Internal Medicine 03/09/19 11/16/19 Carlos Bullock MD [address] [place] [address] [email or web address] PCP - General Internal Medicine 11/17/19 11/21/19 Jyothi Stark, MAE [address] [place], [place] [email or web address] PCP - General Internal Medicine 11/22/19 09/08/22 Carlos Bullock MD [address] [place] [address] [email or web address] PCP - General Internal Medicine 09/09/22 11/10/22 Shaista Magaña CNP [address] [place] [address], 2nd [place] [address] [email or web address] PCP - General Family Medicine 11/11/22 Carlos Bullock MD [address] [place] [address] [email or web address] Insurance Assigned Provider 07/13/19 04/14/20 Jose D Almeida MD [address] [place] [address] [email or web address] Ophthalmology 12/05/20 Carlos Bullock MD [address] [place] [address] [email or web address] Insurance Assigned Provider 07/11/23 04/11/24 Conor Arroyo MD [address] [place] [address] [address] [place] [address] Internal Medicine 07/16/22 documented as of this encounter Additional Source Comments The information contained in this document represents components of the legal health record. It is not the complete legal health record.[facility]
--- OUTSIDE RECORDS SUMMARY | 2024-07-07 11:24 | XMS_ITS | Encounter Summary ---
Author Organization [facility] Address 399 [facility] [address] [place] [address] Phone Care Team Providers Care Director Erp Name Role Phone Jose D Almeida MD Unavailable Conor Arroyo MD Unavailable Shaista Magaña CNP Primary Care Provid er Reason for Referral * Consultation (Routine) - New Request Specialty Diagnoses / Procedures Referred By Shakira t Referred To Contact Neurology Diagnoses Tremor Shaista Magaña CNP 170 [facility], [address] [place] [address] Email: [email or web address] Referral ID Status Reason Start Date Expiration Date V isits Requested Visits Authorized [id number] New Request 07/06/2024 07/06/2025 1 1 Reason for Visit * Reason Comments Annual Exam Encounter Details Date Type Department Care Team (Late st Contact Info) Description 07/06/2024 10:30 AM EDT Office Visit [facility] [address] [place] [address] [place] [phone] Shaista Magaña CNP 170 [facility], [address] [place] [address] [email or web address] Encounter for health maintenance examination in adult [...] Description 08/03/2024 8:30 AM EDT Office Visit [facility] [address] [place] [address] Shaista Magaña, MAE 170 [facility], 2nd [place] [address] [email or web address] Scheduled Orders Name Type Priority Associated Diagnoses Orde r Schedule PSA, free and total Lab Routine Urinary urgency Expected: 07/27/2024 (Approximate), Expires: 01/05/2025 Basic metabolic panel Lab Routine Decreased GFR Expected: 07/27/2024 (Approximate), Expires: 01/05/2025 Scheduled Referrals Name Type Priority Associated Diagnoses Order Schedule Ambulatory referral to [facility] Neurology - Employed Practices Outpatient Referral Routine [...] documented as of this encounter Care Teams Director Erp Relationship Specialty Start Date End Date Shaista MagañaMAE [address] [place] [address], 2nd [place] [address] PCP - General Family Medicine 11/11/22 Jose D Almeida MD Ophthalmology 12/05/20 Conor Arroyo MD 10 [facility] [address] [place] [address] Internal Medicine 07/16/22 documented as of this encounter Additional Source Comments The information contained in this document represents components of the legal health record. It is not the complete legal health record.[facility]
--- OUTSIDE RECORDS SUMMARY | 2024-07-07 11:24 | XMS_ITS | Encounter Summary ---
Author Organization [facility] Address [address] [facility] [address] [place] [address] Phone Care Team Providers Care Switchboard Operator Helper Name Role Phone Jose D Almeida MD Unavailable Conor Arroyo MD Unavailable Shaista Magaña FURNACE CHARGING MACHINE OPERATOR Primary Care Provid er Encounter Details Date Type Department Care Team (Late st Contact Info) Description 07/04/2024 Orders Only [facility] [facility] [address] [place] [address] Shaista Magaña, FURNACE CHARGING MACHINE OPERATOR 170 [facility], 2nd [place] [address] [email or web address] Decreased GFR (Primary Dx); Stage 3a chronic [...] EDT Office Visit [facility] [facility] [address] [place] [address] [place] [address] Shaista Magaña, FURNACE CHARGING MACHINE OPERATOR 170 [facility], 2nd Floor [place] [address] [email or web address] documented as of this encounter Results * Urinalysis w/reflex Urine Culture (07/06/2024 6:29 PM EDT) COLOR Yellow Yellow [facility] CLARITY Clear [facility] GLUCOSE Negative Negative [facility] BILI Negative Negative [facility] KETONES Negative Negative [facility] SPECIFIC GRAVITY 1.020 1.005 - 1.030 [facility] BLOOD Negative Negative [facility] PH 6.0 5.0 - 8.0 [facility] Protein-UA Negative Negative [facility] NITRITE Negative Negative [facility] Leukocyte esterase, ur Negative Negative [facility] Urine (Urine) 07/06/2024 6:2 9 PM EDT 07/06/2024 6:30 PM EDT Shaista Magaña [facility] URINE ORDERA BLES Performing Organization Address City/State/[facility] Co de Phone Number [address] [address] * (ABNORMAL) Renal panel (07/06/2024 10:02 AM EDT) SODIUM 143 133 - 146 mmol/L [facility] POTASSIUM 5.0 3.3 - 5.1 mmol/L [facility] CHLORIDE 107 96 - 108 mmol/L [facility] CO2 26 21 - 35 mmol/L [facility] GLUCOSE 121(H) 70 - 99 mg/dL [facility] BUN 28(H) 6 - 19 mg/dL [facility] CREATININE 2.10(H) 0.5 - 1.5 mg/dL [facility] CALCIUM 9.1 8.4 - 10.3 mg/dL [facility] PHOSPHORUS 2.7 2.7 - 4.5 mg/dL [facility] ALBUMIN 4.3 3.9 - 4.8 g/dL [facility] EGFR 33(L) >59 mL/min/1.7 3m2 [facility] Comment:Estimated glomerular filtration rate calculated using the CKD-EPI refit equation. ANION GAP 15 10 - 20 mmol/L [facility] Blood 07/06/2024 10:0 2 AM EDT 07/06/2024 10:05 AM EDT Shaista Magaña CNP LAB BLOOD OR DERABLES [facility] [address] [place] [address] documented in this encounter Visit Diagnoses Diagnosis Decreased GFR- Primary Stage 3a chronic kidney disease documented in this encounter Additional Health Concerns Assessment Noted Time PHQ-2 Depression Total Score: 1 07/01/19 25 1:10 PM EDT documented as of this encounter Care Teams Switchboard Operator Helper Relationship Specialty Start Date End Date Shaista Magaña CNP [address] [place] [address], 2nd [place] [address] PCP - General Family Medicine 11/11/22 Jose D Almeida MD Ophthalmology 12/05/20 Conor Arroyo MD 10 [facility] [address] [place] [address] Internal Medicine 07/16/22 documented as of this encounter Additional Source Comments The information contained in this document represents components of the legal health record. It is not the complete legal health record.[facility]
--- OUTSIDE RECORDS SUMMARY | 2024-07-07 11:24 | XMS_ITS | Encounter Summary ---
Author Organization [facility] Address 399 [facility] [address] [place] [address] Phone Care Team Providers Care Airframe And Powerplant Technician Name Role Phone [email or web address] [facility] Primary Care Provider Jose D Almeida MD Unavailable Carlos Bullock MD Unavailable [phone] Conor Arroyo MD Unavailable Carlos Bullock MD Primary Care Provider [phone] Shaista Magaña [facility] Primary Care Provid er Encounter Details Date Type Department Care Team (Late st Contact Info) Description 02/24/2022 Procedure Pass [facility], Ct Scan - [address] [address] Social History Tobacco Use Types Packs/Day Years [...] AM EDT Office Visit [facility] [address] [place] [address] [place] [address] Shaista Magaña CNP 170 [facility], 2nd [place] [address] [email or web address] documented as of this encounter Visit Diagnoses Not on filedocumented in this encounter Additional Health Concerns Assessment Noted Time PHQ-2 Depression Total Score: 1 06/16/19 22 11:12 AM EST documented as of this encounter Care Teams Airframe And Powerplant Technician Relationship Specialty Start Date End Date Jyothi Stark CNP [address] [place] [address] [email or web address] PCP - General Internal Medicine 11/22/19 09/08/22 Carlos Bullock MD [address] [place] [address] PCP - General Internal Medicine 09/09/22 11/10/22 Shaista Magaña CNP 170 [facility], [address]nd [place] [address] [email or web address] PCP - General Family Medicine 11/11/22 Jose D Almeida MD [address] [place] [address] [email or web address] Ophthalmology 12/05/20 Carlos Bullock MD [address] [place] [address] Insurance Assigned Provider 07/11/23 04/11/24 Conor Arroyo MD [address] [place] [address] Internal Medicine 07/16/22 documented as of this encounter Additional Source Comments The information contained in this document represents components of the legal health record. It is not the complete legal health record.[facility]
--- OUTSIDE RECORDS SUMMARY | 2024-07-07 11:24 | XMS_ITS | Encounter Summary ---
Author Organization [facility] Address 399 [facility] [address] [place] [address] Phone Care Team Providers Care Electrician Station Assistant Name Role Phone Jose D Almeida MD Unavailable Conor Arroyo MD Unavailable Shaista Magaña CNP Primary Care Provid er Encounter Details Date Type Department Care Team (Late st Contact Info) Description 07/06/2024 9:51 AM EDT - 07/06/2024 6:27 PM EDT Hospital Encounter [facility] [address] [place] [address] Shaista Magaña, MAE 170 [facility], 2nd [place] [address] [email or web address] Discharge Disposition: Home or Self Care Social [...] Office Visit [facility] [address] [place] [address] [place] [address] Shaista Magaña, [facility] 170 [facility], 2nd [place] [address] [email or web address] documented as of this encounter Procedures Procedure Name Priority Date/Time Associated Diagnosis Comments RENAL PANEL Routine 07/06/2024 10:02 AM EDT Decreased GFR Stage 3a chronic kidney disease documented in this encounter Results * (ABNORMAL) Renal panel (07/06/2024 10:02 AM EDT) SODIUM 143 133 - 146 mmol/L [facility] POTASSIUM 5.0 3.3 - 5.1 mmol/L [facility] CHLORIDE 107 96 - 108 mmol/L [facility] CO2 26 21 - 35 mmol/L [facility] GLUCOSE 121(H) 70 - 99 mg/dL [facility] BUN 28(H) 6 - 19 mg/dL [facility] CREATININE 2.10(H) 0.5 - 1.5 mg/dL [facility] CALCIUM 9.1 8.4 - 10.3 mg/dL [facility] PHOSPHORUS 2.7 2.7 - 4.5 mg/dL [facility] ALBUMIN 4.3 3.9 - 4.8 g/dL [facility] EGFR 33(L) >59 mL/min/1.7 3m2 [facility] Comment:Estimated glomerular filtration rate calculated using the CKD-EPI refit equation. ANION GAP 15 10 - 20 mmol/L [facility] Blood 07/06/2024 10:0 2 AM EDT 07/06/2024 10:05 AM EDT Shaista Magaña CNP LAB BLOOD OR DERABLES Performing Organization Address City/State/[facility] Co de Phone Number [facility] [address] [place] [address] documented in this encounter Visit Diagnoses Diagnosis Decreased GFR Stage 3a chronic kidney disease documented in this encounter Additional Health Concerns Assessment Noted Time PHQ-2 Depression Total Score: 1 07/01/19 25 1:10 PM EDT documented as of this encounter Care Teams Electrician Station Assistant Relationship Specialty Start Date End Date Shaista Magaña CNP [address] [place] [address], 2nd [place] [address] PCP - General Family Medicine 11/11/22 Jose D Almeida MD Ophthalmology 12/05/20 Conor Arroyo MD 10 [facility] [address] [place] [address] Internal Medicine 07/16/22 documented as of this encounter Additional Source Comments The information contained in this document represents components of the legal health record. It is not the complete legal health record.[facility]
--- OUTSIDE RECORDS SUMMARY | 2024-07-07 11:24 | XMS_ITS | Encounter Summary ---
Author Organization [facility] Address [address] [facility] [address] [place] [address] Phone Care Team Providers Care Cattle Sorter Name Role Phone Jyothi Stark [facility] Primary Care Provider Jose D Almeida MD Unavailable Carlos Bullock MD Unavailable [phone] Conor Arroyo MD Unavailable Carlos Bullock MD Primary Care Provider [phone] Shaista Magaña [facility] Primary Care Provid er Encounter Details Date Type Department Care Team (Late st Contact Info) Description 08/09/2021 Procedure Pass [address] [place] [address] Social History Tobacco Use Types Packs/Day Years [...] Description 08/03/2024 8:30 AM EDT Office Visit [facility] [address] [place] [address] [place] [address] Shaista Magaña CNP [address] [place] [address], 2[address] [place] [address] documented as of this encounter Visit Diagnoses Not on filedocumented in this encounter Additional Health Concerns Assessment Noted Time PHQ-2 Depression Total Score: 1 06/16/19 22 11:12 AM EST documented as of this encounter Care Teams Cattle Sorter Relationship Specialty Start Date End Date Jyothi Stark CNP [address] [place] [address] PCP - General Internal Medicine 11/22/19 09/08/22 Carlos Bullock MD [address] [place] [address] PCP - General Internal Medicine 09/09/22 11/10/22 Shaista Magaña CNP [address] [place] [address] PCP - General Family Medicine 11/11/22 Jose D Almeida MD [address] [place] [address] Ophthalmology 12/05/20 Carlos Bullock MD [address] [place] [address] [email or web address] Insurance Assigned Provider 07/11/23 04/11/24 Conor Arroyo MD [address] [place] [address] [place] [address] Internal Medicine 07/16/22 documented as of this encounter Additional Source Comments The information contained in this document represents components of the legal health record. It is not the complete legal health record.[facility]
--- OUTSIDE RECORDS SUMMARY | 2024-07-07 11:24 | XMS_ITS | Encounter Summary ---
Author Organization [facility] Address [address] [place] [address] Phone Care Team Providers Care Automation Controls Engineer Name Role Phone Vijay Hampton MD Primary Care Provider [phone] Jyothi Stark CNP Primary Care Provider Jyothi Stark CNP Primary Care Provider Carlos Bullock MD Unavailable [phone] Carlos Bullock MD Primary Care Provider [phone] Jyothi Stark CNP Primary Care Provider Jose D Almeida MD Unavailable Carlos Bullock MD Unavailable [phone] Conor Arroyo MD Unavailable Carlos Bullock MD Primary Care Provider [phone] Shaista Magaña [facility] Primary Care Provid er Encounter Details Date Type Department Care Team (Late st Contact Info) Description 06/16/2017 Procedure Pass [place] Admitting Dept - Virtual Department 30 [place], [place] [id number] Social History Tobacco Use Types Packs/Day Years [...] 08/03/2024 8:30 AM EDT Office Visit [facility] [address] [place] [address] [place] [address] Shaista Magaña CNP [address] [facility], 2nd [place] [address] documented as of this encounter Visit Diagnoses Not on filedocumented in this encounter Care Teams Automation Controls Engineer Relationship Specialty Start Date End Date Vijay Hampton MD [address] [place] [address] PCP - General Internal Medicine 04/29/17 11/30/17 Jyothi Stark CNP 40 [place] [address] PCP - General Internal Medicine 12/01/17 03/08/19 Jyothi Stark CNP 40 [place] [address] PCP - General Internal Medicine 03/09/19 11/16/19 Carlos Bullock MD 40 [place] [address] PCP - General Internal Medicine 11/17/19 11/21/19 Jyothi Stark CNP 40 [place] [address] PCP - General Internal Medicine 11/22/19 09/08/22 Carlos Bullock MD 40 [place] [address] PCP - General Internal Medicine 09/09/22 11/10/22 Shaista Magaña CNP [address] [place] [address], 2nd [place] [address] PCP - General Family Medicine 11/11/22 Carlos Bullock MD 40 [place] [address] Insurance Assigned Provider 07/13/19 04/14/20 JoseD Almeida MD 40 [place] [address] Ophthalmology 12/05/20 Carlos Bullock MD 40 [place] [address] Insurance Assigned Provider 07/11/23 04/11/24 Conor Arroyo MD [address] [place] [address] [address] [place] [address] Internal Medicine 07/16/22 documented as of this encounter Additional Source Comments The information contained in this document represents components of the legal health record. It is not the complete legal health record.[facility]
--- OUTSIDE RECORDS SUMMARY | 2024-07-07 11:24 | XMS_ITS | Encounter Summary ---
Author Organization [facility] Address [address] [facility] [address] [place] [address] Phone Care Team Providers Care Perioperative Educator Name Role Phone Vijay Hampton MD Primary Care Provider [phone] Jyothi Stark CNP Primary Care Provider Jyothi Stark [facility] Primary Care Provider Carlos Bullock MD Unavailable [phone] Carlos Bullock MD Primary Care Provider Jyothi Stark CNP Primary Care Provider Jose D Almeida MD Unavailable Carlso Bullock MD Unavailable [phone] Conor Arroyo MD Unavailable Carlos Bullock MD Primary Care Provider Shaista Magaña [facility] Primary Care Provid er Encounter Details Date Type Department Care Team (Latest Contact Info) Description 07/21/2017 Ancillary Orders [facility], X-Ray - [address] [address] Cody Rojas PA [address] [place] [address] [email or web address] radiculopathy; Spinal stenosis of lumbar region [...] Description 08/03/2024 8:30 AM EDT Office Visit [facility] [address] [place] [address] Shaista Magaña, MAE 170 [facility], 2nd [place] [address] [email or web address] documented as of this encounter Results * [...] claudication documented in this encounter Care Teams Perioperative Educator Relationship Specialty Start Date End Date Memo, Vijay Soni MD [address] [place] [address] PCP - General Internal Medicine 04/29/17 11/30/17 Jyothi Stark CNP 40 [place] [address] PCP - General Internal Medicine 12/01/17 03/08/19 Jyothi Stark CNP 40 [place] [address] [email or web address] PCP - General Internal Medicine 03/09/19 11/16/19 Carlos Bullock MD 40 [place] [address] [email or web address] PCP - General Internal Medicine 11/17/19 11/21/19 Jyothi Stark, MAE [address] [place], [place] [email or web address] PCP - General Internal Medicine 11/22/19 09/08/22 Carlos Bullock MD 40 [place] [address] [email or web address] PCP - General Internal Medicine 09/09/22 11/10/22 Shaista Magaña CNP [address] [place] [address], 2nd [place] [address] [email or web address] PCP - General Family Medicine 11/11/22 Carlos Bullock MD 40 [place] [address] [email or web address] Insurance Assigned Provider 07/13/19 04/14/20 Jose D Almeida MD 40 [place] [address] [email or web address] Ophthalmology 12/05/20 Carlos Bullock MD 40 [place] [address] [email or web address] Insurance Assigned Provider 07/11/23 04/11/24 Conor Arroyo MD [address] [place] [address] Drive [address] [place] [address] Internal Medicine 07/16/22 documented as of this encounter Additional Source Comments The information contained in this document represents components of the legal health record. It is not the complete legal health record.[facility]
--- OUTSIDE RECORDS SUMMARY | 2024-07-07 11:24 | XMS_ITS | Encounter Summary ---
Author Organization [facility] Address [address] [address] Phone Care Team Providers Care Escort Car Driver Name Role Phone Unknown, Unknown Primary Care Provider Vijay Zafar MD Primary Care Provider [phone] Jyothi Stark [facility] Primary Care Provider Jyothi Stark [facility] Primary Care Provider Carlos Bullock MD Unavailable Carlos Bullock MD Primary Care Provider [phone] Jyothi Stark [facility] Primary Care Provider Jose D Almeida MD Unavailable Carlos Bullock MD Unavailable [phone] Conor Arroyo MD Unavailable Carlos Bullock MD Primary Care Provider [phone] Shaista Magaña [facility] Primary Care Provid er Encounter Details Date Type Department Care Team (Late st Contact Info) Description 04/15/2017 Ancillary Orders Virtual Department 30 [place] [address] Armond Maldonado MD [address] [place] [address] [email or web address] Acute low back pain, unspecified back [...] 08/03/2024 8:30 AM EDT Office Visit [facility] [address] [place] [address] Shaista Magaña, CONSTRUCTION CONSULTANT [address], [address] Floor [place], [place] [address] [email or web address] documented as of this encounter Results * [...] Other degenerative changes as described. POS - [id number] Edited by: Malu Woodson on 04/17/2017 8:49 [...] Other degenerative changes as described. POS - [id number] Edited by: Malu Woodson on 04/17/2017 8:49 [...] foot documented in this encounter Care Teams Escort Car Driver Relationship Specialty Start Date End Date Unknown, Unknown, MD PCP - General 04/15/17 04/28/17 Vijay Hampton MD [address] [place] [address] PCP - General Internal Medicine 04/29/17 11/30/17 Jyothi Stark CNP [address] [place] [address] [email or web address] PCP - General Internal Medicine 12/01/17 03/08/19 Jyothi Stark, MAE [address] [place] [address] [email or web address] PCP - General Internal Medicine 03/09/19 11/16/19 Carlos Bullock MD [address] [place] [address] [email or web address] PCP - General Internal Medicine 11/17/19 11/21/19 Jyothi Stark CNP [address] [place] [address] [email or web address] PCP - General Internal Medicine 11/22/19 09/08/22 Carlos Bullock MD [address] [place] [address] [email or web address] PCP - General Internal Medicine 09/09/22 11/10/22 Shaista Magaña CNP [address] [place] [address], 2nd [place] [address] [email or web address] PCP - General Family Medicine 11/11/22 Carlos Bullock MD [address] [place] [address] [email or web address] Insurance Assigned Provider 07/13/19 04/14/20 Jose D Almeida MD [address] [place] [address] [email or web address] Ophthalmology 12/05/20 Carlos Bullock MD [address] [place] [address] [email or web address] Insurance Assigned Provider 07/11/23 04/11/24 Conor Arroyo MD [address] [place] [address] Internal Medicine 07/16/22 documented as of this encounter Additional Source Comments The information contained in this document represents components of the legal health record. It is not the complete legal health record.[facility]
--- OUTSIDE RECORDS SUMMARY | 2024-07-07 11:24 | XMS_ITS | Encounter Summary ---
Author Organization [facility] Address [address] [facility] [address] [place] [address] Phone Care Team Providers Care Cat Driver Name Role Phone Vijay Hampton MD Primary Care Provider Jyothi Stark CNP Primary Care Provider Jyothi Stark CNP Primary Care Provider Carlos Bullock MD Unavailable [phone] Carlos Bullock MD Primary Care Provider [phone] Jyothi Stark CNP Primary Care Provider Jose D Almeida MD Unavailable Carlos Bullock MD Unavailable [phone] Conor Arroyo MD Unavailable Carlos Bullock MD Primary Care Provider [phone] Shaista Magaña [facility] Primary Care Provid er Encounter Details Date Type Department Care Team (Late st Contact Info) Description 06/15/2017 Procedure Pass [facility],Outside Imaging [address] [place], [place] [id number] Social History Tobacco Use Types Packs/Day Years [...] 08/03/2024 8:30 AM EDT Office Visit [facility] 170 [facility] [place] [address] Shaista Magaña CNP 170 [facility], 2nd [place] [address] documented as of this encounter Visit Diagnoses Not on filedocumented in this encounter Care Teams Cat Driver Relationship Specialty Start Date End Date Vijay Hampton MD [address] [place] [address] PCP - General Internal Medicine 04/29/17 11/30/17 Jyothi Stark CNP [address] [place] [address] PCP - General Internal Medicine 12/01/17 03/08/19 Jyothi Stark CNP [address] [place] [address] PCP - General Internal Medicine 03/09/19 11/16/19 Carlos Bullock MD [address] [place], [place] 3857[address] PCP - General Internal Medicine 11/17/19 11/21/19 Jyotih Stark CNP [address] [place] [address] PCP - General Internal Medicine 11/22/19 09/08/22 Carlos Bullock MD [address] [place] [address] PCP - General Internal Medicine 09/09/22 11/10/22 Shaista Magaña CNP [address] [place] [address], 2nd [place] [address] PCP - General Family Medicine 11/11/22 Carlos Bullock MD [address] [place] [address] Insurance Assigned Provider 07/13/19 04/14/20 Jose D Almeida MD [address] [place] [address] Ophthalmology 12/05/20 Carlos Bullock MD 40 [place] [address] Insurance Assigned Provider 07/11/23 04/11/24 Conor Arroyo MD [address] [place] [address] [place] [address] Internal Medicine 07/16/22 documented as of this encounter Additional Source Comments The information contained in this document represents components of the legal health record. It is not the complete legal health record.[facility]
--- OUTSIDE RECORDS SUMMARY | 2024-07-07 11:24 | XMS_ITS | Encounter Summary ---
Author Organization [facility] Address 399 [facility] [address] [place] [address] Phone Care Team Providers Care Inspector Metal Fabricating Name Role Phone Unavailable Primary Care Provider Unavailabl e Reason for Visit * MRI/CAT Scan - Closed Specialty Diagnoses / Procedures Referred By Contac t Referred To Contact Procedures MRI Spine (Bone) Outside (No Interpretation) System, Provider Not In, [facility] [address] [address] Referral ID Status Reason Start Date Expiration Date Visits Re quested Visits Authorized [id number] Closed 06/15/2017 06/15/2018 1 1 Encounter Details Date Type Department Care Team (Late st Contact Info) Description 01/22/2016 Hospital Encounter [facility],Outside Imaging [address] [place] [address] System, Provider Not In, [facility] [employer] [address] Social History Tobacco Use Types Packs/Day Years [...] [facility] [address] [place] [address] [place] [address] Shaista Magaña, CORPORATE STATISTICAL FINANCIAL ANALYST [address] [facility], 2nd Floor [place] [address] documented as of this encounter Procedures Procedure [...] It is not the complete legal health record.[facility]
--- OUTSIDE RECORDS SUMMARY | 2024-07-07 11:24 | XMS_ITS | Encounter Summary ---
Author Organization [facility] Address [address] [facility] [address] [place] [address] Phone Care Team Providers Care Hydroelectric Plant Structural Engineer Name Role Phone Jyothi Stark [facility] Primary Care Provider Jyothi Stark [facility] Primary Care Provider Carlos Bullock MD Unavailable [phone] Carlos Bullock MD Primary Care Provider Jyothi Stark CNP Primary Care Provider Jose D Almeida MD Unavailable Carlos Bullock MD Unavailable [phone] Conor Arroyo MD Unavailable Carlos Bullock MD Primary Care Provider [phone] Shaista Magaña [facility] Primary Care Provid er Encounter Details Date Type Department Care Team (Late st Contact Info) Description 01/28/2018 Transcribe Orders [facility] [address] [place], [place] [address] Jyothi Stark, [facility] 40 [place], [place] [phone] Social History Tobacco Use Types Packs/Day Years [...] Description 08/03/2024 8:30 AM EDT [facility] [place] [facility] [address] [place] [address] [place] [address] Shaista Magaña CNP 170 [facility], 2nd [place] [address] [email or web address] documented as of this encounter Visit Diagnoses Not on filedocumented in this encounter Care Teams Hydroelectric Plant Structural Engineer Relationship Specialty Start Date End Date Jyothi Stark CNP [address] [place] [address] PCP - General Internal Medicine 12/01/17 03/08/19 Jyothi Stark CNP [address] [place] [address] PCP - General Internal Medicine 03/09/19 11/16/19 Carlos Bullock MD [address] [place] [address] PCP - General Internal Medicine 11/17/19 11/21/19 Jyothi Stark CNP [address] [place] [address] PCP - General Internal Medicine 11/22/19 09/08/22 Carlos Bullock MD [address] [place] [address] PCP - General Internal Medicine 09/09/22 11/10/22 Shaista Magaña CNP [address] [place] [address], 2nd [place] [address] [email or web address] PCP - General Family Medicine 11/11/22 Carlos Bullock MD [address] [place] [address] [email or web address] Insurance Assigned Provider 07/13/19 04/14/20 Jose D Almeida MD [address] [place] [address] [email or web address] Ophthalmology 12/05/20 Carlos Bullock MD [address] [place] [address] Insurance Assigned Provider 07/11/23 04/11/24 Conor Arroyo MD [address] [place] [address] [address] [place] [address] Internal Medicine 07/16/22 documented as of this encounter Additional Source Comments The information contained in this document represents components of the legal health record. It is not the complete legal health record.[facility]
--- OUTSIDE RECORDS SUMMARY | 2024-07-07 11:24 | XMS_ITS | Encounter Summary ---
Author Organization [facility] Address [address] [facility] [address] [place] [address] Phone Care Team Providers Care Supervisor Files Name Role Phone Jyothi Stark [facility] Primary Care Provider Jyothi Stark [facility] Primary Care Provider Carlos Bullock MD Unavailable [phone] Carlos Bullock MD Primary Care Provider [phone] Jyothi Stark [facility] Primary Care Provider Jose D Almeida MD Unavailable Carlos Bullock MD Unavailable [phone] Conor Arroyo MD Unavailable Carlos Bullock MD Primary Care Provider [phone] Shaista Magaña [facility] Primary Care Provid er Encounter Details Date Type Department Care Team (Latest Contact Info) Description 01/13/2018 Transcribe Orders [facility] Laboratory [address] [place], [place] [phone] Jyothi Stark [facility] 40 [place], [place] [address] [email or web address] Routine check-up (Primary Dx) Social [...] Description 08/03/2024 8:30 AM EDT Office Visit [facility] [address] [place] [address] Shaista Magaña CNP 170 [facility], 2nd [place] [address] [email or web address] documented as of this encounter Visit Diagnoses Diagnosis Routine check-up- Primary Routine general medical examination at a health care facility documented in this encounter Care Teams Supervisor Files Relationship Specialty Start Date End Date Jyothi Stark CNP [address] [place] [address] PCP - General Internal Medicine 12/01/17 03/08/19 Jyothi Stark CNP [address] [place] [address] PCP - General Internal Medicine 03/09/19 11/16/19 Carlos Bullock MD 40 [place] [address] PCP - General Internal Medicine 11/17/19 11/21/19 Jyothi Stark CNP 40 [place] [address] PCP - General Internal Medicine 11/22/19 09/08/22 Carlos Bullock MD 40 [place] [address] PCP - General Internal Medicine 09/09/22 11/10/22 Shaista Magaña CNP [address] [place] [address], 2nd [place] [address] [email or web address] PCP - General Family Medicine 11/11/22 Carlos Bullock MD 40 [place] [address] Insurance Assigned Provider 07/13/19 04/14/20 Jose D Almeida MD [address] [place] [address] Ophthalmology 12/05/20 Carlos Bullock MD [address] [place] [address] [email or web address] Insurance Assigned Provider 07/11/23 04/11/24 Conor Arroyo MD [address] [place] [address] [place] [address] Internal Medicine 07/16/22 documented as of this encounter Additional Source Comments The information contained in this document represents components of the legal health record. It is not the complete legal health record.[facility]
--- OUTSIDE RECORDS SUMMARY | 2024-07-07 11:24 | XMS_ITS | Encounter Summary ---
Author Organization [facility] Address [address] [address] Phone Care Team Providers Care Machine Wedger Name Role Phone Jyothi Stark [facility] Primary Care Provider Jyothi Stark [facility] Primary Care Provider Carlos Bullock MD Unavailable [phone] Carlos Bullock MD Primary Care Provider [phone] Jyothi Stark [facility] Primary Care Provider Jose D Almeida MD Unavailable Carlos Bullock MD Unavailable [phone] Conor Arroyo MD Unavailable Carlos Bullock MD Primary Care Provider Shaista Magaña [facility] Primary Care Provid er Encounter Details Date Type Department Care Team (Late st Contact Info) Description 10/16/2018 Ancillary Orders [facility], X-Ray - [address] [place] [address] Armond Maldonado MD [address] [place] [address] [email or web address] Fusion of spine of lumbar region Social [...] 08/03/2024 8:30 AM EDT Office Visit [facility] [address] [place] [address] Shaista Magaña, DOMESTIC VIOLENCE COUNSELOR 170 [facility], 2nd Floor [place] [address] [email or web address] documented as of this encounter Results [...] region documented in this encounter Care Teams Machine Wedger Relationship Specialty Start Date End Date Jyothi Stark CNP [address] [place] [address] PCP - General Internal Medicine 12/01/17 03/08/19 Jyothi Stark CNP [address] [place] [address] PCP - General Internal Medicine 03/09/19 11/16/19 Carlos Bullock MD [address] [place] [address] PCP - General Internal Medicine 11/17/19 11/21/19 Jyothi Stark CNP [address] [place] [address] PCP - General Internal Medicine 11/22/19 09/08/22 Carlos Bullock MD [address] [place] [address] PCP - General Internal Medicine 09/09/22 11/10/22 Shaista Magaña CNP [address] [place] [address], 2nd [place] [address] [email or web address] PCP - General Family Medicine 11/11/22 Carlos Bullock MD [address] [place] [address] [email or web address] Insurance Assigned Provider 07/13/19 04/14/20 Jose D Almeida MD [address] [place] [address] [email or web address] Ophthalmology 12/05/20 Carlos Bullock MD [address] [place] [address] Insurance Assigned Provider 07/11/23 04/11/24 Conor Arroyo MD 10 [facility] [address] [place] [address] Internal Medicine 07/16/22 documented as of this encounter Additional Source Comments The information contained in this document represents components of the legal health record. It is not the complete legal health record.[facility]
--- OUTSIDE RECORDS SUMMARY | 2024-07-07 11:24 | XMS_ITS | Encounter Summary ---
Author Organization [facility] Address 399 [facility] [address] [place] [address] Phone Care Team Providers Care Geological Scout Name Role Phone Jyothi Stark [facility] Primary Care Provider Jyothi Stark [facility] Primary Care Provider Carlos Bullock MD Unavailable [phone] Carlos Bullock MD Primary Care Provider Jyothi Stark CNP Primary Care Provider Jose D Almeida MD Unavailable Carlos Bullock MD Unavailable [phone] Conor Arroyo MD Unavailable Carlos Bullock MD Primary Care Provider [phone] Shaista Magaña [facility] Primary Care Provid er Encounter Details Date Type Department Care Team (Late st Contact Info) Description 01/13/2018 Transcribe Orders [facility] [address] [place], [place] [id number] Jyothi Stark, [facility] [address] [place], [place] [id number] [email or web address] Social History Tobacco Use Types Packs/Day Years [...] Description 08/03/2024 8:30 AM EDT [facility] [place] [facility] [address] [place] [address] [place] [address] Shaista Magaña CNP 170 [facility], 2nd [place] [address] [email or web address] documented as of this encounter Visit Diagnoses Not on filedocumented in this encounter Care Teams Geological Scout Relationship Specialty Start Date End Date Jyothi Stark CNP 40 [place] [address] PCP - General Internal Medicine 12/01/17 03/08/19 Jyothi Stark CNP [address] [place] [address] PCP - General Internal Medicine 03/09/19 11/16/19 Carlos Bullock MD [address] [place] [address] PCP - General Internal Medicine 11/17/19 11/21/19 Jyothi Stark CNP [address] [place] [address] PCP - General Internal Medicine 11/22/19 09/08/22 Carlos Bullock MD 40 [place] [address] PCP - General Internal Medicine 09/09/22 11/10/22 Shaista Magaña CNP [address] [place] [address], 2nd [place] [address] [email or web address] PCP - General Family Medicine 11/11/22 Carlos Bullock MD [address] [place] [address] [email or web address] Insurance Assigned Provider 07/13/19 04/14/20 Jose D Almeida MD [address] [place] [address] [email or web address] Ophthalmology 12/05/20 Carlos Bullock MD [address] [place] [address] Insurance Assigned Provider 07/11/23 04/11/24 Conor Arroyo MD [address] [place] [address] [address] [place] [address] Internal Medicine 07/16/22 documented as of this encounter Additional Source Comments The information contained in this document represents components of the legal health record. It is not the complete legal health record.[facility]
--- OUTSIDE RECORDS SUMMARY | 2024-07-07 11:24 | XMS_ITS | Encounter Summary ---
Author Organization [facility] Address 399 [facility] [address] [place] [address] Phone Care Team Providers Care Installer Name Role Phone Vijay Hampton MD Primary Care Provider Jyothi Stark CNP Primary Care Provider Jyothi Stark CNP Primary Care Provider Carlos Bullock MD Unavailable [phone] Carlos Bullock MD Primary Care Provider Jyothi Stark CNP Primary Care Provider Jose D Almeida MD Unavailable Carlos Bullock MD Unavailable [phone] Conor Arroyo MD Unavailable Carlos Bullock MD Primary Care Provider Shaista Magaña [facility] Primary Care Provid er Encounter Details Date Type Department Care Team (Late st Contact Info) Description 09/10/2017 Ancillary Orders Virtual Department [address] [place] [address] Cody Rojas PA [address] [place] [address] [email or web address] Effusion of left foot joint Social History [...] Description 08/03/2024 8:30 AM EDT Office Visit [facility] [address] [place] [address] [place] [address] Shaista Magaña CNP [address] [place] [address], 2nd [place] [address] [email or web address] documented as of this encounter Visit Diagnoses Diagnosis Effusion of left foot joint documented in this encounter Care Teams Installer Relationship Specialty Start Date End Date Memo, Vijay Soni MD [address] [place] [address] PCP - General Internal Medicine 04/29/17 11/30/17 Jyothi Stark CNP [address] [place] [address] PCP - General Internal Medicine 12/01/17 03/08/19 Jyothi Stark CNP [address] [place] [address] PCP - General Internal Medicine 03/09/19 11/16/19 Carlos Bullock MD 40 [place], [place] [address] PCP - General Internal Medicine 11/17/19 11/21/19 Jyothi Stark Fouzia, MAE 40 [place] [address] PCP - General Internal Medicine 11/22/19 09/08/22 Carlos Bullock MD [address] [place] [address] PCP - General Internal Medicine 09/09/22 11/10/22 Shaista Magaña CNP [address] [place] [address], 2nd [place] [address] [email or web address] PCP - General Family Medicine 11/11/22 Carlos Bullock MD [address] [place] [address] Insurance Assigned Provider 07/13/19 04/14/20 Jose D Almeida MD [address] [place] [address] Ophthalmology 12/05/20 Carlos Bullock MD [address] [place] [address] Insurance Assigned Provider 07/11/23 04/11/24 Conor Arroyo MD [address] [place] [address] [place] [address] Internal Medicine 07/16/22 documented as of this encounter Additional Source Comments The information contained in this document represents components of the legal health record. It is not the complete legal health record.[facility]
--- OUTSIDE RECORDS SUMMARY | 2024-07-07 11:24 | XMS_ITS | Encounter Summary ---
Author Organization [facility] Address 399 [facility] [address] [place] [address] Phone Care Team Providers Care Grounds/Maintenance Specialist Name Role Phone Jyothi Stark [facility] Primary Care Provider Jyothi Stark [facility] Primary Care Provider Carlos Bullock MD Unavailable [phone] Carlos Bullock MD Primary Care Provider Jyothi Stark [facility] Primary Care Provider Jose D Almeida MD Unavailable Carlos Bullock MD Unavailable [phone] Conor Arroyo MD Unavailable Carlos Bullock MD Primary Care Provider [phone] Shaista Magaña [facility] Primary Care Provid er Encounter Details Date Type Department Care Team (Late st Contact Info) Description 12/14/2018 Procedure Pass OR Admitting Dept - Virtual Department [address] [place] [address] Social History Tobacco Use Types Packs/Day Years [...] EDT Office Visit [facility] [address] [place] [address] [place] [address] Shaista Magaña CNP 170 [facility], 2nd [place] [address] documented as of this encounter Visit Diagnoses Not on filedocumented in this encounter Care Teams Grounds/Maintenance Specialist Relationship Specialty Start Date End Date Jyothi Stark CNP [address] [place] [address] PCP - General Internal Medicine 12/01/17 03/08/19 Jyothi Stark CNP [address] [place] [address] PCP - General Internal Medicine 03/09/19 11/16/19 Carlos Bullock MD [address] [place] [address] PCP - General Internal Medicine 11/17/19 11/21/19 Jyothi Stark CNP [address] [place] [address] PCP - General Internal Medicine 11/22/19 09/08/22 Carlos Bullock MD [address] [place] [address] PCP - General Internal Medicine 09/09/22 11/10/22 Shaista Magaña CNP [address] [place] [address], 2nd [place] [address] PCP - General Family Medicine 11/11/22 Carlos Bullock MD [address] [place] [address] Insurance Assigned Provider 07/13/19 04/14/20 Jose D Almeida MD [address] [place] [address] Ophthalmology 12/05/20 Carlos Bullock MD [address] [place] [address] Insurance Assigned Provider 07/11/23 04/11/24 Conor Arroyo MD [address] [place] [address] [address] [place] [address] Internal Medicine 07/16/22 documented as of this encounter Additional Source Comments The information contained in this document represents components of the legal health record. It is not the complete legal health record.[facility]
--- OUTSIDE RECORDS SUMMARY | 2024-07-07 11:24 | XMS_ITS | Encounter Summary ---
Author Organization [facility] Address 399 [facility] [address] [place] [address] Phone Care Team Providers Care Shared Services And Outsourcing Manager Name Role Phone Jyothi Stark [facility] Primary Care Provider Carlos Bullock MD Unavailable [phone] Carlos Bullock MD Primary Care Provider Jyothi Stark [facility] Primary Care Provider Jose D Almeida MD Unavailable Carlos Bullock MD Unavailable [phone] Conor Arroyo MD Unavailable Carlos Bullock MD Primary Care Provider [phone] Shaista Magaña [facility] Primary Care Provid er Encounter Details Date Type Department Care Team (Late st Contact Info) Description 03/09/2019 Ancillary Orders [facility], X-Ray - [facility] [address] [place] [address] Armond Maldonado MD [address] [place] [address] [email or web address] S/P lumbar fusion Social History Tobacco [...] Description 08/03/2024 8:30 AM EDT [facility] [address] [place] [address] Shaista Magaña, MAE 170 [facility], 2nd Floor [place] [address] [email or web address] documented as of this encounter Results * XR LUMBOSACRAL SPINE 2-3 VIEWS (03/09/2019 2:42 PM EST) Anatomical Region Laterality Modality L-spine Radiographic Franchesca ging 03/10/2019 8:13 AM EST Impressions 03/10/2019 8:15 AM EST Mild increase in lower lumbar scoliosis. Otherwise stable appearance of the lumbosacral spine. POS [id number] Narrative 03/10/2019 8:15 AM EST 4 views. [...] Otherwise stable appearance ofthe lumbosacral spine. POS [id number] Armond Maldonado MD IMG XR SPINE documented in this encounter Visit Diagnoses Diagnosis S/P lumbar fusion Arthrodesis status S/P lumbar fusion Arthrodesis status documented in this encounter Care Teams Shared Services And Outsourcing Manager Relationship Specialty Start Date End Date Jyothi Stark CNP [address] [place] [address] [email or web address] PCP - General Internal Medicine 03/09/19 11/16/19 Carlos Bullock MD [address] [place] [address] PCP - General Internal Medicine 11/17/19 11/21/19 Jyothi Stark CNP [address] [place] [address] PCP - General Internal Medicine 11/22/19 09/08/22 Carlos Bullock MD [address] [place] [address] PCP - General Internal Medicine 09/09/22 11/10/22 Shaista Magaña CNP [address] [place] [address], 2nd [place] [address] [email or web address] PCP - General Family Medicine 11/11/22 Carlos Bullock MD [address] [place] [address] Insurance Assigned Provider 07/13/19 04/14/20 Jose D Almeida MD [address] [place] [address] [email or web address] Ophthalmology 12/05/20 Carlos Bullock MD [address] [place] [address] [email or web address] Insurance Assigned Provider 07/11/23 04/11/24 Conor Arroyo MD [address] [place] [address] [address] [place] [address] Internal Medicine 07/16/22 documented as of this encounter Additional Source Comments The information contained in this document represents components of the legal health record. It is not the complete legal health record.[facility]
--- OUTSIDE RECORDS SUMMARY | 2024-07-07 11:24 | XMS_ITS | Encounter Summary ---
Author Organization [facility] Address [address] [place] [address] Phone Care Team Providers Care Die Repairer Trimmer Dies Name Role Phone Vijay Hampton MD Primary Care Provider Jyothi Stark CNP Primary Care Provider Jyothi Stark [facility] Primary Care Provider Carlos Bullock MD Unavailable [phone] Carlos Bullock MD Primary Care Provider Jyothi Stark [facility] Primary Care Provider Jose D Almeida MD Unavailable Carlos Bullock MD Unavailable [phone] Conor Arroyo MD Unavailable Carlos Bullock MD Primary Care Provider [phone] Shaista Magaña [facility] Primary Care Provid er Reason for Referral * MRI/CAT Scan - Closed Specialty Diagnoses / Procedures Referred By Contac t Referred To Contact Procedures MRI Spine (Bone) Outside (No Interpretation) System, Provider Not In, PhD [address] [address] Referral ID Status Reason Start Date Expiration Date Visits Re quested Visits Authorized [id number] Closed 06/15/2017 06/15/2018 1 1 Encounter Details Date Type Department Care Team (Late st Contact Info) Description 06/15/2017 Ancillary Orders [facility],Outside Imaging [address] [place] [address] System, Provider Not In, PhD Partners [address] [address] Social History Tobacco Use Types Packs/Day Years [...] Description 08/03/2024 8:30 AM EDT Office Visit [facility] [address] [place] [address] [place] [address] Shaista Magaña CNP [address] [place] [address], 2nd [place] [address] [email or web address] documented as of this encounter Results * MRI Spine (Bone) Outside (No Interpretation) (01/22/2016 12:00 AM EDT) Narrative SYSTEMGENERATED, DOCUMENTATION - 06/15/2017 11:46 AM EDT This study is for PACS storage only and not for interpretation. Provider Not In System PhD IMG OUTSIDE I MAGING W/OUT INTERPRETATION documented in this encounter Visit Diagnoses Not on filedocumented in this encounter Care Teams Die Repairer Trimmer Dies Relationship Specialty Start Date End Date Vijay Hampton MD 2 [place] [address] PCP - General Internal Medicine 04/29/17 11/30/17 Jyothi Stark CNP [address] [place] [address] [email or web address] PCP - General Internal Medicine 12/01/17 03/08/19 Jyothi Stark CNP [address] [place] [address] [email or web address] PCP - General Internal Medicine 03/09/19 11/16/19 Carlos Bullock MD [address] [place] [address] [email or web address] PCP - General Internal Medicine 11/17/19 11/21/19 Jyothi Stark CNP [address] [place] [address] [email or web address] PCP - General Internal Medicine 11/22/19 09/08/22 Carlos Bullock MD [address] [place] [address] [email or web address] PCP - General Internal Medicine 09/09/22 11/10/22 Shaista Magaña CNP [address] [place] [address], 2nd [place] [address] [email or web address] PCP - General Family Medicine 11/11/22 Carlos Bullock MD [address] [place] [address] [email or web address] Insurance Assigned Provider 07/13/19 04/14/20 Jose D Almeida MD [address] [place] [address] [email or web address] Ophthalmology 12/05/20 Carlos Bullock MD [address] [place] [address] [email or web address] Insurance Assigned Provider 07/11/23 04/11/24 Conor Arroyo MD [address] [place] [address] Internal Medicine 07/16/22 documented as of this encounter Additional Source Comments The information contained in this document represents components of the legal health record. It is not the complete legal health record.[facility]
--- OUTSIDE RECORDS SUMMARY | 2024-07-07 11:24 | XMS_ITS | Encounter Summary ---
Author Organization [facility] Address [address] [address] Phone Care Team Providers Care High Man Name Role Phone Vijay Hampton MD Primary Care Provider [phone] Jyothi Stark CNP Primary Care Provider Jyothi Stark [employer]OLER SERV[employer] SUPERVIS[employer] Primary Care Provider Carlos Bullock MD Unavailable [phone] Carlos Bullock MD Primary Care Provider Jyothi Stark CNP Primary Care Provider Jose D Almeida MD Unavailable Carlos Bullock MD Unavailable [phone] Conor Arroyo MD Unavailable Carlos Bullock MD Primary Care Provider Shaista Magaña [facility] Primary Care Provid er Encounter Details Date Type Department Care Team (Late st Contact Info) Description 10/13/2017 Ancillary Orders Virtual Department [address] [place] [address] Armond Maldonado MD [address] [place] [address] [email or web address] Pain of lower extremity, unspecified laterality [...] 08/03/2024 8:30 AM EDT Office Visit [facility] [address] [place] [address] Shaista Magaña, COOLER SERVICE SUPERVISOR 170 [facility], 2nd [place] [address] [email or web address] documented as of this encounter Results * [...] laterality documented in this encounter Care Teams High Man Relationship Specialty Start Date End Date Memo, Vijay Soni MD [address] [place] [address] PCP - General Internal Medicine 04/29/17 11/30/17 Jyothi Stark CNP [address] [place] [address] PCP - General Internal Medicine 12/01/17 03/08/19 Jyothi Stark CNP [address] [place] [address] PCP - General Internal Medicine 03/09/19 11/16/19 Carlos Bullock MD [address] [place] [address] PCP - General Internal Medicine 11/17/19 11/21/19 Jyothi Stark CNP [address] [place] [address] PCP - General Internal Medicine 11/22/19 09/08/22 Carlos Bullock MD [address] [place] [address] PCP - General Internal Medicine 09/09/22 11/10/22 Shaista Magaña CNP [address] [place] [address], 2nd [place] [address] [email or web address] PCP - General Family Medicine 11/11/22 Carlos Bullock MD [address] [place] [address] [email or web address] Insurance Assigned Provider 07/13/19 04/14/20 Jose D Almeida MD [address] [place] [address] [email or web address] Ophthalmology 12/05/20 Carlos Bullock MD [address] [place] [address] [email or web address] Insurance Assigned Provider 07/11/23 04/11/24 Conor Arroyo MD [address] [place] [address] [address] [place] [address] Internal Medicine 07/16/22 documented as of this encounter Additional Source Comments The information contained in this document represents components of the legal health record. It is not the complete legal health record.[facility]
--- OUTSIDE RECORDS SUMMARY | 2024-07-07 11:24 | XMS_ITS | Clinical Summary ---
Author Organization [facility] Address [address] [facility] [address] [place] [phone] Phone Care Team Providers Care Fitness Worker Name Role Phone Jose D Almeida MD Unavailable Conor Arroyo MD Unavailable Shaista Magaña [facility] Primary Care Provid er Allergies Active Allergy Reactions Criticality Noted Date Comments Colchicine Diarrhea Low 04/22/2018 Iodine Hives Medium 06/02/2017 Other 12/04/2023 Other Reaction(s): SPLENDA Penicillins Rash Low 06/02/2017 Sulfamethoxazole-Trimet hoprim Hives Medium 06/02/2017 Shellfish Containing Products Hives Medium 06/02/2017 Aqmfyhp-Fjo-Xuf Reductase Inhibitors Other (See Comments) Medium 06/02/2017 [...] for further evaluation, he would prefer the [facility] office if possible. Itchy scalp [...] no new nerve symptoms. Recently seen by [facility] [place] [facility] who recommended a spinal [...] a back brace. Under the care of [facility]. Feels he has not fully [...] - 07/06/2024 11:59 PM EDT Hospital Encounter [facility] Specimen Processing [address] [place] [address] Shaista Magaña CNP Discharge Disposition: Home or Self Care 07/06/2024 10:30 AM EDT Office Visit [address] [place] [address] Shaista Magaña CNP Encounter for health maintenance examination in adult (Primary Dx); Encounter for screening for depression; Acute idiopathic gout of left ankle; Decreased GFR; Tremor; Urinary urgency 07/06/2024 9:51 AM EDT - 07/06/2024 6:27 PM EDT Hospital Encounter [facility] [address] [place] [address] [place] [address] Shaista Magaña CNP Discharge Disposition: Home or Self Care 07/05/[address] [place] [address] Ilda Anglin, RN Results 07/04/2024 Orders Only [address] [place] [address] Shaista Magaña CNP Decreased GFR (Primary Dx); Stage 3a chronic kidney disease 06/30/2024 2:38 PM EDT - 06/30/2024 11:59 PM EDT Hospital Encounter [facility] Laboratory [address] [facility] [place] [address] Shaista Magaña CNP Discharge Disposition: Home or Self Care 06/26/[address] [place] [address] Shaista Magaña CNP Medication Refill 06/08/2024 Refill [facility] [address] [place] [address] Shaista Magaña CNP Medication Refill 05/28/2024 Refill [facility] [address] [place] [address] Toma Gordon MD Medication Refill 04/29/2024 Refill [facility]reen [facility] [address] [place] [address] Shaista Magaña CNP Medication Refill from Last [...] EDT Office Visit [facility] [address] [place] [address] [place] [address] Shaista Magaña, MAE [address] [facility], 2nd [place] [address] [email or web address] Health Maintenance Due Date Last Done Comments [...] this topic Medical Devices Implanted Type Area Mortgage Loan Counselor Device Identifier Shelf Expiration Date Model / Serial / Lot Graft Bone 1 To 8mm 30 Readi Allo Chip Cancellous Crushed Void Filler Preservon - [id number] Implanted:Qty : 1 on 12/14/2018 by Armond Maldonado MD at [facility] [employer]ET[employer]UE Spine Lumbar [employer] 09/13/2023 [id number] / [id number] / Set Screw 5.5mm Spine Cd Horizon Legacy Ss Break Off - [id number] Implanted:Qty : 4 on 12/14/2018 by Armond Maldonado MD at [facility] NODATA Spine Lumbar [employer] [id number] / / Screw Bone 50x6.5mm Spine Horizon Legacy Spinal System Ti Multiaxial - [id number] Implanted:Qty : 1 on 12/14/2018 by Armond Maldonado MD at [facility] NODATA Spine Lumbar [employer] [id number] / / Spacer Capstone Peek 15x32 - [id number] Implanted:Qty : 1 on 06/30/2017 by Armond Maldonado MD at [facility] N/A: Back [employer] 05/09/2018 [id number] / / [id number] Set Screw Sextant - [id number] Implanted:Qty : 4 on 06/30/2017 by Armond Maldonado MD at [facility] N/A: Back [employer] [id number] / / Description:L4/5 Screw Spine Sextant 6.5x50mm - [id number] Implanted:Qty : 2 on 06/30/2017 by Armond Maldonado MD at [facility] N/A: Back [employer] [id number] / / Description:L4/5 Screw Bone 7.5x50mm Spine Multi Axial Cannulated Legacy - [id number] Implanted:Qty : 2 on 06/30/2017 by Armond Maldonado MD at [facility] N/A: Back [employer] [id number] / / Description:L4/5 Jaguar Spinal Sextant 5.5x40mm - [id number] Implanted:Qty : 2 on 06/30/2017 by Armond Maldonado MD at [facility] N/A: Back [employer] [id number] / / Screw Bone 7.5x50mm Spine Horizon Legacy Spinal System Ti Multiaxial - [id number] Implanted:Qty : 3 on 12/14/2018 by Armond Maldonado MD at [facility] Spine Lumbar [employer] [id number] / / Spine Jaguar 5.5mmx40 Spinal Legacy Titanium Prebent Curved Thoracic Lumbar Sacral - [id number] Implanted:Qty : 1 on 12/14/2018 by Armond Maldonado MD at [facility] Spine Lumbar [employer] [id number] / / Spine Jaguar 5.5x45mm Legacy Titanium Prebent Thoracic Lumbar Sacral - [id number] Implanted:Qty : 1 on 12/14/2018 by Armond Maldonado MD at [facility] Spine Lumbar [employer] [id number] / / Procedures Procedure Name Priority Date/Time [...] (07/06/2024 6:29 PM EDT) COLOR Yellow Yellow [facility] CLARITY Clear [facility] GLUCOSE Negative Negative [facility] BILI Negative Negative [facility] KETONES Negative Negative [facility] SPECIFIC GRAVITY 1.020 1.005 - 1.030 [facility] BLOOD Negative Negative [facility] PH 6.0 5.0 - 8.0 [facility] Protein-UA Negative Negative [facility] NITRITE Negative Negative [facility] Leukocyte esterase, ur Negative Negative [facility] Urine (Urine) 07/06/2024 6:2 9 PM EDT 07/06/2024 6:30 PM EDT Shaista Magaña CNP URINE ORDERA BLES Performing Organization Address City/[facility] Co de Phone Number [address] [address] * (ABNORMAL) Renal panel (07/06/2024 10:02 AM EDT) SODIUM 143 133 - 146 mmol/L [facility] POTASSIUM 5.0 3.3 - 5.1 mmol/L [facility] CHLORIDE 107 96 - 108 mmol/L [facility] CO2 26 21 - 35 mmol/L [facility] GLUCOSE 121(H) 70 - 99 mg/dL [facility] BUN 28(H) 6 - 19 mg/dL [facility] CREATININE 2.10(H) 0.5 - 1.5 mg/dL [facility] CALCIUM 9.1 8.4 - 10.3 mg/dL [facility] PHOSPHORUS 2.7 2.7 - 4.5 mg/dL [facility] ALBUMIN 4.3 3.9 - 4.8 g/dL [facility] EGFR 33(L) >59 mL/min/1.7 3m2 [facility] Comment:Estimated glomerular filtration rate calculated using the CKD-EPI refit equation. ANION GAP 15 10 - 20 mmol/L [facility] Blood 07/06/2024 10:0 2 AM EDT 07/06/2024 10:05 AM EDT Shaista Magaña CNP LAB BLOOD OR DERABLES Performing Organization Address City/[facility]/ZIP Co de Phone Number [address] [address] * (ABNORMAL) Microalbumin/creatinine ratio, random urine (06/30/2024 2:56 PM EDT) URINE MICROALBUMIN 2.6(H) 0 - 2.3 mg/dL [facility] URINE CREATININE 125 mg/dL [facility] MICROALB/CRE RATIO 20.8(H) 0 - 20 mg/g Cre [facility] Urine (Urine) 06/30/2024 2:5 6 PM EDT 06/30/2024 2:58 PM EDT Shaista Magaña [facility] URINE ORDERA BLES Performing Organization Address [facility]/ZIP Co de Phone Number [address] [address] * (ABNORMAL) Uric acid (06/30/2024 2:38 PM EDT) URIC ACID 8.9(H) 2.4 - 7.0 mg/dL [facility] Blood 06/30/2024 2:38 PM EDT 06/30/2024 2:45 PM EDT [facility] [place] LAB BLOOD OR DERABLES Performing Organization Address [facility]/ZIP Co de Phone Number [address] [address] * (ABNORMAL) Hemoglobin A1c (06/30/2024 2:38 PM EDT) HEMOGLOBIN A1C 6.2(H) 4.3 - 5.8 % [facility] Blood 06/30/2024 2:38 PM EDT 06/30/2024 2:45 PM EDT [facility]ista [facility] [place] LAB BLOOD OR DERABLES Performing Organization Address [facility]/ZIP Co de Phone Number [address] [address] * Lipid panel (06/30/2024 2:38 PM EDT) HDL 41 mg/dL [facility] Comment: ? Interpretation <40 mg/dL: Low HDL cholesterol (major risk factor for CHD) Greater than or equal to 60 mg/dL: High HDL cholesterol ( negative risk factor for CHD) HDL - cholesterol is affected by a number of factors, e.g. smoking, excerise, hormones, sex and age. CHOLESTEROL 157 0 - 240 mg/dL [facility] TRIGLYCERIDES 147 30 - 160 mg/dL [facility] LDL 87 50 - 129 mg/dL [facility] Comment: LDL levels in terms of risk for coronary heart disease: <100 mg/dL: Optimal 100-129 mg/dL: Near or above optimal 130-159 mg/dL: Borderline high 160-189 mg/dL: High >190 mg/dL: Very High CARDIAC RISK RATIO 3.8 3.4 - 5.0 C [facility] Blood 06/30/2024 2:38 PM EDT 06/30/2024 2:45 PM EDT Shaista Magaña [facility] LAB BLOOD OR DERABLES Performing Organization Address City/State/[facility] Co de Phone Number [address] [phone] * (ABNORMAL) Basic metabolic panel (06/30/2024 2:38 PM EDT) SODIUM 143 133 - 146 mmol/L [facility] CHLORIDE 107 96 - 108 mmol/L [facility] POTASSIUM 5.4(H) 3.3 - 5.1 mmol/L [facility] CO2 27 21 - 35 mmol/L [facility] BUN 30(H) 6 - 19 mg/dL [facility] CREATININE 2.70(H) 0.5 - 1.5 mg/dL [facility] GLUCOSE 96 70 - 99 mg/dL [facility] CALCIUM 9.3 8.4 - 10.3 mg/dL [facility] EGFR 24(L) >59 mL/min/1.7 3m2 [facility] Comment:Estimated glomerular filtration rate calculated using the CKD-EPI refit equation. ANION GAP 14 10 - 20 mmol/L [facility] Blood 06/30/2024 2:38 PM EDT 06/30/2024 2:45 PM EDT Shaista Magaña RECOVERY AUDITOR LAB BLOOD OR DERABLES Performing Organization Address [facility] Co de Phone Number [address] [address] * DIABETES EYE EXAM FOR RESULT ENTRY ONLY (02/17/2024 11:31 AM EST) Historical Provider MD MINA Sheriff * Hepatitis C antibody, qualitative (11/28/2022 9:45 AM EDT) HCV NON-REACTIV E NON-REACTI VE [facility] Blood 11/28/2022 9:45 AM EDT 11/28/2022 9:49 AM EDT Jyothi Stark RECOVERY AUDITOR LAB BLOOD ORDE RABLES Performing Organization Address [facility] Co de Phone Number [address] [address] * COLONOSCOPY FOR RESULT ENTRY ONLY (11/17/2019) Historical Provider MD MINA CHUN E * US Aorta Duplex Complete (05/23/2019 8:06 AM EST) Anatomical Region Laterality Modality Aorta Ultrasound 05/23/2019 8:38 AM EST Impressions 05/23/2019 8:54 AM EST No aneurysmal dilatation/ectasia of the abdominal aorta demonstrated on today's images. POS - [id number] Narrative 05/23/2019 8:54 AM EST EXAM: ??US [...] abdominal aorta demonstrated ontoday's images. POS - [id number] Jyothi Stark RECOVERY AUDITOR IMG US ABDOMEN from Last 3 Months or Most Recently Relevant to Health Maintenance Advance Directives For more information, please contact: [phone] (9AM - 5PM [facility], Thursday-Thursday) * Full Code (Presumed) (Latest Code Status on File) Date Activated Date Inactivated Comments 12/14/2018 5:24 PM 12/17/2018 4:15 PM * Full Code (Presumed) Date Activated Date Inactivated Comments 06/30/2017 6:32 PM 07/02/2017 2:57 PM Care Teams Fitness Worker Relationship Specialty Start Date End Date Shaista Magaña CNP [address] [place] [address], 2nd [place] [address] PCP - General Family Medicine 11/11/22 Jose D Almeida MD Ophthalmology 12/05/20 Conor Arroyo MD [address] [facility] [address] [place] [address] Internal Medicine 07/16/22 Additional Source Comments The information contained in this document represents components of the legal health record. It is not the complete legal health record.[facility]
--- OUTSIDE RECORDS SUMMARY | 2024-07-07 11:24 | XMS_ITS | Encounter Summary ---
Author Organization [facility] Address [address] [facility] [address] [place] [address] Phone Care Team Providers Care Human Resources Team Member Name Role Phone Jose D Almeida MD Unavailable Conor Arroyo MD Unavailable Shaista Magaña CNP Primary Care Provid er Encounter Details Date Type Department Care Team (Late st Contact Info) Description 07/06/2024 6:28 PM EDT - 07/06/2024 11:59 PM EDT Hospital Encounter [facility] Specimen Processing [address] [place] [address] Shaista Magaña, MAE [address] [place] [address] [email or web address] Discharge Disposition: Home or [...] EDT Office Visit [facility] [address] [place] [address] [place] [address] Shaista Magaña, LAW REPORTER [address] [facility], 2nd [place] [address] [email or web address] documented as of this encounter Procedures Procedure Name Priority Date/Time Associated Diagnosis Comments URINALYSIS W/REFLEX URINE CULTURE Routine 07/06/2024 6:29 PM EDT Decreased GFR Stage 3a chronic kidney disease documented in this encounter Results * Urinalysis w/reflex Urine Culture (07/06/2024 6:29 PM EDT) COLOR Yellow Yellow [facility] CLARITY Clear [facility] GLUCOSE Negative Negative [facility] BILI Negative Negative [facility] KETONES Negative Negative [facility] SPECIFIC GRAVITY 1.020 1.005 - 1.030 [facility] BLOOD Negative Negative [facility] PH 6.0 5.0 - 8.0 [facility] Protein-UA Negative Negative [facility] NITRITE Negative Negative [facility] Leukocyte esterase, ur Negative Negative [facility] Urine (Urine) 07/06/2024 6:2 9 PM EDT 07/06/2024 6:30 PM EDT Shaista Magaña MAE URINE ORDERA BLES [facility] [address] [place] [address] documented in this encounter Visit Diagnoses Diagnosis Decreased GFR Stage 3a chronic kidney disease documented in this encounter Additional Health Concerns Assessment Noted Time PHQ-2 Depression Total Score: 1 07/01/19 25 1:10 PM EDT documented as of this encounter Care Teams Human Resources Team Member Relationship Specialty Start Date End Date Shaista MagañaMAE [address] [facility], [address]nd [place] [address] PCP - General Family Medicine 11/11/22 Jose D Almeida MD Ophthalmology 12/05/20 Conor Arroyo MD [address] [place] [address] Internal Medicine 07/16/22 documented as of this encounter Additional Source Comments The information contained in this document represents components of the legal health record. It is not the complete legal health record.[facility]
--- OUTSIDE RECORDS SUMMARY | 2024-07-07 11:24 | XMS_ITS | Encounter Summary ---
Author Organization [facility] Address [address] [address] Phone Care Team Providers Care Dry Sander Name Role Phone Unknown, Unknown Primary Care Provider Vijay Zafar MD Primary Care Provider Jyothi Stark CNP Primary Care Provider Jyothi Stark [facility] Primary Care Provider Carlos Bullock MD Unavailable [phone] Carlos Bullock MD Primary Care Provider [phone] Jyothi Stark [facility] Primary Care Provider Jose D Almeida MD Unavailable Carlos Bullock MD Unavailable [phone] Conor Arroyo MD Unavailable Carlos Bullock MD Primary Care Provider Shaista Magaña [facility] Primary Care Provid er Encounter Details Date Type Department Care Team (Late st Contact Info) Description 04/15/2017 Procedure Pass [facility], [address] [address] Social History Tobacco Use Types Packs/Day Years [...] 08/03/2024 8:30 AM EDT Office Visit [facility] [address] [place] [address] [place] [address] Shaista Magaña CNP [address] [place] [address], 2nd [place] [address] [email or web address] documented as of this encounter Visit Diagnoses Not on filedocumented in this encounter Care Teams Dry Sander Relationship Specialty Start Date End Date Unknown, Unknown, MD PCP - General 04/15/17 04/28/17 Vijay Hampton MD [address] [place] [address] PCP - General Internal Medicine 04/29/17 11/30/17 Jyothi Stark CNP [address] [place] [address] PCP - General Internal Medicine 12/01/17 03/08/19 Jyothi Stark CNP [address] [place] [address] PCP - General Internal Medicine 03/09/19 11/16/19 Carlos Bullock MD [address] [place] [address] PCP - General Internal Medicine 11/17/19 11/21/19 Jyothi Stark, MAE [address] [place], [place] PCP - General Internal Medicine 11/22/19 09/08/22 Carlos Bullock MD [address] [place] [address] PCP - General Internal Medicine 09/09/22 11/10/22 Shaista Magaña CNP [address] [place] [address], 2[address] [place] [address] [email or web address] PCP - General Family Medicine 11/11/22 Carlos Bullock MD [address] [place], [place] [email or web address] Insurance Assigned Provider 07/13/19 04/14/20 Jose D Almeida MD [address] [place] [address] [email or web address] Ophthalmology 12/05/20 Carlos Bullock MD [address] [place] [address] Insurance Assigned Provider 07/11/23 04/11/24 Conor Arroyo MD [address] [place] [address] [place] [id number] Internal Medicine 07/16/22 documented as of this encounter Additional Source Comments The information contained in this document represents components of the legal health record. It is not the complete legal health record.[facility]
--- OUTSIDE RECORDS SUMMARY | 2024-07-07 11:24 | XMS_ITS | Encounter Summary ---
Author Organization [facility] Address [address] [place] [address] Phone Care Team Providers Care Damage Inside Adjuster Name Role Phone Vijay Hampton MD Primary Care Provider [phone] Jyothi Stark CNP Primary Care Provider Jyothi Stark CNP Primary Care Provider Carlos Bullock MD Unavailable [phone] Carlos Bullock MD Primary Care Provider [phone] Jyothi Stark CNP Primary Care Provider Jose D Almeida MD Unavailable Carlos Bullock MD Unavailable [phone] Conor Arroyo MD Unavailable Carlos Bullock MD Primary Care Provider [phone] Shaista Magaña [facility] Primary Care Provid er Encounter Details Date Type Department Care Team (Late st Contact Info) Description 06/30/2017 Procedure Pass [place] Admitting Dept - Virtual Department [address] [place], [place] [id number] Social History Tobacco Use Types Packs/Day Years [...] 08/03/2024 8:30 AM EDT Office Visit [facility] [address] [place] [address] [place] [address] Shaista Magaña CNP [address] [facility], 2nd [place] [address] documented as of this encounter Visit Diagnoses Not on filedocumented in this encounter Care Teams Damage Inside Adjuster Relationship Specialty Start Date End Date Vijay Hampton MD [address] [place] [address] PCP - General Internal Medicine 04/29/17 11/30/17 Jyothi Stark CNP [address] [place] [address] PCP - General Internal Medicine 12/01/17 03/08/19 Jyothi Stark CNP [address] [place] [address] PCP - General Internal Medicine 03/09/19 11/16/19 Carlos Bullock MD [address] [place] [address] PCP - General Internal Medicine 11/17/19 11/21/19 Jyothi Stark CNP [address] [place] [address] PCP - General Internal Medicine 11/22/19 09/08/22 Carlos Bullock MD [address] [place] [address] PCP - General Internal Medicine 09/09/22 11/10/22 Shaista Magaña CNP [address] [place] [address], [address] [place] [address] PCP - General Family Medicine 11/11/22 Carlos Bullock MD [address] [place] [address] Insurance Assigned Provider 07/13/19 04/14/20 Jose D Almeida MD [address] [place] [address] Ophthalmology 12/05/20 Carlos Bullock MD [address] [place] [address] Insurance Assigned Provider 07/11/23 04/11/24 Conor Arroyo MD [address] [place] [address] [address] [place] [address] Internal Medicine 07/16/22 documented as of this encounter Additional Source Comments The information contained in this document represents components of the legal health record. It is not the complete legal health record.[facility]
[2024-07-07 12:01] VITALS: BP 144/74; PULSE 118; RESP 16; O2SAT 90
== END 2024-07-07 12:11 | disposition home or self-care (01) ==
LOC: HO.PMCPRC 10:24
PROVIDERS: PCP Registered Nurse; Visit Provider Internal Medicine
DX: M53.3 Sacrococcygeal disorders, not elsewhere classified (principal)
CPT/HCPCS: 64625

== ENCOUNTER 2024-08-05 09:30 | Outpatient (AMB) | payer MEDICARE, OTHER, SELFPAY ==
--- NOTE | 2024-08-05 09:40 | MHC.OFFVIS ---
Vital Signs 08/05/24 09:41 Height 5 ft 8 in Weight 206 lb BMI 31.3 BP 147/67 H Blood Pressure Location Lt brachial Position Sitting Respiration 16 Pulse 68 Pulse Source Pulse Oximeter Pulse Oximetry (%) 94 Oxygen Delivery Method Room Air Intake Visit Reasons: s/p juan manuel SIJ RFA Grocery Worker Required: No Allergies iodine [Iodine] Allergy (Severe, Verified 08/05/24 09:43) HIVES Penicillins Allergy (Severe, Verified 08/05/24 09:43) RASH sulfamethoxazole [From Septra] Allergy (Severe, Verified 08/05/24 09:43) RASH trimethoprim [From Septra] Allergy (Severe, Verified 08/05/24 09:43) RASH pravastatin Allergy (Unknown, Verified 08/05/24 09:43) Muscle Pain rosuvastatin Allergy (Unknown, Verified 08/05/24 09:43) Muscle Pain Seafood Allergy (Severe, Uncoded 08/05/24 09:43) HIVES Splenda Allergy (Unknown, Uncoded 08/05/24 09:43) Diarrhea Tetanus and Diphtheria Toxoid Allergy (Unknown, Uncoded 08/05/24 09:43) SWELLING Medication List - Last Reconciled 08/05/24 by Jessica Vargas, MACKENZIE albuterol sulfate 90 mcg/actuation 2 puffs inhalation Q4H PRN allopurinol 50 mg PO DAILY carbidopa-levodopa 25-100 mg tabs PO chlorthalidone 25 mg PO DAILY fluticasone propion-salmeterol 250-50 mcg/dose (Wixela Inhub) 1 inh inhalation Q12H gabapentin 400 mg PO QID lisinopril 40 mg PO DAILY lorazepam 1 mg PO Q8H PRN mecobalamin (vitamin B12) mcg PO metformin 500 mg PO BID montelukast 10 mg PO DAILY sildenafil 50 mg PO DAILY PRN HPI HPI s/p juan manuel SIJ RFA: Details: History of Present Illness The patient is a 69-year-old male presenting for a follow-up related to his persistent lower back pain. The pain remains predominantly on the right side and escalates with physical activity. The condition has persisted, particularly after the recent sacroiliac condyle denervation, which provided no notable relief from the left side intervention. History reveals a notable lumbar spine fusion with pedicle screw placement performed five years ago, which might play a role in the current symptoms. Essentially, the patient reports exacerbation of pain during activities, notably walking, affecting his daily life quality. A history of severe reaction to iodinated contrast following MRI administration in his earlier years is also significant and will be taken into consideration when planning imaging options to elucidate potential post-fusion changes impacting his pain. The last MRI was done before the spine fusion, thus repeating one is necessary to explore any new developments or shifts in his symptoms' presentation. Pain Description - Onset: Chronic, persisting post-procedural. - Quality and character: Predominantly right-sided lower back pain, intensifies with movement. - Primary location: Right lower back. - Exacerbating factors: Activity, notably walking. - Relieving factors: Not specifically discussed. - Impact: Moderates daily activity, especially movements like walking. Physical Exam - Appears afebrile. - Alert and oriented. - Mood and affect appropriate. - Follows and participates in conversation appropriately. - Respiratory effort is unlabored. - Able to transition from sit to stand unassisted. - Ambulates with bilaterally normal heel strike and toe off. - Able to stand and walk on toes and heels. Pain Management - Affect: Chronic pain impacting physical ability. - Analgesia: Current pain medications not directly specified; previous interventions noted. - Adverse Effects: Not specifically discussed. - Activities of Daily Living: Pain with movement, such as walking, affects daily activities. - Aberrant Drug Related Behaviors: Not specifically mentioned. [facility] Medical History CKD (chronic kidney disease) Spinal stenosis Lumbar disc herniation Hypertension Hematuria Gout Diabetes Asthma Anxiety Anemia Abdominal aortic ectasia Social History Are you a primary team primary care physician to a significant other at home: No Do you presently have visiting nurse or other home services: No Patient Tobacco Use Status: Former Tobacco user Physical Exam Vital Signs: Last Vital Signs Pulse 68 08/05/24 09:41 Resp 16 08/05/24 09:41 BP 147/67 H 08/05/24 09:41 Pulse Ox 94 08/05/24 09:41 Oxygen Delivery Method Room Air 08/05/24 09:41 BMI result Body Mass Index 31.3 Assessment & Plan Assessment & Plan (1) Post laminectomy syndrome: Code(s): M96.1 - Postlaminectomy syndrome, not elsewhere classified Category: Medical Plan Plan - Plan to obtain lumbar spine MRI while acknowledging contrast allergy. - Follow-up post-MRI to analyze results and determine further treatment strategies according to findings. Patient was informed and verbally consented to the use of an ambient scribe for clinic note documentation during this visit. Discussion Notes During the visit, I discussed with the patient the ongoing nature of his persistent lower back pain, especially as it relates to his history of lumbar fusion surgery and previous sacroiliac condyle denervation. We outlined the need for a current lumbar MRI to better understand any underlying changes since his prior fusion. The patient has a known severe allergy to iodinated contrast, which complicates imaging options, thus alternatives will be considered. We agreed on a post-MRI follow-up appointment to discuss findings and potential further management strategies based on new insights garnered from the results. The patient voiced understanding and agreement with this management plan. Patient Instructions - Proceed to obtain lumbar spine MRI as discussed. - Make a follow-up appointment to review MRI results and discuss further treatment. - Notify the office of any significant changes in symptoms or if discomfort or pain becomes significantly worse. Orders: Orders MR lumbar spine wo con 08/05/24 M96.1 - Postlaminectomy syndrome, not elsewhere classified Coding Level of Care Code Est Pt Level 3 (31164) Procedure Only Diagnoses Post laminectomy syndrome M96.1
[2024-08-05 09:41] VITALS: BP 147/67; PULSE 68; RESP 16; O2SAT 94; BMI 31.3
--- OUTSIDE RECORDS SUMMARY | 2024-08-05 10:15 | XMS_ITS | Encounter Summary ---
Author Organization [facility] Address [address] [facility] [address] [place] [address] Phone Care Team Providers Care Tool And Die Supervisor Name Role Phone Jyothi Stark [facility] Primary Care Provider Jyothi Stark [facility] Primary Care Provider Carlos Bullock MD Unavailable [phone] Carlos Bullock MD Primary Care Provider [phone] Jyothi Stark CNP Primary Care Provider Jose D Almeida MD Unavailable Carlos Bullock MD Unavailable [phone] Conor Arroyo MD Unavailable [phone] Carlos Bullock MD Primary Care Provider Shaista Magaña [facility] Primary Care Provid er Encounter Details Date Type Department Care Team (Late st Contact Info) Description 06/11/2018 Ancillary Orders [facility], X[facility]Ray - [facility] [address] [place] [address] Radha Rojas, MAKENZIE [address] [place] [id number] [email or web address] Fusion of spine, lumbar region Social History [...] Description 01/04/2025 10:00 AM EDT [facility] [address] [place], [place] [address] Shaista Magaña, MATERNAL CHILD NURSE [address], [address] [place] [address] [email or web address] documented as of this encounter Results * [...] significant change in alignment. POS - [id number] Radha BANEGAS IMG XR SPINE documented in this encounter Visit Diagnoses Diagnosis Fusion of spine, lumbar region Fusion of spine, lumbar region documented in this encounter Care Teams Tool And Die Supervisor Relationship Specialty Start Date End Date Jyothi Stark CNP [address] [place] [address] PCP - General Internal Medicine 12/01/17 03/08/19 Jyothi Stark CNP [address] [place] [address] PCP - General Internal Medicine 03/09/19 11/16/19 Carlos Bullock MD [address] [place] [address] PCP - General Internal Medicine 11/17/19 11/21/19 Jyothi Stark CNP [address] [place] [address] PCP - General Internal Medicine 11/22/19 09/08/22 Carlos Bullock MD [address] [place] [address] PCP - General Internal Medicine 09/09/22 11/10/22 Archana Shaistakarishma Mckenzie CNP [address] [place] [address], 2nd [place] [address] PCP - General Family Medicine 11/11/22 Carlos Bullock MD [address] [place] [address] Insurance Assigned Provider 07/13/19 04/14/20 Jose D Almeida MD [address] [place] [address] [email or web address] Ophthalmology 12/05/20 Carlos Bullock MD [address] [place] [address] Insurance Assigned Provider 07/11/23 04/11/24 Conor Arroyo MD [address] [place] [address] [place] [id number] Interventional Pain Management 07/16/22 documented as of this encounter Additional Source Comments The information contained in this document represents components of the legal health record. It is not the complete legal health record.[facility]
--- OUTSIDE RECORDS SUMMARY | 2024-08-05 10:15 | XMS_ITS | Encounter Summary ---
Author Organization [facility] Address [address] [facility] [address] [place] [address] Phone Care Team Providers Care Event Planner Name Role Phone Jyothi Stark [facility] Primary Care Provider Jyothi Stark CNP Primary Care Provider Carlos Bullock MD Unavailable [phone] Carlos Bullock MD Primary Care Provider [phone] Jyothi Stark CNP Primary Care Provider Jose D Almeida MD Unavailable Carlos Bullock MD Unavailable [phone] Conor Arroyo MD Unavailable [phone] Carlos Bullock MD Primary Care Provider [phone] Shaista Magaña [facility] Primary Care Provid er Encounter Details Date Type Department Care Team (Late st Contact Info) Description 06/14/2018 Procedure Pass [facility], [facility] - [address] [place] [address] Social History Tobacco Use Types Packs/Day Years [...] Description 01/04/2025 10:00 AM EDT Office Visit [facility] [address] [place] [address] [place] [address] Shaista Magaña CNP [address] [facility], 2nd [place] [address] [email or web address] documented as of this encounter Visit Diagnoses Not on filedocumented in this encounter Care Teams Event Planner Relationship Specialty Start Date End Date Jyothi Stark CNP [address] [place] [address] [email or web address] PCP - General Internal Medicine 12/01/17 03/08/19 Jyothi Stark CNP [address] [place] [address] PCP - General Internal Medicine 03/09/19 11/16/19 Carlos Bullock MD [address] [place] [address] PCP - General Internal Medicine 11/17/19 11/21/19 Jyothi Stark CNP [address] [place] [address] PCP - General Internal Medicine 11/22/19 09/08/22 Carlos Bullock MD [address] [place] [address] PCP - General Internal Medicine 09/09/22 11/10/22 Shaista Magaña CNP [address] [place] [address], 2nd [place] [address] PCP - General Family Medicine 11/11/22 Carlos Bullock MD [address] [place] [address] Insurance Assigned Provider 07/13/19 04/14/20 Jose D Almeida MD [address] [place] [address] Ophthalmology 12/05/20 Carlos Bullock MD [address] [place] [address] Insurance Assigned Provider 07/11/23 04/11/24 Conor Arroyo MD [address] [place] [address] Drive [address] [place] [id number] Interventional Pain Management 07/16/22 documented as of this encounter Additional Source Comments The information contained in this document represents components of the legal health record. It is not the complete legal health record.[facility]
--- OUTSIDE RECORDS SUMMARY | 2024-08-05 10:15 | XMS_ITS | Encounter Summary ---
Author Organization [facility] Address [address] [address] Phone Care Team Providers Care Management Engineer Name Role Phone Jyothi Stark [facility] Primary Care Provider Jyothi Stark [facility] Primary Care Provider Carlos Bullock MD Unavailable [phone] Carlos Bullock MD Primary Care Provider [phone] Jyothi Stark [facility] Primary Care Provider Jose D Almeida MD Unavailable Carlos Bullock MD Unavailable [phone] Conor Arroyo MD Unavailable [phone] Carlos Bullock MD Primary Care Provider [phone] Shaista Magaña [facility] Primary Care Provid er Reason for Referral * MRI/CAT Scan - Closed Specialty Diagnoses / Procedures Referred By Shakira pacheco Referred To Contact Radiology Diagnoses Arthrodesis status Procedures CT Lumbar Spine Radha Rojas PA [address] [place] [address] Referral ID Status Reason Start Date Expiration Date Visits Re quested Visits Authorized [id number] Closed 05/06/2018 05/06/2019 1 1 Encounter Details Date Type Department Care Team (Late st Contact Info) Description 05/06/2018 Ancillary Orders Virtual Department [address] [place] [address] Radha Rojas PA [address] [place] [address] [email or web address] Arthrodesis status Social History Tobacco Use Types [...] Upcoming Encounters Date Type Department Care Team ([facility] st Contact Info) Description 01/04/2025 10:00 AM EDT Office Visit [facility] [address] [place] [address] [place] [address] Shaista Magaña, CUT OFF SAWYER LOG [address] [facility], 2nd [place] [address] [email or web address] documented [...] nerve root. TOTAL CTDIvol: 46.50 mGy POS [id number] Edited by: Aubrie Alvarez on 05/11/2018 12:17 [...] body height. Milder subsidence into the inferior S4wuwpygrkd body. Very mild retropulsion which contacts the [...] descending nerveroot. TOTAL CTDIvol: 46.50 mGy POS [id number] Edited by: Aubrie Alvarez on 05/11/2018 12:[address] XSPECIALTY O RDERABLES documented in this encounter Visit Diagnoses Diagnosis Arthrodesis status Arthrodesis status documented in this encounter Care Teams Management Engineer Relationship Specialty Start Date End Date Jyothi Stark CNP [address] [place] [address] PCP - General Internal Medicine 12/01/17 03/08/19 Jyothi Stark CNP [address] [place] [address] [email or web address] PCP - General Internal Medicine 03/09/19 11/16/19 Carlos Bullock MD [address] [place] [address] [email or web address] PCP - General Internal Medicine 11/17/19 11/21/19 Jyothi Stark, MAE [address] [place] [address] [email or web address] PCP - General Internal Medicine 11/22/19 09/08/22 Carlos Bullock MD [address] [place] [address] [email or web address] PCP - General Internal Medicine 09/09/22 11/10/22 Shaista Magaña, MAE [address] [place] [address], [address] [place] [address] [email or web address] PCP - General Family Medicine 11/11/22 Carlos Bullock MD [address] [place] [address] [email or web address] Insurance Assigned Provider 07/13/19 04/14/20 Jose D Almeida MD [address] [place] [address] [email or web address] Ophthalmology 12/05/20 Carlos Bullock MD [address] [place] [address] [email or web address] Insurance Assigned Provider 07/11/23 04/11/24 Conor Arroyo MD [address] [place] [address] [address] [place] [address] Interventional Pain Management 07/16/22 documented as of this encounter Additional Source Comments The information contained in this document represents components of the legal health record. It is not the complete legal health record.[facility]
--- OUTSIDE RECORDS SUMMARY | 2024-08-05 10:15 | XMS_ITS | Encounter Summary ---
Author Organization [facility] Address [address] [address] Phone Care Team Providers Care Lead Technologist In Cytogenetics Name Role Phone Jyothi Stark [facility] Primary Care Provider Jyothi Stark [facility] Primary Care Provider Carlos Bullock MD Unavailable [phone] Carlos Bullock MD Primary Care Provider Jyothi Stark [facility] Primary Care Provider Jose D Almeida MD Unavailable aCrlos Bullock MD Unavailable [phone] Conor Arroyo MD Unavailable [phone] Carlos Bullock MD Primary Care Provider [phone] Shaista Magaña [facility] Primary Care Provid er Reason for Referral * MRI/CAT Scan - Closed Specialty Diagnoses / Procedures Referred By Shakira t Referred To Contact Radiology Diagnoses Low back pain, unspecified back pain laterality, unspecified chronicity, with sciatica presence unspecified Arthrodesis status Procedures MRI Lumbar Spine Radha Rojas PA [address] [place] [address] Referral ID Status Reason Start Date Expiration Date Visits Re quested Visits Authorized [id number] Closed 06/14/2018 06/14/2019 1 1 Encounter Details Date Type Department Care Team (Late st Contact Info) Description 06/14/2018 Ancillary Orders Virtual Department [address] [place] [address] Radha Rojas PA [address] [place] [address] [email or web address] Low back pain, unspecified back pain laterality, [...] 01/04/2025 10:00 AM EDT Office Visit [facility] [address] [place] [address] [place] [address] Shaista Magaña, SIGN DESIGNER [address] [facility], 2nd [place] [address] [email or web address] documented as of this encounter Results * [...] T2, axial T1, postcontrast sagittal and axial I5wirrccxto, 18 mL Dotarem contrast IV. FINDINGS: Normal appearance of the distal conus terminating at the L1-L2 level. Vertebrae are normal in height and alignment. No compression fractures.There is posterior fusion hardware at L4-L5 with bilateral transpedicularscrews and posterior fusion rods. There is mild T1 hypointense and T4nrrqpuglduwg marrow edema inferior endplate of L4 and [...] moderate right neural foraminal stenosis at L4- N0xsrgrfsaqcdej from marginal bony spurring and facet hypertrophicchanges. 3. Moderate bilateral neural foraminal narrowing at L5-S1. Severe leftand mild right neural foraminal narrowing at L3-L4. 4. See above for each individual level for detail. Edited by: Aubrie Alvarez on 06/23/2018 9:22 AM Radha BANEGAS IMG MR XSPECIALTY documented in this encounter Visit Diagnoses Diagnosis Low back pain, unspecified back pain laterality, unspecified chronicity, with sciatica presence unspecified Arthrodesis status Low back pain, unspecified back pain laterality, unspecified chronicity, with sciatica presence unspecified Arthrodesis status documented in this encounter Care Teams Lead Technologist In Cytogenetics Relationship Specialty Start Date End Date Jyothi Stark CNP [address] [place] [address] PCP - General Internal Medicine 12/01/17 03/08/19 Jyothi Stark CNP [address] [place] [address] [email or web address] PCP - General Internal Medicine 03/09/19 11/16/19 Carlos Bullock MD [address] [place] [address] [email or web address] PCP - General Internal Medicine 11/17/19 11/21/19 Jyothi Stark, SIGN DESIGNER [address] [place] [address] [email or web address] PCP - General Internal Medicine 11/22/19 09/08/22 Carlos Bullock MD [address] [place] [address] [email or web address] PCP - General Internal Medicine 09/09/22 11/10/22 Shaista Magaña CNP [address] [place] [address], 2nd [place] [address] [email or web address] PCP - General Family Medicine 11/11/22 Carlos Bullock MD [address] [place] [address] [email or web address] Insurance Assigned Provider 07/13/19 04/14/20 Jose D Almeida MD [address] [place] [address] [email or web address] Ophthalmology 12/05/20 Carlos Bullock MD [address] [place] [address] [email or web address] Insurance Assigned Provider 07/11/23 04/11/24 Conor Arroyo MD [address] [place] [address] Interventional Pain Management 07/16/22 documented as of this encounter Additional Source Comments The information contained in this document represents components of the legal health record. It is not the complete legal health record.[facility]
--- OUTSIDE RECORDS SUMMARY | 2024-08-05 10:15 | XMS_ITS | Encounter Summary ---
Author Organization [facility] Address [address] [facility] [address] [place] [address] Phone Care Team Providers Care Gas Inspector Name Role Phone BellanormJyothi [facility] Primary Care Provider Jose D Almeida MD Unavailable Carlos Bullock MD Unavailable [phone] Conor Arroyo MD Unavailable [phone] Carlos Bullock MD Primary Care Provider [phone] Shaista Magaña [facility] Primary Care Provid er Encounter Details Date Type Department Care Team (Late st Contact Info) Description 08/09/2021 Procedure Pass [facility], Ct Scan - [address] [address] Social History Tobacco Use Types Packs/Day Years [...] Description 01/04/2025 10:00 AM EDT Office Visit [facility] [address] [place] [address] [place] [address] Shaista Magaña CNP [address] [facility], 2nd [place] [address] [email or web address] documented as of this encounter Visit Diagnoses Not on filedocumented in this encounter Additional Health Concerns Assessment Noted Time PHQ-2 Depression Total Score: 1 06/16/19 22 11:12 AM EST documented as of this encounter Care Teams Gas Inspector Relationship Specialty Start Date End Date Jyothi Stark CNP [address] [place] [address] [email or web address] PCP - General Internal Medicine 11/22/19 09/08/22 Carlos Bullock MD [address] [place] [address] PCP - General Internal Medicine 09/09/22 11/10/22 Shaista Magaña CNP [address] [facility], [address]nd [place] [address] [email or web address] PCP - General Family Medicine 11/11/22 Jose D Almeida MD [address] [place] [address] [email or web address] Ophthalmology 12/05/20 Carlos Bullock MD [address] [place] [address] Insurance Assigned Provider 07/11/23 04/11/24 Conor Arroyo MD [address] [place] [address] Drive [address] [place] [address] Interventional Pain Management 07/16/22 documented as of this encounter Additional Source Comments The information contained in this document represents components of the legal health record. It is not the complete legal health record.[facility]
--- OUTSIDE RECORDS SUMMARY | 2024-08-05 10:15 | XMS_ITS | Clinical Summary ---
Author Organization [facility] Address [address] [facility] [facility] [address] [place] [address] Phone Care Team Providers Care Rock Picker Name Role Phone Jose D Almeida MD Unavailable Conor Arroyo MD Unavailable [phone] Shaista Magaña [facility] Primary Care Provid er Allergies Active Allergy Reactions Criticality Noted Date Comments Colchicine Diarrhea Low 04/22/2018 Iodine Hives Medium 06/02/2017 Other 12/04/2023 Other Reaction(s): SPLENDA Penicillins Rash Low 06/02/2017 Sulfamethoxazole-Trimet hoprim Hives Medium 06/02/2017 Shellfish Containing Products Hives Medium 06/02/2017 Fzfmoln-Uuu-Jkx Reductase Inhibitors Other (See Comments) Medium 06/02/2017 [...] A DAY 60 each 11 4 Active lisinopril (PRINIVIL,ZESTRIL ) 40 MG tabletIndications :Essential hypertension Take 1 tablet (40 mg total) by mouth daily. 90 tablet 5 Active chlorthalidone (HYGROTON) 25 MG tabletIndications :Essential hypertension Take 1 tablet (25 mg total) by mouth daily. 90 tablet 5 Active gabapentin (NEURONTIN) 400 MG capsuleIndication s:Lumbosacral spondylolysis TAKE 1 CAPSULE BY MOUTH FOUR TIMES A DAY 360 capsule 5 Active LORazepam (ATIVAN) 1 MG tabletIndications :IRVING (generalized anxiety disorder) TAKE 1 TABLET BY MOUTH EVERY 8 HOURS NEEDED FOR ANXIETY 84 tablet 5 Active carbidopa-levodop a (SINEMET) 25-100 mg per tabletIndications :Tremor Take 1 tablet by mouth 3 (three) times a day. 270 tablet 5 Active gabapentin (NEURONTIN) 400 MG capsuleIndication s:Lumbosacral spondylolysis TAKE 1 CAPSULE BY MOUTH 4 TIMES A DAY. 360 capsule 4 07/19/19 25 Discontinued LORazepam (ATIVAN) 1 MG tabletIndications :IRVING (generalized anxiety disorder) TAKE 1 TABLET BY MOUTH EVERY 8 HOURS NEEDED FOR ANXIETY 84 tablet 5 07/26/19 25 Discontinued predniSONE (DELTASONE) 10 MG tabletIndications :Acute idiopathic [...] at first sign.. 20 tablet 2 5 08/04/19 25 Discontinued(Th erapy Completed/No Longer Necessary) carbidopa-levodop a (SINEMET) 25-100 mg per tabletIndications :Tremor Take 1 tablet by mouth 2 (two) times a day for 14 days, THEN 1 tablet 3 (three) times a day for 14 days. 70 tablet 5 07/30/19 25 Discontinued Active Problems Problem Noted Date Diagnosed Date Parkinsonism 08/03/2024 Assessment & Plan (08/03/2024 9:21 AM EDT): Most probable diagnosis is Parkinson's disease, given the presence of resting tremors and balance issues. This is further supported by the significant improvement noted even with a low dose of Sinemet. - He will consider increasing to TID to see if he notes further benefit. If any side effects occur or he does not note any further symptom improvement, he may return to the current BID dosing. - Referral to a neurologist will be initiated for further evaluation; MRI of the brain will be ordered to rule out lesions or other neurological issues. 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 Unfortunately, he does not report any symptom improvement following the procedure. - Continues w/ gabapentin 400mg QID. - Scheduled for follow-up with [facility] pain clinic tomorrow. Urinary urgency 07/06/2024 Assessment & Plan (07/29/2024 8:02 AM EDT): History of benign prostatic hyperplasia, but PSA levels have remained within normal limits. - Urine test will be conducted to rule out the presence of blood or infection. If hematuria is detected, an ultrasound may be considered to exclude any physical abnormalities in the kidneys. - Appropriate treatment will be initiated if signs of infection are present. - If urine test results are unremarkable, the next step will be to discontinue the allopurinol and monitor the condition over the subsequent weeks or month. A repeat PSA test will also be ordered. 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 ?COPD overlap. Hyperinflation noted on CXR (2021) suggestive of COPD. No new CLARKE or exercise intolerance. Decreased GFR 07/06/2024 Assessment & Plan (08/03/2024 9:33 AM EDT): Sudden decrease in kidney function w/ GFR >2 and GFR down into the 20's. On re- check, GFR improved 24>>33. Likely due to medication, allopurinol was discontinued. - Metabolic panel will be ordered to monitor kidney function. Assessment & Plan (07/29/2024 8:10 AM EDT): Sudden decrease in kidney function w/ GFR >2 and GFR down into the 20's. ?Medication related, suspect allopurinol. He will discontinue use. Kidney function will be monitored. Tremor 12/04/2023 Assessment & Plan (08/03/2024 9:35 AM EDT): Still with a mild resting tremor but gait is improved, feeling much more steady on his feet. We still have been unsuccessful getting him in with neurology, new referral placed. - He will continue w/ Sinemet and consider increasing to 3x/day. Assessment & Plan (07/29/2024 8:02 AM EDT): Most probable diagnosis is Parkinson's disease, given the presence of resting tremors and balance issues. - Referral to the neurology group at [facility] will be made. - Trial of levodopa will be initiated, starting with a dosage of 25 mg twice daily, with the option to increase to 3 times daily after a few weeks. - Patient informed about potential side effects of levodopa, including dizziness, hypotension, constipation, nausea, and headache. Advised to contact us immediately if significant dizziness occurs. Assessment & Plan (01/04/2024 12:59 PM EDT): [...] for further evaluation, he would prefer the [facility] office if possible. Itchy scalp 12/04/2023 [...] it on for 5 minutes, then rinse. Gout 12/04/2023 Overview (07/29/2024): >>OVERVIEW FOR GOUT OF LEFT ANKLE WRITTEN ON 12/04/2023 5:29 PM BY SHAISTA MAGAÑA CNP When I woke up I could not put any weight on my left foot/ankle Assessment & Plan (07/29/2024 8:01 AM EDT): Uric acid levels have escalated, indicating that the current allopurinol regimen is not effectively managing the condition. - Renal function status precludes the use of ibuprofen at this time; ibuprofen may be considered if renal function improves. - Allopurinol will be discontinued. - Prescription for prednisone provided, with instructions to take 4 pills daily for the initial 3 days, followed by a tapering dose of 3 pills on day 4, 2 pills on day 5, and 1 pill on day 6. Assessment & Plan (07/29/2024 8:01 AM EDT): >>ASSESSMENT AND PLAN FOR GOUT OF LEFT ANKLE WRITTEN ON 12/04/2023 5:39 PM BY SHAISTA MAGAÑA CNP He experienced a significant gout flare-up in [...] allopurinol may be considered presuming renal tolerance. Assessment & Plan (07/29/2024 8:01 AM EDT): >>ASSESSMENT AND PLAN FOR GOUT OF LEFT ANKLE WRITTEN ON 01/04/2024 12:55 PM BY SHAISTA MAGAÑA CNP His uric acid level is elevated at 8.2, with the target being below 6. His gout flare last month has now resolved. Allopurinol 50 mg daily, has been prescribed to manage this. Will monitor uric acid levels. He was advised to avoid foods that may trigger gout flare-ups. Lumbar spondylosis 07/03/2023 Constipation 12/01/2022 12/01/2022 Chronic bilateral low back pain without sciatica 12/01/2022 Assessment & Plan (08/03/2024 9:32 AM EDT): Chronic lumbar back pain w/ postlaminectomy pain syndrome. History of a lumbar fusion and then a revision. The top of the left foot is numb, has left foot drop; he walks with a cane and wears a back brace. - Recently s/p nerve ablation without symptom improvement. He is disappointed by this outcome as he previously had nearly 90% pain reduction for about 1 year following a prior nerve ablation. He had subsequently tried a nerve stimulator without success. - Followed by pain management @ [facility] (Dr Arroyo). Assessment & Plan (07/29/2024 8:12 AM EDT): Chronic lumbar back pain with left foot drop, walks with a cane and wears a back brace. History of a lumbar fusion and then a revision. The top of the left foot is numb, no new nerve symptoms. - Did 3-4 months of physical therapy which did help with his core strength etc. Declines return to PT. Can sit without pain but then when he gets up he has to stretch things out, feels very stiff. - Continues w/ gabapentin 400mg QID Assessment & Plan (01/04/2024 12:58 PM EDT): [...] no new nerve symptoms. Recently seen by [facility] pain clinic who recommended a spinal cord [...] a back brace. Under the care of [facility]. Feels he has not fully recovered from a fall last June, interested in participating in physical therapy. New order generated. Stage 3a chronic kidney disease 12/01/2022 Assessment & Plan (08/03/2024 9:23 AM EDT): His chronic kidney disease had been stable w/ Cr 1.2 - 1.5 and GFR in the 50's. Kidney function currently decreased, did improve somewhat with discontinuation of allopurinol but still below baseline. - Kidney function will be monitored. Assessment & Plan (07/29/2024 8:09 AM EDT): His chronic kidney disease had been stable w/ Cr 1.2 - 1.5 and GFR in the 50's. Kidney function currently decreased, ?secondary to allopurinol which was re- started last fall. He will discontinue use. Assessment & Plan (01/04/2024 12:53 PM EDT): [...] and K2 supplements. Class 1 obesity with body ma ss index (BMI) of 31.0 to 31.9 in adult 12/01/2022 Assessment & Plan (07/29/2024 8:05 AM EDT): Weight stable, BMI 31.18. Continue dietary efforts, limit simple carbs and avoid concentrated sweets. Diabetes and HTN in good control. Assessment & Plan (07/03/2023 1:09 PM EDT): [...] desires screening. Hypertension 05/12/2019 Assessment & Plan (08/03/2024 9:22 AM EDT): Stable, BP at goal <140/90. Today's BP was initially borderline at 140/78 but improved on repeat. - Advised on proper techniques for measuring blood pressure, including ensuring the arm is supported during measurement. - No changes made to his current regimen, continues on lisinopril and chlorthalidone. Assessment & Plan (07/29/2024 8:02 AM EDT): Blood pressure readings were slightly elevated during this visit but have been within normal range at home. - Blood pressure will be re-evaluated at the next visit. Assessment & Plan (01/04/2024 12:57 PM EDT): [...] 2 diabetes mellitus 12/13/2017 Assessment & Plan (07/29/2024 8:03 AM EDT): A1c levels have been consistently below 7, with the exception of a recent reading of 7.0. - Currently on a medium dose of metformin (500 mg twice daily). - Dosage of metformin will not be increased at this time as A1c levels have returned to 6.2. Assessment & Plan (01/04/2024 12:56 PM EDT): [...] Problem Noted Date Diagnosed Date Resolved Date Localized swelling of left lower leg 12/04/2023 07/29/2024 Assessment & Plan (12/04/2023 5:46 PM EDT): [...] asymmetry is chronic. Red flags/ED precautions reviewed. Left hip pain 07/03/2023 08/03/2024 Assessment & Plan (07/03/2023 1:17 PM EDT): [...] Not interested in returning to physical therapy. Hyperkalemia 07/03/2023 01/04/2024 Assessment & Plan (07/03/2023 [...] Encounters Date Type Department Care Team Description 08/03/2024 8:30 AM EDT Office Visit [address] [place] [address] Shaista Magaña CNP Parkinsonism, unspecified Parkinsonism type (Primary Dx); Tremor; Decreased GFR; Stage 3a chronic kidney disease; Primary hypertension; Cluneal neuropathy; Chronic bilateral low back pain without sciatica 07/26/[address] [place] [address] Shaista Magaña CNP Med Change Request 07/25/[address] [place] [address] Shaista Magaña CNP Medication Refill 07/16/[address] [place] [address] Jose Madhav Steve, DO Medication Refill 07/06/2024 6:28 PM EDT - 07/06/2024 11:59 PM EDT Hospital Encounter [facility] [address] [place] [address] Shaista Magaña CNP Discharge Disposition: Home or Self Care 07/06/2024 10:30 AM EDT Office Visit [address] [place] [address] Shaista Magaña CNP Encounter for health maintenance examination in adult (Primary Dx); Encounter for screening for depression; Acute idiopathic gout of left ankle; Decreased GFR; Tremor; Urinary urgency; Primary hypertension; Type 2 diabetes mellitus with stage 3a chronic kidney disease, without long-term current use of insulin; Class 1 obesity due to excess calories with serious comorbidity and body mass index (BMI) of 31.0 to 31.9 in adult; COPD with asthma; Stage 3a chronic kidney disease; Chronic bilateral low back pain without sciatica 07/06/2024 9:51 AM EDT - 07/06/2024 6:27 PM EDT Hospital Encounter [facility] [address] [place] [address] Shaista Magaña CNP Discharge Disposition: Home or Self Care 07/05/2024 Telephone [facility] [address] [place] [address] Ilda Anglin, RN Results 07/04/2024 Orders Only [address] [place] [address] Shaista Magaña CNP Decreased GFR (Primary Dx); Stage 3a chronic kidney disease 06/30/2024 2:38 PM EDT - 06/30/2024 11:59 PM EDT Hospital Encounter [facility] [address] [place] [address] Shaista Magaña CNP Discharge Disposition: Home or Self Care 06/26/2024 [facility]ill [facility] [address] [place] [address] Shaista Magaña CNP Medication Refill 06/08/2024 Refill [facility] [address] [place] [address] Shaista Magaña CNP Medication Refill 05/28/2024 Refill [facility] [address] [place] [address] Toma Gordon MD Medication Refill from Last 3 Months Immunizations [...] Sign Reading Time Taken Comments Blood Pressure 134/66 08/03/2024 9:03 AM EDT Pulse 72 08/03/2024 8:34 AM EDT Temperature 36.7 ??C (98 ??F) 08/03/2024 8:34 AM EDT Respiratory Rate 16 10/14/2022 3:04 PM EDT Oxygen Saturation 98% 08/03/2024 8:34 AM EDT Inhaled Oxygen Concentration - - Weight 93 kg (205 lb) 08/03/2024 8:34 AM EDT Height 172.7 cm (5' 7.99 ) 01/04/2024 11:23 AM E DT Body Mass Index 31.18 01/04/2024 11:23 AM EDT Plan of Treatment Upcoming Encounters Date Type Department Care Team (Late st Contact Info) Description 01/04/2025 10:00 AM EDT Office Visit [facility] [address] [place] [address] [place] [address] Shaista Magaña, MAE [address] [facility]nd [place] [address] [email or web address] Health Maintenance Due Date Last Done Comments COLOGUARD 1998 FIT TEST 1998 FOBT 1998 SIGMOIDOSCOPY 1998 VIRTUAL COLONOSCOPY 1998 HEMOGLOBIN A1C 12/31/2024 06/30/2024, 12/06, 06/30/2023, Additional history exists BLOOD PRESSURE 02/02/2025 08/03/2024 DIABETIC EYE EXAM 02/16/2025 02/17/2024, , 01/05/2020, [...] RSV VACCINE Completed 12/29/2022 COVID-19 VACCINE Completed 06/13/2024, , 12/24/2022, Additional history exists SMOKING STATUS SCREENING (Once After 26 Yrs) Completed 08/03/2024 HEPATITIS A VACCINES Aged Out No long er eligible based on patient's age to complete this topic HIB VACCINES Aged Out No longer eligi ble based on patient's age to complete this topic MENINGOCOCCAL VACCINES (ACWY) Aged Out No longer eligible based on patient's age to complete this topic Medical Devices Implanted Type Area Manager Contract Device Identifier Shelf Expiration Date Model / Serial / Lot Graft Bone 1 To 8mm 30 Readi Allo Chip Cancellous Crushed Void Filler Preservon - [id number] Implanted:Qty : 1 on 12/14/2018 by Armond Maldonado MD at [facility] [employer] Spine Lumbar [employer] 09/13/2023 [id number] / [id number] / Set Screw 5.5mm Spine Cd Horizon Legacy Ss Break Off - [id number] Implanted:Qty : 4 on 12/14/2018 by Armond Maldonado MD at [facility] Spine Lumbar [employer] [id number] / / Screw Bone 50x6.5mm Spine Horizon Legacy Spinal System Ti Multiaxial - [id number] Implanted:Qty : 1 on 12/14/2018 by Armond Maldonado MD at [facility] NODATA Spine Lumbar [employer] [id number] / / Spacer Capstone Peek 15x32 - [id number] Implanted:Qty : 1 on 06/30/2017 by Armond Maldonado MD at [facility] N/A: Back [employer] 05/09/2018 [id number] / / [id number] Set Screw Sextant - [id number] Implanted:Qty : 4 on 06/30/2017 by Armond Maldonado MD at [facility] N/A: Back [employer] [id number] / / Description:L4/5 Screw Spine Sextant 6.5x50mm - [id number] Implanted:Qty : 2 on 06/30/2017 by Armond Maldonado MD at [facility] N/A: Back [employer] [id number] / / Description:L4/5 Screw Bone 7.5x50mm Spine Multi Axial Cannulated Legacy - [id number] Implanted:Qty : 2 on 06/30/2017 by Armond Maldonado MD at [facility] N/A: Back [employer] [id number] / / Description:L4/5 Jaguar Spinal Sextant 5.5x40mm - [id number] Implanted:Qty : 2 on 06/30/2017 by Armond Maldonado MD at [facility] N/A: Back [employer] [id number] / / Screw Bone 7.5x50mm Spine Horizon Legacy Spinal System Ti Multiaxial - [id number] Implanted:Qty : 3 on 12/14/2018 by Armond Maldonado MD at [facility] Spine Lumbar [employer] [id number] / / Spine Jaguar 5.5mmx40 Spinal Legacy Titanium Prebent Curved Thoracic Lumbar Sacral - [id number] Implanted:Qty : 1 on 12/14/2018 by Armond Maldonado MD at [facility] Spine Lumbar [employer] [id number] / / Spine Jaguar 5.5x45mm Legacy Titanium Prebent Thoracic Lumbar Sacral - [id number] Implanted:Qty : 1 on 12/14/2018 by Armond Maldonado MD at [facility] Spine Lumbar [employer] [id number] / / Procedures Procedure Name Priority Date/Time [...] (07/06/2024 6:29 PM EDT) COLOR Yellow Yellow [facility] CLARITY Clear [facility] GLUCOSE Negative Negative [facility] BILI Negative Negative [facility] KETONES Negative Negative [facility] SPECIFIC GRAVITY 1.020 1.005 - 1.030 [facility] BLOOD Negative Negative [facility] PH 6.0 5.0 - 8.0 [facility] Protein-UA Negative Negative [facility] NITRITE Negative Negative [facility] Leukocyte esterase, ur Negative Negative [facility] Urine (Urine) 07/06/2024 6:2 9 PM EDT 07/06/2024 6:30 PM EDT Shaista Magaña CNP URINE ORDERA BLES Performing Organization Address [facility]/ZIP Co de Phone Number [address] [address] * (ABNORMAL) Renal panel (07/06/2024 10:02 AM EDT) SODIUM 143 133 - 146 mmol/L [facility] POTASSIUM 5.0 3.3 - 5.1 mmol/L [facility] CHLORIDE 107 96 - 108 mmol/L [facility] CO2 26 21 - 35 mmol/L [facility] GLUCOSE 121(H) 70 - 99 mg/dL [facility] BUN 28(H) 6 - 19 mg/dL [facility] CREATININE 2.10(H) 0.5 - 1.5 mg/dL [facility] CALCIUM 9.1 8.4 - 10.3 mg/dL [facility] PHOSPHORUS 2.7 2.7 - 4.5 mg/dL [facility] ALBUMIN 4.3 3.9 - 4.8 g/dL [facility] EGFR 33(L) >59 mL/min/1.7 3m2 [facility] Comment:Estimated glomerular filtration rate calculated using the CKD-EPI refit equation. ANION GAP 15 10 - 20 mmol/L [facility] Blood 07/06/2024 10:0 2 AM EDT 07/06/2024 10:05 AM EDT Shaista Magaña CNP LAB BLOOD OR DERABLES Performing Organization Address [facility]/ZIP Co de Phone Number [address] [address] * (ABNORMAL) Microalbumin/creatinine ratio, random urine (06/30/2024 2:56 PM EDT) URINE MICROALBUMIN 2.6(H) 0 - 2.3 mg/dL [facility] URINE CREATININE 125 mg/dL [facility] MICROALB/CRE RATIO 20.8(H) 0 - 20 mg/g Cre [facility] Urine (Urine) 06/30/2024 2:5 6 PM EDT 06/30/2024 2:58 PM EDT Shaista Magaña [facility] URINE ORDERA BLES Performing Organization Address City/[facility] Co de Phone Number [address] [address] * (ABNORMAL) Uric acid (06/30/2024 2:38 PM EDT) URIC ACID 8.9(H) 2.4 - 7.0 mg/dL [facility] Blood 06/30/2024 2:38 PM EDT 06/30/2024 2:45 PM EDT [facility] LAB BLOOD OR DERABLES Performing Organization Address [facility] Co de Phone Number [address] [address] * (ABNORMAL) Hemoglobin A1c (06/30/2024 2:38 PM EDT) HEMOGLOBIN A1C 6.2(H) 4.3 - 5.8 % [facility] Blood 06/30/2024 2:38 PM EDT 06/30/2024 2:45 PM EDT [facility] LAB BLOOD OR DERABLES Performing Organization Address [facility] Co de Phone Number [address] [address] * Lipid panel (06/30/2024 2:38 PM EDT) HDL 41 mg/dL [facility] Comment: ? Interpretation <40 mg/dL: Low HDL cholesterol (major risk factor for CHD) Greater than or equal to 60 mg/dL: High HDL cholesterol ( negative risk factor for CHD) HDL - cholesterol is affected by a number of factors, e.g. smoking, excerise, hormones, sex and age. CHOLESTEROL 157 0 - 240 mg/dL [facility] TRIGLYCERIDES 147 30 - 160 mg/dL [facility] LDL 87 50 - 129 mg/dL [facility] Comment: LDL levels in terms of risk for coronary heart disease: <100 mg/dL: Optimal 100-129 mg/dL: Near or above optimal 130-159 mg/dL: Borderline high 160-189 mg/dL: High >190 mg/dL: Very High CARDIAC RISK RATIO 3.8 3.4 - 5.0 C [facility] Blood 06/30/2024 2:38 PM EDT 06/30/2024 2:45 PM EDT Shaista Magaña [facility] LAB BLOOD OR DERABLES [facility] [address], [place] [id number] * (ABNORMAL) Basic metabolic panel (06/30/2024 2:38 PM EDT) SODIUM 143 133 - 146 mmol/L [facility] CHLORIDE 107 96 - 108 mmol/L [facility] POTASSIUM 5.4(H) 3.3 - 5.1 mmol/L [facility] CO2 27 21 - 35 mmol/L [facility] BUN 30(H) 6 - 19 mg/dL [facility] CREATININE 2.70(H) 0.5 - 1.5 mg/dL [facility] GLUCOSE 96 70 - 99 mg/dL [facility] CALCIUM 9.3 8.4 - 10.3 mg/dL [facility] EGFR 24(L) >59 mL/min/1.7 3m2 [facility] Comment:Estimated glomerular filtration rate calculated using the CKD-EPI refit equation. ANION GAP 14 10 - 20 mmol/L [facility] Blood 06/30/2024 2:38 PM EDT 06/30/2024 2:45 PM EDT Shaista Magaña BUS INFO CONSULTANT LAB BLOOD OR DERABLES Performing Organization Address City/[facility]/ZIP Co de Phone Number [address] [address] * DIABETES EYE EXAM FOR RESULT ENTRY ONLY (02/17/2024 11:31 AM EST) Historical Provider MD MINA CHUN E * Hepatitis C antibody, qualitative (11/28/2022 9:45 AM EDT) HCV NON-REACTIV E NON-REACTI VE [facility] Blood 11/28/2022 9:45 AM EDT 11/28/2022 9:49 AM EDT Jyothi Fragoso [place] [facility] LAB BLOOD ORDE RABLES Performing Organization Address City/[facility]/ZIP Co de Phone Number [address] [address] * COLONOSCOPY FOR RESULT ENTRY ONLY (11/17/2019) Historical Provider MD MINA CHUN E * US Aorta Duplex Complete (05/23/2019 8:06 AM EST) Anatomical Region Laterality Modality Aorta Ultrasound 05/23/2019 8:38 AM EST Impressions 05/23/2019 8:54 AM EST No aneurysmal dilatation/ectasia of the abdominal aorta demonstrated on today's images. POS - [id number] Narrative 05/23/2019 8:54 AM EST EXAM: ??US [...] abdominal aorta demonstrated ontoday's images. POS - [id number] Jyothi Stark BUS INFO CONSULTANT IMG US ABDOMEN from Last 3 Months or Most Recently Relevant to Health Maintenance Advance Directives For more information, please contact: [phone] (9AM - 5PM [place], Thursday-Thursday) * Full Code (Presumed) (Latest Code Status on File) Date Activated Date Inactivated Comments 12/14/2018 5:24 PM 12/17/2018 4:15 PM * Full Code (Presumed) Date Activated Date Inactivated Comments 06/30/2017 6:32 PM 07/02/2017 2:57 PM Care Teams Rock Picker Relationship Specialty Start Date End Date Shaista Magaña CNP [address] [place] [address], [address] [place] [address] PCP - General Family Medicine 11/11/22 Jose D Almeida MD Ophthalmology 12/05/20 Conor Arroyo MD [address] [facility] [address] [place], [place] [id number] Interventional Pain Management 07/16/22 Additional Source Comments The information contained in this document represents components of the legal health record. It is not the complete legal health record.[facility]
--- OUTSIDE RECORDS SUMMARY | 2024-08-05 10:16 | XMS_ITS | Encounter Summary ---
Author Organization [facility] Address [address] [facility] [address] [place] [address] Phone Care Team Providers Care Vendor Manager Name Role Phone Jyothi Stark CNP Primary Care Provider Jyothi Stark CNP Primary Care Provider Carlos Bullock MD Unavailable [phone] Carlos Bullock MD Primary Care Provider [phone] Jyothi Stark CNP Primary Care Provider Jose D Almeida MD Unavailable Carlos Bullock MD Unavailable [phone] Conor Arroyo MD Unavailable [phone] Carlos Bullock MD Primary Care Provider [phone] Shaista Magaña [facility] Primary Care Provid er Encounter Details Date Type Department Care Team (Late st Contact Info) Description 01/13/2018 Transcribe Orders [facility] [address] [place], [place] [id number] Jyothi Stark [facility] [address] [place], [place] [id number] [email or web address] Social History Tobacco Use Types Packs/Day Years [...] 01/04/2025 10:00 AM EDT Office Visit [facility] [address] [place] [address] [place] [address] Shaista Magaña CNP 170 [facility], 2nd [place] [address] [email or web address] documented as of this encounter Visit Diagnoses Not on filedocumented in this encounter Care Teams Vendor Manager Relationship Specialty Start Date End Date Jyothi Stark CNP [address] [place] [address] PCP - General Internal Medicine 12/01/17 03/08/19 Jyothi Stark CNP 40 [place] [address] PCP - General Internal Medicine 03/09/19 11/16/19 Carlos Bullock MD [address] [place] [address] PCP - General Internal Medicine 11/17/19 11/21/19 Jyothi Stark CNP [address] [place] [address] PCP - General Internal Medicine 11/22/19 09/08/22 Carlos Bullock MD [address] [place] [address] PCP - General Internal Medicine 09/09/22 11/10/22 Archana Shaista MAE Mckenzie [address] [place] [address], 2nd [place] [address] [email or web address] PCP - General Family Medicine 11/11/22 Carlos Bullock MD [address] [place] [address] [email or web address] Insurance Assigned Provider 07/13/19 04/14/20 Jose D Almeida MD [address] [place] [address] [email or web address] Ophthalmology 12/05/20 Carlos Bullock MD [address] [place] [address] [email or web address] Insurance Assigned Provider 07/11/23 04/11/24 Conor Arroyo MD [address] [place] [address] [address] [place] [address] Interventional Pain Management 07/16/22 documented as of this encounter Additional Source Comments The information contained in this document represents components of the legal health record. It is not the complete legal health record.[facility]
--- OUTSIDE RECORDS SUMMARY | 2024-08-05 10:16 | XMS_ITS | Encounter Summary ---
Author Organization [facility] Address [address] [facility] [address] [place] [address] Phone Care Team Providers Care Angle Shear Set Up Operator Name Role Phone Jyothi Stark CNP Primary Care Provider Jyothi Stark CNP Primary Care Provider Carlos Bullock MD Unavailable [phone] Carlos Bullock MD Primary Care Provider [phone] Jyothi Stark CNP Primary Care Provider Jose D Almedia MD Unavailable Carlos Bullock MD Unavailable [phone] Conor Arroyo MD Unavailable [phone] Carlos Bullock MD Primary Care Provider [phone] Shaista Magaña [facility] Primary Care Provid er Encounter Details Date Type Department Care Team (Latest Contact Info) Description 01/13/2018 Transcribe Orders [facility] Laboratory [address] [place], [place] [address]107 Jyothi Stark [facility] 40 [place], [place] [id number] [email or web address] Routine check-up (Primary Dx) Social History [...] Description 01/04/2025 10:00 AM EDT Office Visit [facility] [address] [place] [address] Shaista Magaña CNP 170 [facility], 2nd [place] [address] [email or web address] documented as of this encounter Visit Diagnoses Diagnosis Routine check-up- Primary Routine general medical examination at a health care facility documented in this encounter Care Teams Angle Shear Set Up Operator Relationship Specialty Start Date End Date Jyothi Stark CNP 40 [place] [address] PCP - General Internal Medicine 12/01/17 03/08/19 Jyothi Stark CNP 40 [place] [address] PCP - General Internal Medicine 03/09/19 11/16/19 Carlos Bullock MD 40 [place] [address] PCP - General Internal Medicine 11/17/19 11/21/19 Jyothi Stark CNP 40 [place] [address] PCP - General Internal Medicine 11/22/19 09/08/22 Carlos Bullock MD 40 [place] [address] PCP - General Internal Medicine 09/09/22 11/10/22 Shaista Magaña CNP [address] [place] [address], 2nd [place] [address] [email or web address] PCP - General Family Medicine 11/11/22 Carlos Bullock MD 40 [place] [address] Insurance Assigned Provider 07/13/19 04/14/20 Jose D Almeida MD [address] [place] [address] Ophthalmology 12/05/20 Carlos Bullock MD [address] [place] [address] [email or web address] Insurance Assigned Provider 07/11/23 04/11/24 Conor Arroyo MD [address] [place] [address] Drive [address] [place] [address] Interventional Pain Management 07/16/22 documented as of this encounter Additional Source Comments The information contained in this document represents components of the legal health record. It is not the complete legal health record.[facility]
--- OUTSIDE RECORDS SUMMARY | 2024-08-05 10:17 | XMS_ITS | Encounter Summary ---
Author Organization [facility] Address [address] [facility] [address] [place] [address] Phone Care Team Providers Care Screen Printing Paster Name Role Phone Jyothi Stark CNP Primary Care Provider Jyothi Stark CNP Primary Care Provider Carlos Bullock MD Unavailable [phone] Carlos Bullock MD Primary Care Provider Jyothi Stark CNP Primary Care Provider Jose D Almeida MD Unavailable Carlos Bullock MD Unavailable [phone] Conor Arroyo MD Unavailable [phone] Carlos Bullock MD Primary Care Provider [phone] Shaista Magaña [facility] Primary Care Provid er Encounter Details Date Type Department Care Team (Late st Contact Info) Description 01/28/2018 Transcribe Orders [facility] Laboratory [address] [place], [place] [phone] Jyothi Stark [facility] 40 [place], [place] [id number] Social History Tobacco Use Types Packs/Day Years [...] 01/04/2025 10:00 AM EDT Office Visit [facility] [address] [place] [address] [place] [address] Shaista Magaña CNP 170 [facility], [address]nd [place] [address] [email or web address] documented as of this encounter Visit Diagnoses Not on filedocumented in this encounter Care Teams Screen Printing Paster Relationship Specialty Start Date End Date Jyothi Stark CNP 40 [place] [address] PCP - General Internal Medicine 12/01/17 03/08/19 Jyothi Stark CNP 40 [place] [address] PCP - General Internal Medicine 03/09/19 11/16/19 Carlos Bullock MD 40 [place] [address] PCP - General Internal Medicine 11/17/19 11/21/19 Jyothi Stark CNP 40 [place] [address] PCP - General Internal Medicine 11/22/19 09/08/22 Carlos Bullock MD 40 [place] [address] PCP - General Internal Medicine 09/09/22 11/10/22 Archana Shaista MAE Mckenzie [address] [place] [address], 2nd [place] [address] [email or web address] PCP - General Family Medicine 11/11/22 Carlos Bullock MD 40 [place] [address] [email or web address] Insurance Assigned Provider 07/13/19 04/14/20 Jose D Almeida MD 40 [place] [address] [email or web address] Ophthalmology 12/05/20 Carlos Bullock MD 40 [place] [address] [email or web address] Insurance Assigned Provider 07/11/23 04/11/24 Conor Arroyo MD [address] [place] [address] [address] [place] [address] Interventional Pain Management 07/16/22 documented as of this encounter Additional Source Comments The information contained in this document represents components of the legal health record. It is not the complete legal health record.[facility]
--- OUTSIDE RECORDS SUMMARY | 2024-08-05 10:17 | XMS_ITS | Encounter Summary ---
Author Organization [facility] Address [address] [facility] [address] [place] [address] Phone Care Team Providers Care Nutrition Consultant Name Role Phone BellanormJyothi [facility] Primary Care Provider Jose D Almeida MD Unavailable Carlos Bullock MD Unavailable [phone] Conor Arroyo MD Unavailable [phone] Carlos Bullock MD Primary Care Provider [phone] Shaista Magaña [facility] Primary Care Provid er Encounter Details Date Type Department Care Team (Late st Contact Info) Description 02/24/2022 Procedure Pass [facility], Ct Scan - [address] [address] Social History Tobacco Use Types Packs/Day Years [...] Description 01/04/2025 10:00 AM EDT Office Visit [facility] [address] [place] [address] [place] [address] Shaista Magaña CNP 170 [facility], 2nd [place] [address] [email or web address] documented as of this encounter Visit Diagnoses Not on filedocumented in this encounter Additional Health Concerns Assessment Noted Time PHQ-2 Depression Total Score: 1 06/16/19 22 11:12 AM EST documented as of this encounter Care Teams Nutrition Consultant Relationship Specialty Start Date End Date Jyothi Stark CNP 40 [place] [address] [email or web address] PCP - General Internal Medicine 11/22/19 09/08/22 Carlos Bullock MD 40 [place] [address] PCP - General Internal Medicine 09/09/22 11/10/22 Shaista Magaña CNP 170 [facility], [address] [place] [address] [email or web address] PCP - General Family Medicine 11/11/22 Jose D Almeida MD [address] [place] [address] [email or web address] Ophthalmology 12/05/20 Carlos Bullock MD [address] [place] [address] Insurance Assigned Provider 07/11/23 04/11/24 Conor Arroyo MD [address] [place] [address] Drive [address] [place] [phone] Interventional Pain Management 07/16/22 documented as of this encounter Additional Source Comments The information contained in this document represents components of the legal health record. It is not the complete legal health record.[facility]
--- OUTSIDE RECORDS SUMMARY | 2024-08-05 10:18 | XMS_ITS | Encounter Summary ---
Author Organization [facility] Address [address] [facility] [address] [place] [address] Phone Care Team Providers Care Family Resource Management Professor Name Role Phone Jyothi Stark [facility] Primary Care Provider Jyothi Stark [facility] Primary Care Provider Carlos Bullock MD Unavailable [phone] Carlos Bullock MD Primary Care Provider Jyothi Stark CNP Primary Care Provider Jose D Almeida MD Unavailable Carlos Bullock MD Unavailable [phone] Conor Arroyo MD Unavailable [phone] Carlos Bullock MD Primary Care Provider [phone] Shaista Magaña [facility] Primary Care Provid er Encounter Details Date Type Department Care Team (Late st Contact Info) Description 10/16/2018 Ancillary Orders [facility], X-Ray - [address] [place] [address] Armond Maldonado MD [address] [place] [address] [email or web address] Fusion of spine of lumbar region [...] 01/04/2025 10:00 AM EDT Office Visit [facility] [address] [place] [address] Shaista Magaña, MAE 170 [facility], 2nd [place] [address] [email or web address] documented as of this encounter Results * [...] region documented in this encounter Care Teams Family Resource Management Professor Relationship Specialty Start Date End Date Jyothi Stark CNP 40 [place] [address] PCP - General Internal Medicine 12/01/17 03/08/19 Jyothi Stark CNP 40 [place] [address] PCP - General Internal Medicine 03/09/19 11/16/19 Carlos Bullock MD 40 [place] [address] PCP - General Internal Medicine 11/17/19 11/21/19 Jyothi Stark CNP 40 [place] [address] PCP - General Internal Medicine 11/22/19 09/08/22 Carlos Bullock MD 40 [place] [address] PCP - General Internal Medicine 09/09/22 11/10/22 Shaista Magaña CNP [address] [place] [address], 2nd [place] [address] [email or web address] PCP - General Family Medicine 11/11/22 Carlos Bullock MD 40 [place] [address] Insurance Assigned Provider 07/13/19 04/14/20 Jose D Almeida MD 40 [place] [address] [email or web address] Ophthalmology 12/05/20 Carlos Bullock MD [address] [place] [address] Insurance Assigned Provider 07/11/23 04/11/24 Conor Arroyo MD [address] [place] [address] Drive [address] [place] [address] Interventional Pain Management 07/16/22 documented as of this encounter Additional Source Comments The information contained in this document represents components of the legal health record. It is not the complete legal health record.[facility]
--- OUTSIDE RECORDS SUMMARY | 2024-08-05 10:19 | XMS_ITS | Encounter Summary ---
Author Organization [facility] Address [address] [facility] [address] [place] [address] Phone Care Team Providers Care Power Generating Plant Operator Name Role Phone Unavailable Primary Care Provider Unavailabl e Reason for Visit * MRI/CAT Scan - Closed Specialty Diagnoses / Procedures Referred By Contac t Referred To Contact Procedures MRI Spine (Bone) Outside (No Interpretation) System, Provider Not In, [facility] [address] [address] Referral ID Status Reason Start Date Expiration Date Visits Re quested Visits Authorized [id number] Closed 06/15/2017 06/15/2018 1 1 Encounter Details Date Type Department Care Team (Late st Contact Info) Description 01/22/2016 Hospital Encounter [facility],Outside Imaging [address] [place] [address] System, Provider Not In, [facility] [address] [address] Social History Tobacco Use Types Packs/Day Years [...] [facility] [address] [place] [address] [place] [address] Shaista Magaña, MAE 170 [facility], 2nd Floor [place] [address] documented as of this encounter Procedures Procedure [...] It is not the complete legal health record.[facility]
--- OUTSIDE RECORDS SUMMARY | 2024-08-05 10:19 | XMS_ITS | Encounter Summary ---
Author Organization [facility] Address [address] [facility] [address] [place] [address] Phone Care Team Providers Care Order Worker Name Role Phone Vijay Hampton MD Primary Care Provider Jyothi Stark CNP Primary Care Provider Jyothi Stark CNP Primary Care Provider Carlos Bullock MD Unavailable [phone] Carlos Bullock MD Primary Care Provider Jyothi Stark CNP Primary Care Provider Jose D Almeida MD Unavailable Carlos Bullock MD Unavailable [phone] Conor Arroyo MD Unavailable [phone] Carlos Bullock MD Primary Care Provider [phone] Shaista Magaña [facility] Primary Care Provid er Encounter Details Date Type Department Care Team (Late st Contact Info) Description 06/15/2017 Procedure Pass [facility],Outside Imaging [address] [place] [address] Social History Tobacco Use Types Packs/Day Years [...] EDT Office Visit [facility] [place] [facility] [address] [place] [address] [place] [address] Shaista Magaña CNP [address] [place] [address], 2nd [place] [address] [email or web address] documented as of this encounter Visit Diagnoses Not on filedocumented in this encounter Care Teams Order Worker Relationship Specialty Start Date End Date Vijay Hampton MD [address] [place] [address] PCP - General Internal Medicine 04/29/17 11/30/17 Jyothi Stark CNP 40 [place] [address] PCP - General Internal Medicine 12/01/17 03/08/19 Jyothi Stark CNP 40 [place] [address] PCP - General Internal Medicine 03/09/19 11/16/19 Carlos Bullock MD 40 [place] [address] PCP - General Internal Medicine 11/17/19 11/21/19 Jyothi Stark CNP [address] [place] [address] PCP - General Internal Medicine 11/22/19 09/08/22 Carlos Bullock MD 40 [place] [address] PCP - General Internal Medicine 09/09/22 11/10/22 Shaista Magaña CNP [address] [place] [address], 2nd [place] [address] PCP - General Family Medicine 11/11/22 Carlos Bullock MD 40 [place] [address] Insurance Assigned Provider 07/13/19 04/14/20 Jose D Almeida MD 40 [place] [address] Ophthalmology 12/05/20 Carlos Bullock MD 40 [place] [address] Insurance Assigned Provider 07/11/23 04/11/24 Conor Arroyo MD [address] [place] [address] [address] [place] [address] [phone] Interventional Pain Management 07/16/22 documented as of this encounter Additional Source Comments The information contained in this document represents components of the legal health record. It is not the complete legal health record.[facility]
--- OUTSIDE RECORDS SUMMARY | 2024-08-05 10:19 | XMS_ITS | Encounter Summary ---
Author Organization [facility] Address [address] [facility] [address] [place] [address] Phone Care Team Providers Care Enrollment Representative Name Role Phone Unknown, Unknown Primary Care Provider Vijay Zafar MD Primary Care Provider Jyothi Stark CNP Primary Care Provider Jyothi Stark [facility] Primary Care Provider Carlos Bullock MD Unavailable [phone] Carlos Bullock MD Primary Care Provider [phone] Jyothi Stark CNP Primary Care Provider Jose D Almeida MD Unavailable Carlos Bullock MD Unavailable [phone] Conor Arroyo MD Unavailable [phone] Carlos Bullock MD Primary Care Provider [phone] Shaista Magaña [facility] Primary Care Provid er Encounter Details Date Type Department Care Team (Late st Contact Info) Description 04/15/2017 Procedure Pass [facility], [address] [address] Social History Tobacco Use Types Packs/Day Years [...] 01/04/2025 10:00 AM EDT Office Visit [facility] [address] [place] [address] [place] [address] Shaista Magaña CNP 170 [facility], 2nd [place] [address] [email or web address] documented as of this encounter Visit Diagnoses Not on filedocumented in this encounter Care Teams Enrollment Representative Relationship Specialty Start Date End Date Unknown, Unknown, MD PCP - General 04/15/17 04/28/17 Vijay Hampton MD [address] [place] [address] PCP - General Internal Medicine 04/29/17 11/30/17 Jyothi Stark CNP 40 [place] [address] PCP - General Internal Medicine 12/01/17 03/08/19 Jyothi Stark CNP [address] [place] [address] PCP - General Internal Medicine 03/09/19 11/16/19 Carlos Bullock MD [address] [place] [address] [email or web address] PCP - General Internal Medicine 11/17/19 11/21/19 Jyothi Stark, MAE [address] [place] [address] PCP - General Internal Medicine 11/22/19 09/08/22 Carlos Bullock MD [address] [place] [address] PCP - General Internal Medicine 09/09/22 11/10/22 Shaista Magaña CNP [address] [place] [address], 2nd [place] [address] [email or web address] PCP - General Family Medicine 11/11/22 Carlos Bullock MD [address] [place] [address] [email or web address] Insurance Assigned Provider 07/13/19 04/14/20 Jose D Almeida MD [address] [place] [address] [email or web address] Ophthalmology 12/05/20 Carlos Bullock MD [address] [place] [address] Insurance Assigned Provider 07/11/23 04/11/24 Conor Arroyo MD [address] [place] [address] [place] [address] Interventional Pain Management 07/16/22 documented as of this encounter Additional Source Comments The information contained in this document represents components of the legal health record. It is not the complete legal health record.[facility]
--- OUTSIDE RECORDS SUMMARY | 2024-08-05 10:19 | XMS_ITS | Encounter Summary ---
Author Organization [facility] Address [address] [address] Phone Care Team Providers Care Presser Machine Name Role Phone Unknown, Unknown Primary Care Provider Vijay Zafar MD Primary Care Provider Jyothi Stark CNP Primary Care Provider Jyothi Stark [facility] Primary Care Provider Carlos Bullock MD Unavailable Carlos Bullock MD Primary Care Provider [phone] Jyothi Stark [facility] Primary Care Provider Jose D Almeida MD Unavailable Carlos Bullock MD Unavailable [phone] Conor Arroyo MD Unavailable Carlos Bulolck MD Primary Care Provider Shaista Magaña [facility] Primary Care Provid er Encounter Details Date Type Department Care Team (Late st Contact Info) Description 04/15/2017 Ancillary Orders Virtual Department 30 [place], [place] [id number] Armond Maldonado MD 30 [place], [place] [id number] [email or web address] Acute low back pain, unspecified back pain [...] Description 01/04/2025 10:00 AM EDT [facility] [address] [place] [address] Shaista Magaña, BIT WELDER 170 [facility], 2nd Floor [place], [place] [address] [email or web address] documented as of this encounter Results * [...] Other degenerative changes as described. POS - [id number] Edited by: Malu Woodson on 04/17/2017 8:49 [...] Other degenerative changes as described. POS - [id number] Edited by: Malu Woodson on 04/17/2017 8:49 [...] foot documented in this encounter Care Teams Presser Machine Relationship Specialty Start Date End Date Unknown, Unknown, MD PCP - General 04/15/17 04/28/17 Vijay Hampton MD [address] [place] [address] PCP - General Internal Medicine 04/29/17 11/30/17 Jyothi Stark CNP [address] [place] [address] PCP - General Internal Medicine 12/01/17 03/08/19 Jyothi Stark, MAE [address] [place] [address] [email or web address] PCP - General Internal Medicine 03/09/19 11/16/19 Carlos Bullock MD [address] [place] [address] [email or web address] PCP - General Internal Medicine 11/17/19 11/21/19 Jyothi Stark CNP [address] [place] [address] [email or web address] PCP - General Internal Medicine 11/22/19 09/08/22 Carlos Bullock MD [address] [place] [address] [email or web address] PCP - General Internal Medicine 09/09/22 11/10/22 hSaista Magaña CNP [address] [place] [address], 2nd [place] [address] [email or web address] PCP - General Family Medicine 11/11/22 Carlos Bullock MD [address] [place] [address] [email or web address] Insurance Assigned Provider 07/13/19 04/14/20 Jose D Almeida MD [address] [place] [address] Ophthalmology 12/05/20 Carlos Bullock MD [address] [place] [address] [email or web address] Insurance Assigned Provider 07/11/23 04/11/24 Conor Arroyo MD [address] [place] [address] [place] [address] Interventional Pain Management 07/16/22 documented as of this encounter Additional Source Comments The information contained in this document represents components of the legal health record. It is not the complete legal health record.[facility]
--- OUTSIDE RECORDS SUMMARY | 2024-08-05 10:20 | XMS_ITS | Encounter Summary ---
Author Organization [facility] Address 399 [facility] [address] [place] [address] Phone Care Team Providers Care Director Of Housing Name Role Phone Vijay Hampton MD Primary Care Provider [phone] Jyothi Stark CNP Primary Care Provider Jyothi Stark [employer] Primary Care Provider Carlos Bullock MD Unavailable [phone] Carlos Bullock MD Primary Care Provider [phone] Jyothi Stark CNP Primary Care Provider Jose D Almeida MD Unavailable Carlos Bullock MD Unavailable [phone] Conor Arroyo MD Unavailable [phone] Carlos Bullock MD Primary Care Provider [phone] Shaista Magaña [facility] Primary Care Provid er Reason for Referral * MRI/CAT Scan - Closed Specialty Diagnoses / Procedures Referred By Contac t Referred To Contact Procedures MRI Spine (Bone) Outside (No Interpretation) System, Provider Not In, PhD [address] [address] Referral ID Status Reason Start Date Expiration Date Visits Re quested Visits Authorized [id number] Closed 06/15/2017 06/15/2018 1 1 Encounter Details Date Type Department Care Team (Late st Contact Info) Description 06/15/2017 Ancillary Orders [facility],Outside Imaging 30 [place] [address] System, Provider Not In, PhD Partners [address] [address] Social History Tobacco Use Types Packs/Day Years [...] Department Care Team (Late Contact Info) Description 01/04/2025 10:00 AM EDT Office Visit [facility] [address] [place] [address] [place] [address] Shaista Magaña CNP [address] [place] [address], 2nd [place] [address] [email or web address] documented as of this [...] on filedocumented in this encounter Care Teams Director Of Housing Relationship Specialty Start Date End Date Vijay Hampton MD 2 [place] [address] PCP - General Internal Medicine 04/29/17 11/30/17 Jyothi Stark CNP 40 [place] [address] PCP - General Internal Medicine 12/01/17 03/08/19 Jyothi Stark CNP 40 [place] [address] PCP - General Internal Medicine 03/09/19 11/16/19 Carlos Bullock MD 40 [place] [address] [email or web address] PCP - General Internal Medicine 11/17/19 11/21/19 Jyothi Stark CNP [address] [place] [address] PCP - General Internal Medicine 11/22/19 09/08/22 Carlos Bullock MD [address] [place] [address] [email or web address] PCP - General Internal Medicine 09/09/22 11/10/22 Shaista Magaña CNP [address] [place] [address], 2nd [place] [address] [email or web address] PCP - General Family Medicine 11/11/22 Carlos Bullock MD [address] [place] [address] [email or web address] Insurance Assigned Provider 07/13/19 04/14/20 Jose D Almeida MD 40 [place] [address] [email or web address] Ophthalmology 12/05/20 Carlos Bullock MD [address] [place] [address] [email or web address] Insurance Assigned Provider 07/11/23 04/11/24 Conor Arroyo MD [address] [place] [address] Interventional Pain Management 07/16/22 documented as of this encounter Additional Source Comments The information contained in this document represents components of the legal health record. It is not the complete legal health record.[facility]
--- OUTSIDE RECORDS SUMMARY | 2024-08-05 10:20 | XMS_ITS | Encounter Summary ---
Author Organization [facility] Address [address] [address] Phone Care Team Providers Care Brassiere Cup Mold Cutter Name Role Phone Vijay Hampton MD Primary Care Provider [phone] Jyothi Stark CNP Primary Care Provider Jyothi Stark CNP Primary Care Provider Carlos Bullock MD Unavailable [phone] Carlos Bullock MD Primary Care Provider [phone] Jyothi Stark CNP Primary Care Provider Jose D Almeida MD Unavailable Carlos Bullock MD Unavailable [phone] Conor Arroyo MD Unavailable [phone] Carlos Bullock MD Primary Care Provider [phone] Shaista Magaña [facility] Primary Care Provid er Encounter Details Date Type Department Care Team (Late st Contact Info) Description 06/16/2017 Procedure Pass OR Admitting Dept - Virtual Department 30 [place] [address] Social History Tobacco Use Types [...] 01/04/2025 10:00 AM EDT Office Visit [facility] [address] [facility] [place] [address] Shaista Magaña CNP 170 [facility], 2nd [place] [address] documented as of this encounter Visit Diagnoses Not on filedocumented in this encounter Care Teams Brassiere Cup Mold Cutter Relationship Specialty Start Date End Date Vijay Hampton MD [address] [place] [address] PCP - General Internal Medicine 04/29/17 11/30/17 Jyothi Stark CNP 40 [place] [address] PCP - General Internal Medicine 12/01/17 03/08/19 Jyothi Stark CNP 40 [place] [address] PCP - General Internal Medicine 03/09/19 11/16/19 Carlos Bullock MD 40 [place], [place] [phone] PCP - General Internal Medicine 11/17/19 11/21/19 Jyothi Stark CNP 40 [place] [address] PCP - General Internal Medicine 11/22/19 09/08/22 Carlos Bullock MD 40 [place] [address] PCP - General Internal Medicine 09/09/22 11/10/22 Shaista Magaña CNP [address] [place] [address], 2nd [place] [address] PCP - General Family Medicine 11/11/22 Carlos Bullock MD 40 [place] [address] Insurance Assigned Provider 07/13/19 04/14/20 Jose D Almeida MD 40 [place] [address] Ophthalmology 12/05/20 Carlos Bullock MD 40 [place] [address] Insurance Assigned Provider 07/11/23 04/11/24 Conor Arroyo MD [address] [place] [address] [address] [place] [address] Interventional Pain Management 07/16/22 documented as of this encounter Additional Source Comments The information contained in this document represents components of the legal health record. It is not the complete legal health record.[facility]
--- OUTSIDE RECORDS SUMMARY | 2024-08-05 10:20 | XMS_ITS | Encounter Summary ---
Author Organization [facility] Address 399 [facility] [address] [place] [address] Phone Care Team Providers Care Coremaker Machine Name Role Phone Jyothi Stark [facility] Primary Care Provider Jyothi Stark CNP Primary Care Provider Carlos Bullock MD Unavailable [phone] Carlos Bullock MD Primary Care Provider Jyothi Stark CNP Primary Care Provider Jose D Almeida MD Unavailable Carlos Bullock MD Unavailable [phone] Conor Arroyo MD Unavailable [phone] Carlos Bullock MD Primary Care Provider [phone] Shaista Magaña [facility] Primary Care Provid er Encounter Details Date Type Department Care Team (Late st Contact Info) Description 12/14/2018 Procedure Pass OR Admitting Dept - Virtual Department 30 [place] [address] Social History Tobacco Use Types Packs/Day Years [...] EDT Office Visit [facility] [address] [place] [address] Shaista Magaña CNP 170 [facility], 2nd Floor [place] [address] [email or web address] documented as of this encounter Visit Diagnoses Not on filedocumented in this encounter Care Teams Coremaker Machine Relationship Specialty Start Date End Date Jyothi Stark CNP 40 [place] [address] PCP - General Internal Medicine 12/01/17 03/08/19 Jyothi Stark CNP 40 [place] [address] PCP - General Internal Medicine 03/09/19 11/16/19 Carlos Bullock MD 40 [place] [address] PCP - General Internal Medicine 11/17/19 11/21/19 Jyothi Stark CNP 40 [place] [address] PCP - General Internal Medicine 11/22/19 09/08/22 Carlos Bullock MD 40 [place] [address] PCP - General Internal Medicine 09/09/22 11/10/22 Shaista Magaña CNP [address] [place] [address], 2nd [place] [address] PCP - General Family Medicine 11/11/22 Carlos Bullock MD 40 [place] [address] Insurance Assigned Provider 07/13/19 04/14/20 Jose D Almeida MD 40 [place] [address] Ophthalmology 12/05/20 Carlos Bullock MD 40 [place] [address] Insurance Assigned Provider 07/11/23 04/11/24 Conor Arroyo MD [address] [place] [address] [place] [address] Interventional Pain Management 07/16/22 documented as of this encounter Additional Source Comments The information contained in this document represents components of the legal health record. It is not the complete legal health record.[facility]
--- OUTSIDE RECORDS SUMMARY | 2024-08-05 10:20 | XMS_ITS | Encounter Summary ---
Author Organization [facility] Address [address] [place] [address] Phone Care Team Providers Care [employer] Registrar Name Role Phone Vijay Hampton MD Primary Care Provider Jyothi Stark CNP Primary Care Provider Jyothi Stark SEARCH ENGINE MARKETING MANAGER Primary Care Provider Carlos Bullock MD Unavailable Carlos Bullock MD Primary Care Provider [phone] Jyothi Stark CNP Primary Care Provider Jose D Almeida MD Unavailable Carlos Bullock MD Unavailable [phone] Conor Arroyo MD Unavailable [phone] Carlos Bullock MD Primary Care Provider Shaista Magaña [facility] Primary Care Provid er Encounter Details Date Type Department Care Team (Latest Contact Info) Description 07/21/2017 Ancillary Orders [facility], X-Ray - [address] [address] Radha Rojas PA [address] [place] [address] [email or web address] Lumbar radiculopathy; Spinal stenosis of lumbar region [...] Description 01/04/2025 10:00 AM EDT [facility] [address] [place] [address] Shaista Magaña, MAE 170 [facility], 2nd [place] [address] [email or web address] documented as of this encounter Results * [...] surgery 3 weeks ago POS - [id number] Radha [facility] XR SPINE documented in this encounter Visit Diagnoses Diagnosis Lumbar radiculopathy Thoracic or lumbosacral neuritis or radiculitis, unspecified Spinal stenosis of lumbar region without neurogenic claudication Lumbar radiculopathy Thoracic or lumbosacral neuritis or radiculitis, unspecified Spinal stenosis of lumbar region without neurogenic claudication documented in this encounter Care Teams [employer] Registrar Relationship Specialty Start Date End Date Memo, Vijay Soni MD [address] [place] [address] PCP - General Internal Medicine 04/29/17 11/30/17 Jyothi Stark CNP 40 [place] [address] PCP - General Internal Medicine 12/01/17 03/08/19 Jyothi Stark CNP 40 [place] [address] [email or web address] PCP - General Internal Medicine 03/09/19 11/16/19 Carlos Bullock MD 40 [place] [address] [email or web address] PCP - General Internal Medicine 11/17/19 11/21/19 Jyothi Stark, MAE 40 [place] [address] [email or web address] PCP - General Internal Medicine 11/22/19 09/08/22 Carlos Bullock MD 40 [place] [address] [email or web address] PCP - General Internal Medicine 09/09/22 11/10/22 Shaista Magaña CNP [address] [place] [address], 2nd [place] [address] [email or web address] PCP - General Family Medicine 11/11/22 Carlos Bullock MD 40 [place] [address] [email or web address] Insurance Assigned Provider 07/13/19 04/14/20 Jose D Almeida MD 40 [place] [address] [email or web address] Ophthalmology 12/05/20 Carlos Bullock MD 40 [place] [address] [email or web address] Insurance Assigned Provider 07/11/23 04/11/24 Conor Arroyo MD [address] [facility] [address] [place] [address] Interventional Pain Management 07/16/22 documented as of this encounter Additional Source Comments The information contained in this document represents components of the legal health record. It is not the complete legal health record.[facility]
--- OUTSIDE RECORDS SUMMARY | 2024-08-05 10:20 | XMS_ITS | Encounter Summary ---
Author Organization [facility] Address [address] [address] Phone Care Team Providers Care Permastone Installer Name Role Phone Vijay Hampton MD Primary Care Provider Jyothi Stark CNP Primary Care Provider Jyothi Stark CNP Primary Care Provider Carlos Bullock MD Unavailable [phone] Carlos Bullock MD Primary Care Provider [phone] Jyothi Stark CNP Primary Care Provider Jose D Almeida MD Unavailable Carlos Bullock MD Unavailable [phone] Conor Arroyo MD Unavailable [phone] Carlos Bullock MD Primary Care Provider [phone] Shaista Magaña [facility] Primary Care Provid er Encounter Details Date Type Department Care Team (Late st Contact Info) Description 06/30/2017 Procedure Pass OR Admitting Dept - Virtual Department 30 [place] [address] Social History Tobacco Use Types [...] Description 01/04/2025 10:00 AM EDT Office Visit [facility] 170 [facility] [place] [address] Shaista Magaña CNP 170 [facility], 2nd [place] [address] documented as of this encounter Visit Diagnoses Not on filedocumented in this encounter Care Teams Permastone Installer Relationship Specialty Start Date End Date Vijay Hampton MD [address] [place] [address] PCP - General Internal Medicine 04/29/17 11/30/17 Jyothi Stark CNP 40 [place] [address] PCP - General Internal Medicine 12/01/17 03/08/19 Jyothi Stark CNP 40 [place] [address] PCP - General Internal Medicine 03/09/19 11/16/19 Carlos Bullock MD 40 [place], [place] [phone] PCP - General Internal Medicine 11/17/19 11/21/19 Jyothi Stark CNP 40 [place] [address] PCP - General Internal Medicine 11/22/19 09/08/22 Carlos Bullock MD 40 [place] [address] PCP - General Internal Medicine 09/09/22 11/10/22 Shaista Magaña CNP [address] [place] [address], 2nd [place] [address] PCP - General Family Medicine 11/11/22 Carlos Bullock MD 40 [place] [address] Insurance Assigned Provider 07/13/19 04/14/20 Jose D Almeida MD 40 [place] [address] Ophthalmology 12/05/20 Carlos Bullock MD 40 [place] [address] Insurance Assigned Provider 07/11/23 04/11/24 Conor Arroyo MD [address] [place] [address] [address] [place] [address] Interventional Pain Management 07/16/22 documented as of this encounter Additional Source Comments The information contained in this document represents components of the legal health record. It is not the complete legal health record.[facility]
--- OUTSIDE RECORDS SUMMARY | 2024-08-05 10:20 | XMS_ITS | Encounter Summary ---
Author Organization [facility] Address [address] [place] [address] Phone Care Team Providers Care Vp Analytics Name Role Phone Jose D Almeida MD Unavailable Conor Arroyo MD Unavailable [phone] Shaista Magaña CNP Primary Care Provid er Reason for Referral * Consultation (Within 2 weeks) - New Request Specialty Diagnoses / Procedures Referred By Shakira pacheco Referred To Contact Diagnoses Tremor Parkinsonism, unspecified Parkinsonism type Shaista Magaña CNP [address] [place] [address] Email: Sd Luna MD [address] [place] [address], [address] [place] [address] Email: Referral ID Status Reason Start Date Expiration Date V isits Requested Visits Authorized [id number] New Request 08/03/2024 08/03/2025 1 1 Scheduling Instructions Please call the office to be scheduled [facility] -Dr. Sd Luna P: [phone] [place] [address], [address] [place] [address] * MRI/CAT Scan - Authorized Specialty Diagnoses / Procedures Referred By Shakira pacheco Referred To Contact Radiology Diagnoses Tremor Parkinsonism, unspecified Parkinsonism type Procedures MRI Brain Shaista Magaña CNP [address] [place] [address] Email: [email or web address] Referral ID Status Reason Start Date Expiration Date V isits Requested Visits Authorized [id number] Authorized 08/03/2024 08/03/2025 1 1 Reason for Visit * Reason Comments Follow Up Visit Encounter Details Date Type Department Care Team (Late st Contact Info) Description 08/03/2024 8:30 AM EDT Office Visit [facility] [address] [place] [address] [place] [address] Shaista Magaña CNP [address] [place] [address] [email or web address] Parkinsonism, unspecified Parkinsonism type (Primary Dx); Tremor; Decreased GFR; Stage 3a chronic kidney disease; Primary hypertension; Cluneal neuropathy; Chronic bilateral low back pain without sciatica Social History Tobacco Use Types Packs/Day Years [...] ??F) 08/03/2024 8:34 AM EDT Respiratory Rate - - Oxygen Saturation 98% 08/03/2024 8:34 AM EDT Inhaled Oxygen Concentration - - Weight 93 kg (205 lb) 08/03/2024 8:34 AM EDT Height - - Body Mass Index 31.18 01/04/2024 11:23 AM EDT documented in this encounter Patient Instructions * Patient Instructions* Shaista Magaña CNP - 08/03/2024 8:30 AM EDT - Per our discussion you have agreed with the above assessment/plan as stated. - Please follow-up with our office as recommended and perform lab work/imaging/referral if indicated. - You can follow-up with our office sooner for any acute concern at . - If unable to reach our practice and you are in need of immediate care do not hesitate to seek immediate medical attention by calling 911 or going to the ER/Urgent care. documented in this encounter Progress Notes * Shaista Magaña CNP - 08/03/2024 8:30 AM EDT Subjective Keith Camacho is a 69 y.o. male. History of Present Illness The patient presents for 1 month follow-up. He was started on carbidopa-levodopa at our last visit. Shakiness and increased stability on his feet are reported, with no adverse effects from the medication. He admits to not adhering to the prescribed regimen of Sinemet, having failed to increase the dose as prescribed after 14 days. Despite this, a positive response to the medication is observed. He is currently awaiting a consultation with a neurologist, with previous referrals not yielding appointments. The possibility of an MRI of the brain is discussed to rule out other neurological issues. Concerns about elevated blood pressure readings today are expressed, attributing them to improper measurement techniques and wearing a sweater during the check. Efforts to improve his diet are mentioned. He has been off allopurinol for approximately one month, with kidney function showing signs of recovery but still below previous levels. A follow-up metabolic panel is planned to monitor kidney function. He reports undergoing an RF ablation for pain management, which did not yield improvement. A follow-up appointment with the pain clinic is scheduled for tomorrow. Review of Systems Constitutional: Negative for unexpected weight change. Eyes: Negative for unexpected vision change. Respiratory: Negative for cough and shortness of breath. Cardiovascular: Negative for chest pain and palpitations. Gastrointestinal: Negative for abdominal pain, blood in stool, constipation and diarrhea. Genitourinary: Negative for problems with urination and blood in urine. Neurological: Positive for tremors and changes in memory. Negative for dizziness and headaches. Skin: Negative for persistent rash. Musculoskeletal: Positive for joint pain, back pain and gait problem. Objective BP 134/66 (BP Location: Left arm, Patient Position: Sitting) Pulse 72 Temp 36.7 ??C (98 ??F) (Temporal) Wt 93 kg (205 lb) SpO2 98% BMI 31.18 kg/m?? Physical Exam Vitals reviewed. Constitutional: Appearance: Normal appearance. He is well-groomed. HENT: Head: Normocephalic and atraumatic. Eyes: General: No scleral icterus. Conjunctiva/sclera: Conjunctivae normal. Pulmonary: Effort: Pulmonary effort is normal. Abdominal: General: There is no distension. Skin: General: Skin is warm and dry. Findings: No rash. Neurological: General: No focal deficit present. Mental Status: He is alert and oriented to person, place, and time. Motor: Tremor present. No weakness or abnormal muscle tone. Psychiatric: Attention and Perception: Attention and perception normal. Mood and Affect: Mood and affect normal. Speech: Speech normal. Behavior: Behavior normal. Behavior is cooperative. Problem List Items Addressed This Visit Cardiovascular and Mediastinum Hypertension Stable, BP at goal <140/90. Today's BP was initially borderline at 140/78 but improved on repeat. - Advised on proper techniques for measuring blood pressure, including ensuring the arm is supported during measurement. - No changes made to his current regimen, continues on lisinopril and chlorthalidone. Neuro and EENT Parkinsonism - Primary Most probable diagnosis is Parkinson's disease, given [...] rule out lesions or other neurological issues. Relevant Orders MRI Brain [facility] -Dr. Sd Luna Cluneal neuropathy Recently s/p left L5 dorsal ramus and lateral branches of S1, S2 and S3 posterior primary rami nerve radiofrequency ablation, done through [facility] [place] [facility]. Unfortunately, he does not report any symptom improvement following the procedure. - Continues w/ gabapentin 400mg QID. - Scheduled for follow-up with [facility] [place] tomorrow. Genitourinary Stage 3a chronic kidney disease His chronic kidney disease had been stable w/ Cr 1.2 - 1.5 and GFR in the 50's. Kidney function currently decreased, did improve somewhat with discontinuation of allopurinol but still below baseline. - Kidney function will be monitored. Signs and Symptoms Chronic bilateral low back pain without sciatica Chronic lumbar back pain w/ postlaminectomy pain syndrome. History of a lumbar fusion and then a revision. The top of the left foot is numb, has left foot drop; he walks with a cane and wears a back brace. - Recently s/p nerve ablation without symptom improvement. He is disappointed by this outcome as hepreviously had nearly 90% pain reduction for about 1 year following a prior nerve ablation. He had subsequently tried a nerve stimulator without success. - Followed by [place] management [place] [facility] ([place] Arroy[place]). Tremor Still with a mild resting tremor but gait is improved, feeling much more steady on his feet. We still have been unsuccessful getting him in with neurology, new referral placed. - He will continue w/ Sinemet and consider increasing to 3x/day. Relevant Orders MRI Brain [facility] -Dr. Sd Luna Decreased GFR Sudden decrease in kidney function w/ GFR >2 and GFR down into the 20's. On re- check, GFR improved 24>>33. Likely due to medication, allopurinol was discontinued. - Metabolic panel will be ordered to monitor kidney function. Relevant Orders Basic metabolic panel Follow-up He will return for a medical management visit in 5 months. RTC sooner PRN. I obtained verbal consent from the patient or their proxy to record this visit for purposes of producing a draft of the encounter documentation. documented in this encounter Miscellaneous Notes * Assessment & Plan Note - Shaista Magaña CNP - 08/03/2024 9:35 AM EDTAssociated Problem(s): Tremor Still with a mild resting tremor but gait is improved, feeling much more steady on his feet. We still have been unsuccessful getting him in with neurology, new referral placed. - He will continue w/ Sinemet and consider increasing to 3x/day. * Assessment & Plan Note - Shaista Magaña CNP - 08/03/2024 9:33 AM EDTAssociated Problem(s): Decreased GFR Sudden decrease in kidney function w/ GFR >2 and GFR down into the 20's. On re- check, GFR improved 24>>33. Likely due to medication, allopurinol was discontinued. - Metabolic panel will be ordered to monitor kidney function. * Assessment & Plan Note - Shaista Magaña CNP - 08/03/2024 9:26 AM EDTAssociated Problem(s): Cluneal neuropathy Recently s/p left L5 dorsal ramus and lateral branches of S1, S2 and S3 posterior primary rami nerve radiofrequency ablation, done through [facility] [place]. Unfortunately, he does not report any symptom improvement following the procedure. - Continues w/ gabapentin 400mg QID. - Scheduled for follow-up with [facility] [place] tomorrow. * Assessment & Plan Note - Shaista Magaña CNP - 08/03/2024 9:25 AM EDTAssociated Problem(s): Chronic bilateral low back pain without sciatica Chronic lumbar back pain w/ postlaminectomy pain syndrome. History of a lumbar fusion and then a revision. The top of the left foot is numb, has left foot drop; he walks with a cane and wears a back brace. - Recently s/p nerve ablation without symptom improvement. He is disappointed by this outcome as hepreviously had nearly 90% pain reduction for about 1 year following a prior nerve ablation. He had subsequently tried a nerve stimulator without success. - Followed by pain management [place] [facility] ([place] Arroyo). * Assessment & Plan Note - Shaista Magaña CNP - 08/03/2024 9:23 AM EDTAssociated Problem(s): Stage 3a chronic kidney disease His chronic kidney disease had been stable w/ Cr 1.2 - 1.5 and GFR in the 50's. Kidney function currently decreased, did improve somewhat with discontinuation of allopurinol but still below baseline. - Kidney function will be monitored. * Assessment & Plan Note - Shaista Magaña CNP - 08/03/2024 9:22 AM EDTAssociated Problem(s): Hypertension Stable, BP at goal <140/90. Today's BP was initially borderline at 140/78 but improved on repeat. - Advised on proper techniques for measuring blood pressure, including ensuring the arm is supported during measurement. - No changes made to his current regimen, continues on lisinopril and chlorthalidone. * Assessment & Plan Note - Shaista Magaña CNP - 08/03/2024 9:21 AM EDTAssociated Problem(s): Parkinsonism Most probable diagnosis is Parkinson's disease, given [...] rule out lesions or other neurological issues. documented in this encounter Plan of Treatment Upcoming Encounters Date Type Department Care Team (Late st Contact Info) Description 01/04/2025 10:00 AM EDT Office Visit [facility] [address] [place] [address] [place] [address] Shaista Magaña CNP [address] [facility], [address] [place] [address] [email or web address] Scheduled Orders Name Type Priority Associated Diagnoses Orde r Schedule Basic metabolic panel Lab Routine Decreased GFR Expected: 08/03/2024, Expires: 08/03/2025 MRI Brain Imaging Routine Tremor Parkinsonism, unspecified Parkinsonism type Expected: 08/03/2024, Expires: 02/02/2025 Scheduled Referrals Name Type Priority Associated Diagnoses Orde r Schedule [facility] -Dr. Sd Luna Outpatient Referral Routine Tremor Parkinsonism, unspecified Parkinsonism type Ordered: 08/03/2024 documented as of this encounter Visit Diagnoses Diagnosis Parkinsonism, unspecified Parkinsonism type- Primary Tremor Abnormal involuntary movements Decreased GFR Stage 3a chronic kidney disease Primary hypertension Unspecified essential hypertension Cluneal neuropathy Chronic bilateral low back pain without sciatica documented in this encounter Additional Health Concerns Assessment Noted Time PHQ-2 Depression Total Score: 1 07/01/19 25 1:10 PM EDT documented as of this encounter Care Teams Vp Analytics Relationship Specialty Start Date End Date Shaista Magaña CNP [address] [place] [address] PCP - General Family Medicine 11/11/22 Jose D Almeida MD Ophthalmology 12/05/20 Conor Arroyo MD [address] [place] [address] Interventional Pain Management 07/16/22 documented as of this encounter Additional Source Comments The information contained in this document represents components of the legal health record. It is not the complete legal health record.[facility]
--- OUTSIDE RECORDS SUMMARY | 2024-08-05 10:22 | XMS_ITS | Encounter Summary ---
Author Organization [facility] Address [address] [place] [address] Phone Care Team Providers Care Lead Software Test Engineer Name Role Phone Vijay Hampton MD Primary Care Provider [phone] Jyothi Stark CNP Primary Care Provider Jyothi Stark CNP Primary Care Provider Carlos Bullock MD Unavailable [phone] Carlos Bullock MD Primary Care Provider [phone] Jyothi Stark CNP Primary Care Provider Jose D Almeida MD Unavailable Carlos Bullock MD Unavailable [phone] Conor Arroyo MD Unavailable [phone] Carlos Bullock MD Primary Care Provider [phone] Shaista Magaña [facility] Primary Care Provid er Encounter Details Date Type Department Care Team (Late st Contact Info) Description 10/13/2017 Ancillary Orders Virtual Department [address] [place] [address] Armond Maldonado MD [address] [place] [address] [email or web address] Pain of lower extremity, unspecified laterality [...] 01/04/2025 10:00 AM EDT Office Visit [facility] [address] [place] [address] Shaista Magaña, BUMBOATER [address] [facility], 2nd [place] [address] [email or web address] documented as of this encounter Results * [...] laterality documented in this encounter Care Teams Lead Software Test Engineer Relationship Specialty Start Date End Date Memo Vijay Soni MD [address] [place] [address] PCP - General Internal Medicine 04/29/17 11/30/17 Jyothi Stark CNP [address] [place] [address] PCP - General Internal Medicine 12/01/17 03/08/19 Jyothi Stark CNP [address] [place] [address] PCP - General Internal Medicine 03/09/19 11/16/19 Carlos Bullock MD [address] [place] [address] PCP - General Internal Medicine 11/17/19 11/21/19 Jyothi Stark CNP [address] [place] [address] PCP - General Internal Medicine 11/22/19 09/08/22 Carlos Bullock MD [address] [place] [address] PCP - General Internal Medicine 09/09/22 11/10/22 Shaista Magaña CNP [address] [place] [address], [address] [place] [address] PCP - General Family Medicine 11/11/22 Carlos Bullock MD [address] [place] [address] [email or web address] Insurance Assigned Provider 07/13/19 04/14/20 Jose D Almeida MD [address] [place] [address] [email or web address] Ophthalmology 12/05/20 Carlos Bullock MD [address] [place] [address] [email or web address] Insurance Assigned Provider 07/11/23 04/11/24 Conor Arroyo MD [address] [place] [address] [address] [place] [address] Interventional Pain Management 07/16/22 documented as of this encounter Additional Source Comments The information contained in this document represents components of the legal health record. It is not the complete legal health record.[facility]
--- OUTSIDE RECORDS SUMMARY | 2024-08-05 10:22 | XMS_ITS | Encounter Summary ---
Author Organization [facility] Address [address] [facility] [address] [place] [address] Phone Care Team Providers Care Argon Tester Name Role Phone Jyothi Stark [facility] Primary Care Provider Carlos Bullock MD Unavailable [phone] Carlos Bullock MD Primary Care Provider Jyothi Stark [facility] Primary Care Provider Jose D Almeida MD Unavailable Carlos Bullock MD Unavailable [phone] Conor Arroyo MD Unavailable [phone] Carlos Bullock MD Primary Care Provider [phone] Shaista Magaña [facility] Primary Care Provid er Encounter Details Date Type Department Care Team (Late st Contact Info) Description 03/09/2019 Ancillary Orders [facility], X-Ray - [address] [address] Armond Maldonado MD [address] [place] [address] [email or web address] S/[email or web address] lumbar fusion Social History Tobacco [...] EDT Office Visit [facility] [address] [place] [address] [place] [address] Shaista Magaña, MAE [address] [place] [address] [email or web address] documented as of this encounter Results * XR LUMBOSACRAL SPINE 2-3 VIEWS (03/09/2019 2:42 PM EST) Anatomical Region Laterality Modality L-spine Radiographic Franchesca ging 03/10/2019 8:13 AM EST Impressions 03/10/2019 8:15 AM EST Mild increase in lower lumbar scoliosis. Otherwise stable appearance of the lumbosacral spine. POS [id number] Narrative 03/10/2019 8:15 AM EST 4 views. Compare 10/16/2018. No complications of prior L4-5 fusion. No compression fracture or other acute bony injury. Mild increase in lower lumbar dextroscoliosis compared to 10/16/2018. The other vertebral bodies are well-aligned. No change in disc heights. No evidence of metastatic disease or osteomyelitis Procedure Note Ulises Red MD - 03/10/2019 4 views. Compare 10/16/2018. No complications of prior L4-5 fusion. No compression fracture or other acute bony injury. Mild increase in lower lumbar dextroscoliosis compared to 10/16/2018. Theother vertebral bodies are well-aligned. No change in disc heights. No evidence of metastatic disease or osteomyelitis IMPRESSION: Mild increase in lower lumbar scoliosis. Otherwise stable appearance ofthe lumbosacral spine. POS [id number] Armond Maldonado MD IMG XR SPINE documented in this encounter Visit Diagnoses Diagnosis S/P lumbar fusion Arthrodesis status S/P lumbar fusion Arthrodesis status documented in this encounter Care Teams Argon Tester Relationship Specialty Start Date End Date Jyothi Stark CNP [address] [place] [address] [email or web address] PCP - General Internal Medicine 03/09/19 11/16/19 Carlos Bullock MD [address] [place] [address] [email or web address] PCP - General Internal Medicine 11/17/19 11/21/19 Jyothi Stark CNP [address] [place] [address] [email or web address] PCP - General Internal Medicine 11/22/19 09/08/22 Carlos Bullock MD [address] [place] [address] [email or web address] PCP - General Internal Medicine 09/09/22 11/10/22 Shaista Magaña CNP [address] [place] [address], [address] [place] [address] [email or web address] PCP - General Family Medicine 11/11/22 Carlos Bullock MD [address] [place] [address] Insurance Assigned Provider 07/13/19 04/14/20 Jose D Almeida MD [address] [place] [address] [email or web address] Ophthalmology 12/05/20 Carlos Bullock MD [address] [place] [address] [email or web address] Insurance Assigned Provider 07/11/23 04/11/24 Conor Arroyo MD [address] [place] [address] [address] [place] [address] Interventional Pain Management 07/16/22 documented as of this encounter Additional Source Comments The information contained in this document represents components of the legal health record. It is not the complete legal health record.[facility]
== END 2024-08-05 10:07 | disposition home or self-care (01) ==
LOC: HO.PMC 09:30
PROVIDERS: PCP Registered Nurse; Visit Provider Internal Medicine
DX: M96.1 Postlaminectomy syndrome, not elsewhere classified (principal)
CPT/HCPCS: 99213

== ENCOUNTER → 2024-08-05 09:30 | Outpatient (BNVA) | payer MEDICARE, OTHER, SELFPAY | PROVIDERS: PCP Registered Nurse; Visit Provider Internal Medicine | DX: M96.1 Postlaminectomy syndrome, not elsewhere classified (principal) | CPT/HCPCS: 99212 ==

== ENCOUNTER → 2024-08-24 13:47 | Outpatient (BNV) | payer MEDICARE, OTHER, SELFPAY | PROVIDERS: PCP Nurse Practitioner Family; Visit Provider Radiology Diagnostic Radiology | DX: M51.369 Other intervertebral disc degeneration, lumbar region without mention of lumbar back pain or lower extremity pain (principal) | CPT/HCPCS: 72148 ==

== ENCOUNTER 2024-08-24 13:49 | Outpatient (REF) | payer MEDICARE, OTHER, SELFPAY ==
--- NOTE | ~2024-08-24 | MR_ITS ---
CLINICAL HISTORY: M96.1 - Postlaminectomy syndrome, not elsewhere classified MRI LUMBAR SPINE WITHOUT CONTRAST Comparison: None Findings: L4-5 posterior fusion with bipedicular screws. Minimal grade 1 retrolisthesis L4 on L5. No acute fracture or osseous marrow replacement process. Conus medullaris terminates at the appropriate level. T12-L1: Unremarkable. L1-2: No significant disc displacement or spinal stenosis. Facet arthropathy with mild bilateral foraminal stenoses. L2-3: Large disc bulge and facet arthropathy. Mild spinal stenosis. Moderate bilateral foraminal stenoses. L3-4: Xytjiwcl-ai-vpodj disc bulge, facet arthropathy and ligamentum flavum hypertrophy. Mild spinal stenosis. Moderate right foraminal stenosis. Severe left foraminal stenosis. L4-5: No significant disc displacement or spinal stenosis. Moderate right and severe left foraminal stenoses. L5-S1: Mild disc bulge. No significant spinal stenosis. At least moderately severe degree bilateral foraminal stenoses. 1.6 cm T2 hyperintense right renal cortical lesion consistent with a cyst. Paraspinous muscles appear mildly atrophic. Impression: 1. Prominent disc disease at L2-3 and L3-4 associated with mild spinal stenoses. 2. Multilevel foraminal stenoses as detailed above. 3. Postsurgical changes L4-5. This document has been electronically signed by: Cynthia Wick DO on 08/26/2024 13:41:41
--- OUTSIDE RECORDS SUMMARY | 2024-08-24 14:21 | XMS_ITS | Encounter Summary ---
Author Organization [facility] Address [address] [facility] [address] [place] [address] Phone Care Team Providers Care Deckhand Sponge Boat Name Role Phone Jyothi Stark [facility] Primary Care Provider Jyothi Stark [facility] Primary Care Provider Carlos Bullock MD Unavailable [phone] Carlos Bullock MD Primary Care Provider Jyothi Stark CNP Primary Care Provider Jose D Almeida MD Unavailable Carlos Bullock MD Unavailable [phone] Conor Arroyo MD Unavailable [phone] Carlos Bullock MD Primary Care Provider [phone] Shaista Magaña [facility] Primary Care Provid er Encounter Details Date Type Department Care Team (Late st Contact Info) Description 06/11/2018 Ancillary Orders [facility], X-Ray - [facility] [address] [place] [address] Radha Rojas, MAKENZIE [address] [place] [address] [email or web address] Fusion of spine, lumbar region Social History [...] Team (Late st Contact Info) Description 08/03/2024 Procedure Pass [address] [address] 09/03/2024 4:00 PM EDT Appointment [address] [address] Shaista Magaña, CHIEF LOAD DISPATCHER [address] [facility], [address] [place] [address] [email or web address] 01/04/2025 10:00 AM EDT Office Visit [facility] [address] [place], [place] [address] [address] Shaista Magaña, CHIEF LOAD DISPATCHER [address] [facility], [address] [place] [address] [email or web address] documented as of this encounter Results * [...] - [id number] Radha BANEGAS IMG XR SPINE Final Resul t documented in this encounter Visit Diagnoses Diagnosis Fusion of spine, lumbar region Fusion of spine, lumbar region documented in this encounter Care Teams Deckhand Sponge Boat Relationship Specialty Start Date End Date Jyothi Stark CNP [address] [place] [address] PCP - General Internal Medicine 12/01/17 03/08/19 Jyothi Stark CNP [address] [place] [address] [email or web address] PCP - General Internal Medicine 03/09/19 11/16/19 Carlos Bullock MD [address] [place] [address] PCP - General Internal Medicine 11/17/19 11/21/19 [place] Jyothi Fouzia, CHIEF LOAD DISPATCHER [address] [place] [address] PCP - General Internal Medicine 11/22/19 09/08/22 Carlos Bullock MD [address] [place] [address] PCP - General Internal Medicine 09/09/22 11/10/22 Shaista Magaña CNP [address] [place] [address], 2[address] [place] [address] PCP - General Family Medicine 11/11/22 Carlos Bullock MD [address] [place] [address] Insurance Assigned Provider 07/13/19 04/14/20 Jose D Almeida MD [address] [place] [address] Ophthalmology 12/05/20 Carlos Bullock MD [address] [place] [phone] Insurance Assigned Provider 07/11/23 04/11/24 Conor Arroyo MD [address] [place] [address] [place] [address] Interventional Pain Management 07/16/22 documented as of this encounter Additional Source Comments The information contained in this document represents components of the legal health record. It is not the complete legal health record.[facility]
--- OUTSIDE RECORDS SUMMARY | 2024-08-24 14:21 | XMS_ITS | Encounter Summary ---
Author Organization [facility] Address [address] [facility] [address] [place] [address] Phone Care Team Providers Care Public Health Specialist Name Role Phone Jyothi Stark [facility] Primary Care Provider Jyothi Stark CNP Primary Care Provider Carlos Bullock MD Unavailable [phone] Carlos Bullock MD Primary Care Provider Jyothi Stark CNP Primary Care Provider Jose D Almeida MD Unavailable Carlos Bullock MD Unavailable [phone] Conor Arroyo MD Unavailable [phone] Carlos Bullock MD Primary Care Provider [phone] Shaista Magaña [facility] Primary Care Provid er Encounter Details Date Type Department Care Team (Late st Contact Info) Description 06/14/2018 Procedure Pass [facility], [facility] - [address] [place] [address] Social History Tobacco Use Types Packs/Day Years [...] st Contact Info) Description 08/03/2024 Procedure Pass [address] [address] 09/03/2024 4:00 PM EDT Appointment [address] [address] Shaista Magaña, MAE [address] [place] [address], [address] [place] [address] 01/04/2025 10:00 AM EDT Office Visit [facility] [address] [place] [address] [place] [address] Shaista Magaña CNP [address] [place] [address], [address] [place] [address] documented as of this encounter Visit Diagnoses Not on filedocumented in this encounter Care Teams Public Health Specialist Relationship Specialty Start Date End Date Jyothi Stark CNP [address] [place] [address] PCP - General Internal Medicine 12/01/17 03/08/19 Jyothi Stark CNP [address] [place] [address] PCP - General Internal Medicine 03/09/19 11/16/19 Carlos Bullock MD [address] [place] [address] [email or web address] PCP - General Internal Medicine 11/17/19 11/21/19 Jyothi Stark, MAE [address] [place] PCP - General Internal Medicine 11/22/19 09/08/22 Carlos Bullock MD [address] [place] [address] PCP - General Internal Medicine 09/09/22 11/10/22 Shaista Magaña CNP [address] [place] [address], 2nd [place] [address] [email or web address] PCP - General Family Medicine 11/11/22 Carlos Bullock MD [address] [place] [address] [email or web address] Insurance Assigned Provider 07/13/19 04/14/20 Jose D Almeida MD [address] [place] [address] [email or web address] 12/05/20 Carlos Bullock MD [address] [place] [address] [email or web address] Insurance Assigned Provider 07/11/23 04/11/24 Conor Arroyo MD [address] [place] [address] [place] [address] Interventional Pain Management 07/16/22 documented as of this encounter Additional Source Comments The information contained in this document represents components of the legal health record. It is not the complete legal health record.[facility]
--- OUTSIDE RECORDS SUMMARY | 2024-08-24 14:21 | XMS_ITS | Encounter Summary ---
Author Organization [facility] Address [address] [facility] [address] [place] [address] Phone Care Team Providers Care Publication Distributor Name Role Phone [email or web address] [facility] Primary Care Provider Jose D Almeida MD Unavailable Carlos Bullock MD Unavailable [phone] Conor Arroyo MD Unavailable [phone] Carlos Bullock MD Primary Care Provider [phone] Shaista Magaña [facility] Primary Care Provid er Encounter Details Date Type Department Care Team (Late st Contact Info) Description 08/09/2021 Procedure Pass [facility], Ct Scan [address] [address] Social History Tobacco Use Types Packs/Day Years [...] st Contact Info) Description 08/03/2024 Procedure Pass [facility], [facility] - [address] [address] 09/03/2024 4:00 PM EDT Appointment [facility], [address] [place] [address] Shaista Magaña CNP [address] [facility], [address] [place] [address] 01/04/2025 10:00 AM EDT Office Visit [facility] [address] [place] [address] [place] [address] Shaista Magaña, MAE [address] [place] [address] [email or web address] documented as of this encounter Visit Diagnoses Not on filedocumented in this encounter Additional Health Concerns Assessment Noted Time PHQ-2 Depression Total Score: 1 06/16/19 22 11:12 AM EST documented as of this encounter Care Teams Publication Distributor Relationship Specialty Start Date End Date Jyothi Stark CNP [address] [place] [address] [email or web address] PCP - General Internal Medicine 11/22/19 09/08/22 Carlos Bullock MD [address] [place] [address] PCP - General Internal Medicine 09/09/22 11/10/22 Shaista Magaña CNP [address] [place] [address] PCP - General Family Medicine 11/11/22 Jose D Almeida MD [address] [place] [address] [email or web address] Ophthalmology 12/05/20 Carlos Bullock MD [address] [place] [address] [email or web address] Insurance Assigned Provider 07/11/23 04/11/24 Conor Arroyo MD [address] [place] [address] Interventional Pain Management 07/16/22 documented as of this encounter Additional Source Comments The information contained in this document represents components of the legal health record. It is not the complete legal health record.[facility]
--- OUTSIDE RECORDS SUMMARY | 2024-08-24 14:21 | XMS_ITS | Encounter Summary ---
Author Organization [facility] Address [address] [place] [address] Phone Care Team Providers Care Company Laundry Worker Name Role Phone Jyothi Stark [facility] Primary Care Provider Jyothi Stark [facility] Primary Care Provider Carlos Bullock MD Unavailable [phone] Carlos Bullock MD Primary Care Provider [phone] Jyothi Stark [facility] Primary Care Provider Jose D Almeida MD Unavailable Carlos Bullock MD Unavailable [phone] Conor Arroyo MD Unavailable [phone] Carlos Bullock MD Primary Care Provider [phone] Shaista Magaña [facility] Primary Care Provid er Reason for Referral * MRI/CAT Scan - Closed Specialty Diagnoses / Procedures Referred By Shakira pacheco Referred To Contact Radiology Diagnoses Low back pain, unspecified back pain laterality, unspecified chronicity, with sciatica presence unspecified Arthrodesis status Procedures MRI Lumbar Spine Radha Rojas PA Phone: tel: fax: mailto:[email or web address] Referral ID Status Reason Start Date Expiration Date Visits Re quested Visits Authorized [id number] Closed 06/14/2018 06/14/2019 1 1 Encounter Details Date Type Department Care Team (Late st Contact Info) Description 06/14/2018 Ancillary Orders [facility] Department [address] [place] [address] Radha Rojas PA [address] [place] [address] [email or web address] Low back pain, unspecified back pain laterality, [...] st Contact Info) Description 08/03/2024 Procedure Pass [address] [address] 09/03/2024 4:00 PM EDT Appointment [address] [address] Shaista Magaña, MAE [address] [place] [address], [address] [place] [address] [email or web address] 01/04/2025 10:00 AM EDT Office Visit [facility] [address] [place] [address] [place] [address] Shaista Magaña, MAE [address] [place] [address], [address] [place] [address] documented as of this encounter Results * [...] T2, axial T1, postcontrast sagittal and axial S4hrcgnsnoc, 18 mL Dotarem contrast IV. FINDINGS: Normal appearance of the distal conus terminating at the L1-L2 level. Vertebrae are normal in height and alignment. No compression fractures.There is posterior fusion hardware at L4-L5 with bilateral transpedicularscrews and posterior fusion rods. There is mild T1 hypointense and D7dkfbcctqkssk marrow edema inferior endplate of L4 and [...] moderate right neural foraminal stenosis at L4- F4eqhotlykuausw from marginal bony spurring and facet hypertrophicchanges. 3. Moderate bilateral neural foraminal narrowing at L5-S1. Severe leftand mild right neural foraminal narrowing at L3-L4. 4. See above for each individual level for detail. Edited by: Aubrie Alvarez on 06/23/2018 9:22 AM Radha PAIGE MR XSPECIALTY Final Res ult documented in this encounter Visit Diagnoses Diagnosis Low back pain, unspecified back pain laterality, unspecified chronicity, with sciatica presence unspecified Arthrodesis status Low back pain, unspecified back pain laterality, unspecified chronicity, with sciatica presence unspecified Arthrodesis status documented in this encounter Care Teams Company Laundry Worker Relationship Specialty Start Date End Date Jyothi Stark CNP [address] [place] [address] [email or web address] PCP - General Internal Medicine 12/01/17 03/08/19 Jyothi Stark CNP [address] [place] [address] PCP - General Internal Medicine 03/09/19 11/16/19 Carlos Bullock MD [address] [place] [address] PCP - General Internal Medicine 11/17/19 11/21/19 Jyothi Stark CNP [address] [place] [address] PCP - General Internal Medicine 11/22/19 09/08/22 Carlos Bullock MD [address] [place] [address] PCP - General Internal Medicine 09/09/22 11/10/22 Shaista Magaña CNP [address] [place] [address], 2nd [place] [address] [email or web address] PCP - General Family Medicine 11/11/22 Carlos Bullock MD [address] [place] [address] [email or web address] Insurance Assigned Provider 07/13/19 04/14/20 Jose D Almeida MD [address] [place] [address] [email or web address] Ophthalmology 12/05/20 Carlos Bullock MD [address] [place] [address] [email or web address] Insurance Assigned Provider 07/11/23 04/11/24 Conor Arroyo MD [address] [place] [address] [address] [place] [address] Interventional Pain Management 07/16/22 documented as of this encounter Additional Source Comments The information contained in this document represents components of the legal health record. It is not the complete legal health record.[facility]
--- OUTSIDE RECORDS SUMMARY | 2024-08-24 14:21 | XMS_ITS | Patient Health Record ---
Author Organization [facility] Address [address] [place] [address] Care Team Providers Care Railroad Car Painter Name Role Phone Vijya Hampton MD Primary Care Provider Gerardo Saenz [phone] Allergies Allergen (clinical drug ingredient) Drug/Non Drug Allergy documented on EMR Reaction Allergy Type Onset Date Status Tetanus (uncoded) Unknown Allergy Ac tive Iodine (uncoded) Unknown Allergy Act sobeida Septra (uncoded) Unknown Allergy Act sobeida PCN (uncoded) Unknown Allergy Active Substance with sulfonamide structure and antibacterial mechanism of action (substance) sulfa (uncoded) Unknown Allergy Active Reason For Referral [...] Status W/U Status Risk Notes Problem Constipation (09368914) Unspecified constipation (564.00) Active confirmed Problem Blood in stool (553515718) Blood in stool (578.1) Active confirmed Problem Digestive system symptom (065533516) Other symptoms involving digestive system (787.99) Active confirmed Plan Of Treatment Future Test Test Name Order Date COLONOSCOPY 04/15/2011 Insurance Providers Payer Name Payer Address Payer Phone Subscriber Number Group Number Insured Name Patient Relationship to Insured Coverage Start Date Coverage End Date [employer] [place] [address] [place] [address] [id number] LORENA YUN Self - patient is the insured Medical (General) History Medical History History ICD Code hypertension gout diabetes asthma he denies any history of DE, stroke, nor kidney disease Surgical History Surgery Date(Month/Year) hydrocele and orchiectomy wrist surgery surgery for a broken nose hemorrhoid surgery
--- OUTSIDE RECORDS SUMMARY | 2024-08-24 14:21 | XMS_ITS | Encounter Summary ---
Author Organization [facility] Address [address] [place] [address] Phone Care Team Providers Care Gallery Manager Name Role Phone Jyothi Stark [facility] Primary Care Provider Jyothi Stark [facility] Primary Care Provider Carlos Bullock MD Unavailable [phone] Carlos Bullock MD Primary Care Provider Jyothi Stark [facility] Primary Care Provider Jose D Almeida MD Unavailable Carlos Bullock MD Unavailable [phone] Conor Arroyo MD Unavailable [phone] Carlos Bullock MD Primary Care Provider [phone] Shaista Magaña [facility] Primary Care Provid er Reason for Referral * MRI/CAT Scan - Closed Specialty Diagnoses / Procedures Referred By Shakira pacheco Referred To Contact Radiology Diagnoses Arthrodesis status Procedures CT Lumbar Spine Radha Rojas PA Phone: tel: fax: mailto:[email or web address] Referral ID Status Reason Start Date Expiration Date Visits Re quested Visits Authorized [id number] Closed 05/06/2018 05/06/2019 1 1 Encounter Details Date Type Department Care Team (Late st Contact Info) Description 05/06/2018 Ancillary Orders Virtual Department [address] [place] [address] Radha Rojas PA [address] [place] [address] [email or web address] Arthrodesis status Social History Tobacco Use Types [...] Care Team (Late Contact Info) Description 08/03/2024 Procedure Pass [address] [address] 09/03/2024 4:00 PM EDT Appointment [address] [address] Shaista Magaña, MAE [address] [facility], [address] [place] [address] [email or web address] 01/04/2025 10:00 AM EDT Office Visit [facility] [address] [place] [address] [place] [address] Shaista Magaña, MAE [address] [facility], [address] [place] [address] documented as of this encounter Results * CT LUMBAR SPINE WITHOUT CONTRAST (05/11/2018 9:39 AM EST) Anatomical Region Laterality Modality L-spine Computed Tomogra phy 05/11/2018 11:4 6 AM EST Impressions 05/11/2018 7:26 PM EST Changes of posterior spinal fusion at L4-5 with intervertebral cage subsidence. ?? Mild retropulsion on the left contacts the descending nerve root. TOTAL CTDIvol: 46.50 mGy POS [id number] Edited by: Aubrie Alvarez on 05/11/2018 12:17 [...] body height. Milder subsidence into the inferior D1smxwrwgvl body. Very mild retropulsion which contacts the [...] descending nerveroot. TOTAL CTDIvol: 46.50 mGy POS [id number] Edited by: Aubrie Alvarez on 05/11/2018 12:17 PM Radha BANEGAS [facility] XSPECIALTY ORDERABLE S Final Result documented in this encounter Visit Diagnoses Diagnosis Arthrodesis status Arthrodesis status documented in this encounter Care Teams Gallery Manager Relationship Specialty Start Date End Date Jyothi Stark CNP [address] [place] [address] [email or web address] PCP - General Internal Medicine 12/01/17 03/08/19 Jyothi Stark CNP [address] [place] [address] PCP - General Internal Medicine 03/09/19 11/16/19 Carlos Bullock MD [address] [place] [address] PCP - General Internal Medicine 11/17/19 11/21/19 Jyothi Stark CNP [address] [place] [address] [email or web address] PCP - General Internal Medicine 11/22/19 09/08/22 Carlos Bullock MD [address] [place] [address] [email or web address] PCP - General Internal Medicine 09/09/22 11/10/22 Shaista Magaña CNP [address] [place] [address], 2nd [place] [address] [email or web address] PCP - General Family Medicine 11/11/22 Carlos Bullock MD [address] [place] [address] [email or web address] Insurance Assigned Provider 07/13/19 04/14/20 Jose D Almeida MD [address] [place] [address] Ophthalmology 12/05/20 Carlos Bullock MD [address] [place] [address] [email or web address] Insurance Assigned Provider 07/11/23 04/11/24 Conor Arroyo MD [address] [place] [address] Drive [address] [place] [address] Interventional Pain Management 07/16/22 documented as of this encounter Additional Source Comments The information contained in this document represents components of the legal health record. It is not the complete legal health record.[facility]
--- OUTSIDE RECORDS SUMMARY | 2024-08-24 14:22 | XMS_ITS | Encounter Summary ---
Author Organization [facility] Address [address] [facility] [address] [place] [address] Phone Care Team Providers Care Trailers And Motor Homes Salesperson Name Role Phone Jyothi Stark [facility] Primary Care Provider Jyothi Stark MUSCULOSKELETAL PHYSICIAN Primary Care Provider Carlos Bullock MD Unavailable [phone] Carlos Bullock MD Primary Care Provider [phone] Jyothi Stark CNP Primary Care Provider Jose D Almeida MD Unavailable Carlos Bullock MD Unavailable [phone] Conor Arroyo MD Unavailable [phone] Carlos Bullock MD Primary Care Provider [phone] Shaista Magaña [facility] Primary Care Provid er Encounter Details Date Type Department Care Team (Late st Contact Info) Description 12/14/2018 Procedure Pass [place] Admitting Dept - Virtual Department [address] [place] [address] Social History Tobacco Use Types Packs/Day Years [...] st Contact Info) Description 08/03/2024 Procedure Pass [address] [address] 09/03/2024 4:00 PM EDT Appointment [address] [place] [address] Shaista Magaña, MAE [address] [facility], 2nd [place] [address] 01/04/2025 10:00 AM EDT Office Visit [facility] [address] [place], [place] [address] [address] Shaista Magaña, MAE [address] [facility], 2nd [place] [address] documented as of this encounter Visit Diagnoses Not on filedocumented in this encounter Care Teams [employer] Salesperson Relationship Specialty Start Date End Date Jyothi Stark CNP [address] [place] [address] PCP - General Internal Medicine 12/01/17 03/08/19 Jyothi Stark CNP [address] [place] [address] PCP - General Internal Medicine 03/09/19 11/16/19 Carlos Bullock MD [address] [place] [address] PCP - General Internal Medicine 11/17/19 11/21/19 Jyothi Stark, MAE [address] [place] [address] PCP - General Internal Medicine 11/22/19 09/08/22 Carlos Bullock MD [address] [place] [address] PCP - General Internal Medicine 09/09/22 11/10/22 Shaista Magaña CNP [address] [place] [address], 2nd [place] [address] [email or web address] PCP - General Family Medicine 11/11/22 Carlos Bullock MD [address] [place] [address] Insurance Assigned Provider 07/13/19 04/14/20 Jose D Almeida MD [address] [place] [address] Ophthalmology 12/05/20 Carlos Bullock MD [address] [place] [address] Insurance Assigned Provider 07/11/23 04/11/24 Conor Arroyo MD [address] [place] [address] [place] [phone] Interventional Pain Management 07/16/22 documented as of this encounter Additional Source Comments The information contained in this document represents components of the legal health record. It is not the complete legal health record.[facility]
--- OUTSIDE RECORDS SUMMARY | 2024-08-24 14:22 | XMS_ITS | Encounter Summary ---
Author Organization [facility] Address [address] [place] [address] Phone Care Team Providers Care Recycling Center Operator Name Role Phone Vijay Hampton MD Primary Care Provider [phone] Jyothi Stark CNP Primary Care Provider Jyothi Stark ELECTRICAL INSPECTOR Primary Care Provider Carlos Bullock MD Unavailable [phone] Carlos Bullock MD Primary Care Provider Jyothi Stark CNP Primary Care Provider Jose D Almeida MD Unavailable Carlos Bullock MD Unavailable [phone] Conor Arroyo MD Unavailable [phone] Carlos Bullock MD Primary Care Provider Shaista Magaña [facility] Primary Care Provid er Encounter Details Date Type Department Care Team (Latest Contact Info) Description 07/21/2017 Ancillary Orders [facility], X-Ray - [address] [address] Radha Rojas PA [address] [place] [address] [email or web address] Lumbar radiculopathy; Spinal stenosis of lumbar region [...] st Contact Info) Description 08/03/2024 Procedure Pass [address] [address] 09/03/2024 4:00 PM EDT Appointment [address] [address] Shaista Magaña, MAE [address] [place] [address], 2nd [place] [address] [email or web address] 01/04/2025 10:00 AM EDT Office Visit [facility] [address] [place] [address] [place] [address] Shaista Magaña, MAE [address] [place] [address], [address] [place] [address] [email or web address] documented as of this encounter Results * [...] - [id number] Radha BANEGAS IMG XR SPINE Final Resul t documented in this encounter Visit Diagnoses Diagnosis Lumbar radiculopathy Thoracic or lumbosacral neuritis or radiculitis, unspecified Spinal stenosis of lumbar region without neurogenic claudication Lumbar radiculopathy Thoracic or lumbosacral neuritis or radiculitis, unspecified Spinal stenosis of lumbar region without neurogenic claudication documented in this encounter Care Teams Recycling Center Operator Relationship Specialty Start Date End Date Vijay Hampton MD [address] [place] [address] PCP - General Internal Medicine 04/29/17 11/30/17 Jyothi Stark CNP [address] [place] [address] [email or web address] PCP - General Internal Medicine 12/01/17 03/08/19 Jyothi Stark CNP [address] [place] [address] [email or web address] PCP - General Internal Medicine 03/09/19 11/16/19 Carlos Bullock MD [address] [place] [address] [email or web address] PCP - General Internal Medicine 11/17/19 11/21/19 Jyothi Stark CNP [address] [place] [address] [email or web address] PCP - General Internal Medicine 11/22/19 09/08/22 Carlos Bullock MD [address] [place] [address] [email or web address] PCP - General Internal Medicine 09/09/22 11/10/22 Shaista Magaña CNP [address] [place] [address], 2nd [place] [address] [email or web address] PCP - General Family Medicine 11/11/22 Carlos Bullock MD [address] [place] [address] [email or web address] Insurance Assigned Provider 07/13/19 04/14/20 Jose D Almeida MD [address] [place] [address] Ophthalmology 12/05/20 Carlos Bullock MD [address] [place] [address] [email or web address] Insurance Assigned Provider 07/11/23 04/11/24 Conor Arroyo MD [address] [place] [address] Drive [address] [place] [address] Interventional Pain Management 07/16/22 documented as of this encounter Additional Source Comments The information contained in this document represents components of the legal health record. It is not the complete legal health record.[facility]
--- OUTSIDE RECORDS SUMMARY | 2024-08-24 14:22 | XMS_ITS | Encounter Summary ---
Author Organization [facility] Address [address] [facility] [address] [place] [address] Phone Care Team Providers Care Tennis Racket Repairer Name Role Phone Unavailable Primary Care Provider Unavailabl e Reason for Visit * MRI/CAT Scan - Closed Specialty Diagnoses / Procedures Referred By Contac t Referred To Contact Procedures MRI Spine (Bone) Outside (No Interpretation) System, Provider Not In, [facility] [address] [address] Referral ID Status Reason Start Date Expiration Date Visits Re quested Visits Authorized [id number] Closed 06/15/2017 06/15/2018 1 1 Encounter Details Date Type Department Care Team (Late st Contact Info) Description 01/22/2016 Hospital Encounter [facility],Outside Imaging [address] [place] [address] System, Provider Not In, [facility] [address] [address] Social History Tobacco Use Types Packs/Day Years [...] st Contact Info) Description 08/03/2024 Procedure Pass [address] [address] 09/03/2024 4:00 PM EDT Appointment [address] [address] Shaista Magaña, RESPIRATORY MANAGER [address] [facility], 2nd Floor [place] [address] 01/04/2025 10:00 AM EDT Office Visit [facility] [address] [place] [address] Shaista Magaña, MAE 170 [facility], 2nd Floor [place] [address] [email or web address] [...]
--- OUTSIDE RECORDS SUMMARY | 2024-08-24 14:22 | XMS_ITS | Encounter Summary ---
Author Organization [facility] Address [address] [place] [address] Phone Care Team Providers Care Sales Program Manager Name Role Phone Jyothi Stark [facility] Primary Care Provider Jose D Almeida MD Unavailable Carlos Bullock MD Unavailable [phone] Conor Arroyo MD Unavailable [phone] Carlos Bullock MD Primary Care Provider [phone] Shaista Magaña [facility] Primary Care Provid er Encounter Details Date Type Department Care Team (Late st Contact Info) Description 08/09/2021 Procedure Pass [address] [place] [address] Social History Tobacco Use Types Packs/Day Years [...] st Contact Info) Description 08/03/2024 Procedure Pass [address] [address] 09/03/2024 4:00 PM EDT Appointment [address] [address] Shaista Magaña, MAE [address] [place] [address], [address] [place] [address] 01/04/2025 10:00 AM EDT Office Visit [facility] [address] [place] [address] [place] [address] Shaista Magaña CNP [address] [place] [address], [address] [place] [address] documented as of this encounter Visit Diagnoses Not on filedocumented in this encounter Additional Health Concerns Assessment Noted Time PHQ-2 Depression Total Score: 1 06/16/19 22 11:12 AM EST documented as of this encounter Care Teams Sales Program Manager Relationship Specialty Start Date End Date Jyothi Stark CNP [address] [place] [address] PCP - General Internal Medicine 11/22/19 09/08/22 Carlos Bullock MD [address] [place] [address] PCP - General Internal Medicine 09/09/22 11/10/22 Shaista Magaña CNP [address] [place] [address], 2nd [place] [address] [email or web address] PCP - General Family Medicine 11/11/22 Jose D Almeida MD [address] [place] [address] Ophthalmology 12/05/20 Carlos Bullock MD [address] [place] [address] [email or web address] Insurance Assigned Provider 07/11/23 04/11/24 Conor Arroyo MD [address] [facility] [address] [place] [address] Interventional Pain Management 07/16/22 documented as of this encounter Additional Source Comments The information contained in this document represents components of the legal health record. It is not the complete legal health record.[facility]
--- OUTSIDE RECORDS SUMMARY | 2024-08-24 14:22 | XMS_ITS | Clinical Summary ---
Author Organization [facility] Address [address] [facility] [address] [place] [address] Phone Care Team Providers Care Senior Sales Consultant Name Role Phone Jose D Almeida MD Unavailable Conor Arroyo MD Unavailable [phone] Shaista Magaña [facility] Primary Care Provid er Allergies Active Allergy Reactions Criticality Noted Date Comments Colchicine Diarrhea Low 04/22/2018 Iodine Hives Medium 06/02/2017 Other 12/04/2023 Other Reaction(s): SPLENDA Penicillins Rash Low 06/02/2017 Sulfamethoxazole-Trimet hoprim Hives Medium 06/02/2017 Shellfish Containing Products Hives Medium 06/02/2017 Wfrcrlh-Vst-Vda Reductase Inhibitors Other (See Comments) Medium 06/02/2017 Muscle pain Sucralose Diarrhea Low 10/20/2018 Sulfa (Sulfonamide Antibiotics) Unknown 07/03/2023 Tetanus And Diphther. Tox (Pf) Rash Low 06/02/2017 Tetanus And Diphtheria Toxoids Rash Low 10/23/2021 Medications clotrimazole (LOTRIMIN) 1 % cream Apply topically daily. Active cholecalciferol (VITAMIN D3) 1,000 unit tablet Take 1,000 Units by mouth daily. Active miconazole 2 % powder Apply 1 application topically as needed for itching. Active ASCORBIC ACID WITH FREDERIC HIPS 500 MG tablet Take 500 mg by mouth 2 (two) times a day. 3 018 Active VITAMIN K2 ORAL Take 100 mcg by mouth daily. Active VITAMIN B-12 1000 MCG tabletIndication s:B12 deficiency Take 1 tablet (1,000 mcg total) by mouth daily. 90 tablet 3 020 Active arnica 20 % Tinc Apply topically. Active aspirin (ASPIR-81) 81 MG EC tablet Take 81 mg by mouth daily. Active clindamycin (CLEOCIN T) 1 % lotionIndication s:Nipple infection Apply topically 2 (two) times a day. To chest 60 mL 1 024 Active metFORMIN (GLUCOPHAGE) 500 MG tabletIndication s:Diabetes mellitus take 1 tablet by mouth twice a day with food 180 tablet 3 024 Active montelukast (SINGULAIR) 10 mg tabletIndication s:Asthma Take 1 tablet (10 mg total) by mouth nightly at bedtime. 90 tablet 3 024 Active ketoconazole (NIZORAL) 2 % shampooIndicatio ns:Itchy scalp Apply topically 2 (two) times a week. Apply to damp skin, lather, leave on 5 minutes, and rinse. 120 mL 024 Active albuterol 90 mcg/actuation inhalerIndicatio ns:Mild persistent asthma without complication Inhale 2 puffs into the lungs every 4 (four) hours as needed for wheezing or shortness of breath/dyspnea . 18 g 3 024 Active sildenafiL (VIAGRA) 50 mg tabletIndication s:Erectile dysfunction due to diseases classified elsewhere Take 1 tablet (50 mg total) by mouth daily as needed. 18 tablet 1 024 Active oxyCODONE 5 MG immediate release tabletIndication s:Acute idiopathic gout of left ankle Take 0.5 tablets (2.5 mg total) by mouth every 6 (six) hours as needed (severe joint pain/gout flare). 5 tablet 024 Active fluticasone propion-salmeter oL (WIXELA INHUB) 250-50 mcg/dose DISKUSIndication s:Asthma INHALE 1 PUFF BY MOUTH TWICE A DAY 60 each 11 024 Active lisinopril (PRINIVIL,ZESTRI L) 40 MG tabletIndication s:Essential hypertension Take 1 tablet (40 mg total) by mouth daily. 90 tablet 025 Active chlorthalidone (HYGROTON) 25 MG tabletIndication s:Essential hypertension Take 1 tablet (25 mg total) by mouth daily. 90 tablet 025 Active gabapentin (NEURONTIN) 400 MG capsuleIndicatio ns:Lumbosacral spondylolysis TAKE 1 CAPSULE BY MOUTH FOUR TIMES A DAY 360 capsule 025 Active LORazepam (ATIVAN) 1 MG tabletIndication s:IRVING (generalized anxiety disorder) TAKE 1 TABLET BY MOUTH EVERY 8 HOURS NEEDED FOR ANXIETY 84 tablet 025 Active carbidopa-levodo pa (SINEMET) 25-100 mg per tabletIndication s:Tremor Take 1 tablet by mouth 3 (three) times a day. 270 tablet 025 Active predniSONE (DELTASONE) 10 MG tabletIndication s:Acute idiopathic gout of left ankle Take 4 tablets (40 mg total) by mouth daily for 3 days, THEN 3 tablets (30 mg total) daily for 1 day, THEN 2 tablets (20 mg total) daily for 1 day, THEN 1 tablet (10 mg total) daily for 1 day. As needed for gout flares, start at first sign.. 20 tablet 2 025 2024 Discontinued(T herapy Completed/No Longer Necessary) carbidopa-levodo pa (SINEMET) 25-100 mg per tabletIndication s:Tremor Take 1 tablet by mouth 2 (two) times a day for 14 days, THEN 1 tablet 3 (three) times a day for 14 days. 70 tablet 025 2024 Discontinued Active Problems Problem Noted Date Diagnosed [...] primary rami nerve radiofrequency ablation, done through [facility] pain management clinic. Unfortunately, he does not report any symptom improvement following the procedure. - Continues w/ gabapentin 400mg QID. - Scheduled for follow-up with [facility] pain clinic tomorrow. Urinary urgency 07/06/2024 Assessment [...] - Referral to the neurology group at [facility] will be made. - Trial [...] for further evaluation, he would prefer the [facility] office if possible. Itchy scalp 12/04/2023 [...] success. - Followed by pain management @ [facility] (Dr Arrooy). Assessment & Plan (07/29/2024 8:12 AM EDT): [...] a back brace. Under the care of [facility]. Feels he has not fully [...] sacrum d/t recent fall. Pre-RFA scheduled for 4/4 Left leg swelling 02/24/2022 12/01/2022 Insomnia 05/12/2019 [...] Description 08/03/2024 8:30 AM EDT Office Visit [address] [place] [address] Shaista Magaña CNP Parkinsonism, unspecified Parkinsonism type (Primary Dx); Tremor; Decreased GFR; Stage 3a chronic kidney disease; Primary hypertension; Cluneal neuropathy; Chronic bilateral low back pain without sciatica 07/26/[address] [place] [address] Shaista Magaña CNP Med Change Request 07/25/[address] [place] [address] Shaista Magaña CNP Medication Refill 07/16/[address] [place] [address] Madhav Garcia, DO Medication Refill 07/06/2024 6:28 PM EDT - 07/06/2024 11:59 PM EDT Hospital Encounter [facility] Specimen Processing [address] [place] [address] Shaista Magaña CNP Discharge Disposition: Home or Self Care 07/06/2024 10:30 AM EDT Office Visit [facility]reen[facility] [address] [place] [address] Shaista Magaña CNP Encounter for health maintenance [...] - 07/06/2024 6:27 PM EDT Hospital Encounter [facility] [address] [place] [address] Shaista Magaña CNP Discharge Disposition: Home or Self Care 07/05/2024 Telephone Nuha Bertrand [address] [place] [address] Ilda Anglin, RN Results 07/04/2024 Orders Only Nuha Bertrand [address] [place] [address] Shaista Magaña CNP Decreased GFR (Primary Dx); Stage 3a chronic kidney disease 06/30/2024 2:38 PM EDT - 06/30/2024 11:59 PM EDT Hospital Encounter [facility] [place] [address] Shaista Magaña CNP Discharge Disposition: Home or Self Care 06/26/2024 Refill Nuha Bertrand [address] [place] [address] Shaista Magaña CNP Medication Refill 06/08/2024 Refill [facility] [address] [place] [address] Shaista Magaña CNP Medication Refill 05/28/2024 Refill [facility] [address] [place] [address] Toma Gordon MD Medication Refill from Last 3 Months Immunizations Immunization Administration Dates Next Due COVID-19 (Pre-01/26) Isabell [...] st Contact Info) Description 08/03/2024 Procedure Pass [address] [address] 09/03/2024 4:00 PM EDT Appointment [address] [address] Shaista Magaña, MAE 170 [facility], [address] [place] [address] [email or web address] 01/04/2025 10:00 AM EDT Office Visit [facility] [place] [facility] [address] [place] [address] [place] [address] Shaista Magaña, MAE 170 [facility], [address] [place] [address] Health Maintenance Due Date Last Done Comments [...] age to complete this topic MENINGOCOCCAL VACCINES (B) Aged Out N o longer eligible based on patient's age to complete this topic Medical Devices Implanted Type Area Inspector Machine Parts Device Identifier Shelf Expiration Date Model / Serial / Lot Graft Bone 1 To 8mm 30 Readi Allo Chip Cancellous Crushed Void Filler Preservon - [id number] Implanted:Qty : 1 on 12/14/2018 by Armond Maldonado MD at [facility] BONETISSUE Spine Lumbar [employer] 09/13/2023 [id number] / [id number] / Set Screw 5.5mm Spine Cd Horizon Legacy Ss Break Off - [id number] Implanted:Qty : 4 on 12/14/2018 by Armond Maldonado MD at [facility] NODATA Spine Lumbar [employer] [id number] / / Screw Bone 50x6.5mm Spine Horizon Legacy Spinal System Ti Multiaxial - [id number] Implanted:Qty : 1 on 12/14/2018 by Armond Maldonado MD at [facility] NODATA Spine Lumbar [employer] [id number] / / Spacer Capstone Peek 15x32 - [id number] Implanted:Qty : 1 on 06/30/2017 by Armond Maldonado MD at [facility] N/A: Back [employer] 05/09/2018 [id number] / / [id number] Set Screw Sextant - [id number] Implanted:Qty : 4 on 06/30/2017 by Armond Maldonado MD at [facility] N/A: Back [employer] [id number] / / Description:L4/5 Screw Spine Sextant 6.5x50mm - [id number] Implanted:Qty : 2 on 06/30/2017 by Armond Maldonado MD at [facility] N/A: Back [employer] [id number] / / Description:L4/5 Screw Bone 7.5x50mm Spine Multi Axial Cannulated Legacy - [id number] Implanted:Qty : 2 on 06/30/2017 by Armond Maldonado MD at [facility] N/A: Back [employer] [id number] / / Description:L4/5 Jaguar Spinal Sextant 5.5x40mm - [id number] Implanted:Qty : 2 on 06/30/2017 by Armond Maldonado MD at [facility] N/A: Back [employer] [id number] / / Screw Bone 7.5x50mm Spine Horizon Legacy Spinal System Ti Multiaxial - [id number] Implanted:Qty : 3 on 12/14/2018 by Armond Maldonado MD at [facility] Spine Lumbar [employer] [id number] / / Spine Jaguar 5.5mmx40 Spinal Legacy Titanium Prebent Curved Thoracic Lumbar Sacral - [id number] Implanted:Qty : 1 on 12/14/2018 by Armond Maldonado MD at [facility] Spine Lumbar [employer] [id number] / / Spine Jaguar 5.5x45mm Legacy Titanium Prebent Thoracic Lumbar Sacral - [id number] Implanted:Qty : 1 on 12/14/2018 by Armond Maldonado MD at [facility] Spine Lumbar [employer] [id number] / / Procedures Procedure Name Priority Date/Time [...] EDT 07/06/2024 6:30 PM EDT Shaista Magaña EYE TECHNICIAN URINE ORDERABLES Fin al Result Performing Organization Address City/State/[facility] Co de Phone Number [address] [address] * (ABNORMAL) Renal panel (07/06/2024 10:02 AM [...] AM EDT 07/06/2024 10:05 AM EDT Shaista Bragaelizabeth EYE TECHNICIAN LAB BLOOD ORDERABLES Final Result Performing Organization Address [facility]/ZIP Co de Phone Number [address] [address] * (ABNORMAL) Microalbumin/creatinine ratio, random urine (06/30/2024 2:56 PM EDT) URINE MICROALBUMIN 2.6(H) 0 - 2.3 mg/dL [facility] URINE CREATININE 125 mg/dL [facility] MICROALB/CRE RATIO 20.8(H) 0 - 20 mg/g Cre [facility] Urine (Urine) 06/30/2024 2:5 6 PM EDT 06/30/2024 2:58 PM EDT Shaista Bragahipolitounique [facility] URINE ORDERABLES Fin al Result Performing Organization Address [facility]/ZIP Co de Phone Number [address] [address] * (ABNORMAL) Uric acid (06/30/2024 2:38 PM EDT) URIC ACID 8.9(H) 2.4 - 7.0 mg/dL [facility] Blood 06/30/2024 2:38 PM EDT 06/30/2024 2:45 PM EDT Shaista Bragaelizabeth [facility] LAB BLOOD ORDERABLES Final Result Performing Organization Address City/[facility]/ZIP Co de Phone Number [address] [address] * (ABNORMAL) Hemoglobin A1c (06/30/2024 2:38 PM EDT) HEMOGLOBIN A1C 6.2(H) 4.3 - 5.8 % [facility] Blood 06/30/2024 2:38 PM EDT 06/30/2024 2:45 PM EDT Shaista Magaly Magaña EYE TECHNICIAN LAB BLOOD ORDERABLES Final Result Performing Organization Address [facility] Co de Phone Number [address] [address] * Lipid panel (06/30/2024 2:38 PM EDT) HDL 41 mg/dL [facility] Comment: ? Interpretation <40 mg/dL: Low HDL cholesterol (major risk factor for CHD) Greater than or equal to 60 mg/dL: High HDL cholesterol ( negative risk factor for CHD) HDL - cholesterol is affected by a number of factors, e.g. smoking, excerise, hormones, sex and age. CHOLESTEROL 157 0 - 240 mg/dL [facility] TRIGLYCERIDES 147 30 - 160 mg/dL [facility] LDL 87 50 - 129 mg/dL [facility] Comment: LDL levels in terms of risk for coronary heart disease: <100 mg/dL: Optimal 100-129 mg/dL: Near or above optimal 130-159 mg/dL: Borderline high 160-189 mg/dL: High >190 mg/dL: Very High CARDIAC RISK RATIO 3.8 3.4 - 5.0 [facility] Blood 06/30/2024 2:38 PM EDT 06/30/2024 2:45 PM EDT Shaista Magaly Magaña [facility] LAB BLOOD ORDERABLES Final Result Performing Organization Address City/[facility]/ZIP Co de Phone Number [address] [address] * (ABNORMAL) Basic metabolic panel (06/30/2024 2:38 PM EDT) SODIUM 143 133 - 146 mmol/L [facility] CHLORIDE 107 96 - 108 mmol/L [facility] POTASSIUM 5.4(H) 3.3 - 5.1 mmol/L [facility] CO2 27 21 - 35 mmol/L [facility] BUN 30(H) 6 - 19 mg/dL [facility] CREATININE 2.70(H) 0.5 - 1.5 mg/dL [facility] GLUCOSE 96 70 - 99 mg/dL [facility] CALCIUM 9.3 8.4 - 10.3 mg/dL [facility] EGFR 24(L) >59 mL/min/1.7 3m2 [facility] Comment:Estimated glomerular filtration rate calculated using the CKD-EPI refit equation. ANION GAP 14 10 - 20 mmol/L [facility] Blood 06/30/2024 2:38 PM EDT 06/30/2024 2:45 PM EDT Shaista Magaly Magaña EYE TECHNICIAN LAB BLOOD ORDERABLES Final Result Performing Organization Address City/[facility]/ZIP Co de Phone Number [address] [address] * DIABETES EYE EXAM FOR RESULT ENTRY ONLY (02/17/2024 11:31 AM EST) Historical Provider HEALTH MAINTENANCE Edited Result - Final * Hepatitis C antibody, qualitative (11/28/2022 9:45 AM EDT) HCV NON-REACTIV E NON-REACTI VE [facility] Blood 11/28/2022 9:45 AM EDT 11/28/2022 9:49 AM EDT Jyothi Stark EYE TECHNICIAN LAB BLOOD ORDERABLES F inal Result Performing Organization Address City/[facility]/ZIP Co de Phone Number [address] [address] * COLONOSCOPY FOR RESULT ENTRY ONLY (11/17/2019) Historical Provider HEALTH MAINTENANCE Edited Result - Final * US Aorta Duplex Complete (05/23/2019 8:06 AM EST) Anatomical Region Laterality Modality Aorta Ultrasound 05/23/2019 8:38 AM EST Impressions 05/23/2019 8:54 AM EST No aneurysmal dilatation/ectasia of the abdominal aorta demonstrated on today's images. POS - [id number] Narrative 05/23/2019 8:54 AM EST EXAM: ??US [...] abdominal aorta demonstrated ontoday's images. POS - [id number] us Jyothi Fragoso [place] [facility] IMG US ABDOMEN Final Result from Last 3 Months or Most Recently Relevant to Health Maintenance Insurance MEDICARE PART A & B [facility] MEDICARE SUPPLEMENT MEDICARE PART A & B [facility] MEDICARE SUPPLEMENT MEDICARE PART A & B [facility] [place] [address] MEDICARE PART A & B [facility] [place] [address] MEDICARE PART A & B Member Subscriber Plan / Payer (Ef fective 2018-Present) Name:Keith Camacho Member ID:[id number] Relation to Subscriber:Self Name:Keith Camacho Subscriber ID:[id number] Payer ID:[id number] Group ID:Not on file Type:Medicare Address: [place] [address] [place] MEDICARE SUPPLEMENT MEDICARE PART A & B [employer] MEDICARE SUPPLEMENT MEDICARE PART A & B [place] MED[place]ARE SUPPLE[place] MEDICARE PART A & B [place] MEDICARE SUPPLE[place] MEDICARE PART A & B [facility] EXTENSION MEDICARE SUPPLEMENT Advance Directives For more information, please contact: [phone] (9AM - 5PM [facility], Thursday-Thursday) * Full Code (Presumed) (Latest Code Status on File) Date Activated Date Inactivated Comments 12/14/2018 5:24 PM 12/17/2018 4:15 PM * Full Code (Presumed) Date Activated Date Inactivated Comments 06/30/2017 6:32 PM 07/02/2017 2:57 PM Care Teams Senior Sales Consultant Relationship Specialty Start Date End Date Shaista Magaña CNP [address] [place] [address], [address] [place] [address] PCP - General Family Medicine 11/11/22 Jose D Almeida MD Ophthalmology 12/05/20 Conor Arroyo MD [address] [place] [address] [place] [address] Interventional Pain Management 07/16/22 Additional Source Comments The information contained in this document represents components of the legal health record. It is not the complete legal health record.[facility]
--- OUTSIDE RECORDS SUMMARY | 2024-08-24 14:22 | XMS_ITS | Encounter Summary ---
Author Organization [facility] Address [address] [address] Phone Care Team Providers Care Transit Department Clerk Name Role Phone Vijay Hampton MD Primary Care Provider Jyothi Stark CNP Primary Care Provider Jyothi Stark CNP Primary Care Provider Carlos Bullock MD Unavailable [phone] Carlos Bullock MD Primary Care Provider [phone] Jyothi Stark CNP Primary Care Provider Jose D Almeida MD Unavailable Carlos Bullock MD Unavailable [phone] Conor Arroyo MD Unavailable [phone] Carlos Bullock MD Primary Care Provider [phone] Shaista Magaña [facility] Primary Care Provid er Encounter Details Date Type Department Care Team (Late st Contact Info) Description 06/30/2017 Procedure Pass OR Admitting Dept - Virtual Department 30 [place] [address] Social History Tobacco Use Types [...] Contact Info) Description 08/03/2024 Procedure Pass [address] [address] 09/03/2024 4:00 PM EDT Appointment [address] [address] Shaista Magaña, MAE 170 [facility], 2nd [place] [address] 01/04/2025 10:00 AM EDT Office Visit [facility] [address] [place] [address] Shaista Magaña, MAE 170 [facility], [address] [place] [address] documented as of this encounter Visit Diagnoses Not on filedocumented in this encounter Care Teams Transit Department Clerk Relationship Specialty Start Date End Date Vijay Hampton MD [address] [place] [address] PCP - General Internal Medicine 04/29/17 11/30/17 Jyothi Stark CNP 40 [place] [address] PCP - General Internal Medicine 12/01/17 03/08/19 Jyothi Stark CNP [address] [place] [address] [email or web address] PCP - General Internal Medicine 03/09/19 11/16/19 Carlos Bullock MD 40 [place] [address] [email or web address] PCP - General Internal Medicine 11/17/19 11/21/19 Jyothi Stark, MAE 40 [place] [address] [email or web address] PCP - General Internal Medicine 11/22/19 09/08/22 Carlos Bullock MD [address] [place] [address] [email or web address] PCP - General Internal Medicine 09/09/22 11/10/22 Shaista Magaña CNP [address] [place] [address], 2nd [place] [address] [email or web address] PCP - General Family Medicine 11/11/22 Carlos Bullock MD [address] [place] [address] [email or web address] Insurance Assigned Provider 07/13/19 04/14/20 Jose D Almeida MD 40 [place] [address] [email or web address] Ophthalmology 12/05/20 Carlos Bullock MD 40 [place] [address] [email or web address] Insurance Assigned Provider 07/11/23 04/11/24 Conor Arroyo MD [address] [place] [address] Interventional Pain Management 07/16/22 documented as of this encounter Additional Source Comments The information contained in this document represents components of the legal health record. It is not the complete legal health record.[facility]
--- OUTSIDE RECORDS SUMMARY | 2024-08-24 14:22 | XMS_ITS | Encounter Summary ---
Author Organization [facility] Address [address] [address] Phone Care Team Providers Care Marine Reporter Name Role Phone Unknown, Unknown Primary Care Provider Vijay Zafar MD Primary Care Provider [phone] Jyothi Stark CNP Primary Care Provider Jyothi Stark [facility] Primary Care Provider Carlos Bullock MD Unavailable Carlos Bullock MD Primary Care Provider Jyothi Stark [facility] Primary Care Provider Jose D Almeida MD Unavailable Carlos Bullock MD Unavailable [phone] Conor Arroyo MD Unavailable Carlos Bullock MD Primary Care Provider [phone] Shaista Magaña [facility] Primary Care Provid er Encounter Details Date Type Department Care Team (Late st Contact Info) Description 04/15/2017 Ancillary Orders Virtual Department 30 [place], [place] [phone] Armond Maldonado MD 30 [place], [place] [phone] [email or web address] Acute low back pain, unspecified back pain [...] st Contact Info) Description 08/03/2024 Procedure Pass [address] [address] 09/03/2024 4:00 PM EDT Appointment [address] [address] Shaista Magaña, MAE 170 [facility], 2nd [place] [address] [email or web address] 01/04/2025 10:00 AM EDT Office Visit [facility] [address] [place] [address] [place] [address] Shaista Magaña, AIR CARGO SPECIALIST 170 [facility], 2nd [place] [address] [email or web address] documented as of this encounter Results * [...] Other degenerative changes as described. POS - [id number] Edited by: Malu Woodson on 04/17/2017 8:49 [...] Other degenerative changes as described. POS - [id number] Edited by: Malu Woodson on 04/17/2017 8:49 PM Armond Maldonado MD IMG MR XSPECIALTY Final R esult documented in this encounter Visit Diagnoses Diagnosis [...] foot documented in this encounter Care Teams Marine Reporter Relationship Specialty Start Date End Date Unknown, Unknown, MD PCP - General 04/15/17 04/28/17 Vijay Hampton MD [address] [place] [address] PCP - General Internal Medicine 04/29/17 11/30/17 Jyothi Stark CNP 40 [place] [address] PCP - General Internal Medicine 12/01/17 03/08/19 Jyothi Stark CNP 40 [place] [address] PCP - General Internal Medicine 03/09/19 11/16/19 Carlos Bullock MD 40 [place] [address] PCP - General Internal Medicine 11/17/19 11/21/19 Jyothi Stark CNP 40 [place] [address] PCP - General Internal Medicine 11/22/19 09/08/22 Carlos Bullock MD 40 [place] [address] PCP - General Internal Medicine 09/09/22 11/10/22 Shaista Magaña CNP [address] [place] [address], 2nd [place] [address] [email or web address] PCP - General Family Medicine 11/11/22 Carlos Bullock MD 40 [place] [address] [email or web address] Insurance Assigned Provider 07/13/19 04/14/20 Jose D Almeida MD 40 [place] [address] [email or web address] Ophthalmology 12/05/20 Carlos Bullock MD [address] [place] [address] [email or web address] Insurance Assigned Provider 07/11/23 04/11/24 Conor Arroyo MD [address] [place] [address] Drive [address] [place] [address] Interventional Pain Management 07/16/22 documented as of this encounter Additional Source Comments The information contained in this document represents components of the legal health record. It is not the complete legal health record.[facility]
--- OUTSIDE RECORDS SUMMARY | 2024-08-24 14:22 | XMS_ITS | Encounter Summary ---
Author Organization [facility] Address [address] [address] Phone Care Team Providers Care Simulation Developer Name Role Phone Vijay Hampton MD Primary Care Provider Jyothi Stark CNP Primary Care Provider Jyothi Stark CNP Primary Care Provider Carlos Bullock MD Unavailable [phone] Carlos Bullock MD Primary Care Provider [phone] Jyothi Stark CNP Primary Care Provider Jose D Almeida MD Unavailable Carlos Bullock MD Unavailable [phone] Conor Arroyo MD Unavailable [phone] Carlos Bullock MD Primary Care Provider [phone] Shaista Magaña [facility] Primary Care Provid er Reason for Referral * MRI/CAT Scan - Closed Specialty Diagnoses / Procedures Referred By Contac t Referred To Contact Procedures MRI Spine (Bone) Outside (No Interpretation) System, Provider Not In, PhD [address] [address] Referral ID Status Reason Start Date Expiration Date Visits Re quested Visits Authorized [id number] Closed 06/15/2017 06/15/2018 1 1 Encounter Details Date Type Department Care Team (Late st Contact Info) Description 06/15/2017 Ancillary Orders [facility] [address] [place] [address] System, Provider Not In, PhD Partners [address] [address] Social History Tobacco Use Types Packs/Day Years [...] (Late Contact Info) Description 08/03/2024 Procedure Pass [address] [address] 09/03/2024 4:00 PM EDT Appointment [address] [address] Shaista Magaña, FIRMWARE ENGINEER [address] [place] [address], [address] [place] [address] 01/04/2025 10:00 AM EDT Office Visit [facility] [address] [place] [address] [place] [address] Shaista Magaña, FIRMWARE ENGINEER [address] [place] [address] documented as of this encounter Results * [...] on filedocumented in this encounter Care Teams Simulation Developer Relationship Specialty Start Date End Date Vijay Hampton MD [address] [place] [address] PCP - General Internal Medicine 04/29/17 11/30/17 Jyothi Stark CNP 40 [place] [address] PCP - General Internal Medicine 12/01/17 03/08/19 Jyothi Stark CNP 40 [place] [address] PCP - General Internal Medicine 03/09/19 11/16/19 Carlos Bullock MD 40 [place] [address] PCP - General Internal Medicine 11/17/19 11/21/19 Jyothi Stark CNP 40 [place] [address] PCP - General Internal Medicine 11/22/19 09/08/22 Carlos Bullock MD 40 [place] [address] PCP - General Internal Medicine 09/09/22 11/10/22 Shaista Magaña CNP [address] [place] [address], 2nd [place] [address] [email or web address] PCP - General Family Medicine 11/11/22 Cralos Bullock MD 40 [place] [address] [email or web address] Insurance Assigned Provider 07/13/19 04/14/20 Jose D Almeida MD [address] [place] [address] [email or web address] Ophthalmology 12/05/20 Carlos Bullock MD [address] [place] [address] [email or web address] Insurance Assigned Provider 07/11/23 04/11/24 Conor Arroyo MD [address] [place] [address] Drive [address] [place] [address] Interventional Pain Management 07/16/22 documented as of this encounter Additional Source Comments The information contained in this document represents components of the legal health record. It is not the complete legal health record.[facility]
--- OUTSIDE RECORDS SUMMARY | 2024-08-24 14:22 | XMS_ITS | Encounter Summary ---
Author Organization [facility] Address 399 [facility] [address] [place] [address] Phone Care Team Providers Care Florist'S Decorator Name Role Phone Jyothi Stark [facility] Primary Care Provider Jyothi Stark [facility] Primary Care Provider Carlos Bullock MD Unavailable [phone] Carlos Bullock MD Primary Care Provider [phone] Jyothi Stark CNP Primary Care Provider Jose D Almeida MD Unavailable Carlos Bullock MD Unavailable [phone] Conor Arroyo MD Unavailable [phone] Carlos Bullock MD Primary Care Provider [phone] Shaista Magaña [facility] Primary Care Provid er Encounter Details Date Type Department Care Team (Late st Contact Info) Description 10/16/2018 Ancillary Orders [facility] X-[facility] - [address] [place] [address] Armond Maldonado MD 30 [place] [address] [email or web address] Fusion of spine of lumbar region [...] st Contact Info) Description 08/03/2024 Procedure Pass [address] [address] 09/03/2024 4:00 PM EDT Appointment [address] [address] Shaista Magaña, MAE 170 [facility], 2nd [place] [address] [email or web address] 01/04/2025 10:00 AM EDT Office Visit [facility] [address] [place] [address] [place] [address] Shaista Magaña, MAE 170 [facility], 2nd [place] [address] [email or web address] documented as of this encounter Results * [...] PM Armond Maldonado MD IMG XR SPINE Final Res ult documented in this encounter Visit Diagnoses Diagnosis Fusion of spine of lumbar region Fusion of spine of lumbar region documented in this encounter Care Teams Florist'S Decorator Relationship Specialty Start Date End Date Jyothi Stark CNP 40 [place] [address] [email or web address] PCP - General Internal Medicine 12/01/17 03/08/19 Jyothi Stark CNP 40 [place] [address] PCP - General Internal Medicine 03/09/19 11/16/19 Carlos Bullock MD 40 [place] [address] PCP - General Internal Medicine 11/17/19 11/21/19 Jyothi Stark CNP 40 [place] [address] PCP - General Internal Medicine 11/22/19 09/08/22 Carlos Bullock MD 40 [place] [address] PCP - General Internal Medicine 09/09/22 11/10/22 Shaista Magaña CNP [address] [place] [address], 2nd [place] [address] PCP - General Family Medicine 11/11/22 Carlos Bullock MD 40 [place] [address] Insurance Assigned Provider 07/13/19 04/14/20 Jose D Almeida MD 40 [place] [address] Ophthalmology 12/05/20 Carlos Bullock MD 40 [place] [address] Insurance Assigned Provider 07/11/23 04/11/24 Conor Arroyo MD [address] [place] [address] Drive [address] [place] [id number] Interventional Pain Management 07/16/22 documented as of this encounter Additional Source Comments The information contained in this document represents components of the legal health record. It is not the complete legal health record.[facility]
--- OUTSIDE RECORDS SUMMARY | 2024-08-24 14:22 | XMS_ITS | Encounter Summary ---
Author Organization [facility] Address [address] [address] Phone Care Team Providers Care Bridge Toll Collector Name Role Phone Vijay Hampton MD Primary Care Provider [phone] Jyothi Stark CNP Primary Care Provider Jyothi Stark CNP Primary Care Provider Carlos Bullock MD Unavailable [phone] Carlos Bullock MD Primary Care Provider [phone] Jyothi Stark CNP Primary Care Provider Jose D Almeida MD Unavailable Carlos Bullock MD Unavailable [phone] Conor Arroyo MD Unavailable [phone] Carlos Bullock MD Primary Care Provider [phone] Shaista Magaña [facility] Primary Care Provid er Encounter Details Date Type Department Care Team (Late st Contact Info) Description 06/16/2017 Procedure Pass OR Admitting Dept - Virtual Department 30 [place] [address] Social History Tobacco Use Types [...] st Contact Info) Description 08/03/2024 Procedure Pass [address] [address] 09/03/2024 4:00 PM EDT Appointment [address] [address] Shaista Magaña, MAE 170 [facility], 2nd [place] [address] 01/04/2025 10:00 AM EDT Office Visit [facility] [address] [place] [address] Shaista Magaña, MAE 170 [facility], [address] [place] [address] documented as of this encounter Visit Diagnoses Not on filedocumented in this encounter Care Teams Bridge Toll Collector Relationship Specialty Start Date End Date Vijay Hampton MD [address] [place] [address] PCP - General Internal Medicine 04/29/17 11/30/17 Jyothi Stark CNP 40 [place] [address] PCP - General Internal Medicine 12/01/17 03/08/19 Jyothi Stark CNP [address] [place] [address] [email or web address] PCP - General Internal Medicine 03/09/19 11/16/19 Carlos Bullock MD 40 [place] [address] [email or web address] PCP - General Internal Medicine 11/17/19 11/21/19 Jyothi Stark, MAE 40 [place] [address] [email or web address] PCP - General Internal Medicine 11/22/19 09/08/22 Carlos Bullock MD [address] [place] [address] [email or web address] PCP - General Internal Medicine 09/09/22 11/10/22 Shaista Magaña CNP [address] [place] [address], 2nd [place] [address] [email or web address] PCP - General Family Medicine 11/11/22 Carlos Bullock MD [address] [place] [address] [email or web address] Insurance Assigned Provider 07/13/19 04/14/20 Jose D Almeida MD 40 [place] [address] [email or web address] Ophthalmology 12/05/20 Carlos Bullock MD 40 [place] [address] [email or web address] Insurance Assigned Provider 07/11/23 04/11/24 Conor Arroyo MD [address] [place] [address] Interventional Pain Management 07/16/22 documented as of this encounter Additional Source Comments The information contained in this document represents components of the legal health record. It is not the complete legal health record.[facility]
--- OUTSIDE RECORDS SUMMARY | 2024-08-24 14:22 | XMS_ITS | Encounter Summary ---
Author Organization [facility] Address 399 [facility] [address] [place] [address] Phone Care Team Providers Care Thermodynamics Professor Name Role Phone VickietammyJyothigh [facility] Primary Care Provider Jose D Almeida MD Unavailable Carlos Bullock MD Unavailable [phone] Conor Arroyo MD Unavailable [phone] Carlos Bullock MD Primary Care Provider [phone] Shaista Magaña [facility] Primary Care Provid er Encounter Details Date Type Department Care Team (Late st Contact Info) Description 02/24/2022 Procedure Pass [facility], Ct Scan [address] [address] Social History Tobacco Use Types Packs/Day Years [...] st Contact Info) Description 08/03/2024 Procedure Pass [facility], [facility] - [address] [address] 09/03/2024 4:00 PM EDT Appointment [facility], Mri - [address] [place] [address] Shaista Magaña CNP [address] [facility] [place], [address] [place] [address] [email or web address] 01/04/2025 10:00 AM EDT Office Visit [facility] [address] [place] [address] [place] [address] Shaista Magaña CNP [address] [place] [address], [address] [place] [address] [email or web address] documented as of this encounter Visit Diagnoses Not on filedocumented in this encounter Additional Health Concerns Assessment Noted Time PHQ-2 Depression Total Score: 1 06/16/19 22 11:12 AM EST documented as of this encounter Care Teams Thermodynamics Professor Relationship Specialty Start Date End Date Jyothi Stark CNP 40 [place] [address] [email or web address] PCP - General Internal Medicine 11/22/19 09/08/22 Carlos Bullock MD 40 [place] [address] PCP - General Internal Medicine 09/09/22 11/10/22 Shaista Magaña CNP [address] [place] [address] [email or web address] PCP - General Family Medicine 11/11/22 Jose D Almeida MD 40 [place] [address] [email or web address] Ophthalmology 12/05/20 Carlos Bullock MD [address] [place] [address] [email or web address] Insurance Assigned Provider 07/11/23 04/11/24 Conor Arroyo MD [address] [place] [address] [place] [address] Interventional Pain Management 07/16/22 documented as of this encounter Additional Source Comments The information contained in this document represents components of the legal health record. It is not the complete legal health record.[facility]
--- OUTSIDE RECORDS SUMMARY | 2024-08-24 14:22 | XMS_ITS | Encounter Summary ---
Author Organization [facility] Address 399 [facility] [address] [place] [address] Phone Care Team Providers Care Heating Fixture Tender Name Role Phone Jyothi Stark CNP Primary Care Provider Jyothi Stark CNP Primary Care Provider Carlos Bullock MD Unavailable [phone] Carlos Bullock MD Primary Care Provider Jyothi Stark CNP Primary Care Provider Jose D Almeida MD Unavailable Carlos Bullock MD Unavailable [phone] Conor Arroyo MD Unavailable [phone] Carlos Bullock MD Primary Care Provider [phone] Shaista Magaña [facility] Primary Care Provid er Encounter Details Date Type Department Care Team (Late st Contact Info) Description 01/13/2018 Transcribe Orders [facility] [address] [place], [place] [address] Jyothi Stark [facility] 40 [place], [place] [id number] Social History Tobacco Use Types Packs/Day Years [...] st Contact Info) Description 08/03/2024 Procedure Pass [address] [address] 09/03/2024 4:00 PM EDT Appointment [address] [address] Shaista Magaña, MAE 170 [facility], 2nd [place] [address] [email or web address] 01/04/2025 10:00 AM EDT Office Visit [facility] [address] [place] [address] [place] [address] Shaista Magaña, MAE [address] [place] [address], [address] [place] [address] [email or web address] documented as of this encounter Visit Diagnoses Not on filedocumented in this encounter Care Teams Heating Fixture Tender Relationship Specialty Start Date End Date Jyothi Stark CNP 40 [place] [address] PCP - General Internal Medicine 12/01/17 03/08/19 Jyothi Stark CNP 40 [place] [address] PCP - General Internal Medicine 03/09/19 11/16/19 Carlos Bullock MD 40 [place] [address] [email or web address] PCP - General Internal Medicine 11/17/19 11/21/19 Jyothi Stark, MAE 40 [place], [place] [email or web address] PCP - General Internal Medicine 11/22/19 09/08/22 Carlos Bullock MD [address] [place] [address] [email or web address] PCP - General Internal Medicine 09/09/22 11/10/22 Shaista Magaña CNP [address] [place] [address], 2nd [place] [address] [email or web address] PCP - General Family Medicine 11/11/22 Carlos Bullock MD [address] [place] [address] [email or web address] Insurance Assigned Provider 07/13/19 04/14/20 Jose D Almeida MD [address] [place] [address] [email or web address] Ophthalmology 12/05/20 Carlos Bullock MD [address] [place] [address] [email or web address] Insurance Assigned Provider 07/11/23 04/11/24 Conor Arroyo MD [address] [place] [address] Drive [address] [place] [address] Interventional Pain Management 07/16/22 documented as of this encounter Additional Source Comments The information contained in this document represents components of the legal health record. It is not the complete legal health record.[facility]
--- OUTSIDE RECORDS SUMMARY | 2024-08-24 14:22 | XMS_ITS | Encounter Summary ---
Author Organization [facility] Address [address] [address] Phone Care Team Providers Care Anesthesiologist/Physician Name Role Phone Unknown, Unknown Primary Care Provider Vijay Zafar MD Primary Care Provider [phone] Jyothi Stark CNP Primary Care Provider Jyothi Stark [facility] Primary Care Provider Carlos Bullock MD Unavailable [phone] Carlos Bullock MD Primary Care Provider Jyothi Stark CNP Primary Care Provider Jose D Almeida MD Unavailable Carlos Bullock MD Unavailable [phone] Conor Arroyo MD Unavailable [phone] Carlos Blulock MD Primary Care Provider Shaista Magaña [facility] Primary Care Provid er Encounter Details Date Type Department Care Team (Late st Contact Info) Description 04/15/2017 Procedure Pass [facility], [address] [address] Social History Tobacco Use Types Packs/Day Years [...] st Contact Info) Description 08/03/2024 Procedure Pass [address] [address] 09/03/2024 4:00 PM EDT Appointment [address] [address] Shaista Magaña, AME [address] [place] [address], [address] [place] [address] 01/04/2025 10:00 AM EDT Office Visit [facility] [address] [place] [address] [place] [address] Shaista Magaña, MAE [address] [place] [address] documented as of this encounter Visit Diagnoses Not on filedocumented in this encounter Care Teams Anesthesiologist/Physician Relationship Specialty Start Date End Date Unknown, Unknown, PCP - General 04/15/17 04/28/17 Vijay Hampton MD [address] [place] [address] PCP - General Internal Medicine 04/29/17 11/30/17 Jyothi Stark CNP 40 [place] [address] PCP - General Internal Medicine 12/01/17 03/08/19 Jyothi Stark CNP 40 [place] [address] PCP - General Internal Medicine 03/09/19 11/16/19 Carlos Bullock MD 40 [place] [address] [email or web address] PCP - General Internal Medicine 11/17/19 11/21/19 Jyothi Stark CNP [address] [place] [address] [email or web address] PCP - General Internal Medicine 11/22/19 09/08/22 Carlos Bullock MD 40 [place] [address] [email or web address] PCP - General Internal Medicine 09/09/22 11/10/22 Shaista Magaña CNP [address] [place] [address], 2nd [place] [address] [email or web address] PCP - General Family Medicine 11/11/22 Carlos Bullock MD [address] [place] [address] [email or web address] Insurance Assigned Provider 07/13/19 04/14/20 Jose D Almeida MD 40 [place] [address] [email or web address] Ophthalmology 12/05/20 Carlos Bullock MD [address] [place] [address] [email or web address] Insurance Assigned Provider 07/11/23 04/11/24 Conor Arroyo MD [address] [place] [address] [place] [address] Interventional Pain Management 07/16/22 documented as of this encounter Additional Source Comments The information contained in this document represents components of the legal health record. It is not the complete legal health record.[facility]
--- OUTSIDE RECORDS SUMMARY | 2024-08-24 14:22 | XMS_ITS | Encounter Summary ---
Author Organization [facility] Address 399 [facility] [address] [place] [address] Phone Care Team Providers Care Commercial Diver Name Role Phone Vijay Hampton MD Primary Care Provider Jyothi Stark CNP Primary Care Provider Jyothi Stark CNP Primary Care Provider Carlos Bullock MD Unavailable [phone] Carlos Bullock MD Primary Care Provider Jyothi Stark CNP Primary Care Provider Jose D Almeida MD Unavailable Carlos Bullock MD Unavailable [phone] Conor Arroyo MD Unavailable [phone] Carlos Bullock MD Primary Care Provider [phone] Shaista Magaña [facility] Primary Care Provid er Encounter Details Date Type Department Care Team (Late st Contact Info) Description 06/15/2017 Procedure Pass [facility],Outside Imaging [address] [place] [address] Social History Tobacco Use Types [...] st Contact Info) Description 08/03/2024 Procedure Pass [address] [address] 09/03/2024 4:00 PM EDT Appointment [address] [address] Shaista Magaña CNP [address] [place] [address], [address] [place] [address] 01/04/2025 10:00 AM EDT Office Visit [facility] [address] [place], [place] [address] [address] Shaista Magaña CNP [address] [place] [address], [address] [place] [address] [email or web address] documented as of this encounter Visit Diagnoses Not on filedocumented in this encounter Care Teams Commercial Diver Relationship Specialty Start Date End Date Vijay Hampton MD [address] [place] [address] PCP - General Internal Medicine 04/29/17 11/30/17 Jyothi Stark CNP 40 [place] [address] PCP - General Internal Medicine 12/01/17 03/08/19 Jyothi Stark CNP [address] [place] [address] PCP - General Internal Medicine 03/09/19 11/16/19 Carlos Bullock MD 40 [place] [address] PCP - General Internal Medicine 11/17/19 11/21/19 Jyothi Stark, MAE 40 [place] [address] PCP - General Internal Medicine 11/22/19 09/08/22 Carlos Bullock MD [address] [place] [address] PCP - General Internal Medicine 09/09/22 11/10/22 Shaista Magaña CNP [address] [place] [address], 2nd [place] [address] [email or web address] PCP - General Family Medicine 11/11/22 Carlos Bullock MD [address] [place] [address] Insurance Assigned Provider 07/13/19 04/14/20 Jose D Almeida MD 40 [place] [address] [email or web address] [email or web address] 12/05/20 Carlos Bullock MD 40 [place] [address] [email or web address] Insurance Assigned Provider 07/11/23 04/11/24 Conor Arroyo MD [address] [place] [address] [address] [place] [address] Interventional Pain Management 07/16/22 documented as of this encounter Additional Source Comments The information contained in this document represents components of the legal health record. It is not the complete legal health record.[facility]
--- OUTSIDE RECORDS SUMMARY | 2024-08-24 14:22 | XMS_ITS | Encounter Summary ---
Author Organization [facility] Address [address] [place] [address] Phone Care Team Providers Care Patternmaker Sample Name Role Phone Vijay Hampton MD Primary Care Provider Jyothi Stark CNP Primary Care Provider Jyothi Stark CNP Primary Care Provider Carlos Bullock MD Unavailable Carlos Bullock MD Primary Care Provider Jyothi Stark CNP Primary Care Provider Jose D Almeida MD Unavailable Carlos Bullock MD Unavailable [phone] Conor Arroyo MD Unavailable [phone] Carlos Bullock MD Primary Care Provider Shaista Magaña [facility] Primary Care Provid er Encounter Details Date Type Department Care Team (Late st Contact Info) Description 09/10/2017 Ancillary Orders Virtual Department 30 [place] [address] Radha Rojas, MAKENZIE [address] [place] [address] [email or web address] Effusion of left foot joint Social History [...] st Contact Info) Description 08/03/2024 Procedure Pass [address] [address] 09/03/2024 4:00 PM EDT Appointment [address] [address] Shaista Magaña CNP [address] [place] [address], [address] [place] [address] 01/04/2025 10:00 AM EDT Office Visit [facility] [address] [place], [place] [address] [address] Shaista Magaña CNP [address] [place] [address], [address] [place] [address] [email or web address] documented as of this encounter Visit Diagnoses Diagnosis Effusion of left foot joint documented in this encounter Care Teams Patternmaker Sample Relationship Specialty Start Date End Date Vijay Hampton MD [address] [place] [address] PCP - General Internal Medicine 04/29/17 11/30/17 Jyothi Stark CNP [address] [place] [address] PCP - General Internal Medicine 12/01/17 03/08/19 Jyothi Stark CNP 40 [place] [address] [email or web address] PCP - General Internal Medicine 03/09/19 11/16/19 Carlos Bullock MD 40 [place] [address] [email or web address] PCP - General Internal Medicine 11/17/19 11/21/19 Lincoln Jyothi MAE Fragoso [address] [place] [address] [email or web address] PCP - General Internal Medicine 11/22/19 09/08/22 Carlos Bullock MD [address] [place] [address] [email or web address] PCP - General Internal Medicine 09/09/22 11/10/22 Shaista Magaña CNP [address] [place] [address], 2nd [place] [address] [email or web address] PCP - General Family Medicine 11/11/22 Carlos Bullock MD [address] [place] [address] [email or web address] Insurance Assigned Provider 07/13/19 04/14/20 Jose D Almeida MD [address] [place] [address] [email or web address] [email or web address] 12/05/20 Carlos Bullock MD [address] [place] [address] [email or web address] Insurance Assigned Provider 07/11/23 04/11/24 Conor Arroyo MD [address] [place] [address] [place] [address] Interventional Pain Management 07/16/22 documented as of this encounter Additional Source Comments The information contained in this document represents components of the legal health record. It is not the complete legal health record.[facility]
--- OUTSIDE RECORDS SUMMARY | 2024-08-24 14:22 | XMS_ITS | Encounter Summary ---
Author Organization [facility] Address 399 [facility] [address] [place] [address] Phone Care Team Providers Care Location Analyst Name Role Phone Jyothi Stark [facility] Primary Care Provider Carlos Bullock MD Unavailable [phone] Carlos Bullock MD Primary Care Provider Jyothi Stark [facility] Primary Care Provider Jose D Almeida MD Unavailable Carlos Bullock MD Unavailable [phone] Conor Arroyo MD Unavailable [phone] Carlos Bullock MD Primary Care Provider [phone] Shaista Magaña [facility] Primary Care Provid er Encounter Details Date Type Department Care Team (Late st Contact Info) Description 03/09/2019 Ancillary Orders [facility], X-Ray - [address] [address] Armond Maldonado MD 30 [place] [address] [email or web address] S/P lumbar fusion Social History Tobacco Use [...] st Contact Info) Description 08/03/2024 Procedure Pass [address] [address] 09/03/2024 4:00 PM EDT Appointment [address] [address] Shaista Magaña, CREATIVE SERVICES COORDINATOR [address] [facility], 2nd [place] [address] [email or web address] 01/04/2025 10:00 AM EDT Office Visit [facility] [address] [place] [address] [place] [address] Shaista Magaña, CREATIVE SERVICES COORDINATOR [address] [facility], 2nd [place] [address] [email or web address] documented as of this encounter Results * XR LUMBOSACRAL SPINE 2-3 VIEWS (03/09/2019 2:42 PM EST) Anatomical Region Laterality Modality L-spine Radiographic Franchesca ging 03/10/2019 8:13 AM EST Impressions 03/10/2019 8:15 AM EST Mild increase in lower lumbar scoliosis. Otherwise stable appearance of the lumbosacral spine. POS [id number] Narrative 03/10/2019 8:15 AM EST 4 views. [...] Otherwise stable appearance ofthe lumbosacral spine. POS [id number] Armond Maldonado MD IMG XR SPINE Final Res ult documented in this encounter Visit Diagnoses Diagnosis S/P lumbar fusion Arthrodesis status S/P lumbar fusion Arthrodesis status documented in this encounter Care Teams Location Analyst Relationship Specialty Start Date End Date Jyothi Stark CNP 40 [place] [address] PCP - General Internal Medicine 03/09/19 11/16/19 Carlos Bullock MD 40 [place] [address] PCP - General Internal Medicine 11/17/19 11/21/19 Jyothi Stark CNP 40 [place] [address] PCP - General Internal Medicine 11/22/19 09/08/22 Carlos Bullock MD 40 [place] [address] PCP - General Internal Medicine 09/09/22 11/10/22 Archana Shaistakarishma Mckenzie CNP [address] [place] [address], 2nd [place] [address] [email or web address] PCP - General Family Medicine 11/11/22 Carlos Bullock MD 40 [place] [address] Insurance Assigned Provider 07/13/19 04/14/20 Jose D Almeida MD 40 [place] [address] Ophthalmology 12/05/20 Carlos Bullock MD 40 [place] [address] Insurance Assigned Provider 07/11/23 04/11/24 Conor Arroyo MD 10 [facility] [address] [place] [address] Interventional Pain Management 07/16/22 documented as of this encounter Additional Source Comments The information contained in this document represents components of the legal health record. It is not the complete legal health record.[facility]
--- OUTSIDE RECORDS SUMMARY | 2024-08-24 14:22 | XMS_ITS | Encounter Summary ---
Author Organization [facility] Address 399 [facility] [address] [place] [address] Phone Care Team Providers Care Talent Development Specialist Name Role Phone Vijay Hampton MD Primary Care Provider Jyothi Stark CNP Primary Care Provider Jyothi Stark CNP Primary Care Provider Carlos Bullock MD Unavailable [phone] Carlos Bullock MD Primary Care Provider [phone] Jyothi Stark CNP Primary Care Provider Jose D Almeida MD Unavailable Carlos Bullock MD Unavailable [phone] Conor Arroyo MD Unavailable [phone] Carlos Bullock MD Primary Care Provider [phone] Shaista Magaña [facility] Primary Care Provid er Encounter Details Date Type Department Care Team (Late st Contact Info) Description 10/13/2017 Ancillary Orders Virtual Department 30 [place] [address] Armond Maldonado MD 30 [place] [address] [email or web address] Pain of lower extremity, unspecified [...] st Contact Info) Description 08/03/2024 Procedure Pass [address] [address] 09/03/2024 4:00 PM EDT Appointment [address] [address] Shaista Magaña, MAE [address] [facility], 2nd [place] [address] [email or web address] 01/04/2025 10:00 AM EDT Office Visit [facility] [address] [place] [address] [place] [address] Shaista Magaña, MAE [address] [facility], [address] [place] [address] [email or web address] documented as of this encounter Results * [...] interval change from 07/21/2017 apparent. POS [id number] us Armond Maldonado MD IMG XR SPINE Final Res ult documented in this encounter Visit Diagnoses Diagnosis Pain of lower extremity, unspecified laterality Pain of lower extremity, unspecified laterality documented in this encounter Care Teams Talent Development Specialist Relationship Specialty Start Date End Date Vijay Hampton MD [address] [place] [address] PCP - General Internal Medicine 04/29/17 11/30/17 Jyothi Stark CNP [address] [place] [address] PCP - General Internal Medicine 12/01/17 03/08/19 Jyothi Stark CNP [address] [place] [address] PCP - General Internal Medicine 03/09/19 11/16/19 Carlos Bullock MD 40 [place] [address] PCP - General Internal Medicine 11/17/19 11/21/19 Jyothi Stark CNP 40 [place] [address] PCP - General Internal Medicine 11/22/19 09/08/22 Carlos Bullock MD 40 [place] [address] PCP - General Internal Medicine 09/09/22 11/10/22 Shaista Magaña CNP [address] [place] [address], 2nd [place] [address] PCP - General Family Medicine 11/11/22 Carlos Bullock MD 40 [place] [address] Insurance Assigned Provider 07/13/19 04/14/20 Jose D Almeida MD 40 [place] [address] Ophthalmology 12/05/20 Carlos Bullock MD 40 [place] [address] [email or web address] Insurance Assigned Provider 07/11/23 04/11/24 Conor Arroyo MD [address] [place] [address] Interventional Pain Management 07/16/22 documented as of this encounter Additional Source Comments The information contained in this document represents components of the legal health record. It is not the complete legal health record.[facility]
--- OUTSIDE RECORDS SUMMARY | 2024-08-24 14:22 | XMS_ITS | Encounter Summary ---
Author Organization [facility] Address 399 [facility] [address] [place] [address] Phone Care Team Providers Care Foundation Stage Teacher Name Role Phone Jyothi Stark CNP Primary Care Provider Jyothi Stark CNP Primary Care Provider Carlos Bullock MD Unavailable [phone] Carlos Bullock MD Primary Care Provider [phone] Jyothi Stark CNP Primary Care Provider Jose D Almeida MD Unavailable Carlos Bullock MD Unavailable [phone] Conor Arroyo MD Unavailable [phone] Carlos Bullock MD Primary Care Provider [phone] Shaista Magaña [facility] Primary Care Provid er Encounter Details Date Type Department Care Team (Latest Contact Info) Description 01/13/2018 Transcribe Orders [facility] Laboratory [address] [place], [place] [id number] Jyothi Stark MARINE INSULATOR 40 [place], [place] [id number] [email or web address] Routine check-up (Primary Dx) Social History [...] st Contact Info) Description 08/03/2024 Procedure Pass [address] [address] 09/03/2024 4:00 PM EDT Appointment [address] [address] Shasita Magaña, MAE 170 [facility], 2nd [place] [address] 01/04/2025 10:00 AM EDT Office Visit [facility] [address] [place], [place] [address]n[place] [address] Shaista Magaña, MAE [address] [place] [address], [address] [place] [address] documented as of this encounter Visit Diagnoses Diagnosis Routine check-up- Primary Routine general medical examination at a health care facility documented in this encounter Care Teams Foundation Stage Teacher Relationship Specialty Start Date End Date Jyothi Stark CNP [address] [place] [address] PCP - General Internal Medicine 12/01/17 03/08/19 Jyothi Stark CNP [address] [place] [address] PCP - General Internal Medicine 03/09/19 11/16/19 Carlos Bullock MD 40 [place] [address] PCP - General Internal Medicine 11/17/19 11/21/19 Jyothi Stark, MAE [address] [place], [place] PCP - General Internal Medicine 11/22/19 09/08/22 Carlos Bullock MD [address] [place] [address] PCP - General Internal Medicine 09/09/22 11/10/22 Shaista Magaña CNP [address] [place] [address], 2nd [place] [address] [email or web address] PCP - General Family Medicine 11/11/22 Carlos Bullock MD [address] [place] [address] Insurance Assigned Provider 07/13/19 04/14/20 Jose D Almeida MD 40 [place] [address] Ophthalmology 12/05/20 Carlos Bullock MD 40 [place] [address] Insurance Assigned Provider 07/11/23 04/11/24 Conor Arroyo MD [address] [place] [address] Interventional Pain Management 07/16/22 documented as of this encounter Additional Source Comments The information contained in this document represents components of the legal health record. It is not the complete legal health record.[facility]
--- OUTSIDE RECORDS SUMMARY | 2024-08-24 14:22 | XMS_ITS | Encounter Summary ---
Author Organization [facility] Address 399 [facility] [address] [place] [address] Phone Care Team Providers Care Power Ballast Machine Operator Name Role Phone Jyothi Stark CNP Primary Care Provider Jyothi Stark CNP Primary Care Provider Carlos Bullock MD Unavailable [phone] Carlos Bullock MD Primary Care Provider [phone] Jyothi Stark CNP Primary Care Provider Jose D Almeida MD Unavailable Carlos Bullock MD Unavailable [phone] Conor Arroyo MD Unavailable [phone] Carlos Bullock MD Primary Care Provider [phone] Shaista Magaña [facility] Primary Care Provid er Encounter Details Date Type Department Care Team (Late st Contact Info) Description 01/28/2018 Transcribe Orders [facility] Laboratory [address] [place], [place] [id number] Jyothi Stark [facility] 40 [place], [place] [id number] [email or web address] Social History Tobacco Use Types Packs/Day Years [...] st Contact Info) Description 08/03/2024 Procedure Pass [address] [address] 09/03/2024 4:00 PM EDT Appointment [address] [address] Shaista Magaña, MAE 170 [facility], 2nd [place] [address] [email or web address] 01/04/2025 10:00 AM EDT Office Visit [facility] [address] [place] [address] [place] [address] Shaista Magaña, MAE [address] [place] [address], 2[address] [place] [address] [email or web address] documented as of this encounter Visit Diagnoses Not on filedocumented in this encounter Care Teams Power Ballast Machine Operator Relationship Specialty Start Date End Date Jyothi Stark CNP 40 [place] [address] PCP - General Internal Medicine 12/01/17 03/08/19 Jyothi Stark CNP 40 [place] [address] PCP - General Internal Medicine 03/09/19 11/16/19 Carlos Bullock MD 40 [place] [address] [email or web address] PCP - General Internal Medicine 11/17/19 11/21/19 Jyothi Stark, MAE [address] [place], [place] [email or web address] PCP - General Internal Medicine 11/22/19 09/08/22 Carlos Bullock MD [address] [place] [address] [email or web address] PCP - General Internal Medicine 09/09/22 11/10/22 Shaista Magaña CNP [address] [place] [address], 2nd [place] [address] [email or web address] PCP - General Family Medicine 11/11/22 Carlos Bullock MD [address] [place] [address] [email or web address] Insurance Assigned Provider 07/13/19 04/14/20 Jose D Almeida MD [address] [place] [address] [email or web address] Ophthalmology 12/05/20 Carlos Bullock MD [address] [place] [address] [email or web address] Insurance Assigned Provider 07/11/23 04/11/24 Conor Arroyo MD [address] [place] [address] Drive [address] [place] [address] Interventional Pain Management 07/16/22 documented as of this encounter Additional Source Comments The information contained in this document represents components of the legal health record. It is not the complete legal health record.[facility]
--- OUTSIDE RECORDS SUMMARY | 2024-08-24 14:22 | XMS_ITS | Data Portability ---
Author Organization [facility] [employer] Address [address] [place] [address] [place] [address] Care Team Providers Care Recruiting Specialist Name Role Phone ELIJAH MERAZ Referring Provider [phone] ELIJAH SPEARS Referring Provider ELIJAH SPEARS Primary Care Provider [phone] Assessment Encounter Date Assessment Date Assessment LastModified by Organization Details LastModified Time 08/09/2024 08/09/2024 IMPRESSION: Benign essential familial tremor, with left greater than right hand tremor most prominent, bothering handwriting drinking with a glass and typing on a computer. Medications per patient: Lisinopril, chlorthalidone, metformin, gabapentin 600 mg 4 times daily, lorazepam 1 mg 3 times daily, Powder[place] with fill, albuterol inhaler, montelukast, carbidopa levodopa 25/100, vitamin D3, vitamin K2, vitamin B12 5000 mcg six times a day, calcium We discussed that the tremor was not dangerous. We discussed that this is not Parkinson's disease: There is no rest tremor, bradykinesia, rigidity, or parkinsonian gait to suggest Parkinson's disease. We discussed that medications exist that often have excellent symptomatic benefit without undue side effects for essential tremor (e.g. Inderal SR, primidone, clonazepam, zonisamide). These would only be indicated should tremor disturb professional, recreational, or social activities in the future. Tremor bothers him but not enough to consider a medication at this point. Tremor progression is uncertain. It may stay the same or worsen. He understands that he is welcome to follow-up to reconsider medication if there is worsening. Certain medications may exacerbate essential tremor. Among his medications, albuterol may do this. He has noticed no problem with albuterol worsening his tremor. We discussed that essential tremor can get worse with anxiety, physical exertion, fatigue, systemic illness. The tremor will return to baseline with resolution of these conditions. Caffeine and cigarettes may exacerbate tremor. He does not smoke. He drinks caffeine but has noticed no worsening of his tremor. Essential tremor may also vary without apparent reason. This is not a cause for alarm. Hyperthyroidism may exacerbate tremor. I defer to primary care on thyroid function assay if this has not been done. Neurological exam reveals abnormalities consistent with his history of lower back surgeries affecting his left lower extremity. There is also asymmetric biceps reflex, lower on the left. He has no symptoms in his left upper extremity and exam reveals no weakness or numbness there and none in the C6 distribution or particularly. He already stays away from lifting heavy objects as that type of action precipitated his lower back issues in ~2018. I do not feel any further change in management is indicated at this point. PLAN Followup as needed for worsening tremor or new neurologic symptomatology. [email or web address] Not available 08/09/2024 14:28:17 Plan of Treatment Reminders Order Date Submit Date Provider Last Modified By Organization Details Last Modified Time Details Appointments None record ed. Lab None record ed. Referral None record ed. Procedures None record ed. Surgeries None record ed. Imaging None record ed. Medication Orders None record ed. Patient TargetsNo targets recorded. Patient Instructions Encounter Date Encounter Id Patient Instructions Last Modified By Organization Details Last Modified Time 08/09/2024 [id number] Discussion acros s issues of diagnoses and management and same day associated chart review and management greater than 50% greater than 60 minutes [email or web address] Not available 08/09/2024 14:28:30 Reason for Referral None Reported. Procedures Surgical History Date Name Laterality Status Provider Name and Address Organization Details Recorded Time 08/09/2024 DATA REVIEW completed Mingo Diggs MD [address] [place] [address], [phone], [facility] Neurology [facility] 08/09/2024 14:21:32 Imaging Results None recorded. Procedure Notes None recorded. Medical Equipment None Reported. Allergies Allergen ID Allergen Name Allergen Category Reaction Reaction Severity Criticality Documentation Date Start Date Code Code System Note Provider Name and Address Organization Details Recorded Time 7122 Product containin g penicilli n (product) medicatio n Not available Not available Not available 08/09/2024 42795 800 [facility] 13:07:44 5046 Substance with sulfonami de structure and antibacte rial mechanism of action (substanc e) medicatio n Not available Not available Not available 08/09/2024 46813 [facility] [place] 13:07:54 5047 Vaccine product containin g only Clostridi um tetani antigen (medicina l product) medicatio n Not available Not available Not available 08/09/2024 38252 [facility] 13:08:05 5048 iodine medicatio n Not available Not available Not available 08/09/2024 5933 RxNorm Nishi [place] [facility] 13:08:11 5049 Product containin g 3-hydroxy -3-methyl glutaryl- coenzyme A reductase inhibitor (product) medicatio n Not available Not available Not available 08/09/2024 88090 009 [facility] 13:08:17 Medications Name Sig Start Date Stop Date Status Note LastModified by Organization Details LastModified Time metformin 500 mg tablet TAKE 1 TABLET BY MOUTH TWICE A DAY WITH FOOD active Not Available Not Available No t Available prednisone 10 mg tablet PLEASE SEE ATTACHED FOR DETAILED DIRECTIONS active Not Available Not Available N ot Available ketoconazole 2 % shampoo APPLY TOPICALLY TO DAMP SKIN, LATHER, LEAVE ON 5 MINUTES, AND RINSE- USE 2 TIMES A WEEK. active Not Available Not Available No t Available sildenafil 50 mg tablet TAKE 1 TABLET BY MOUTH DAILY NEEDED. active Not Available Not Available N ot Available prednisone 20 mg tablet TAKE 2 TABLETS (40 MG TOTAL) BY MOUTH DAILY WITH BREAKFAST FOR 5 DAYS active Not Available Not Available N ot Available gabapentin 400 mg capsule TAKE 1 CAPSULE BY MOUTH FOUR TIMES A DAY active Not Available Not Available Not Available chlorthalido ne 25 mg tablet TAKE 1 TABLET (25 MG TOTAL) BY MOUTH DAILY. active Not Available Not Available No t Available allopurinol 100 mg tablet TAKE 1/2 TABLET BY MOUTH DAILY active Not Available Not Available Not Available montelukast 10 mg tablet TAKE 1 TABLET BY MOUTH EVERYDAY AT BEDTIME active Not Available Not Available No t Available lorazepam 1 mg tablet TAKE 1 TABLET BY MOUTH EVERY 8 HOURS NEEDED FOR ANXIETY active Not Available Not Available No t Available albuterol sulfate HFA 90 mcg/actuatio n aerosol inhaler INHALE 2 PUFFS INTO THE LUNGS EVERY 4 HOURS NEEDED FOR WHEEZING OR SHORTNESS OF BREATH/DYSP JEANE active Not Available Not Available No t Available carbidopa 25 mg-levodopa 100 mg tablet TAKE ONE TABLET BY MOUTH TWICE A DAY FOR 14 DAYS, THEN ONE TAB 3 TIMES A DAY FOR 14 DAYS active Not Available Not Available No t Available lisinopril 40 mg tablet TAKE 1 TABLET BY MOUTH EVERY DAY active Not Available Not Available No t Available diazepam 5 mg tablet 5 MG ORALLY ONCE NEEDED FOR SLEEP PLEASE TAKE 30MINUTES PRIOR TO ARRIVAL FOR PROCEDURE active Not Available Not Available No t Available oxycodone 5 mg tablet TAKE 1/2 TABLET BY MOUTH EVERY 6 HOURS NEEDED (SEVERE JOINT PAIN/GOUT FLARE) active Not Available Not Available No t Available gabapentin active Not Available Not Av ailable Not Available oxycodone 10 mg tablet TAKE 1 TABLET BY MOUTH 30 MINUTES PRIOR TO ARRIVAL FOR PROCEDURE NEEDED FOR PAIN active Not Available Not Available No t Available Wixela Inhub 250 mcg-50 mcg/dose powder for inhalation INHALE 1 PUFF BY MOUTH TWICE A DAY active Not Available Not Available No t Available Vitals Date Recorded Body height Body mass index (BMI) Body weight Respiratory rate Provider Name and Address Organization Details Last Updated DateTime 08/09/2024 172.72 cm 31.9 kg/m2 44834.4 g 12 /min Nishi [place] [facility] 08/09/2024 13:08:34 Social History Question Answer Notes LastModified by Organizat ion Details LastModified Time Tobacco Smoking Status [facility] 08/09/2024 13:24:47 What Is Your Level Of Caffeine Consumption? Moderate Information not available 08/09/2024 What Is The Highest Grade Or Level Of School You Have Completed Or The Highest Degree You Have Received? [id number] Information not available 08/09/2024 Which Of Your Hands Is Dominant? Right Information not available 08/09/2024 Sex: Unknown Functional Status Question Answer Note LastModified by Organization D etails LastModified Time What is your level of alcohol consumption? None Information not available 08/09/2024 Mental Status None recorded. Family History Relationship Description Onset Age of this Age Resolved Age Notes LastModified by Organization Details LastModified Time Mother Dementia Not available 0 08/09/2024 13:11:18 Mother Disorder of thyroid gland Not available 2024 13:23:45 Son Diabetes mellitus Not available 2024 13:23:12 Son Hypertensive disorder Not available 2024 13:23:19 Father Cerebrovascu lar accident Not available 09/2024 13:23:28 Sister Disorder of thyroid gland Not available 2024 13:23:45 Medical History Condition Response Head Trauma/Injury N Depression N Lung Disease N COPD or emphysema N Spine Problems N Obstructive Sleep Apnea N Alcoholism N Autoimmune disease N Arthritis N Developmental Problems N Cancer N Stroke N Heartburn, acid reflux, GERD N Vitamin D Deficiency Y Liver Disease N Fibromyalgia N Headaches N Kidney Disease N Claustrophobia N Hospitalizations N High Blood Pressure or Hypertension Y Thyroid Problems N Brain Tumors N Encephalitis N Vitamin B12 deficiency Y PTSD N Heart Attack ([place]) N Diabetes Y Bleeding Disorder N Cerebral Palsy N Tuberculosis N Neck Problems N Back Problems N Asthma Y Epilepsy/Seizures N Bipolar Disorder N Sleep Disorder N Aneurysm N Hepatitis N Heart Disease N High Cholesterol or Hyperlipidemia N Osteoporosis N Past Encounters Encounter ID Performer Location Encounter Start Date Encounter Closed Date Diagnosis/Indication Diagnosis SNOMED-CT Code Diagnosis ICD10 Code Diagnosis Note [id number] Mingo Diggs MD [facility] [address] [place] [address] [place] [address] 08/09/2024 13:02:07 08/09/2024 16:43:25 Essential tremor 692496060 G25.0 Health Concerns Section Related Observation LastModified by Organization Detai ls LastModified Time None Recorded Concern Status LastModified by Organization Details LastModified Time None Recorded Advance Directives Directive None Recorded Payers Encounter Date Sequence Insurance Name Policy Number Policy Enciso Covered Member ID Enciso Member ID Guarantor Name 08/09/2024 1 MEDICARE B-LA: [employer] Keith Camacho [id number] Keith Camacho 08/09/2024 2 [facility] - [facility] [id number] Keith Camacho [id number] Keith Camacho Notes Date Note Type Note Provider Name and Address Organization Details Recorded Time 08/09/2024 text/html Keith Camacho presents for initial neurology consultation for assessment and management of right greater than left hand tremor of uncertain duration, worse in the last few months.? Past history includes status post lower back surgery x 2 using cane in right hand with left-sided dropfoot since the second surgery ~2018. Occasion list suggests additionally: Hypertension, diabetes, pulmonary issue on albuterol.? He is right-handed.? He is unaccompanied.>>>> >>>>>>>>August 09, 2024 presenting symptomatology:He has a hand tremor for a while. He it has been worse for several months. It has always been worse in his left hand. It bothers him when he is doing things. Most prominently, writing is difficult even though this is with his right hand which has less tremor. His writing is larger than he would want and messier. He also has trouble holding a glass of liquid in his left hand? h e has not dropped any glasses but he often has to quickly hold the glass with two hands. He has trouble with the computer, mostly with typing? h is fingers double type by mistake. The mouse is less of a problem. The tremor does not embarrass him.He has had trouble walking since around the time of his two back surgeries ~3774-9857. He had his first back surgery when the surgeon noticed that he had a dropped left foot. The drop in left foot was worse after the second back surgery and he has used a cane or a walker since then. He has not had worsening of walking.He does not think that he yells or acts out dreams with his limbs while asleep. His would have told him and she never did. She around the time that he had back surgery. Mingo Diggs MD [address] [place] [address] [place], [phone], [facility] Neurology [facility] 08/09/2024 14:28:44
== END 2024-08-24 13:50 | disposition home or self-care (01) ==
LOC: HO.MRI 13:49
PROVIDERS: PCP Nurse Practitioner Family; Visit Provider Internal Medicine
DX: M96.1 Postlaminectomy syndrome, not elsewhere classified (principal)
CPT/HCPCS: 72148; 72158

== ENCOUNTER 2024-09-06 15:48 | Outpatient (REF) | payer MEDICARE, OTHER, SELFPAY ==
--- NOTE | ~2024-09-06 | MR_ITS ---
CLINICAL HISTORY: POST LAMINECTOMY SYNDROME MR lumbar spine with and without gadolinium Comparison: MR - MR LUMBAR SPINE WO/W CON - 08/24/24 14:18 EDT Findings: Postfusion changes at L4 and L5. No epidural hematoma or drainable fluid collection. No epidural abscess identified. No acute fracture or acute malalignment. No suspicious marrow lesion. Persistent marrow signal change within the postsurgical L4 and 5 vertebral bodies. The conus terminates normally at L1. The cauda equina are unremarkable. Individual levels: L1-L2: Right eccentric disc protrusion. No significant central canal stenosis or neural foraminal narrowing. L2-L3: Large posterior disc protrusion as prior. Moderate bilateral neural foraminal narrowing and moderately severe central canal stenosis. L3-L4: Broad-based disc protrusion with facet hypertrophy. Severe left neural foraminal narrowing and moderate right neural foraminal narrowing. Mild central canal narrowing. L4-L5: No significant central canal stenosis. There is moderate left neural foraminal narrowing. L5-S1: Moderate bilateral neural foraminal narrowing. No central canal stenosis. Impression: Postsurgical and degenerative changes, similar to the recent prior study. This document has been electronically signed by: Neto Schaeffer MD on 09/07/2024 14:26:41
[2024-09-06] MEDS: gadobutroL 10 ML VIAL IVPUSH (16:52)
--- OUTSIDE RECORDS SUMMARY | 2024-09-06 17:02 | XMS_ITS | Data Portability ---
Author Organization [facility] [employer] Address [address] [place] [address] [place] [address] Care Team Providers Care Installment Dealer Name Role Phone ELIJAH MERAZ Referring Provider ELIJAH SPEARS Referring Provider [phone] ELIJAH SPEARS Primary Care Provider [phone] Assessment Encounter Date Assessment Date Assessment LastModified by Organization Details LastModified Time 08/09/2024 08/09/2024 IMPRESSION: Benign essential familial tremor, with left greater than right hand tremor most prominent, bothering handwriting drinking with a glass and typing on a computer. Medications per patient: Lisinopril, chlorthalidone, metformin, gabapentin 600 mg 4 times daily, lorazepam 1 mg 3 times daily, [place] with fill, albuterol inhaler, montelukast, carbidopa levodopa [...] By Organization Details Last Modified Time 08/09/2024 [id number] Discussion acros s issues of diagnoses and management and same day associated chart review and management greater than 50% greater than 60 minutes [email or web address] Not available 08/09/2024 14:28:30 Reason for Referral None Reported. Procedures Surgical History Date Name Laterality Status Provider Name and Address Organization Details Recorded Time 08/09/2024 DATA REVIEW completed Mingo Diggs MD [address] [place] [address], [phone], [facility] Neurology [facility] 08/09/2024 14:21:32 Imaging Results None recorded. Procedure Notes None recorded. Medical Equipment None Reported. Allergies Allergen ID Allergen Name Allergen Category Reaction Reaction Severity Criticality Documentation Date Start Date Code Code System Note Provider Name and Address Organization Details Recorded Time 7793 Product containin g penicilli n (product) medicatio n Not available Not available Not available 08/09/2024 21583 8009 SN[facility]ED [facility] 13:07:44 5046 Substance with sulfonami de structure and antibacte rial mechanism of action (substanc e) medicatio n Not available Not available Not available 08/09/2024 77434 8003 [facility] 13:07:54 5047 Vaccine product containin g only Clostridi um tetani antigen (medicina l product) medicatio n Not available Not available Not available 08/09/2024 86960 [facility] 13:08:05 5048 iodine medicatio n Not available Not available Not available 08/09/2024 5933 RxNorm Nishi [facility] 13:08:11 5049 Product containin g 3-hydroxy -3-methyl glutaryl- coenzyme A reductase inhibitor (product) medicatio n Not available Not available Not available 08/09/2024 58144 009 [facility] 13:08:17 Medications Name Sig Start Date Stop [...] Updated DateTime 08/09/2024 172.72 cm 31.9 kg/m2 26695.4 g 12 /min Nishi [place] [facility] 08/09/2024 13:08:34 Social History Question Answer Notes LastModified by Organizat ion Details LastModified Time Tobacco Smoking Status Former [facility] 08/09/2024 13:24:47 What Is Your Level Of Caffeine Consumption? Moderate Information not available 08/09/2024 What Is The Highest Grade Or Level Of School You Have Completed Or The Highest Degree You Have Received? [id number] Information not available 08/09/2024 Which Of Your [...] available 2024 13:23:45 Medical History Condition Response Claustrophobia N Hospitalizations N Head Trauma/Injury N High Blood Pressure or Hypertension Y Thyroid Problems N Lung Disease N Depression N COPD or emphysema N Brain Tumors N Encephalitis N PTSD N Vitamin B12 deficiency Y Heart Attack ([place]) N Spine Problems N Obstructive Sleep Apnea N Alcoholism N Diabetes Y Autoimmune disease N Bleeding Disorder N Arthritis N Developmental Problems N Tuberculosis N Cerebral Palsy N Neck Problems N Cancer N Back Problems N Stroke N Asthma Y Heartburn, acid reflux, GERD N Vitamin D Deficiency Y Epilepsy/Seizures N Bipolar Disorder N Sleep Disorder N Hepatitis N Aneurysm N Liver Disease N Heart Disease N Headaches N Fibromyalgia N Osteoporosis N High Cholesterol or Hyperlipidemia N Kidney Disease N Past Encounters Encounter ID Performer Location Encounter Start Date Encounter Closed Date Diagnosis/Indication Diagnosis SNOMED-CT Code Diagnosis ICD10 Code Diagnosis Note [id number] Mingo Diggs MD [facility] [address] [place] [address] [place] [address] 08/09/2024 13:02:07 08/09/2024 16:43:25 Essential tremor [id number] G25.0 Health Concerns Section Related Observation LastModified by Organization Detai ls LastModified Time None Recorded Concern Status LastModified by Organization Details LastModified Time None Recorded Advance Directives Directive None Recorded Payers Encounter Date Sequence Insurance Name Policy Number Policy Enciso Covered Member ID Enciso Member ID Guarantor Name 08/09/2024 1 MEDICARE B-CO: [employer] Keith Camacho [id number] Keith Camacho 08/09/2024 2 [facility] - [facility] [id number] Keith Camacho [id number] Keith Camacho Notes Date Note Type Note [...] the time of his two back surgeries ~5980-2318. He had his first back surgery when [...] time that he had back surgery. Mingo Dgigs MD [address] [place] [address] [place], [phone], [facility] 08/09/2024 14:28:44
== END 2024-09-06 15:49 | disposition home or self-care (01) ==
LOC: HO.MRI 15:48
PROVIDERS: PCP Nurse Practitioner Family; Visit Provider Internal Medicine
DX: M96.1 Postlaminectomy syndrome, not elsewhere classified (principal)
CPT/HCPCS: 72158; A9585

== ENCOUNTER → 2024-09-06 16:06 | Outpatient (BNV) | payer MEDICARE, OTHER, SELFPAY | PROVIDERS: PCP Nurse Practitioner Family; Visit Provider Radiology Vascular & Interventional Radiology | DX: M96.1 Postlaminectomy syndrome, not elsewhere classified (principal) | CPT/HCPCS: 72158 ==

== ENCOUNTER 2024-09-14 09:12 | Outpatient (AMB) | payer MEDICARE, OTHER, SELFPAY ==
[2024-09-14 09:18] VITALS: BP 182/78; PULSE 96; RESP 16; O2SAT 92; BMI 31.2
--- NOTE | 2024-09-14 09:18 | MHC.OFFVIS ---
Vital Signs 09/14/24 09:18 Height 5 ft 8 in Weight 205 lb BMI 31.2 BP 182/78 H Blood Pressure Location Lt brachial Position Sitting Respiration 16 Pulse 96 Pulse Source Pulse Oximeter Pulse Oximetry (%) 92 Oxygen Delivery Method Room Air Intake Visit Reasons: Discuss MRI Results Woods Warden Required: No Allergies iodine (Iodine) Allergy (Severe, Verified 09/14/24 09:19) HIVES Penicillins Allergy (Severe, Verified 09/14/24 09:19) RASH sulfamethoxazole (From Decra) Allergy (Severe, Verified 09/14/24 09:19) RASH trimethoprim (From Decra) Allergy (Severe, Verified 09/14/24 09:19) RASH pravastatin Allergy (Unknown, Verified 09/14/24 09:19) Muscle Pain rosuvastatin Allergy (Unknown, Verified 09/14/24 09:19) Muscle Pain Seafood Allergy (Severe, Uncoded 09/14/24 09:19) HIVES Splenda Allergy (Unknown, Uncoded 09/14/24 09:19) Diarrhea Tetanus and Diphtheria Toxoid Allergy (Unknown, Uncoded 09/14/24 09:19) SWELLING Medication List - Last Reconciled 09/14/24 by Jessica Vargas, MACKENZIE albuterol sulfate 90 mcg/actuation 2 puffs inhalation Q4H PRN allopurinol 50 mg PO DAILY chlorthalidone 25 mg PO DAILY fluticasone propion-salmeterol 250-50 mcg/dose (Wixela Inhub) 1 inh inhalation Q12H gabapentin 400 mg PO QID lisinopril 40 mg PO DAILY lorazepam 1 mg PO Q8H PRN mecobalamin (vitamin B12) mcg PO metformin 500 mg PO BID montelukast 10 mg PO DAILY sildenafil 50 mg PO DAILY PRN HPI HPI Discuss MRI Results: Details: History of Present Illness The patient is a 69-year-old male presenting with an exacerbation of lumbar spine pain and left leg weakness. He reports a history of lumbar pain that has become worse over the past week with pain radiating from the lower back into the left leg. This sensation is cristal to a previously diagnosed herniated disc. Recently, while undergoing an MRI, he had an involuntary bowel movement, causing considerable distress. However, no further episodes of incontinence have occurred, and bladder control remains intact. He describes variable pain patterns in the lower back, sides, and radiating to the toe, indicating fluctuating sites of discomfort. Left leg weakness has been noted, primarily after the pain episodes. The MRI results indicate spinal stenosis, but they do not fully explain the bowel incontinence incident. His medical history includes lumbar surgery and a cautious approach to pain management interventions, specifically regarding invasive procedures like spinal cord stimulation. The patient's previous treatment attempts have offered little relief, necessitating further evaluation for targeted pain relief. Pain Description - Onset and Timing: Sudden exacerbation approximately a week before recent MRI. - Quality and Character: Pain radiates from lower back, across bottom of back, into left leg; sensation similar to previous herniated disc. - Primary Location: Lower back. - Radiation: Into the left leg, occasional right side, and toe discomfort. - Exacerbating Factors: Uncertain, variable pain pattern described. - Relieving Factors: Past interventions have limited efficacy. - Interference with Activities: Significant distress due to involuntary bowel movement during MRI, causing nighttime diaper use out of precaution. Physical Exam - Musculoskeletal- Positive straight leg raise test on the left side indicating radicular pain. - Neurological- Left leg weakness noted by the patient. Results - MRI: Evidence of spinal stenosis and herniated disc; neuroforaminal stenosis observed at both L2 and L3 levels with disc bulging and neural compression noted. Pain Management - Affect: Distress due to unexpected bowel incontinence during MRI, impacting psychological well-being. - Analgesia: Previous interventions have resulted in limited pain relief. No current medication regime specified in the conversation. - Adverse Effects: Nothing currently specified. - Activities of Daily Living: Pain affects mobility and causes routine nighttime diaper use for fear of incontinence. - Aberrant Drug Related Behaviors: None reported or discussed. [facility] Medical History CKD (chronic kidney disease) Spinal stenosis Lumbar disc herniation Hypertension Hematuria Gout Diabetes Asthma Anxiety Anemia Abdominal aortic ectasia Social History Are you a primary healthcare specialist to a significant other at home: No Do you presently have visiting nurse or other home services: No Patient Tobacco Use Status: Former Tobacco user Physical Exam Vital Signs: Last Vital Signs Pulse 96 09/14/24 09:18 Resp 16 09/14/24 09:18 BP 182/78 H 09/14/24 09:18 Pulse Ox 92 09/14/24 09:18 Oxygen Delivery Method Room Air 09/14/24 09:18 BMI result Body Mass Index 31.2 Assessment & Plan Assessment & Plan (1) Lumbar radicular pain: Code(s): M54.16 - Radiculopathy, lumbar region Category: Medical (2) Post laminectomy syndrome: Code(s): M96.1 - Postlaminectomy syndrome, not elsewhere classified Category: Medical Plan Plan - Proceed with L2-3 transforaminal epidural steroid injection for left lumbar radiculopathy. - Consider spinal cord stimulator as a future option, pending evaluation of current treatment efficacy. - Monitor for further episodes of incontinence; consult surgeons if necessary. - Educate patient on recognizing signs of concern and seek immediate care if symptoms such as bowel or bladder incontinence recur. Patient was informed and verbally consented to the use of an ambient scribe for clinic note documentation during this visit. Discussion Notes I discussed with the patient the exacerbation of his lumbar spine symptoms and the findings of his recent MRI. Given the symptomatology, I recommend left L2-3 transforaminal epidural injections to alleviate the pain and improve function. I explained the procedure details, including benefits and potential risks, with the patient acknowledging limited previous intervention success. We talked about the possibility of a spinal cord stimulator in the future, addressing the patient's concerns regarding adverse outcomes with reference to the likelihood of these occurring. I emphasized watching for specific red flags like loss of bowel or bladder control and advised prompt medical evaluation if these occur. The patient agreed to the plan. Patient Instructions - Be alert for any new onset of bowel or bladder incontinence; seek medical attention if these occur. - Expect a call to schedule the left L2-3 epidural steroid injection. - Discuss with insurance and approve the planned procedure. - Consideration of future spinal cord stimulator if current treatment strategies fail to provide relief. - Use caution to avoid exacerbating activities until symptoms have improved. Coding Level of Care Code Est Pt Level 3 (09805) Diagnoses Lumbar radicular pain M54.16 Post laminectomy syndrome M96.1
--- OUTSIDE RECORDS SUMMARY | 2024-09-14 09:50 | XMS_ITS | Data Portability ---
Author Organization [facility] [employer] Address [address] [place] [address] [place] [address] Care Team Providers Care Biomedical Equipment Specialist Name Role Phone ELIJAH MERAZ Referring Provider ELIJAH SPEARS Referring Provider ELIJAH SPEARS Primary Care Provider [phone] Assessment Encounter Date Assessment Date Assessment LastModified by Organization Details LastModified Time 08/09/2024 08/09/2024 IMPRESSION: Benign essential familial tremor, with left greater than right hand tremor most prominent, bothering handwriting drinking with a glass and typing on a computer. Medications per patient: Lisinopril, chlorthalidone, metformin, gabapentin 600 mg 4 times daily, lorazepam 1 mg 3 times daily, [place] with fill, albuterol inhaler, montelukast, carbidopa levodopa [...] By Organization Details Last Modified Time 08/09/2024 75090 Discussion acros s issues of diagnoses and management and same day associated chart review and management greater than 50% greater than 60 minutes [email or web address] Not available 08/09/2024 14:28:30 Reason for Referral None Reported. Procedures Surgical History Date Name Laterality Status Provider Name and Address Organization Details Recorded Time 08/09/2024 DATA REVIEW completed Mingo Diggs MD [address] [place] [address], [phone], [facility] 08/09/2024 14:21:32 Imaging Results None recorded. Procedure Notes None recorded. Medical Equipment None Reported. Allergies Allergen ID Allergen Name Allergen Category Reaction Reaction Severity Criticality Documentation Date Start Date Code Code System Note Provider Name and Address Organization Details Recorded Time 0578 Product containin g penicilli n (product) medicatio n Not available Not available Not available 08/09/2024 38088 8002 SNOMED Nishi [facility] 13:07:44 5046 Substance with sulfonami de structure and antibacte rial mechanism of action (substanc e) medicatio n Not available Not available Not available 08/09/2024 05173 8003 [facility] [place] 13:07:54 5047 Vaccine product containin g only Clostridi um tetani antigen (medicina l product) medicatio n Not available Not available Not available 08/09/2024 90497 [facility] [place] 13:08:05 5048 iodine medicatio n Not available Not available Not available 08/09/2024 5933 RxNorm Nishi W[facility] 13:08:11 5049 Product containin g 3-hydroxy -3-methyl glutaryl- coenzyme A reductase inhibitor (product) medicatio n Not available Not available Not available 08/09/2024 96397 009 [facility] [place] 13:08:17 Medications Name Sig Start Date [...] Updated DateTime 08/09/2024 172.72 cm 31.9 kg/m2 41200.4 g 12 /min Nishi [place] [facility] 08/09/2024 13:08:34 Social History Question Answer Notes LastModified by Organizat ion Details LastModified Time Tobacco Smoking Status Former Smoker [facility]ishi [facility]a [facility] 08/09/2024 13:24:47 What Is Your Level Of Caffeine Consumption? Moderate Information not available 08/09/2024 What Is The Highest Grade Or Level Of School You Have Completed Or The Highest Degree You Have Received? [id number] Information not available 08/09/2024 Which Of Your [...] Y Thyroid Problems N Brain Tumors N Depression N Lung Disease N COPD or emphysema N Encephalitis N Vitamin B12 deficiency Y PTSD N Heart Attack ([place]) N Spine Problems N Obstructive Sleep Apnea N Alcoholism N Diabetes Y Autoimmune disease N Bleeding Disorder N Arthritis N Tuberculosis N Cerebral Palsy N Developmental Problems N Neck Problems N Cancer N Back Problems N Stroke N Asthma Y Heartburn, acid reflux, GERD N Vitamin D Deficiency Y Epilepsy/Seizures N Bipolar Disorder N Sleep Disorder N Hepatitis N Aneurysm N Liver Disease N Heart Disease N Headaches N Fibromyalgia N High Cholesterol or Hyperlipidemia N Osteoporosis N Kidney Disease N Past Encounters Encounter ID Performer Location Encounter Start Date Encounter Closed Date Diagnosis/Indication Diagnosis SNOMED-CT Code Diagnosis ICD10 Code Diagnosis Note [id number] Mingo Diggs MD [facility] [address] [place] [address] [place] [address] 08/09/2024 13:02:07 08/09/2024 16:43:25 Essential tremor 818961466 G25.0 Health Concerns Section Related Observation LastModified by Organization Detai ls LastModified Time None Recorded Concern Status LastModified by Organization Details LastModified Time None Recorded Advance Directives Directive None Recorded Payers Encounter Date Sequence Insurance Name Policy Number Policy Enciso Covered Member ID Enciso Member ID Guarantor Name 08/09/2024 1 MEDICARE B-[place]: [employer] Keith Camacho [id number] Keith Camacho 08/09/2024 2 [facility] [id number] Keith Camacho [id number] Keith Camacho Notes Date Note Type Note [...] the time of his two back surgeries ~8725-0430. He had his first back surgery when [...] he had back surgery. Mingo Diggs MD [address] [place] [address] [place], [phone], [facility] 08/09/2024 14:28:44
== END 2024-09-14 09:49 | disposition home or self-care (01) ==
LOC: HO.PMC 09:13
PROVIDERS: PCP Nurse Practitioner Family; Visit Provider Internal Medicine
DX: M54.16 Radiculopathy, lumbar region (principal); M96.1 Postlaminectomy syndrome, not elsewhere classified
CPT/HCPCS: 99213

== ENCOUNTER → 2024-09-14 09:12 | Outpatient (BNVA) | payer MEDICARE, OTHER, SELFPAY | PROVIDERS: PCP Nurse Practitioner Family; Visit Provider Internal Medicine | DX: M54.16 Radiculopathy, lumbar region (principal); M96.1 Postlaminectomy syndrome, not elsewhere classified | CPT/HCPCS: 99212 ==

== ENCOUNTER 2024-10-13 06:37 | Outpatient (REF) | payer MEDICARE, OTHER, SELFPAY ==
--- NOTE | ~2024-10-13 | FL_ITS ---
EXAMINATION: FL GUIDANCE ONLY HISTORY: M54.16 - Radiculopathy, lumbar region COMPARISON: None available. TECHNIQUE: Fluoroscopy time: 0.1 minutes. Cumulative Dose: 2.61 mGy. DAP: 0.0187 mGym2 Images: 3. FINDINGS: Fluoroscopic spot films of the lumbar spine demonstrate a needle in place and contrast material on the left. FL/FL guidance in treatment room IMPRESSION: Fluoroscopy during procedure. Please see procedure report for additional information. Electronically signed by: Gerardo Choudhary MD 10/13/2024 03:09 PM EDT
--- OUTSIDE RECORDS SUMMARY | 2024-10-13 06:40 | XMS_ITS | Data Portability ---
Author Organization [facility] [employer] Address [address] [place] [address] [place] [address] Care Team Providers Care License Inspector Name Role Phone ELIJAH MERAZ Referring Provider ELIJAH SPEARS Referring Provider ELIJAH SPEARS Primary Care Provider [phone] Assessment Encounter Date Assessment Date Assessment LastModified by Organization Details LastModified Time 08/09/2024 08/09/2024 IMPRESSION: Benign essential familial tremor, with left greater than right hand tremor most prominent, bothering handwriting drinking with a glass and typing on a computer. Medications per patient: Lisinopril, chlorthalidone, metformin, gabapentin 600 mg 4 times daily, lorazepam 1 mg 3 times daily, [place] with fill, albuterol inhaler, montelukast, carbidopa levodopa [...] By Organization Details Last Modified Time 08/09/2024 83033 Discussion acros s issues of diagnoses and management and same day associated chart review and management greater than 50% greater than 60 minutes [email or web address] Not available 08/09/2024 14:28:30 Reason for Referral None Reported. Procedures Surgical History Date Name Laterality Status Provider Name and Address Organization Details Recorded Time 08/09/2024 DATA REVIEW completed Mingo Diggs MD [address] [place] [address], [phone], [facility]rology [facility] 08/09/2024 14:21:32 Imaging Results None recorded. Procedure Notes None recorded. Medical Equipment None Reported. Allergies Allergen ID Allergen Name Allergen Category Reaction Reaction Severity Criticality Documentation Date Start Date Code Code System Note Provider Name and Address Organization Details Recorded Time 5047 Product containin g penicilli n (product) medicatio n Not available Not available Not available 08/09/2024 82063 8001 [facility]ED [facility] 13:07:44 5046 Substance with sulfonami de structure and antibacte rial mechanism of action (substanc e) medicatio n Not available Not available Not available 08/09/2024 66750 8003 [facility] 13:07:54 5047 Vaccine product containin g only Clostridi um tetani antigen (medicina l product) medicatio n Not available Not available Not available 08/09/2024 00750 2002 [facility] [place] [facility] 13:08:05 5048 iodine medicatio n Not available Not available Not available 08/09/2024 5933 RxNorm Nishi [place] [facility] 13:08:11 5049 Product containin g 3-hydroxy -3-methyl glutaryl- coenzyme A reductase inhibitor (product) medicatio n Not available Not available Not available 08/09/2024 05642 009 SN[facility] [place] [facility] 13:08:17 Medications Name Sig Start Date [...] Updated DateTime 08/09/2024 172.72 cm 31.9 kg/m2 62898.4 g 12 /min Nishi [place] [facility] 08/09/2024 13:08:34 Social History Question Answer Notes LastModified by Organizat ion Details LastModified Time Tobacco Smoking Status Former [facility] 08/09/2024 13:24:47 What Is Your Level Of Caffeine Consumption? Moderate Information not available 08/09/2024 What Is The Highest Grade Or Level Of School You Have Completed Or The Highest Degree You Have Received? [id number] Information not available 08/09/2024 Which Of Your [...] N Vitamin B12 deficiency Y Heart Attack ([place]) N Spine Problems N Obstructive Sleep Apnea [...] SNOMED-CT Code Diagnosis ICD10 Code Diagnosis Note [id number] Mingo Diggs MD [facility] [address] [place] [address] [place] [address] 08/09/2024 13:02:07 08/09/2024 16:43:25 Essential tremor 557105103 G25.0 Health Concerns Section Related Observation LastModified by Organization Detai ls LastModified Time None Recorded Concern Status LastModified by Organization Details LastModified Time None Recorded Advance Directives Directive None Recorded Payers Insurance Date Sequence Insurance Name Policy Number Policy Enciso Covered Member ID Enciso Member ID Guarantor Name 08/17/2024 1 MEDICARE B-[place]: [employer] Keith Camacho [id number] Keith Camacho 08/17/2024 2 [facility] [id number] Keith Camacho [id number] Keith Camacho Notes Date Note Type Note Provider Name and Address Organization Details Recorded Time 08/09/2024 text/html Keith Camacho presents for initial neurology consultation for assessment and management of right greater than left hand tremor of uncertain duration, worse in the last few months. Past history includes status post lower back surgery x 2 using cane in right hand with left-sided dropfoot since the second surgery ~2018. Occasion list suggests additionally: Hypertension, diabetes, pulmonary issue on albuterol. He is right-handed. He is unaccompanied.>>>> >>>>>>>>August 09, 2024 presenting [...] a glass of liquid in his left hand he has not dropped any glasses but he often has to quickly hold the glass with two hands. He has trouble with the computer, mostly with typing his fingers double type by mistake. The mouse is less of a problem. The tremor does not embarrass him.He has had trouble walking since around the time of his two back surgeries ~4536-5381. He had his first back surgery when [...] he had back surgery. Mingo Diggs MD [address] [place], [place] [address] [place], [phone], [facility] 08/09/2024 14:28:44
--- OUTSIDE RECORDS SUMMARY | 2024-10-13 06:40 | XMS_ITS | Patient Health Record ---
Author Organization [facility] Address [address] [place] [address] Care Team Providers Care Gas Well Drilling Manager Name Role Phone Vijay Hampton MD Primary Care Provider Gerardo Saenz [phone] Allergies Allergen (clinical drug ingredient) Drug/Non Drug [...] Status W/U Status Risk Notes Problem Constipation (51014913) Unspecified constipation (564.00) Active confirmed Problem Blood in stool (007661601) Blood in stool (578.1) Active confirmed Problem Digestive system symptom (059193503) Other symptoms involving digestive system (787.99) Active confirmed Plan Of Treatment Future Test Test Name Order Date COLONOSCOPY 04/15/2011 Insurance Providers Payer Name Payer Address Payer Phone Subscriber Number Group Number Insured Name Patient Relationship to Insured Coverage Start Date Coverage End Date [employer] [place] [address] [place] [address] [id number] LORENA YUN Self - patient is the insured Medical (General) History Medical History History ICD Code hypertension gout diabetes asthma he denies any history of OR, stroke, nor kidney disease Surgical History Surgery Date(Month/Year) hydrocele and orchiectomy wrist surgery surgery for a broken nose hemorrhoid surgery
== END 2024-10-13 06:38 | disposition home or self-care (01) ==
LOC: CF 06:37
PROVIDERS: Visit Provider Internal Medicine
DX: M54.16 Radiculopathy, lumbar region (principal); M96.1 Postlaminectomy syndrome, not elsewhere classified; M48.061 Spinal stenosis, lumbar region without neurogenic claudication
CPT/HCPCS: 64483; J1100; J2003; Q9967

== ENCOUNTER 2024-10-13 09:59 | Outpatient (AMB) | payer MEDICARE, OTHER, SELFPAY ==
[2024-10-13 10:09] VITALS: BP 118/70; PULSE 59; RESP 16; O2SAT 95; BMI 30.1
--- NOTE | 2024-10-13 10:09 | A.OFFVIS_ITS ---
Vital Signs 10/13/24 10:09 10/13/24 11:35 Height 5 ft 8 in 5 ft 8 in Weight 198 lb 198 lb BMI 30.1 30.1 BP 118/70 147/81 H Blood Pressure Location Lt brachial Lt brachial Position Sitting Sitting Respiration 16 16 Pulse 59 94 Pulse Source Pulse Oximeter Pulse Oximeter Pulse Oximetry (%) 95 95 Oxygen Delivery Method Room Air Room Air Intake Visit Reasons: Right L2-L3 TFESI Allergies iodine (Iodine) Allergy (Severe, Verified 09/14/24 09:19) HIVES Penicillins Allergy (Severe, Verified 09/14/24 09:19) RASH sulfamethoxazole (From Decra) Allergy (Severe, Verified 09/14/24 09:19) RASH trimethoprim (From ) Allergy (Severe, Verified 09/14/24 09:19) RASH pravastatin Allergy (Unknown, Verified 09/14/24 09:19) Muscle Pain rosuvastatin Allergy (Unknown, Verified 09/14/24 09:19) Muscle Pain Seafood Allergy (Severe, Uncoded 09/14/24 09:19) HIVES Splenda Allergy (Unknown, Uncoded 09/14/24 09:19) Diarrhea Tetanus and Diphtheria Toxoid Allergy (Unknown, Uncoded 09/14/24 09:19) SWELLING HPI HPI Right L2-L3 TFESI: Details: Patient presents for scheduled procedure. Denies any recent cough, cold, infection, fever or other significant changes in medical history since last office visit. [facility] Medical History CKD (chronic kidney disease) Spinal stenosis Lumbar disc herniation Hypertension Hematuria Gout Diabetes Asthma Anxiety Anemia Abdominal aortic ectasia Social History Are you a primary home health care coordinator to a significant other at home: No Do you presently have visiting nurse or other home services: No Patient Tobacco Use Status: Former Tobacco user Physical Exam Vital Signs: Last Vital Signs Pulse 94 10/13/24 11:35 Resp 16 10/13/24 11:35 BP 147/81 H 10/13/24 11:35 Pulse Ox 95 10/13/24 11:35 Oxygen Delivery Method Room Air 10/13/24 11:35 BMI result Body Mass Index 30.1 Office Procedures Details: Transforaminal epidural steroid injection, Left L2/3 After obtaining written consent, pre-procedure blood pressure and heart rate were stable and recorded in the nursing record. The patient was placed in the prone position on the fluoroscopy table. The lumbosacral area was prepped with chloraprep, allowed to dry and draped in sterile fashion. Using fluoroscopy, the skin overlying our target was anesthetized with 0.5% lidocaine. A 22 gauge 3.5 inch spinal needle was advanced to the safe triangle in the upper pole of the left L2/3 foramen. No paresthesias were elicited with needle placement and aspiration was negative for blood and CSF. Correct needle position was confirmed with approximately 1 ml contrast dye (Omnipaque 180 mg/ml) injected under real-time fluoroscopy. No evidence of vascular or intrathecal uptake was seen and there was both epidural and peripheral spread of the contrast agent. 10 mg dexamethasone plus 1 ml containing 0.5% lidocaine was slowly injected. The needle was flushed and removed. The skin was cleansed and a sterile bandages were applied. The patient tolerated the procedure well and no complications were encountered. Following the procedure the patient's vital signs were stable. The patient was discharged home in good condition with post-procedural instructions. Time Out: Immediately prior to the procedure, the following was verbally confirmed that there is a signed consent form and that the correct patient, planned procedure, site and side are consistent with documentation and that necessary equipment and/or blood products are available prior to the start of the case. Complications: none EBL: <5 cc 26104 - Lumbar/Sacral Procedure code (CPT) selection complete Assessment & Plan Assessment & Plan (1) Post laminectomy syndrome: Code(s): M96.1 - Postlaminectomy syndrome, not elsewhere classified Category: Medical (2) Lumbar radicular pain: Code(s): M54.16 - Radiculopathy, lumbar region Category: Medical (3) Lumbar spinal stenosis: Code(s): M48.061 - Spinal stenosis, lumbar region without neurogenic claudication Category: Medical Plan Patient is status post left L2-3 TFESI. Patient tolerated procedure well and was discharged home in stable condition with discharge instructions. All questions were answered. Over the last few weeks, he has experienced 3 episodes of unintentional bowel incontinence. This may be secondary to central canal stenosis at L2-3 secondary to a disc herniation. I will place an urgent referral for evaluation for decompression to spine surgery. Patient is in agreement. Orders: Orders FL guidance in treatment room Today Maile Babb APRN, DINKEY ENGINE FIRER/FIREMAN M54.16 - Radiculopathy, lumbar region AMB Transforaminal Epidural Steroid Injection Today Conor Arroyo MD M54.16 - Radiculopathy, lumbar region Referrals Neurosurgery Referral Conor Arroyo MD M48.061 - Spinal stenosis, lumbar region without neurogenic claudication Coding Level of Care Code Procedure Only Diagnoses Post laminectomy syndrome M96.1 Lumbar radicular pain M54.16 Lumbar spinal stenosis M48.061 CPT Codes Transforaminal Epidural Steroid Inj - TESI 3: 59896 - Lumbar/Sacral ([id number])
[2024-10-13 11:35] VITALS: BP 147/81; PULSE 94; RESP 16; O2SAT 95; BMI 30.1
== END 2024-10-13 11:41 | disposition home or self-care (01) ==
LOC: HO.PMCPRC 09:59
PROVIDERS: PCP Nurse Practitioner Family; Visit Provider Internal Medicine
DX: M96.1 Postlaminectomy syndrome, not elsewhere classified (principal); M54.16 Radiculopathy, lumbar region; M48.061 Spinal stenosis, lumbar region without neurogenic claudication
CPT/HCPCS: 64483

== ENCOUNTER 2024-10-21 13:00 | Outpatient (AMB) | payer MEDICARE, OTHER, SELFPAY ==
--- OUTSIDE RECORDS SUMMARY | 2024-10-21 13:02 | XMS_ITS | Patient Health Record ---
Author Organization [facility] Address [address] [place] [address] Care Team Providers Care Fish Straightener Name Role Phone Vijay Hampton MD Primary Care Provider Gerardo Saenz [phone] Allergies Allergen (clinical drug ingredient) Drug/Non Drug [...] Status W/U Status Risk Notes Problem Constipation (19002386) Unspecified constipation (564.00) Active confirmed Problem Blood in stool (256455432) Blood in stool (578.1) Active confirmed Problem Digestive system symptom (835525202) Other symptoms involving digestive system (787.99) Active confirmed Plan Of Treatment Future Test Test Name Order Date COLONOSCOPY 04/15/2011 Insurance Providers Payer Name Payer Address Payer Phone Subscriber Number Group Number Insured Name Patient Relationship to Insured Coverage Start Date Coverage End Date [employer] [place] [id number] [place] [address] [id number] LORENA YUN Self - patient is the insured Medical (General) History Medical History History ICD Code hypertension gout diabetes asthma he denies any history of ME, stroke, nor kidney disease Surgical History Surgery Date(Month/Year) hydrocele and orchiectomy wrist surgery surgery for a broken nose hemorrhoid surgery
--- OUTSIDE RECORDS SUMMARY | 2024-10-21 13:02 | XMS_ITS | Encounter Summary ---
Author Organization [facility] Address [address] [place] [phone] Phone Care Team Providers Care Disk Sander Name Role Phone Jyothi Stark [facility] Primary Care Provider Jyothi Stark [facility] Primary Care Provider Carlos Bullock MD Unavailable [phone] Carlos Bullock MD Primary Care Provider Jyothi Stark [facility] Primary Care Provider Jose D Almeida MD Unavailable Carlos Bullock MD Unavailable [phone] Conor Arroyo MD Unavailable Carlos Bullock MD Primary Care Provider [phone] Shaista Magaña [facility] Primary Care Provid er Reason for Referral * MRI/CAT Scan - Closed Specialty Diagnoses / Procedures Referred By Shakira t Referred To Contact Radiology Diagnoses Arthrodesis status Procedures CT Lumbar Spine Radha Rojas PA Phone: tel: fax: [email or web address] Referral ID Status Reason Start Date Expiration Date Visits Re quested Visits Authorized [id number] Closed 05/06/2018 05/06/2019 1 1 Encounter Details Date Type Department Care Team ([facility] Contact Info) Description 05/06/2018 Ancillary Orders Virtual Department [address] [place] [address] Radha Rojas PA [address] [place] [address] [email or web address] Arthrodesis status Social History Tobacco Use Types [...] Upcoming Encounters Date Type Department Care Team ([facility] Contact Info) Description 01/04/2025 10:00 AM EDT Office Visit [facility] [address] [place] [address] [place] [address] Shaista Magaña, BOARDER STEAM [address] [facility], [address]nd [place] [address] [email or web address] documented as of this encounter Results * CT LUMBAR SPINE WITHOUT CONTRAST (05/11/2018 9:39 AM EST) Anatomical Region Laterality Modality L-spine Computed Tomogra phy 05/11/2018 11:4 6 AM EST Impressions 05/11/2018 7:26 PM EST Changes of posterior spinal fusion at L4-5 with intervertebral cage subsidence. Mild retropulsion on the left contacts the descending nerve root. TOTAL CTDIvol: 46.50 mGy POS [id number] Edited by: Aubrie Alvarez on 05/11/2018 12:17 PM Narrative 05/11/2018 7:26 PM EST COMPARISON: None, correlation made with radiography 2018 and MRI 04/17/2017 TECHNIQUE: Axial imaging through the lumbar spine performed without IV contrast. Coronal and sagittal reformatted images are generated. Automated exposure control utilized. FINDINGS: Bones are osteopenic. Bone graft harvest site at the left medial ilium. Extensive atherosclerotic calcifications. No aortic aneurysm. L2-3: Moderate generalized disc bulging again noted. Moderate facet arthropathy. Mild neural foraminal narrowing on the right. No significant left neural foraminal narrowing. Mild to moderate narrowing of the spinal canal as before. L3-4: Mild foraminal disc bulging. Moderate facet arthropathy. Moderate neural foraminal narrowing on the left and mild on the right. No significant spinal canal stenosis. L4-L5: Changes of posterior fusion with bilateral interpedicular screws. Hardware is intact. The left screws approach the anterior cortical margin of the vertebral bodies. Intervertebral spacer cage positioned just left of midline has subsided into the L5 vertebral body with approximately 6 mm loss of vertebral body height. Milder subsidence into the inferior L4 vertebral body. Very mild retropulsion which contacts the left descending nerve root. There is now slight retrolisthesis of L4. Moderate to severe facet arthropathy on the right. Decreasing left neural foraminal narrowing. Right neural foramen is severely narrowed as before. No significant spinal canal stenosis. L5-S1: Generalized disc bulging with a tiny central disc protrusion. Moderate facet arthropathy. Moderate neural foraminal narrowing as before. No significant spinal canal stenosis. Bones are osteopenic. Bone graft harvest site at the left medial ilium.. Extensive after chronic calcifications. No aortic aneurysm. Procedure Note Divya George MD [...] body height. Milder subsidence into the inferior P2wuwmsnhuh body. Very mild retropulsion which contacts the [...] descending nerveroot. TOTAL CTDIvol: 46.50 mGy POS [id number] Edited by: Aubrie Alvarez on 05/11/2018 12:17 PM Radha BANEGAS IMIs[facility] CT XSPECIALTY ORDERABLE S Final Result documented in this encounter Visit Diagnoses Diagnosis Arthrodesis status Arthrodesis status documented in this encounter Care Teams Disk Sander Relationship Specialty Start Date End Date Jyothi Stark CNP [address] [place] [address] PCP - General Internal Medicine 12/01/17 03/08/19 Jyothi Stark CNP [address] [place] [address] PCP - General Internal Medicine 03/09/19 11/16/19 Carlos Bullock MD [address] [place] [address] [email or web address] PCP - General Internal Medicine 11/17/19 11/21/19 Jyothi Stark, MAE [address] [place], [place] [email or web address] PCP - General Internal Medicine 11/22/19 09/08/22 Carlos Bullock MD [address] [place] [address] [email or web address] PCP - General Internal Medicine 09/09/22 11/10/22 Shaista Magaña CNP [address] [place] [address], [address] [place] [address] [email or web address] PCP - General Family Medicine 11/11/22 Carlos Bullock MD [address] [place] [address] [email or web address] Insurance Assigned Provider 07/13/19 04/14/20 Jose D Almeida MD [address] [place] [address] [email or web address] Ophthalmology 12/05/20 Carlos Bullock MD [address] [place] [address] [email or web address] Insurance Assigned Provider 07/11/23 04/11/24 Conor Arroyo MD [address] [place] [address] Interventional Pain Management 07/16/22 documented as of this encounter Additional Source Comments The information contained in this document represents components of the legal health record. It is not the complete legal health record.[facility]
[2024-10-21 13:09] VITALS: BMI 31.3
--- NOTE | 2024-10-21 13:09 | A.SPINEOV_ITS ---
Vital Signs 10/21/24 13:09 Height 5 ft 8 in Weight 206 lb BMI 31.3 Intake Visit Reasons: spinal stenosis, lumbar region Intake Note: Mr. Camacho is here today c/o low back pain, difficulty walking. Geological Sample Tester Required: No Allergies iodine (Iodine) Allergy (Severe, Verified 10/21/24 13:10) HIVES Penicillins Allergy (Severe, Verified 10/21/24 13:10) RASH sulfamethoxazole (From Septra) Allergy (Severe, Verified 10/21/24 13:10) RASH trimethoprim (From Septra) Allergy (Severe, Verified 10/21/24 13:10) RASH pravastatin Allergy (Unknown, Verified 10/21/24 13:10) Muscle Pain rosuvastatin Allergy (Unknown, Verified 10/21/24 13:10) Muscle Pain Seafood Allergy (Severe, Uncoded 09/14/24 09:19) HIVES Splenda Allergy (Unknown, Uncoded 09/14/24 09:19) Diarrhea Tetanus and Diphtheria Toxoid Allergy (Unknown, Uncoded 09/14/24 09:19) SWELLING Physical Exam Vital Signs: BMI result Body Mass Index 31.3 Assessment & Plan Assessment & Plan (1) Lumbar spinal stenosis: Code(s): M48.061 - Spinal stenosis, lumbar region without neurogenic claudication Category: Medical Plan Dear Dr Arroyo, Thank you for referring Mr Camacho to our office today. 69-year-old gentleman with previous history of left L4-5 TLIF about 7 or [address] Maldonado, who has had persistent left leg pain, numbness of his left leg and footdrop. He had the symptoms originally before surgery including the footdrop but things just never really got better after surgery. He did require a revision surgery for 1 of the screws when it developed some degree of pseudoarthrosis. That was done with an a year or so of the surgery. Unfortunately, he has had the same left L4, L5 radiculopathy and weakness of his foot and mostly just been dealing with it. He has been seen in your office in his undergone injections. Most recently had an L2-3 injection for stenosis seen on his MRI. That gave him a little bit of improvement in his back pain but nothing in terms of improvement in the left leg pain. He did have an episode of bowel incontinence when he was undergoing the MRI. No true cauda equina symptoms such as peroneal numbness etc.. In general he is able to feel when he is having a bowel movement and normal sensation when he is wiping. He was sent down today to see us for possible evaluation of L2-3 stenosis and decompression. Currently he has no specific claudicating symptoms other than the left leg pain that he has had for the last 7 or 8 years. Nothing on the right side. He does have chronic back pain. PMH: He is a diabetic but very well controlled, history of hypertension, chronic kidney disease, hydrocelectomy, orchiectomy, wrist surgery x2. Social hx: Smokes marijuana daily, does not drink or use any recreational drugs. Medications: Albuterol, allopurinol, chlorthalidone, Flonase, gabapentin, lisinopril, lorazepam, metformin, Singulair, Viagra Allergies: Please see the [employer] list Physical exam: Awake alert oriented no acute distress, able to independently get up walk to the examining table, strength is full with the exception of his left tibialis which is 0/5. Imaging review: Lumbar MRI done at [place] shows postsurgical changes at L4-5 with evidence of solid fusion, no concern for hardware malfunction. He has L2-3 stenosis rate it as moderate. Impression: 69-year-old gentleman with what sounds like nerve injury from and a herniated disc at L4-5 who underwent left L4-[address] Maldonado and just never really recovered any degree of function of his left foot and he has persistent pain. He is in the unfortunate small percentage of people who just do not respond to surgery despite adequate decompression and surgical intervention. There is the issue of the L2-3 stenosis that lingers over the picture. Dr. Trevizo and I reviewed this in its really moderate with no clear indication for surgery in light of the fact that he does not have any new claudicating sy mptoms, just the old previous left leg pain dating back to his surgery. We do not think the episode of bowel incontinence has anything to do with this. We I did educate him about the symptoms of progressive stenosis and he will call us if he develops them. At that point we could offer him an L2-3 decompression. Thank you for allowing us to care for your patient. The total time spent with this visit with this patient was 45 minutes reviewing history, physical exam, lumbar MRI imaging review, and implementation of treatment plan or further diagnostic testing Mingo Trevizo MD,PhD [facility] Coding Level of Care Code New Pt Level 4 (63125) Diagnoses Lumbar spinal stenosis M48.061
== END 2024-10-21 14:37 | disposition home or self-care (01) ==
LOC: HO.HNS 13:00
PROVIDERS: PCP Nurse Practitioner Family; Referring Provider Internal Medicine; Visit Provider Physician Assistant
DX: M48.061 Spinal stenosis, lumbar region without neurogenic claudication (principal)
CPT/HCPCS: 99204

== ENCOUNTER → 2024-10-21 13:00 | Outpatient (BNVA) | payer MEDICARE, OTHER, SELFPAY | PROVIDERS: PCP Nurse Practitioner Family; Referring Provider Internal Medicine; Visit Provider Physician Assistant | DX: M48.061 Spinal stenosis, lumbar region without neurogenic claudication (principal); Z98.890 Other specified postprocedural states | CPT/HCPCS: 99202 ==

== ENCOUNTER 2024-11-16 09:41 | Outpatient (AMB) | payer MEDICARE, OTHER, SELFPAY ==
--- NOTE | 2024-11-16 09:50 | A.OFFVIS_ITS ---
Vital Signs 11/16/24 09:51 Height 5 ft 8 in Weight 202 lb BMI 30.7 BP 188/84 H Blood Pressure Location Lt brachial Position Sitting Respiration 16 Pulse 65 Pulse Source Pulse Oximeter Pulse Oximetry (%) 94 Oxygen Delivery Method Room Air Intake Visit Reasons: s/p Right L2-L3 TFESI Incubator Machine Operator Required: No Allergies iodine (Iodine) Allergy (Severe, Verified 11/16/24 09:52) HIVES Penicillins Allergy (Severe, Verified 11/16/24 09:52) RASH sulfamethoxazole (From Decra) Allergy (Severe, Verified 11/16/24 09:52) RASH trimethoprim (From Decra) Allergy (Severe, Verified 11/16/24 09:52) RASH pravastatin Allergy (Unknown, Verified 11/16/24 09:52) Muscle Pain rosuvastatin Allergy (Unknown, Verified 11/16/24 09:52) Muscle Pain Seafood Allergy (Severe, Uncoded 11/16/24 09:52) HIVES Splenda Allergy (Unknown, Uncoded 11/16/24 09:52) Diarrhea Tetanus and Diphtheria Toxoid Allergy (Unknown, Uncoded 11/16/24 09:52) SWELLING Medication List - Last Reconciled 11/16/24 by Jessica Vargas LPN albuterol sulfate 90 mcg/actuation 2 puffs inhalation Q4H PRN allopurinol 50 mg PO DAILY chlorthalidone 25 mg PO DAILY fluticasone propion-salmeterol 250-50 mcg/dose (Wixela Inhub) 1 inh inhalation Q12H gabapentin 400 mg PO QID lisinopril 40 mg PO DAILY lorazepam 1 mg PO Q8H PRN mecobalamin (vitamin B12) mcg PO metformin 500 mg PO BID montelukast 10 mg PO DAILY sildenafil 50 mg PO DAILY PRN HPI HPI s/p Right L2-L3 TFESI: Details: History of Present Illness The patient is a 69-year-old male presenting with a follow-up after a transforaminal epidural steroid injection. The patient reports that the injection did not provide relief from his symptoms. He has a history of lumbar spinal stenosis at levels L2-L3. Spine surgery did not feel this needed to be decompressed at this time. The patient denies any further bowel control issues and has not experienced any episodes since the last visit. Pain Description - Location: Axial lower back - Quality: Discomfort exacerbated by lumbar extension - Relief: No relief from transforaminal epidural steroid injection Physical Exam - Musculoskeletal: Facet loading positive with lumbar extension, indicating discomfort in the lower back Pain Management - Analgesia: No relief from transforaminal epidural steroid injection - Activities of Daily Living: Pain impacts daily activities, exacerbated by lumbar extension - KASIA score 38 [facility] Medical History CKD (chronic kidney disease) Spinal stenosis Lumbar disc herniation Hypertension Hematuria Gout Diabetes Asthma Anxiety Anemia Abdominal aortic ectasia Social History Are you a primary resident care manager to a significant other at home: No Do you presently have visiting nurse or other home services: No Patient Tobacco Use Status: Former Tobacco user Physical Exam Vital Signs: Last Vital Signs Pulse 65 11/16/24 09:51 Resp 16 11/16/24 09:51 BP 188/84 H 11/16/24 09:51 Pulse Ox 94 11/16/24 09:51 Oxygen Delivery Method Room Air 11/16/24 09:51 BMI result Body Mass Index 30.7 Assessment & Plan Assessment & Plan (1) Lumbar spondylosis: Code(s): M47.816 - Spondylosis without myelopathy or radiculopathy, lumbar region Category: Medical Plan Plan - Consider radiofrequency ablation of the facet joints after two rounds of test injections to assess efficacy. - Plan L1, L2 medial branches, L5 DR diagnostic blocks for adjacent segment facet degeneration causing lumbar facet-mediated pain. Patient was informed and verbally consented to the use of an ambient scribe for clinic note documentation during this visit. Discussion Notes I discussed with the patient the lack of relief from the recent transforaminal epidural steroid injection and the potential for radiofrequency ablation of the facet joints as a next step. We also talked about the need for two rounds of test injections to determine the suitability of radiofrequency ablation. Additionally, I explained the plan to schedule diagnostic medial branch blocks to further evaluate lumbar facet-mediated pain. Patient Instructions - Follow up with the clinic for scheduling of test injections and potential radiofrequency ablation. - Monitor for any changes in symptoms and report them to the healthcare provider. Coding Level of Care Code Est Pt Level 3 (60923) Diagnoses Lumbar spondylosis M47.816
[2024-11-16 09:51] VITALS: BP 188/84; PULSE 65; RESP 16; O2SAT 94; BMI 30.7
--- OUTSIDE RECORDS SUMMARY | 2024-11-16 10:10 | XMS_ITS | Encounter Summary ---
Author Organization [facility] Address [address] [place] [address] Phone Care Team Providers Care Propeller Mechanic Name Role Phone Jyothi Stark [facility] Primary Care Provider Jyothi Stark [facility] Primary Care Provider Carlos Bullock MD Unavailable [phone] Carlos Bullock MD Primary Care Provider Jyothi Stark [facility] Primary Care Provider Jose D Almeida MD Unavailable Carlos Bullock MD Unavailable [phone] Conor Arroyo MD Unavailable [phone] Carlos Bullock MD Primary Care Provider [phone] Shaista Magaña [facility] Primary Care Provid er Reason for Referral * MRI/CAT Scan - Closed Specialty Diagnoses / Procedures Referred By Shakira pacheco Referred To Contact Radiology Diagnoses Arthrodesis status Procedures CT Lumbar Spine Radha Rojas PA Phone: tel: fax: [email or web address] Referral ID Status Reason Start Date Expiration Date Visits Re quested Visits Authorized [id number] Closed 05/06/2018 05/06/2019 1 1 Encounter Details Date Type Department Care Team (Late st Contact Info) Description 05/06/2018 Ancillary Orders Virtual Department [address] [place] [address] Radha Rojas PA [address] [place] [address] [email or web address] Arthrodesis status Social History Tobacco Use Types [...] Description 01/04/2025 10:00 AM EDT Office Visit [facility] [address] [place] [address] [place] [address] Shaista Magaña, EIGHT SECTION BLOWER [address] [facility], 2nd [place] [address] [email or web address] documented as of this encounter Results * CT LUMBAR SPINE WITHOUT CONTRAST (05/11/2018 9:39 AM EST) Anatomical Region Laterality Modality L-spine Computed Tomogra phy 05/11/2018 11:4 6 AM EST Impressions 05/11/2018 7:26 PM EST Changes of posterior spinal fusion at L4-5 with intervertebral cage subsidence. Mild retropulsion on the left contacts the descending nerve root. TOTAL CTDIvol: 46.50 mGy POS [id number] Edited by: Aubrie Alvarez on 05/11/2018 12:17 [...] body height. Milder subsidence into the inferior A0desyzwevx body. Very mild retropulsion which contacts the [...] descending nerveroot. TOTAL CTDIvol: 46.50 mGy POS [id number] Edited by: Aubrie Alvarez on 05/11/2018 12:17 PM Radha BANEGAS IMG CT XSPECIALTY ORDERABLE S Final Result documented in this encounter Visit Diagnoses Diagnosis Arthrodesis status Arthrodesis status documented in this encounter Care Teams Propeller Mechanic Relationship Specialty Start Date End Date Jyothi Stark CNP [address] [place] [address] PCP - General Internal Medicine 12/01/17 03/08/19 Jyothi Stark CNP [address] [place] [address] PCP - General Internal Medicine 03/09/19 11/16/19 Carlos Bullock MD [address] [place] [address] [email or web address] PCP - General Internal Medicine 11/17/19 11/21/19 Jyothi Stark, EIGHT SECTION BLOWER [address] [place] [address] [email or web address] PCP - General Internal Medicine 11/22/19 09/08/22 Carlos Bullock MD [address] [place] [address] [email or web address] PCP - General Internal Medicine 09/09/22 11/10/22 Shaista Magaña CNP [address] [place] [address], 2nd [place] [address] [email or web address] PCP - General Family Medicine 11/11/22 Carlos Bullock MD [address] [place] [address] [email or web address] Insurance Assigned Provider 07/13/19 04/14/20 Jose D Almeida MD [address] [place] [address] [email or web address] Ophthalmology 12/05/20 Carlos Bullock MD [address] [place] [address] [email or web address] Insurance Assigned Provider 07/11/23 04/11/24 Conor Arroyo MD [address] [place] [address] Interventional Pain Management 07/16/22 documented as of this encounter Additional Source Comments The information contained in this document represents components of the legal health record. It is not the complete legal health record.[facility]
--- OUTSIDE RECORDS SUMMARY | 2024-11-16 10:10 | XMS_ITS | Patient Health Record ---
Author Organization [facility] Address [address] [place] [address] Care Team Providers Care Kettle Loader Name Role Phone Vijay Hampton MD Primary Care Provider Gerardo Saenz [phone] Allergies Allergen (clinical drug ingredient) Drug/Non Drug [...] Status W/U Status Risk Notes Problem Constipation (40476359) Unspecified constipation (564.00) Active confirmed Problem Blood in stool (354438569) Blood in stool (578.1) Active confirmed Problem Digestive system symptom (936729444) Other symptoms involving digestive system (787.99) Active confirmed Plan Of Treatment Future Test Test Name Order Date COLONOSCOPY 04/15/2011 Insurance Providers Payer Name Payer Address Payer Phone Subscriber Number Group Number Insured Name Patient Relationship to Insured Coverage Start Date Coverage End Date [employer] [place] [address] [place] [address] [id number] LORENA YUN Self - patient is the insured Medical (General) History Medical History History ICD Code hypertension gout diabetes asthma he denies any history of [place], stroke, nor kidney disease Surgical History Surgery Date(Month/Year) hydrocele and orchiectomy wrist surgery surgery for a broken nose hemorrhoid surgery
== END 2024-11-16 10:23 | disposition home or self-care (01) ==
LOC: HO.PMC 09:42
PROVIDERS: PCP Nurse Practitioner Family; Visit Provider Internal Medicine
DX: M47.816 Spondylosis without myelopathy or radiculopathy, lumbar region (principal)
CPT/HCPCS: 99213

== ENCOUNTER → 2024-11-16 09:41 | Outpatient (BNVA) | payer MEDICARE, OTHER, SELFPAY | PROVIDERS: PCP Nurse Practitioner Family; Visit Provider Internal Medicine | DX: M47.816 Spondylosis without myelopathy or radiculopathy, lumbar region (principal) | CPT/HCPCS: 99212 ==

== ENCOUNTER 2024-12-29 06:28 | Outpatient (REF) | payer MEDICARE, OTHER, SELFPAY ==
--- OUTSIDE RECORDS SUMMARY | 2016-01-22 | XMS_ITS | Encounter Summary ---
Author Organization [facility] Address [address] [place] [phone] Phone Care Team Providers Care Doctor Of Nursing Practice Name Role Phone Unavailable Primary Care Provider Unavailabl e Reason for Visit * MRI/CAT Scan - Closed Specialty Diagnoses / Procedures Referred By Contac t Referred To Contact Procedures MRI Spine (Bone) Outside (No Interpretation) System, Provider Not In, [facility] [address] [address] Referral ID Status Reason Start Date Expiration Date Visits Re quested Visits Authorized [id number] Closed 06/15/2017 06/15/2018 1 1 Encounter Details Date Type Department Care Team (Late st Contact Info) Description 01/22/2016 Hospital Encounter [facility],Outside Imaging [address] [place] [address] System, Provider Not In, [facility] [email or web address] [id number] Social History Tobacco Use Types Packs/Day Years Used Date Smoking Tobacco: Former Cigarettes 2 39 0 04/22/1976 - 2005 Smokeless Tobacco: Never Alcohol Use Standard Drinks/Week Comments Not Currently 0 (1 standard drink = 0.6 oz pur e alcohol) Child or Family Care Answer Date Record ed Do you have problems with on e of the following making it difficult for you to work, study, or receive health care? No 06/30/2024 Education Answer Date Recorded Are you interested in more education? Not on liliane e 08/01/2022 Are you concerned about learning? Not on file 08/01/2022 No 08/01/2022 No 08/01/2022 Food Answer Date Recorded Within the past 6 months we worried whether our food would run out before we got money to buy more. Never True 06/30/2024 Within the past 6 months the food we bought just didn't last and we didn't have enough money to get more. Never True Residential Stability Answer Date Recor ded What is your housing situation today? I have cheryl lester 06/30/2024 How many times have you move d in the past 12 months? Zero (I did not move) 06/30/2024 Paying for Meds Answer Date Recorded Do you have trouble paying for medicines? No 06/30/2024 Paying Utility Bills Answer Date Record ed Do you have trouble paying your heating or elect ricity bill? Yes 06/30/2024 Transportation Answer Date Recorded Has the lack of transportati on kept you from medical appointments or from getting medications? No 06/30/2024 Digital Access Answer Date Recorded No 06/30/2024 Yes 06/30/2024 Do you have reliable internet access at home? Ye s 06/30/2024 Do you have a device (e.g., phone, tablet, computer) with a working camera? Yes 06/30/2024 Intimate Partner Violence Answer Date R ecorded Denied Basic Needs Not on file 06/30/2024 In the past 12 months have y ou been in a relationship with a person who hurts, threatens, or tries to control you? No 06/30/2024 Worried food would run out Not on file 06/30 In the past 12 months have y ou been in a relationship with a person who hurts, threatens, or tries to control you? No 06/30/2024 Sex and Gender Information Value Date Recorded Sex Assigned at Male 12/01/2017 10:50 AM EDT Legal Sex Male 9:58 PM EDT Gender Identity Male 12/01/2017 10:50 AM EDT Sexual Orientation Straight 12/01/2017 10 :50 AM EDT documented as of this encounter Plan of Treatment Upcoming Encounters Date Type Department Care Team (Late st Contact Info) Description 01/04/2025 10:00 AM EDT Office Visit [facility] [address] [place] [address] [place] [address] Shaista Magaña, MAE [address] [facility], 2[address] [place] [phone] [email or web address] documented as of this encounter Procedures Procedure Name Priority Date/Time Associated Diagnosis Comments MRI SPINE MUSCULOSKELETAL FOCUS OUTSIDE (NO INTERPRETATION) Routine 01/22/2016 12:00 AM EDT documented in this encounter Results * MRI Spine (Bone) Outside (No Interpretation) (01/22/2016 12:00 AM EDT) Narrative SYSTEMGENERATED, DOCUMENTATION - 06/15/2017 11:46 AM EDT This study is for PACS storage only and not for interpretation. us Provider Not In System [facility] OUTSIDE IMAGING W /OUT INTERPRETATION Final Result documented in this encounter Visit Diagnoses Not on filedocumented in this encounter Additional Source Comments The information contained in this document represents components of the legal health record. It is not the complete legal health record.[facility]
--- OUTSIDE RECORDS SUMMARY | 2024-12-29 06:40 | XMS_ITS | Encounter Summary ---
Author Organization [facility] Address [address] [address] Phone Care Team Providers Care Outreach Counselor Name Role Phone Jyothi Stark [facility] Primary Care Provider Jyothi Stark [facility] Primary Care Provider Carlos Bullock MD Unavailable [phone] Carlos Bullock MD Primary Care Provider Jyothi Stark [facility] Primary Care Provider Jose D Almeida MD Unavailable Carlos Bullock MD Unavailable [phone] Conor Arroyo MD Unavailable [phone] Carlos Bullock MD Primary Care Provider [phone] Shaista Magaña [facility] Primary Care Provid er Reason for Referral * MRI/CAT Scan - Closed Specialty Diagnoses / Procedures Referred By Shakira pacheco Referred To Contact Radiology Diagnoses Arthrodesis status Procedures CT Lumbar Spine Radha Rojas PA Phone: tel: fax: mailto:[email or web address] Referral ID Status Reason Start Date Expiration Date Visits Re quested Visits Authorized [id number] Closed 05/06/2018 05/06/2019 1 1 Encounter Details Date Type Department Care Team (Late st Contact Info) Description 05/06/2018 Ancillary Orders Virtual Department [address] [place] [address] Radha Rojas PA [address] [place] [address] [email or web address] Arthrodesis status Social History Tobacco Use Types [...] Description 01/04/2025 10:00 AM EDT Office Visit [facility] [address] [place] [address] [place] [address] Shaista Magaña, PEANUT SORTER 170 [facility], 2nd [place] [address] [email or web address] documented [...] nerve root. TOTAL CTDIvol: 46.50 mGy POS [id number] Edited by: Aubrie Alvarez on 05/11/2018 12:17 [...] body height. Milder subsidence into the inferior D6izvufsbvl body. Very mild retropulsion which contacts the [...] descending nerveroot. TOTAL CTDIvol: 46.50 mGy POS [id number] Edited by: Aubrie Alvarez on 05/11/2018 12:17 PM Radha BANEGAS IMG CT XSPECIALTY ORDERABLE S Final Result documented in this encounter Visit Diagnoses Diagnosis Arthrodesis status Arthrodesis status documented in this encounter Care Teams Outreach Counselor Relationship Specialty Start Date End Date Jyothi Stark CNP [address] [place] [address] PCP - General Internal Medicine 12/01/17 03/08/19 Jyothi Stark CNP [address] [place] [address] PCP - General Internal Medicine 03/09/19 11/16/19 Carlos Bullock MD [address] [place] [address] [email or web address] PCP - General Internal Medicine 11/17/19 11/21/19 Jyothi Stark, PEANUT SORTER [address] [place] [address] [email or web address] PCP - General Internal Medicine 11/22/19 09/08/22 Carlos Bullock MD [address] [place] [address] [email or web address] PCP - General Internal Medicine 09/09/22 11/10/22 Shaista Magaña CNP [address] [place] [address], 2nd [place] [address] [email or web address] PCP - General Family Medicine 11/11/22 Carlos Bullock MD [address] [place] [address] [email or web address] Insurance Assigned Provider 07/13/19 04/14/20 Jose D Almeida MD [address] [place] [address] [email or web address] Ophthalmology 12/05/20 Carlos Bullock MD [address] [place] [address] [email or web address] Insurance Assigned Provider 07/11/23 04/11/24 Conor Arroyo MD [address] [place] [address] Interventional Pain Management 07/16/22 documented as of this encounter Additional Source Comments The information contained in this document represents components of the legal health record. It is not the complete legal health record.[facility]
--- OUTSIDE RECORDS SUMMARY | 2024-12-29 06:40 | XMS_ITS | Encounter Summary ---
Author Organization [facility] Address [address] [place] [address] Phone Care Team Providers Care Inside Sales Professional Name Role Phone Jyothi Stark [facility] Primary Care Provider Jyothi Stark [facility] Primary Care Provider Carlos Bullock MD Unavailable [phone] Carlos Bullock MD Primary Care Provider [phone] Jyothi Stark [facility] Primary Care Provider Jose D Almeida MD Unavailable Carlos Bullock MD Unavailable [phone] Conor Arroyo MD Unavailable [phone] Carlos Bullock MD Primary Care Provider [phone] Shaista Magaña [facility] Primary Care Provid er Reason for Referral * MRI/CAT Scan - Closed Specialty Diagnoses / Procedures Referred By Shakira pacheco Referred To Contact Radiology Diagnoses Low back pain, unspecified back pain laterality, unspecified chronicity, with sciatica presence unspecified Arthrodesis status Procedures MRI Lumbar Spine Radha Rojas PA Phone: tel: fax: mailto:[email or web address] Referral ID Status Reason Start Date Expiration Date Visits Re quested Visits Authorized [id number] Closed 06/14/2018 06/14/2019 1 1 Encounter Details Date Type Department Care Team (Late st Contact Info) Description 06/14/[address] [facility] Department [address] [place] [address] Radha Rojas PA [address] [place] [address] [email or web address] Low back pain, unspecified back pain laterality, [...] Description 01/04/2025 10:00 AM EDT Office Visit [facility] [address] [place] [address] [place] [address] Shaista Magaña, PRODUCT DEVELOPMENT ASSISTANT 170 [facility], 2nd [place] [address] [email or web address] documented as of this encounter Results * MRI LUMBAR SPINE (NEURO) WITH AND WITHOUT CONTRAST (06/22/2018 2:40 PM EDT) Anatomical Region Laterality Modality L-spine Magnetic Resonan ce 06/22/2018 4:34 PM EDT Impressions 06/23/2018 11:46 AM EDT 1. Fusion hardware at L4-L5. 2. Severe left and moderate right neural foraminal stenosis at L4-L5 predominantly from marginal bony spurring and facet hypertrophic changes. 3. Moderate bilateral neural foraminal narrowing at [...] T2, axial T1, postcontrast sagittal and axial P0rxakdbutw, 18 mL Dotarem contrast IV. FINDINGS: Normal appearance of the distal conus terminating at the L1-L2 level. Vertebrae are normal in height and alignment. No compression fractures.There is posterior fusion hardware at L4-L5 with bilateral transpedicularscrews and posterior fusion rods. There is mild T1 hypointense and R3ewamrwbncwmv marrow edema inferior endplate of L4 and [...] moderate right neural foraminal stenosis at L4- Y0wkvriuhufazns from marginal bony spurring and facet hypertrophicchanges. 3. Moderate bilateral neural foraminal narrowing at L5-S1. Severe leftand mild right neural foraminal narrowing at L3-L4. 4. See above for each individual level for detail. Edited by: Aubrie Alvarez on 06/23/2018 9:22 AM Radha BANEGAS [facility] [place] [place] MR XSPECIALTY Final Res ult documented in this encounter Visit Diagnoses Diagnosis Low back pain, unspecified back pain laterality, unspecified chronicity, with sciatica presence unspecified Arthrodesis status Low back pain, unspecified back pain laterality, unspecified chronicity, with sciatica presence unspecified Arthrodesis status documented in this encounter Care Teams Inside Sales Professional Relationship Specialty Start Date End Date Jyothi Stark CNP [address] [place] [address] [email or web address] PCP - General Internal Medicine 12/01/17 03/08/19 Jyothi Stark CNP [address] [place] [address] [email or web address] PCP - General Internal Medicine 03/09/19 11/16/19 Carlos Bullock MD [address] [place] [address] [email or web address] PCP - General Internal Medicine 11/17/19 11/21/19 Jyothi Stark, MAE [address] [place] [address] [email or web address] PCP - General Internal Medicine 11/22/19 09/08/22 Carlos Bullock MD [address] [place] [address] [email or web address] PCP - General Internal Medicine 09/09/22 11/10/22 Shaista Magaña CNP [address] [place] [address], 2nd [place] [address] [email or web address] PCP - General Family Medicine 11/11/22 Carlos Bullock MD [address] [place] [address] [email or web address] Insurance Assigned Provider 07/13/19 04/14/20 Jose D Almeida MD [address] [place] [address] [email or web address] Ophthalmology 12/05/20 Carlos Bullock MD [address] [place] [address] [email or web address] Insurance Assigned Provider 07/11/23 04/11/24 Conor Arroyo MD [address] [place] [address] Interventional Pain Management 07/16/22 documented as of this encounter Additional Source Comments The information contained in this document represents components of the legal health record. It is not the complete legal health record.[facility]
--- OUTSIDE RECORDS SUMMARY | 2024-12-29 06:40 | XMS_ITS | Patient Health Record ---
Author Organization [facility] Address [address] [place] [address] Care Team Providers Care Experimental Outboard Motors Mechanic Name Role Phone Vijay Hampton MD Primary Care Provider Gerardo Saenz [phone] Allergies Allergen (clinical drug ingredient) Drug/Non Drug [...] Status W/U Status Risk Notes Problem Constipation (37233026) Unspecified constipation (564.00) Active confirmed Problem Blood in stool (978287699) Blood in stool (578.1) Active confirmed Problem Digestive system symptom (046764709) Other symptoms involving digestive system (787.99) Active confirmed Plan Of Treatment Future Test Test Name Order Date COLONOSCOPY 04/15/2011 Insurance Providers Payer Name Payer Address Payer Phone Subscriber Number Group Number Insured Name Patient Relationship to Insured Coverage Start Date Coverage End Date [employer] [place] [address] [place] [address] [id number] LORENA YUN Self - patient is the insured Medical (General) History Medical History History ICD Code hypertension gout diabetes asthma he denies any history of [place], stroke, nor kidney disease Surgical History Surgery Date(Month/Year) hydrocele and orchiectomy wrist surgery surgery for a broken nose hemorrhoid surgery
--- OUTSIDE RECORDS SUMMARY | 2024-12-29 06:40 | XMS_ITS | Encounter Summary ---
Author Organization [facility] Address [address] [facility] [address] [place] [address] Phone Care Team Providers Care Business Proposal Rep Name Role Phone VickietammyJyothigh [facility] Primary Care Provider Jose D Almeida MD Unavailable Carlos Bullock MD Unavailable [phone] Conor Arroyo MD Unavailable [phone] Carlos Bullock MD Primary Care Provider [phone] Shaista Magaña [facility] Primary Care Provid er Encounter Details Date Type Department Care Team (Late st Contact Info) Description 08/09/2021 Procedure [facility], Ct Scan - [address] [address] Social History Tobacco Use Types Packs/Day Years [...] Description 01/04/2025 10:00 AM EDT Office Visit [facility] [address] [place] [address] [place] [address] Shaista Magaña CNP [address] [place] [address], [address] [place] [address] [email or web address] documented as of this encounter Visit Diagnoses Not on filedocumented in this encounter Additional Health Concerns Assessment Noted Time PHQ-2 Depression Total Score: 1 06/16/19 22 11:12 AM EST documented as of this encounter Care Teams Business Proposal Rep Relationship Specialty Start Date End Date Jyothi Stark CNP [address] [place] [address] [email or web address] PCP - General Internal Medicine 11/22/19 09/08/22 Carlos Bullock MD [address] [place], [place] PCP - General Internal Medicine 09/09/22 11/10/22 Shaista Magaañ CNP [address] [place] [address], [address] [place] [address] [email or web address] PCP - General Family Medicine 11/11/22 Jose D Almeida MD [address] [place] [address] [email or web address] Ophthalmology 12/05/20 Carlos Bullock MD [address] [place] [address] Insurance Assigned Provider 07/11/23 04/11/24 Conor Arroyo MD [address] [place] [address] Interventional Pain Management 07/16/22 documented as of this encounter Additional Source Comments The information contained in this document represents components of the legal health record. It is not the complete legal health record.[facility]
--- OUTSIDE RECORDS SUMMARY | 2024-12-29 06:40 | XMS_ITS | Encounter Summary ---
Author Organization [facility] Address [address] [facility] [address] [place] [address] Phone Care Team Providers Care Wildlife And Game Protector Name Role Phone Jyothi Stark [facility] Primary Care Provider Jyothi Stark [facility] Primary Care Provider Carlos Bullock MD Unavailable [phone] Carlos Bullock MD Primary Care Provider Jyothi Stark CNP Primary Care Provider Jose D Almeida MD Unavailable Carlos Bullock MD Unavailable [phone] Conor Arroyo MD Unavailable [phone] Carlos Bullock MD Primary Care Provider Shaista Magaña [facility] Primary Care Provid er Encounter Details Date Type Department Care Team (Late st Contact Info) Description 06/11/2018 Ancillary Orders [facility], X-Ray - [facility] [address] [place] [address] Radha Rojas, MAKENZIE [address] [place] [address] [email or web address] Fusion of spine, lumbar region Social History [...] Description 01/04/2025 10:00 AM EDT Office Visit [facility] [address] [place] [address] Shaista Magaña, MAE 170 [facility], 2nd [place] [address] [email or web address] documented as of this encounter Results * XR LUMBOSACRAL SPINE BENDING VIEWS ONLY (06/11/2018 10:12 AM EST) Anatomical Region Laterality Modality L-spine Radiographic Franchesca ging 06/11/2018 10:5 9 AM EST Impressions 06/11/2018 11:10 AM EST No significant change in alignment. POS - [id number] Narrative 06/11/2018 11:10 AM EST XR LUMBOSACRAL SPINE BENDING VIEWS ONLY HISTORY: [...] region documented in this encounter Care Teams Wildlife And Game Protector Relationship Specialty Start Date End Date Jyothi Stark CNP [address] [place] [address] [email or web address] PCP - General Internal Medicine 12/01/17 03/08/19 Jyothi Stark CNP [address] [place] [address] PCP - General Internal Medicine 03/09/19 11/16/19 Carlos Bullock MD [address] [place] [address] [email or web address] PCP - General Internal Medicine 11/17/19 11/21/19 Jyothi Stark CNP [address] [place] [address] [email or web address] PCP - General Internal Medicine 11/22/19 09/08/22 Carlos Bullock MD [address] [place] [address] PCP - General Internal Medicine 09/09/22 11/10/22 Shaista Magaña CNP [address] [place] [address], 2nd [place] [address] PCP - General Family Medicine 11/11/22 Carlos Bullock MD [address] [place] [address] Insurance Assigned Provider 07/13/19 04/14/20 Jose D Almeida MD [address] [place] [address] [email or web address] 12/05/20 Carlos Bullock MD [address] [place] [address] Insurance Assigned Provider 07/11/23 04/11/24 Conor Arroyo MD [address] [place] [address] Interventional Pain Management 07/16/22 documented as of this encounter Additional Source Comments The information contained in this document represents components of the legal health record. It is not the complete legal health record.[facility]
--- OUTSIDE RECORDS SUMMARY | 2024-12-29 06:40 | XMS_ITS | Encounter Summary ---
Author Organization [facility] Address 399 [facility] [address] [place] [address] Phone Care Team Providers Care Community Recreation Programmer Name Role Phone Jyothi Stark [facility] Primary Care Provider Jyothi Stark [facility] Primary Care Provider Carlos Bullock MD Unavailable [phone] Carlos Bullock MD Primary Care Provider [phone] Jyothi Stark CNP Primary Care Provider Jose D Almeida MD Unavailable Carlos Bullock MD Unavailable [phone] Conor Arroyo MD Unavailable [phone] Carlos Bullock MD Primary Care Provider [phone] Shaista Magaña [facility] Primary Care Provid er Encounter Details Date Type Department Care Team (Late st Contact Info) Description 06/14/2018 Procedure Pass [facility], [facility] - [address] [place] [address] Social History Tobacco Use Types Packs/Day Years [...] 01/04/2025 10:00 AM EDT Office Visit [facility] [address] [place] [address] [place] [address] Shaista Magaña CNP 170 [facility], 2nd [place] [address] [email or web address] documented as of this encounter Visit Diagnoses Not on filedocumented in this encounter Care Teams Community Recreation Programmer Relationship Specialty Start Date End Date Jyothi Stark CNP [address] [place] [address] PCP - General Internal Medicine 12/01/17 03/08/19 Jyothi Stark CNP [address] [place] [address] PCP - General Internal Medicine 03/09/19 11/16/19 Carlos Bullock MD [address] [place] [address] PCP - General Internal Medicine 11/17/19 11/21/19 Jyothi Stark CNP [address] [place] [address] PCP - General Internal Medicine 11/22/19 09/08/22 Carlos Bullock MD [address] [place] [address] PCP - General Internal Medicine 09/09/22 11/10/22 Archana Shaista Magaly, UNIT LEADER [address] [place] [address], 2nd [place] [address] PCP - General Family Medicine 11/11/22 Carlos Bullock MD [address] [place] [address] Insurance Assigned Provider 07/13/19 04/14/20 Jose D Almeida MD [address] [place] [address] Ophthalmology 12/05/20 Carlos Bullock MD [address] [place] [address] Insurance Assigned Provider 07/11/23 04/11/24 Conor Arroyo MD [address] [place] [address] Interventional Pain Management 07/16/22 documented as of this encounter Additional Source Comments The information contained in this document represents components of the legal health record. It is not the complete legal health record.[facility]
--- OUTSIDE RECORDS SUMMARY | 2024-12-29 06:41 | XMS_ITS | Encounter Summary ---
Author Organization [facility] Address [address] [address] Phone Care Team Providers Care Slurry Control Tender Name Role Phone Vijay Hampton MD Primary Care Provider [phone] Jyothi Stark CNP Primary Care Provider Jyothi Stark [facility] Primary Care Provider Carlos Bullock MD Unavailable [phone] Carlos Bullock MD Primary Care Provider [phone] Jyothi Stark CNP Primary Care Provider Jose D Almeida MD Unavailable Carlos Bullock MD Unavailable [phone] Conor Arroyo MD Unavailable [phone] Carlos Bullock MD Primary Care Provider [phone] Shaista Magaña [facility] Primary Care Provid er Encounter Details Date Type Department Care Team (Late st Contact Info) Description 06/16/2017 Procedure Pass [place] Admitting Dept - Virtual Department [address] [place] [address] Social History Tobacco Use Types [...] 01/04/2025 10:00 AM EDT Office Visit [facility] [address] [place] [address] Shaista Magaña CNP 170 [facility], 2nd [place] [address] [email or web address] documented as of this encounter Visit Diagnoses Not on filedocumented in this encounter Care Teams Slurry Control Tender Relationship Specialty Start Date End Date Vijay Hampton MD 2 [facility] [address] [place] [address] PCP - General Internal Medicine 04/29/17 11/30/17 Jyothi Stark CNP [address] [place] [address] PCP - General Internal Medicine 12/01/17 03/08/19 Jyothi Stark CNP [address] [place] [address] PCP - General Internal Medicine 03/09/19 11/16/19 Carlos Bullock MD [address] [place] [address] PCP - General Internal Medicine 11/17/19 11/21/19 Jyothi Stark CNP [address] [place] [address] PCP - General Internal Medicine 11/22/19 09/08/22 Carlos Bullock MD [address] [place] [address] PCP - General Internal Medicine 09/09/22 11/10/22 Shaista Magaña CNP [address] [place] [address], 2nd [place] [address] PCP - General Family Medicine 11/11/22 Carlos Bullock MD [address] [place] [address] Insurance Assigned Provider 07/13/19 04/14/20 Jose D Almeida MD [address] [place] [address] Ophthalmology 12/05/20 Carlos Bullock MD [address] [place] [address] Insurance Assigned Provider 07/11/23 04/11/24 Conor Arroyo MD [address] [place] [address] Interventional Pain Management 07/16/22 documented as of this encounter Additional Source Comments The information contained in this document represents components of the legal health record. It is not the complete legal health record.[facility]
--- OUTSIDE RECORDS SUMMARY | 2024-12-29 06:41 | XMS_ITS | Encounter Summary ---
Author Organization [facility] Address [address] [place] [address] Phone Care Team Providers Care Nail Setter Name Role Phone Vijay Hampton MD Primary Care Provider Jyothi Stark CNP Primary Care Provider Jyothi Stark [facility] Primary Care Provider Carlos Bullock MD Unavailable [phone] Carlos Bullock MD Primary Care Provider Jyothi Stark CNP Primary Care Provider Jose D Almeida MD Unavailable Carlos Bullock MD Unavailable [phone] Conor Arroyo MD Unavailable [phone] Carlos Bullock MD Primary Care Provider [phone] Shaista Magaña [facility] Primary Care Provid er Encounter Details Date Type Department Care Team (Late st Contact Info) Description 09/10/2017 Ancillary Orders Virtual Department 30 [place] [address] Radha Rojas PA [address] [place] [address] [email or web address] Effusion of left foot joint Social History [...] 01/04/2025 10:00 AM EDT Office Visit [facility] 170 [place] [address] Shaista Magaña CNP 170 [facility], 2nd [place] [address] [email or web address] documented as of this encounter Visit Diagnoses Diagnosis Effusion of left foot joint documented in this encounter Care Teams Nail Setter Relationship Specialty Start Date End Date Vijay Hampton MD [address] [place] [address] PCP - General Internal Medicine 04/29/17 11/30/17 Jyothi Stark CNP [address] [place] [address] PCP - General Internal Medicine 12/01/17 03/08/19 Jyothi Stark CNP [address] [place] [address] PCP - General Internal Medicine 03/09/19 11/16/19 Carlos Bullock MD [address] [place] [address] [email or web address] PCP - General Internal Medicine 11/17/19 11/21/19 Jyothi Stark, MAE [address] [place] [address] PCP - General Internal Medicine 11/22/19 09/08/22 Carlos Bullock MD [address] [place] [address] PCP - General Internal Medicine 09/09/22 11/10/22 Shaista Magaña CNP [address] [place] [address], 2nd [place] [address] [email or web address] PCP - General Family Medicine 11/11/22 Carlos Bullock MD [address] [place] [address] Insurance Assigned Provider 07/13/19 04/14/20 Jose D Almeida MD [address] [place] [address] Ophthalmology 12/05/20 Carlos Bullock MD [address] [place] [address] Insurance Assigned Provider 07/11/23 04/11/24 Conor Arroyo MD [address] [place] [address] Interventional Pain Management 07/16/22 documented as of this encounter Additional Source Comments The information contained in this document represents components of the legal health record. It is not the complete legal health record.[facility]
--- OUTSIDE RECORDS SUMMARY | 2024-12-29 06:41 | XMS_ITS | Encounter Summary ---
Author Organization [facility] Address [address] [address] Phone Care Team Providers Care Manager Basketball Name Role Phone Vijay Hampton MD Primary Care Provider [phone] Jyothi Stark CNP Primary Care Provider Jyothi Stark [facility] Primary Care Provider Carlos Bullock MD Unavailable [phone] Carlos Bullock MD Primary Care Provider [phone] Jyothi Stark [facility] Primary Care Provider Jose D Almeida MD Unavailable Carlos Bullock MD Unavailable [phone] Conor Arroyo MD Unavailable [phone] Carlos Bullock MD Primary Care Provider [phone] Shaista Magaña [facility] Primary Care Provid er Reason for Referral * MRI/CAT Scan - Closed Specialty Diagnoses / Procedures Referred By Contac t Referred To Contact Procedures MRI Spine (Bone) Outside (No Interpretation) System, Provider Not In, PhD [address] [address] Referral ID Status Reason Start Date Expiration Date Visits Re quested Visits Authorized [id number] Closed 06/15/2017 06/15/2018 1 1 Encounter Details Date Type Department Care Team (Late st Contact Info) Description 06/15/2017 Ancillary Orders [facility],Outside Imaging [address] [place] [address] System, Provider Not In, PhD Partners [address] [address] Social History Tobacco Use Types Packs/Day Years [...] Description 01/04/2025 10:00 AM EDT Office Visit [facility] [address] [place] [address] [place] [address] Shaista Magaña CNP 170 [facility], 2nd [place] [address] [email or web address] documented as of this encounter [...] on filedocumented in this encounter Care Teams Manager Basketball Relationship Specialty Start Date End Date Vijay Hampton MD [address] [place] [address] PCP - General Internal Medicine 04/29/17 11/30/17 Jyothi Stark CNP [address] [place] [address] [email or web address] PCP - General Internal Medicine 12/01/17 03/08/19 Jyothi Stark CNP [address] [place] [address] [email or web address] PCP - General Internal Medicine 03/09/19 11/16/19 Carlos Bullock MD [address] [place] [address] [email or web address] PCP - General Internal Medicine 11/17/19 11/21/19 Jyothi Stark CNP [address] [place] [address] [email or web address] PCP - General Internal Medicine 11/22/19 09/08/22 Carlos Bullock MD [address] [place] [address] [email or web address] PCP - General Internal Medicine 09/09/22 11/10/22 Shaista Magaña CNP [address] [place] [address], 2nd [place] [address] [email or web address] PCP - General Family Medicine 11/11/22 Carlos Bullock MD [address] [place] [address] [email or web address] Insurance Assigned Provider 07/13/19 04/14/20 Jose D Almeida MD [address] [place] [address] [email or web address] Ophthalmology 12/05/20 Carlos Bullock MD [address] [place] [address] [email or web address] Insurance Assigned Provider 07/11/23 04/11/24 Conor Arroyo MD [address] [place] [address] Interventional Pain Management 07/16/22 documented as of this encounter Additional Source Comments The information contained in this document represents components of the legal health record. It is not the complete legal health record.[facility]
--- OUTSIDE RECORDS SUMMARY | 2024-12-29 06:41 | XMS_ITS | Encounter Summary ---
Author Organization [facility] Address [address] [address] Phone Care Team Providers Care Fish Frog Or Oyster Farmer Name Role Phone Unknown, Unknown Primary Care Provider Vijay Zafar MD Primary Care Provider [phone] Jyothi Stark [facility] Primary Care Provider Jyothi Stark [facility] Primary Care Provider Carlos Bullock MD Unavailable [phone] Carlos Bullock MD Primary Care Provider Jyothi Stark [facility] Primary Care Provider Jose D Almeida MD Unavailable Carlos Bullock MD Unavailable [phone] Conor Arroyo MD Unavailable [phone] Carlos Bullock MD Primary Care Provider [phone] Shaista Magaña [facility] Primary Care Provid er Encounter Details Date Type Department Care Team (Late st Contact Info) Description 04/15/2017 Procedure Pass [address] [address] Social History Tobacco Use Types Packs/Day Years [...] 01/04/2025 10:00 AM EDT Office Visit [facility] [address] [place] [address] [place] [address] Shaista Magaña CNP 170 [facility], 2nd [place] [address] [email or web address] documented as of this encounter Visit Diagnoses Not on filedocumented in this encounter Care Teams Fish Frog Or Oyster Farmer Relationship Specialty Start Date End Date Unknown, Unknown, PCP - General 04/15/17 04/28/17 Vijay Hampton MD [address] [facility] [address] [place] [address] PCP - General Internal Medicine 04/29/17 11/30/17 Jyothi Stark CNP [address] [place] [address] PCP - General Internal Medicine 12/01/17 03/08/19 Jyothi Stark CNP [address] [place] [address] PCP - General Internal Medicine 03/09/19 11/16/19 Carlos Bullock MD [address] [place] [address] [email or web address] PCP - General Internal Medicine 11/17/19 11/21/19 Jyothi Stark, MAE [address] [place], [place] [email or web address] PCP - General Internal Medicine 11/22/19 09/08/22 Carlos Bullock MD [address] [place] [address] [email or web address] PCP - General Internal Medicine 09/09/22 11/10/22 Shaista Magaña CNP [address] [place] [address], 2[address] [place] [address] [email or web address] PCP - General Family Medicine 11/11/22 Carlos Bullock MD [address] [place] [address] [email or web address] Insurance Assigned Provider 07/13/19 04/14/20 Jose D Almeida MD [address] [place] [address] [email or web address] Ophthalmology 12/05/20 Carlos Bullock MD [address] [place] [address] [email or web address] Insurance Assigned Provider 07/11/23 04/11/24 Conor Arroyo MD [address] [place] [address] Interventional Pain Management 07/16/22 documented as of this encounter Additional Source Comments The information contained in this document represents components of the legal health record. It is not the complete legal health record.[facility]
--- OUTSIDE RECORDS SUMMARY | 2024-12-29 06:41 | XMS_ITS | Encounter Summary ---
Author Organization [facility] Address 399 [facility] [address] [place] [address] Phone Care Team Providers Care Oncology Nurse Name Role Phone Jose D Almeida MD Unavailable Conor Arroyo MD Unavailable [phone] Shaista Magaña [facility] Primary Care Provid er Reason for Visit * Reason Comments Medication Refill Encounter Details Date Type Department Care Team (Late st Contact Info) Description 12/26/2024 Refill [facility] [address] [place] [address] Madhav Garcia DO 170 [facility], 2nd [place] [address] [email or web address] Medication Refill Social History Tobacco Use Types [...] as of this encounter Progress Notes * Kolton Zhao, AB - 12/26/2024 8:12 AM EDT Rx Care Gap Status - Instructions for Clinical Staff (prescriber discretion applies): > Mismatch review guide > N/a - No action needed Visit Info Last visit: 08/03/2024 Archana Shaistakarishma Mckenzie CNP - Family [facility] > Requested f/u: Return in about 5 months (around 01/03/2025) for Next scheduled follow up. Upcoming visit: 01/04/2025 Shaista Magaña CNP - Family Medicine [facility] ACTIONS TAKEN BY Kolton Zhao CMA - Criteria met. Asthma / COPD Inhalers Rx Protocol - montelukast sodium Criteria met; renew for up to 12 months. Visit in the past 14 months: Yes documented in this encounter Plan of Treatment Upcoming Encounters Date Type Department Care Team (Late st Contact Info) Description 01/04/2025 10:00 AM EDT Office Visit [facility] [address] [place] [address] Shaista Magaña CNP [address] [place] [address] [email or web address] documented as of this encounter Visit Diagnoses Diagnosis Asthma Unspecified asthma documented in this encounter Additional Health Concerns Assessment Noted Time PHQ-2 Depression Total Score: 1 07/01/19 25 1:10 PM EDT documented as of this encounter Care Teams Oncology Nurse Relationship Specialty Start Date End Date Maria LuzShaista johnson CNP [address] [place] [address] PCP - General Family Medicine 11/11/22 Jose D Almeida MD Ophthalmology 12/05/20 Conor Arroyo MD [address] [place] [address] Interventional Pain Management 07/16/22 documented as of this encounter Additional Source Comments The information contained in this document represents components of the legal health record. It is not the complete legal health record.[facility]
--- OUTSIDE RECORDS SUMMARY | 2024-12-29 06:41 | XMS_ITS | Clinical Summary ---
Author Organization [facility] Address [address] [facility] [address] [place] [address] Phone Care Team Providers Care Laborer Steel Handling Name Role Phone Jose D Almeida MD Unavailable Conor Arroyo MD Unavailable [phone] Shaista Magaña [facility] Primary Care Provid er Allergies Active Allergy Reactions Criticality Noted Date Comments Colchicine Diarrhea Low 04/22/2018 Iodine Hives Medium 06/02/2017 Other 12/04/2023 Other Reaction(s): SPLENDA Penicillins Rash Low 06/02/2017 Sulfamethoxazole-Trimet hoprim Hives Medium 06/02/2017 Shellfish Containing Products Hives Medium 06/02/2017 Zjjqtbh-Tvq-Ltm Reductase Inhibitors Other (See Comments) Medium 06/02/2017 [...] mouth 2 (two) times a day. 3 11/05/19 18 Active VITAMIN K2 ORAL Take 100 mcg by mouth daily. Active VITAMIN B-12 1000 MCG tabletIndication s:B12 deficiency Take 1 tablet (1,000 mcg total) by mouth daily. 90 tablet 3 06/16/19 20 Active arnica 20 % Tinc Apply topically. Active aspirin (ASPIR-81) 81 MG EC tablet Take 81 mg by mouth daily. Active clindamycin (CLEOCIN T) 1 % lotionIndication s:Nipple infection Apply topically 2 (two) times a day. To chest 60 mL 1 08/06/19 24 Active ketoconazole (NIZORAL) 2 % shampooIndicatio ns:Itchy scalp Apply topically 2 (two) times a week. Apply to damp skin, lather, leave on 5 minutes, and rinse. 120 mL 12/07/19 24 Active sildenafiL (VIAGRA) 50 mg tabletIndication s:Erectile dysfunction due to diseases classified elsewhere Take 1 tablet (50 mg total) by mouth daily as needed. 18 tablet 1 02/03/20 24 Active oxyCODONE 5 MG immediate release tabletIndication s:Acute idiopathic gout of left ankle Take 0.5 tablets (2.5 mg total) by mouth every 6 (six) hours as needed (severe joint pain/gout flare). 5 tablet 02/17/20 24 Active fluticasone propion-salmeter oL (WIXELA INHUB) 250-50 mcg/dose DISKUSIndication s:Asthma INHALE 1 PUFF BY MOUTH TWICE A DAY 60 each 11 02/26/20 24 Active carbidopa-levodo pa (SINEMET) 25-100 mg per tabletIndication s:Tremor Take 1 tablet by mouth 3 (three) times a day. 270 tablet 07/30/19 25 Active metFORMIN (GLUCOPHAGE) 500 MG tabletIndication s:Diabetes mellitus TAKE 1 TABLET BY MOUTH TWICE A DAY WITH FOOD 180 tablet 3 09/07/19 25 Active chlorthalidone (HYGROTON) 25 MG tabletIndication s:Essential hypertension Take 1 tablet (25 mg total) by mouth daily. 90 tablet 09/21/19 25 Active albuterol 90 mcg/actuation inhalerIndicatio ns:Mild persistent asthma without complication Inhale 2 puffs into the lungs every 4 (four) hours as needed for wheezing. 18 g 3 09/21/19 25 Active gabapentin (NEURONTIN) 400 MG capsuleIndicatio ns:Lumbosacral spondylolysis TAKE 1 CAPSULE BY MOUTH FOUR TIMES A DAY 360 capsule 11/05/19 25 Active lisinopril (PRINIVIL,ZESTRI L) 40 MG tabletIndication s:Essential hypertension TAKE 1 TABLET BY MOUTH EVERY DAY 90 tablet 12/08/19 25 Active montelukast (SINGULAIR) 10 mg tabletIndication s:Asthma TAKE 1 TABLET BY MOUTH EVERYDAY AT BEDTIME 90 tablet 3 12/27/19 25 Active LORazepam (ATIVAN) 1 MG tabletIndication s:IRVING (generalized anxiety disorder) TAKE 1 TABLET BY MOUTH EVERY 8 HOURS NEEDED FOR ANXIETY 84 tablet 12/29/19 25 Active montelukast (SINGULAIR) 10 mg tabletIndication s:Asthma Take 1 tablet (10 mg total) by mouth nightly at bedtime. 90 tablet 3 11/10/19 24 2024 Discontinued lisinopril (PRINIVIL,ZESTRI L) 40 MG tabletIndication s:Essential hypertension TAKE 1 TABLET BY MOUTH EVERY DAY 90 tablet 09/10/19 25 2024 Discontinued LORazepam (ATIVAN) 1 MG tabletIndication s:IRVING (generalized anxiety disorder) TAKE 1 TABLET BY MOUTH EVERY 8 HOURS NEEDED FOR ANXIETY 84 tablet 11/30/19 25 2024 Discontinued Active Problems Problem Noted Date Diagnosed Date Essential tremor 08/03/2024 Overview (09/12/2024): S/p neurology evalutation w/ Dr Diggs. Dx essential tremor. Assessment & Plan (08/03/2024 9:21 AM EDT): [...] primary rami nerve radiofrequency ablation, done through [facility] pain management clinic. Unfortunately, he does not report any symptom improvement following the procedure. - Continues w/ gabapentin 400mg QID. - Scheduled for follow-up with [facility] pain clinic tomorrow. Urinary [...] - Referral to the neurology group at [facility] will be made. - Trial of levodopa [...] for further evaluation, he would prefer the [facility] office if possible. Itchy scalp 12/04/2023 [...] success. - Followed by pain management @ [facility] (Dr Arroyo). Assessment & [...] no new nerve symptoms. Recently seen by [facility] pain clinic who recommended [...] a back brace. Under the care of [facility]. Feels he has not fully [...] sacrum d/t recent fall. Pre-RFA scheduled for 4 Left leg swelling 02/24/2022 12/01/2022 Insomnia 05/12/2019 [...] Encounters Date Type Department Care Team Description 12/26/[address] [place] [address] Shaista Magaña CNP Medication Refill 12/26/[address] [place] [address] Madhav Garcia, Medication Refill 12/07/2024 Refill Breen Elza [address] [place] [address] Shaista Magaña CNP Medication Refill 11/28/[address] [place] [address] Shaista Magaña CNP Medication Refill 11/03/[address] [place] [address] Toma Gordon MD Medication Refill 10/31/2024 Refill Nuha Bertrand [facility] [address] [place] [address] [place] [address] Shaista Magaña CNP Medication Refill 09/28/2024 Orders Only [address] [address] Provider, MD Abeba from Last 3 Months Immunizations Immunization Administration [...] 72 08/03/2024 8:34 AM EDT Temperature 36.7 C (98 F) 08/03/2024 8:34 AM EDT Respiratory Rate 16 10/14/2022 3:04 PM EDT Oxygen Saturation 98% 08/03/2024 8:34 AM EDT Inhaled Oxygen Concentration - - Weight 93 kg (205 lb) 08/30/2024 1:45 PM EDT Height 170.2 cm (5' 7 ) 08/30/2024 1:45 PM EDT Body Mass Index 32.11 08/30/2024 1:45 PM EDT Plan of Treatment Upcoming Encounters Date Type Department Care Team (Late st Contact Info) Description 01/04/2025 10:00 AM EDT Office Visit [facility] [address] [place] [address] Shaista Magaña, MAE [address], [address] [place] [address] [email or web address] Health Maintenance Due Date Last Done Comments COLOGUARD 1998 FIT TEST 1998 FOBT 1998 SIGMOIDOSCOPY 1998 VIRTUAL COLONOSCOPY 1998 INFLUENZA VACCINE (#1) 2024 , 12/24/2022, 12/24/2022, Additional history exists HEMOGLOBIN A1C 12/31/2024 06/30/2024, 12/06, 06/30/2023, Additional [...] this topic Medical Devices Implanted Type Area Ball Ender Device Identifier Shelf Expiration Date Model / Serial / Lot Graft Bone 1 To 8mm 30 Readi Allo Chip Cancellous Crushed Void Filler Preservon - [id number] Implanted:Qty : 1 on 12/14/2018 by Armond Maldonado MD at [facility] BONETISSUE Spine Lumbar [employer] 09/13/2023 [id number] / [id number] / Set Screw 5.5mm Spine Cd Horizon Legacy Ss Break Off - [id number] Implanted:Qty : 4 on 12/14/2018 by Armond Maldonado MD at [facility] NODATA Spine Lumbar [employer] [id number] / / Screw Bone 50x6.5mm Spine Horizon Legacy Spinal System Ti Multiaxial - [id number] Implanted:Qty : 1 on 12/14/2018 by Armond Maldonado MD at [facility] NODATA Spine Lumbar [employer] [id number] / / Spacer Capstone Peek 15x32 - [id number] Implanted:Qty : 1 on 06/30/2017 by Armond Maldonado MD at [facility] N/A: Back [employer] 05/09/2018 [id number] / / [id number] Set Screw Sextant - [id number] Implanted:Qty : 4 on 06/30/2017 by Armond Maldonado MD at [facility] N/A: Back [employer] [id number] / / Description:L4/5 Screw Spine Sextant 6.5x50mm - [id number] Implanted:Qty : 2 on 06/30/2017 by Armond Maldonado MD at [facility] N/A: Back [employer] [id number] / / Description:L4/5 Screw Bone 7.5x50mm Spine Multi Axial Cannulated Legacy - [id number] Implanted:Qty : 2 on 06/30/2017 by Armond Maldonado MD at [facility] N/A: Back [employer] [id number] / / Description:L4/5 Jaguar Spinal Sextant 5.5x40mm - [id number] Implanted:Qty : 2 on 06/30/2017 by Armond Maldonado MD at [facility] N/A: Back [employer] [id number] / / Screw Bone 7.5x50mm Spine Horizon Legacy Spinal System Ti Multiaxial - [id number] Implanted:Qty : 3 on 12/14/2018 by Armond Maldonado MD at [facility] Spine Lumbar [employer] [id number] / / Spine Jaguar 5.5mmx40 Spinal Legacy Titanium Prebent Curved Thoracic Lumbar Sacral - [id number] Implanted:Qty : 1 on 12/14/2018 by Armond Maldonado MD at [facility] Spine Lumbar [employer] [id number] / / Spine Jaguar 5.5x45mm Legacy Titanium Prebent Thoracic Lumbar Sacral - [id number] Implanted:Qty : 1 on 12/14/2018 by Armond Maldonado MD at [facility] Spine Lumbar [employer] [id number] / / Procedures Procedure Name Priority Date/Time Associated Diagnosis Comments RENAL PANEL Routine 07/06/2024 10:02 AM EDT Decreased GFR Stage 3a chronic kidney disease HEMOGLOBIN A1C Routine 06/30/2024 2:38 PM EDT Type 2 diabetes mellitus with stage 3a chronic kidney disease, without long-term current use of insulin LIPID PANEL Routine 06/30/2024 2:38 PM EDT [...] Recently Relevant to Health Maintenance Results * (ABNORMAL) Renal panel (07/06/2024 10:02 AM EDT) SODIUM 143 133 - 146 mmol/L [facility] POTASSIUM 5.0 3.3 - 5.1 mmol/L [facility] CHLORIDE 107 96 - 108 mmol/L [facility] CO2 26 21 - 35 mmol/L [facility] GLUCOSE 121(H) 70 - 99 mg/dL [facility] BUN 28(H) 6 - 19 mg/dL [facility] CREATININE 2.10(H) 0.5 - 1.5 mg/dL [facility] CALCIUM 9.1 8.4 - 10.3 mg/dL [facility] PHOSPHORUS 2.7 2.7 - 4.5 mg/dL [facility] ALBUMIN 4.3 3.9 - 4.8 g/dL [facility] EGFR 33(L) >59 mL/min/1.7 3m2 [facility] Comment:Estimated glomerular filtration rate calculated using the CKD-EPI refit equation. ANION GAP 15 10 - 20 mmol/L [facility] Blood 07/06/2024 10:0 2 AM EDT 07/06/2024 10:05 AM EDT [facility] Final Result Performing Organization Address City/[facility]/ZIP Co de Phone Number [address] [address] * (ABNORMAL) Hemoglobin A1c (06/30/2024 2:38 PM EDT) HEMOGLOBIN A1C 6.2(H) 4.3 - 5.8 % [facility] Blood 06/30/2024 2:38 PM EDT 06/30/2024 2:45 PM EDT [facility] ORDERAB[facility] Final Result Performing Organization Address [facility] Co de Phone Number [address] [address] * Lipid panel (06/30/2024 2:38 PM EDT) HDL 41 mg/dL [facility] Comment: Interpretation <40 mg/dL: Low HDL cholesterol (major risk factor for CHD) Greater than or equal to 60 mg/dL: High HDL cholesterol ( negative risk factor for CHD) HDL - cholesterol is affected by a number of factors, e.g. smoking, excerise, hormones, sex and age. CHOLESTEROL 157 0 - 240 mg/dL [facility] TRIGLYCERIDES 147 30 - 160 mg/dL [facility] LDL 87 50 - 129 mg/dL [facility] Comment: LDL levels in terms of risk for coronary heart disease: <100 mg/dL: Optimal 100-129 mg/dL: Near or above optimal 130-159 mg/dL: Borderline high 160-189 mg/dL: High >190 mg/dL: Very High CARDIAC RISK RATIO 3.8 3.4 - 5.0 C [facility] Blood 06/30/2024 2:38 PM EDT 06/30/2024 2:45 PM EDT Shaista [facility] LAB BLOOD ORDERABLES Final Result Performing Organization Address City/[facility]/ZIP Co de Phone Number [address] [address] * DIABETES EYE EXAM FOR RESULT ENTRY ONLY (02/17/2024 11:31 AM EST) Historical Provider HEALTH MAINTENANCE Edited Result - Final * Hepatitis C antibody, qualitative (11/28/2022 9:45 AM EDT) HCV NON-REACTIV E NON-REACTI VE [facility] Blood 11/28/2022 9:45 AM EDT 11/28/2022 9:49 AM EDT Jyothi Fragoso [place] [facility] LAB BLOOD ORDERABLES F inal Result [address] [address] * COLONOSCOPY FOR RESULT ENTRY ONLY (11/17/2019) Historical Provider HEALTH MAINTENANCE Edited Result - Final * US Aorta Duplex Complete (05/23/2019 8:06 AM EST) Anatomical Region Laterality Modality Aorta Ultrasound 05/23/2019 8:38 AM EST Impressions 05/23/2019 8:54 AM EST No aneurysmal dilatation/ectasia of the abdominal aorta demonstrated on today's images. POS - [id number] Narrative 05/23/2019 8:54 AM EST EXAM: US AORTA DUPLEX COMPLETE COMPARISON: April [...] abdominal aorta demonstrated ontoday's images. POS - [id number] us Jyothi Johnstonarturnorm [facility] IMG US ABDOMEN Final Result from Last 3 Months or Most Recently Relevant to Health Maintenance Insurance MEDICARE PART A & B Member Subscriber Plan / Payer ( fective 2018-Present) Name:Keith Camacho Member ID:[id number] Relation to Subscriber:Self Name:Janice Keith Subscriber ID:[id number] Payer ID:[id number] Group ID:Not on file Type:Medicare Address: [facility] [employer] [facility] [address] [place] [id number] [facility] MEDICARE SUPPLEMENT MEDICARE PART A & B Member Subscriber Plan / Payer ( fective 2018-Present) Name:Kieth Camacho Member ID:[id number] Relation to Subscriber:Self Name:Keith Camacho Subscriber ID:[id number] Payer ID:[id number] Group ID:Not on file Type:Medicare Address: [employer] [address] [employer] MEDICARE SUPPLEMENT MEDICARE PART A & B [employer] MEDICARE SUPPLEMENT MEDICARE PART A & B [employer] MEDICARE SUPPLEMENT MEDICARE PART A & B [employer] MEDICARE SUPPLEMENT MEDICARE PART A & B [facility] MEDICARE SUPPLEMENT MEDICARE PART A & B [facility] MEDICARE SUPPLEMENT MEDICARE PART A & B [facility] [id number] MEDICARE PART A & B [facility] EXTENSION MEDICARE SUPPLEMENT Advance Directives For more information, please contact: [phone] (9AM - 5PM [facility], Thursday-Thursday) * Full Code (Presumed) (Latest Code Status on File) Date Activated Date Inactivated Comments 12/14/2018 5:24 PM 12/17/2018 4:15 PM * Full Code (Presumed) Date Activated Date Inactivated Comments 06/30/2017 6:32 PM 07/02/2017 2:57 PM Care Teams Laborer Steel Handling Relationship Specialty Start Date End Date Shaista Magaña CNP [address] [place] [address], [address] [place] [address] PCP - General Family Medicine 11/11/22 Jose D Almeida MD Ophthalmology 12/05/20 Conor Arroyo MD [address] [place] [address] Interventional Pain Management 07/16/22 Additional Source Comments The information contained in this document represents components of the legal health record. It is not the complete legal health record.[facility]
--- OUTSIDE RECORDS SUMMARY | 2024-12-29 06:41 | XMS_ITS | Encounter Summary ---
Author Organization [facility] Address [address] [address] Phone Care Team Providers Care Content Development Specialist Name Role Phone Unknown, Unknown Primary Care Provider Vijay Zafar MD Primary Care Provider Jyothi Stark [facility] Primary Care Provider Jyothi Stark [facility] Primary Care Provider Carlos Bullock MD Unavailable [phone] Carlos Bullock MD Primary Care Provider Jyothi Stark [facility] Primary Care Provider Jose D Almeida MD Unavailable Carlos Bullock MD Unavailable [phone] Conor Arroyo MD Unavailable [phone] Carlos Bullock MD Primary Care Provider [phone] Shaista Magaña [facility] Primary Care Provid er Encounter Details Date Type Department Care Team (Late st Contact Info) Description 04/15/2017 Ancillary Orders Virtual Department [address] [place], [place] [id number] Armond Maldonado MD [address] [place] [address] [email or web address] Acute low back pain, unspecified back pain [...] Description 01/04/2025 10:00 AM EDT [facility] [address] [place] [address] Shaista Magaña, TIN FLIPPER [address] [facility], [address] [place] [address] [email or web address] documented as of this encounter Results * [...] Other degenerative changes as described. POS - [id number] Edited by: Malu Woodson on 04/17/2017 8:49 PM Narrative 04/17/2017 9:43 PM EST HISTORY: Left foot drop. Low back pain. COMPARISON: None. CORRELATION: Radiography 06/09/2016 and 12/11/2011. TECHNIQUE: Exam performed on a 1.5 Latonya high-field MRI scanner. Sagittal T1, T2 and STIR, axial T1 and T2 sequences were obtained. FINDINGS: Conus medullaris terminates at L1-2 which is within normal limits. No abnormal cord signal. Mild dextroscoliosis. No compression deformities. No suspicious bone lesion. L1-L2: Disc desiccation without significant disc bulging. Moderate facet arthropathy. No significant neural foraminal narrowing or spinal canal stenosis. L2-L3: Disc desiccation, mild loss of disc height and moderate generalized disc bulging. Moderate facet arthropathy. Mild neural foraminal narrowing on the right. No significant left neural foraminal narrowing. Mild to moderate narrowing of the spinal canal. L3-L4: Disc desiccation with minimal foraminal disc bulging. Moderate facet arthropathy. Moderate neural foraminal narrowing on the left and mild on the right. No significant spinal canal narrowing. L4-L5: Disc desiccation and generalized disc bulging. Severe facet arthropathy. Severe bilateral neural foraminal narrowing greater on the left where there is marked flattening of the exiting nerve root. No significant spinal canal stenosis. L5-S1: Mild generalized disc bulging with a probable small left central disc protrusion. Moderate bilateral facet arthropathy. Neural foramina are moderately narrowed. Possible conjoined nerve root on the left. No significant spinal canal stenosis. Several small bright [...] Other degenerative changes as described. POS - [id number] Edited by: Malu Woodson on 04/17/2017 8:49 [...] foot documented in this encounter Care Teams Content Development Specialist Relationship Specialty Start Date End Date Unknown, Unknown, MD PCP - General 04/15/17 04/28/17 Vijay Hampton MD [address] [place] [address] [place] [id number] PCP - General Internal Medicine 04/29/17 11/30/17 Jyothi Stark CNP [address] [place] [address] PCP - General Internal Medicine 12/01/17 03/08/19 Jyothi Stark, MAE [address] [place] [address] [email or web address] PCP - General Internal Medicine 03/09/19 11/16/19 Carlos Bullock MD [address] [place] [address] [email or web address] PCP - General Internal Medicine 11/17/19 11/21/19 Jyothi Stark CNP [address] [place] [address] [email or web address] PCP - General Internal Medicine 11/22/19 09/08/22 Carlos Bullock MD [address] [place] [address] [email or web address] PCP - General Internal Medicine 09/09/22 11/10/22 Shaista Magaña CNP [address] [place] [address], [address] [place] [address] [email or web address] PCP - General Family Medicine 11/11/22 Carlos Bullock MD [address] [place] [address] [email or web address] Insurance Assigned Provider 07/13/19 04/14/20 Jose D Almeida MD [address] [place] [address] [email or web address] 12/05/20 Carlos Bullock MD [address] [place] [address] [email or web address] Insurance Assigned Provider 07/11/23 04/11/24 Conor Arroyo MD [address] [place] [address] Interventional Pain Management 07/16/22 documented as of this encounter Additional Source Comments The information contained in this document represents components of the legal health record. It is not the complete legal health record.[facility]
--- OUTSIDE RECORDS SUMMARY | 2024-12-29 06:41 | XMS_ITS | Encounter Summary ---
Author Organization [facility] Address [address] [facility] [address] [place] [address] Phone Care Team Providers Care Heavy Duty Press Operator Name Role Phone Jyothi Stark [facility] Primary Care Provider Jose D Almeida MD Unavailable Carlos Bullock MD Unavailable [phone] Conor Arroyo MD Unavailable [phone] Carlos Bullock MD Primary Care Provider [phone] Shaista Magaña [facility] Primary Care Provid er Encounter Details Date Type Department Care Team (Late st Contact Info) Description 08/09/2021 Procedure Pass [address] [place] [address] Social History Tobacco Use Types Packs/Day Years [...] EDT Office Visit [facility] [address] [place] [address] [place] [address] Shaista Magaña CNP [address] [place] [address], [address] [place] [address] documented as of this encounter Visit Diagnoses Not on filedocumented in this encounter Additional Health Concerns Assessment Noted Time PHQ-2 Depression Total Score: 1 06/16/19 22 11:12 AM EST documented as of this encounter Care Teams Heavy Duty Press Operator Relationship Specialty Start Date End Date Jyothi Stark CNP [address] [place] [address] PCP - General Internal Medicine 11/22/19 09/08/22 Carlos Bullock MD [address] [place] [address] PCP - General Internal Medicine 09/09/22 11/10/22 Shaista Magaña CNP [address] [place] [address], [address] [place] [address] PCP - General Family Medicine 11/11/22 Jose D Almeida MD [address] [place] [address] Ophthalmology 12/05/20 Carlos Bullock MD [address] [place] [address] [email or web address] Insurance Assigned Provider 07/11/23 04/11/24 Conor Arroyo MD [address] [place] [address] Interventional Pain Management 07/16/22 documented as of this encounter Additional Source Comments The information contained in this document represents components of the legal health record. It is not the complete legal health record.[facility]
--- OUTSIDE RECORDS SUMMARY | 2024-12-29 06:41 | XMS_ITS | Encounter Summary ---
Author Organization [facility] Address [address] [facility] [address] [place] [address] Phone Care Team Providers Care Tool Design Engineer Name Role Phone Jyothi Stark CNP Primary Care Provider Jyothi Stark CNP Primary Care Provider Carlos Bullock MD Unavailable [phone] Carlos Bullock MD Primary Care Provider [phone] Jyothi Stark CNP Primary Care Provider Jose D Almeida MD Unavailable Carlos Bullock MD Unavailable [phone] Conor Arroyo MD Unavailable [phone] Carlos Bullock MD Primary Care Provider [phone] Shaista Magaña [facility] Primary Care Provid er Encounter Details Date Type Department Care Team (Late st Contact Info) Description 01/13/2018 Transcribe Orders [facility] Laboratory [address] [place], [place] [id number] Jyothi Stark [facility] [address] [place], [place] [id number] [email or web address] Social History Tobacco Use Types Packs/Day Years [...] 01/04/2025 10:00 AM EDT [facility] [address] [place] [address] [place] [address] Shaista Magaña CNP 170 [facility], 2nd [place] [address] [email or web address] documented as of this encounter Visit Diagnoses Not on filedocumented in this encounter Care Teams Tool Design Engineer Relationship Specialty Start Date End Date Jyothi Stark CNP [address] [place] [address] PCP - General Internal Medicine 12/01/17 03/08/19 Jyothi Stark CNP [address] [place] [address] PCP - General Internal Medicine 03/09/19 11/16/19 Carlos Bullock MD [address] [place] [address] PCP - General Internal Medicine 11/17/19 11/21/19 Jyothi Stark CNP [address] [place] [address] PCP - General Internal Medicine 11/22/19 09/08/22 Carlos Bullock MD [address] [place] [address] PCP - General Internal Medicine 09/09/22 11/10/22 Shaista Magaña CNP [address] [place] [address], 2nd [place] [address] [email or web address] PCP - General Family Medicine 11/11/22 Carlos Bullock MD [address] [place] [address] Insurance Assigned Provider 07/13/19 04/14/20 Jose D Almeida MD [address] [place] [address] Ophthalmology 12/05/20 Carlos Bullock MD [address] [place] [address] Insurance Assigned Provider 07/11/23 04/11/24 Conor Arroyo MD [address] [place] [address] Interventional Pain Management 07/16/22 documented as of this encounter Additional Source Comments The information contained in this document represents components of the legal health record. It is not the complete legal health record.[facility]
--- OUTSIDE RECORDS SUMMARY | 2024-12-29 06:41 | XMS_ITS | Encounter Summary ---
Author Organization [facility] Address 399 [facility] [address] [place] [address] Phone Care Team Providers Care Ornamental Metal Worker Apprentice Name Role Phone Vijay Hampton MD Primary Care Provider Jyothi Stark CNP Primary Care Provider Jyothi Stark [facility] Primary Care Provider Carlos Bullock MD Unavailable [phone] Carlos Bullock MD Primary Care Provider Jyothi Stark [employer] Primary Care Provider Jose D Almeida MD Unavailable Carlos Bullock MD Unavailable [phone] Conor Arroyo MD Unavailable [phone] Carlos Bullock MD Primary Care Provider [phone] Shaista Magaña [facility] Primary Care Provid er Encounter Details Date Type Department Care Team (Late st Contact Info) Description 10/13/2017 Ancillary Orders Virtual Department [address] [place] [address] Armond Maldonado MD [address] [place] [address] [email or web address] Pain of lower extremity, unspecified laterality Social [...] Description 01/04/2025 10:00 AM EDT Office Visit [facility] [address] [place] [address] Shaista Magaña, MAE 170 [facility], 2nd [place] [address] [email or web address] documented as of this encounter Results * XR LUMBOSACRAL SPINE 2-3 VIEWS (10/14/2017 11:39 AM EDT) Anatomical Region Laterality Modality L-spine Radiographic Franchesca ging 10/14/2017 11:4 6 AM EDT Impressions 10/14/2017 11:47 AM EDT No significant interval change from 07/21/2017 apparent. POS [id number] Narrative 10/14/2017 11:47 AM EDT COMPARISON: 07/21/2017 FINDINGS: Frontal and lateral views were obtained revealing no significant interval change in position or alignment of the vertebral bodies or fusion hardware. No acute bony abnormality suggested. Procedure Note Tracy Rivers MD - 10/14/2017 COMPARISON: 07/21/2017 FINDINGS: Frontal and lateral views were obtained revealing no significant intervalchange in position or alignment of the vertebral bodies or fusionhardware. No acute bony abnormality suggested. IMPRESSION: No significant interval change from 07/21/2017 apparent. POS [id number] Armond Maldonado MD IMG XR SPINE Final Res ult documented in this encounter Visit Diagnoses Diagnosis Pain of lower extremity, unspecified laterality Pain of lower extremity, unspecified laterality documented in this encounter Care Teams Ornamental Metal Worker Apprentice Relationship Specialty Start Date End Date Vijay Hampton MD [address] [place] [address] [address] [place] [address] PCP - General Internal Medicine 04/29/17 11/30/17 Jyothi Stark CNP [address] [place] [address] PCP - General Internal Medicine 12/01/17 03/08/19 Jyothi Stark CNP [address] [place] [address] PCP - General Internal Medicine 03/09/19 11/16/19 Carlos Bullock MD [address] [place] [address] PCP - General Internal Medicine 11/17/19 11/21/19 Jyothi Stark CNP 40 [place] [address] PCP - General Internal Medicine 11/22/19 09/08/22 Carlos Bullock MD 40 [place] [address] PCP - General Internal Medicine 09/09/22 11/10/22 Shaista Magaña CNP [address] [place] [address], 2nd [place] [address] [email or web address] PCP - General Family Medicine 11/11/22 Carlos Bullock MD [address] [place] [address] [email or web address] Insurance Assigned Provider 07/13/19 04/14/20 Jose D Almeida MD [address] [place] [address] [email or web address] Ophthalmology 12/05/20 Carlos Bullock MD [address] [place] [address] [email or web address] Insurance Assigned Provider 07/11/23 04/11/24 Conor Arroyo MD [address] [place] [address] Interventional Pain Management 07/16/22 documented as of this encounter Additional Source Comments The information contained in this document represents components of the legal health record. It is not the complete legal health record.[facility]
--- OUTSIDE RECORDS SUMMARY | 2024-12-29 06:41 | XMS_ITS | Encounter Summary ---
Author Organization [facility] Address [address] [facility] [address] [place] [address] Phone Care Team Providers Care Primary Counselor Name Role Phone Jyothi Stark CNP Primary Care Provider Jyothi Stark CNP Primary Care Provider Carlos Bullock MD Unavailable [phone] Carlos Bullock MD Primary Care Provider Jyothi Stark CNP Primary Care Provider Jose D Almeida MD Unavailable Carlos Bullock MD Unavailable [phone] Conor Arroyo MD Unavailable [phone] Carlos Bullock MD Primary Care Provider [phone] Shaista Magaña [facility] Primary Care Provid er Encounter Details Date Type Department Care Team (Late st Contact Info) Description 01/28/2018 Transcribe Orders [facility] Laboratory [address] [place], [place] [phone] Jyothi Stark [facility] 40 [place], [place] [phone] [email or web address] Social History Tobacco Use Types Packs/Day Years [...] Description 01/04/2025 10:00 AM EDT [facility] [place] [facility] [address] [place] [address] [place] [address] Shaista Magaña CNP 170 [facility], 2nd [place] [address] [email or web address] documented as of this encounter Visit Diagnoses Not on filedocumented in this encounter Care Teams Primary Counselor Relationship Specialty Start Date End Date Jyothi Stark CNP [address] [place] [address] PCP - General Internal Medicine 12/01/17 03/08/19 Jyothi Stark CNP [address] [place] [address] PCP - General Internal Medicine 03/09/19 11/16/19 Carlos Bullock MD [address] [place] [address] PCP - General Internal Medicine 11/17/19 11/21/19 Jyothi Stark CNP [address] [place] [address] PCP - General Internal Medicine 11/22/19 09/08/22 Carlos Bullock MD [address] [place] [address] PCP - General Internal Medicine 09/09/22 11/10/22 Shaista Magaña CNP [address] [place] [address], 2nd [place] [address] [email or web address] PCP - General Family Medicine 11/11/22 Carlos Bullock MD [address] [place] [address] Insurance Assigned Provider 07/13/19 04/14/20 Jose D Almeida MD [address] [place] [address] Ophthalmology 12/05/20 Carlos Bullock MD 40 [place] [address] Insurance Assigned Provider 07/11/23 04/11/24 Conor Arroyo MD [address] [place] [address] Interventional Pain Management 07/16/22 documented as of this encounter Additional Source Comments The information contained in this document represents components of the legal health record. It is not the complete legal health record.[facility]
--- OUTSIDE RECORDS SUMMARY | 2024-12-29 06:41 | XMS_ITS | Encounter Summary ---
Author Organization [facility] Address [address] [address] Phone Care Team Providers Care Health Systems Analyst Name Role Phone Vijay Hampton MD Primary Care Provider [phone] Jyothi Stark CNP Primary Care Provider Jyothi Stark [facility] Primary Care Provider Carlos Bullock MD Unavailable [phone] Carlos Bullock MD Primary Care Provider [phone] Jyothi Stark CNP Primary Care Provider Jose D Almeida MD Unavailable Carlos Bullock MD Unavailable [phone] Conor Arroyo MD Unavailable [phone] Carlos Bullock MD Primary Care Provider [phone] Shaista Magaña [facility] Primary Care Provid er Encounter Details Date Type Department Care Team (Late st Contact Info) Description 06/30/2017 Procedure Pass OR Admitting Dept - Virtual Department 30 [place] [address] Social History Tobacco Use Types [...] 01/04/2025 10:00 AM EDT Office Visit [facility] [place] [facility] [address] [place] [address] Shaista Magaña CNP 170 [facility], 2nd [place] [address] [email or web address] documented as of this encounter Visit Diagnoses Not on filedocumented in this encounter Care Teams Health Systems Analyst Relationship Specialty Start Date End Date Vijay Hampton MD [address] [facility] [address] [place] [address] PCP - General Internal Medicine 04/29/17 11/30/17 Jyothi Stark CNP [address] [place] [address] PCP - General Internal Medicine 12/01/17 03/08/19 Jyothi Stark CNP [address] [place] [address] PCP - General Internal Medicine 03/09/19 11/16/19 Carlos Bullock MD [address] [place] [address] PCP - General Internal Medicine 11/17/19 11/21/19 Jyothi Stark CNP [address] [place] [address] PCP - General Internal Medicine 11/22/19 09/08/22 Carlos Bullock MD [address] [place] [address] PCP - General Internal Medicine 09/09/22 11/10/22 Shaista Magaña CNP [address] [place] [address], 2nd [place] [address] PCP - General Family Medicine 11/11/22 Carlos Bullock MD [address] [place] [address] Insurance Assigned Provider 07/13/19 04/14/20 Jose D Almeida MD [address] [place] [address] Ophthalmology 12/05/20 Carlos Bullock MD [address] [place] [address] Insurance Assigned Provider 07/11/23 04/11/24 Conor Arroyo MD [address] [place] [address] Interventional Pain Management 07/16/22 documented as of this encounter Additional Source Comments The information contained in this document represents components of the legal health record. It is not the complete legal health record.[facility]
--- OUTSIDE RECORDS SUMMARY | 2024-12-29 06:41 | XMS_ITS | Encounter Summary ---
Author Organization [facility] Address 399 [facility] [address] [place] [address] Phone Care Team Providers Care Web Press Operator Assistant Name Role Phone Jyothi Stark [facility] Primary Care Provider Jyothi Stark [facility] Primary Care Provider Carlos Bullock MD Unavailable [phone] Carlos Bullock MD Primary Care Provider [phone] Jyothi Stark CNP Primary Care Provider Jose D Almeida MD Unavailable Carlos Bullock MD Unavailable [phone] Conor Arroyo MD Unavailable [phone] Carlos Bullock MD Primary Care Provider [phone] Shaista Magaña [facility] Primary Care Provid er Encounter Details Date Type Department Care Team (Late st Contact Info) Description 12/14/2018 Procedure Pass OR Admitting Dept - Virtual Department 30 [place] [address] Social History Tobacco Use Types Packs/Day Years [...] EDT Office Visit [facility] [address] [place] [address] Shaista Magaña CNP 170 [facility], [address] [place] [address] [email or web address] documented as of this encounter Visit Diagnoses Not on filedocumented in this encounter Care Teams Web Press Operator Assistant Relationship Specialty Start Date End Date Jyothi Stark CNP 40 [place] [address] PCP - General Internal Medicine 12/01/17 03/08/19 Jyothi Stark CNP 40 [place] [address] PCP - General Internal Medicine 03/09/19 11/16/19 Carlos Bullock MD 40 [place] [address] PCP - General Internal Medicine 11/17/19 11/21/19 Jyothi Stark CNP [address] [place] [address] PCP - General Internal Medicine 11/22/19 09/08/22 Carlos Bullock MD 40 [place] [address] PCP - General Internal Medicine 09/09/22 11/10/22 Shaista Magaña CNP [address] [place] [address], 2nd [place] [address] PCP - General Family Medicine 11/11/22 Carlos Bullock MD [address] [place] [address] Insurance Assigned Provider 07/13/19 04/14/20 Jose D Almeida MD [address] [place] [address] Ophthalmology 12/05/20 Carlos Bullock MD [address] [place] [address] Insurance Assigned Provider 07/11/23 04/11/24 Conor Arroyo MD [address] [place] [address] Interventional Pain Management 07/16/22 documented as of this encounter Additional Source Comments The information contained in this document represents components of the legal health record. It is not the complete legal health record.[facility]
--- OUTSIDE RECORDS SUMMARY | 2024-12-29 06:41 | XMS_ITS | Encounter Summary ---
Author Organization [facility] Address [address] [place] [address] Phone Care Team Providers Care Treasury Management Sales Consultant Name Role Phone Vijay Hampton MD Primary Care Provider Jyothi Stark CNP Primary Care Provider Jyothi Stark [facility] Primary Care Provider Carlos Bullock MD Unavailable [phone] Carlos Bullock MD Primary Care Provider Jyothi Stark [facility] Primary Care Provider Jose D Almeida MD Unavailable Carlos Bullock MD Unavailable [phone] Conor Arroyo MD Unavailable [phone] Carlos Bullock MD Primary Care Provider [phone] Shaista Magaña [facility] Primary Care Provid er Encounter Details Date Type Department Care Team (Latest Contact Info) Description 07/21/2017 Ancillary Orders [facility], X-Ray - [address] [address] Radha Rojas PA [address] [place] [address] [email or web address] Lumbar radiculopathy; Spinal stenosis of lumbar region [...] Description 01/04/2025 10:00 AM EDT Office Visit [facility] [address] [place] [address] Shaista Magaña CNP 170 [facility], 2nd [place] [address] [email or web address] documented as of this encounter Results * [...] surgery 3 weeks ago POS - [id number] Narrative 07/21/2017 2:09 PM [...] claudication documented in this encounter Care Teams Treasury Management Sales Consultant Relationship Specialty Start Date End Date Memo, Vijay Soni MD [address] [place] [address] [place] [phone] PCP - General Internal Medicine 04/29/17 11/30/17 Jyothi Stark CNP [address] [place] [address] PCP - General Internal Medicine 12/01/17 03/08/19 Jyothi Stark CNP [address] [place] [address] [email or web address] PCP - General Internal Medicine 03/09/19 11/16/19 Carlos Bullock MD [address] [place] [address] [email or web address] PCP - General Internal Medicine 11/17/19 11/21/19 Jyothi Stark, MAE [address] [place] [address] [email or web address] PCP - General Internal Medicine 11/22/19 09/08/22 Carlos Bullock MD [address] [place] [address] [email or web address] PCP - General Internal Medicine 09/09/22 11/10/22 Shaista Magaña CNP [address] [place] [address], 2nd [place] [address] [email or web address] PCP - General Family Medicine 11/11/22 Carlos Bullock MD [address] [place] [address] [email or web address] Insurance Assigned Provider 07/13/19 04/14/20 Jose D Almeida MD [address] [place] [address] [email or web address] Ophthalmology 12/05/20 Carlos Bullock MD [address] [place] [address] [email or web address] Insurance Assigned Provider 07/11/23 04/11/24 Conor Arroyo MD [address] [place] [address] Interventional Pain Management 07/16/22 documented as of this encounter Additional Source Comments The information contained in this document represents components of the legal health record. It is not the complete legal health record.[facility]
--- OUTSIDE RECORDS SUMMARY | 2024-12-29 06:41 | XMS_ITS | Encounter Summary ---
Author Organization [facility] Address 399 [facility] [address] [place] [address] Phone Care Team Providers Care Adult Nurse Practitioner Name Role Phone Jyothi Stark [facility] Primary Care Provider Carlos Bullock MD Unavailable [phone] Carlos Bullock MD Primary Care Provider [phone] Jyothi Stark [facility] Primary Care Provider Jose D Almeida MD Unavailable Carlos Bullock MD Unavailable [phone] Conor Arroyo MD Unavailable [phone] Carlos Bullock MD Primary Care Provider [phone] Shaista Magaña [facility] Primary Care Provid er Encounter Details Date Type Department Care Team (Late st Contact Info) Description 03/09/2019 Ancillary Orders [facility], X-Ray - [address] [address] Armond Maldonado MD [address] [place] [address] [email or web address] S/P lumbar fusion Social History Tobacco [...] 01/04/2025 10:00 AM EDT Office Visit [facility] [address] [place] [address] Shaista Magaña, MAE 170 [facility], 2nd Floor [place] [address] [email or web address] documented as of this encounter Results * XR LUMBOSACRAL SPINE 2-3 VIEWS (03/09/2019 2:42 PM EST) Anatomical Region Laterality Modality L-spine Radiographic Franchesca ging 03/10/2019 8:13 AM EST Impressions 03/10/2019 8:15 AM EST Mild increase in lower lumbar scoliosis. Otherwise stable appearance of the lumbosacral spine. POS [id number] Narrative 03/10/2019 8:15 AM EST 4 views. [...] Otherwise stable appearance ofthe lumbosacral spine. POS [id number] Armond Maldonado MD IMG XR SPINE Final Res ult documented in this encounter Visit Diagnoses Diagnosis S/P lumbar fusion Arthrodesis status S/P lumbar fusion Arthrodesis status documented in this encounter Care Teams Adult Nurse Practitioner Relationship Specialty Start Date End Date Jyothi Stark CNP [address] [place] [address] PCP - General Internal Medicine 03/09/19 11/16/19 Carlos Bullock MD [address] [place] [address] PCP - General Internal Medicine 11/17/19 11/21/19 Jyothi Stark CNP [address] [place] [address] PCP - General Internal Medicine 11/22/19 09/08/22 Carlos Bullock MD [address] [place] [address] PCP - General Internal Medicine 09/09/22 11/10/22 Shaista Magaña CNP [address] [place] [address], 2nd [place] [address] PCP - General Family Medicine 11/11/22 Carlos Bullock MD [address] [place] [address] Insurance Assigned Provider 07/13/19 04/14/20 Jose D Almeida MD [address] [place] [address] [email or web address] Ophthalmology 12/05/20 Carlos Bullock MD [address] [place] [address] [email or web address] Insurance Assigned Provider 07/11/23 04/11/24 Conor Arroyo MD [address] [place] [address] Interventional Pain Management 07/16/22 documented as of this encounter Additional Source Comments The information contained in this document represents components of the legal health record. It is not the complete legal health record.[facility]
--- OUTSIDE RECORDS SUMMARY | 2024-12-29 06:41 | XMS_ITS | Encounter Summary ---
Author Organization [facility] Address [address] [facility] [address] [place] [address] Phone Care Team Providers Care Public Relations Supervisor Name Role Phone Jyothi Stark [facility] Primary Care Provider Jyothi Stark [facility] Primary Care Provider Carlos Bullock MD Unavailable [phone] Carlos Bullock MD Primary Care Provider Jyothi Stark CNP Primary Care Provider Jose D Almeida MD Unavailable Carlos Bullock MD Unavailable [phone] Conor Arroyo MD Unavailable [phone] Carlos Bullock MD Primary Care Provider [phone] Shaista Magaña [facility] Primary Care Provid er Encounter Details Date Type Department Care Team (Late st Contact Info) Description 10/16/2018 Ancillary Orders [facility], X-Ray - [address] [place] [address] Armond Maldonado MD [address] [place] [address] [email or web address] Fusion of spine of lumbar region Social [...] 01/04/2025 10:00 AM EDT Office Visit [facility] [place] [facility] [address] [place] [address] Shaista Magaña, PEOPLESOFT FUNCTIONAL ANALYST [address] [place] [address] [email or web address] documented as of this encounter Results * [...] region documented in this encounter Care Teams Public Relations Supervisor Relationship Specialty Start Date End Date Jyothi Stark CNP [address] [place] [address] PCP - General Internal Medicine 12/01/17 03/08/19 Jyothi Stark CNP [address] [place] [address] PCP - General Internal Medicine 03/09/19 11/16/19 Carlos Bullock MD [address] [place] [address] PCP - General Internal Medicine 11/17/19 11/21/19 Jyothi Stark CNP [address] [place] [address] PCP - General Internal Medicine 11/22/19 09/08/22 Carlos Bullock MD [address] [place] [address] PCP - General Internal Medicine 09/09/22 11/10/22 Shaista Magaña Magaly, PEOPLESOFT FUNCTIONAL ANALYST [address] [place] [address], [address] [place] [address] [email or web address] PCP - General Family Medicine 11/11/22 Carlos Bullock MD [address] [place] [address] [email or web address] Insurance Assigned Provider 07/13/19 04/14/20 Jose D Almeida MD [address] [place] [address] [email or web address] Ophthalmology 12/05/20 Carlos Bullock MD [address] [place] [address] [email or web address] Insurance Assigned Provider 07/11/23 04/11/24 Conor Arroyo MD [address] [place] [address] Interventional Pain Management 07/16/22 documented as of this encounter Additional Source Comments The information contained in this document represents components of the legal health record. It is not the complete legal health record.[facility]
--- OUTSIDE RECORDS SUMMARY | 2024-12-29 06:41 | XMS_ITS | Data Portability ---
Author Organization [facility] [employer], [email or web address] Address [address] [place] [address] [place] [address] Care Team Providers Care Digital Photographer Name Role Phone ELIJAH MERAZ Referring Provider ELIJAH SPEARS Referring Provider ELIJAH SPEARS Primary Care Provider Assessment Encounter Date Assessment Date Assessment LastModified by Organization Details LastModified Time 08/09/2024 08/09/2024 IMPRESSION: Benign essential familial tremor, with left greater than right hand tremor most prominent, bothering handwriting drinking with a glass and typing on a computer. Medications per patient: Lisinopril, chlorthalidone, metformin, gabapentin 600 mg 4 times daily, lorazepam 1 mg 3 times daily, [place] with fill, albuterol inhaler, montelukast, carbidopa levodopa [...] By Organization Details Last Modified Time 08/09/2024 38938 Discussion acros s issues of diagnoses and management and same day associated chart review and management greater than 50% greater than 60 minutes [email or web address] Not available 08/09/2024 14:28:30 Reason for Referral None Reported. Procedures Surgical History Date Name Laterality Status Provider Name and Address Organization Details Recorded Time 08/09/2024 DATA REVIEW completed Mingo Diggs MD [address] [place] [address], [id number], [facility] 08/09/2024 14:21:32 Imaging Results None recorded. Procedure Notes None recorded. Medical Equipment None Reported. Allergies Allergen ID Allergen Name Allergen Category Reaction Reaction Severity Criticality Documentation Date Start Date Code Code System Note Provider Name and Address Organization Details Recorded Time 5048 Product containin g penicilli n (product) medicatio n Not available Not available Not available 08/09/2024 94644 8001 SNOMED Nishi rossMan [facility] 13:07:44 5046 Substance with sulfonami de structure and antibacte rial mechanism of action (substanc e) medicatio n Not available Not available Not available 08/09/2024 98764 8003 SNMILADYS rossMan [facility] 13:07:54 5047 Vaccine product containin g only Clostridi um tetani antigen (medicina l product) medicatio n Not available Not available Not available 08/09/2024 81745 2002 [facility] Nishi G[facility] 13:08:05 5048 iodine medicatio n Not available Not available Not available 08/09/2024 5933 RxNorm Nishi Gresham [facility] 13:08:11 5049 Product containin g 3-hydroxy -3-methyl glutaryl- coenzyme A reductase inhibitor (product) medicatio n Not available Not available Not available 08/09/2024 01689 009 SNMILADYS Gresham [facility] 13:08:17 Medications Name Sig Start Date Stop [...] Updated DateTime 08/09/2024 172.72 cm 31.9 kg/m2 46354.4 g 12 /min Nishi Gresham [facility] 08/09/2024 13:08:34 Social History Question Answer Notes LastModified by Organizat ion Details LastModified Time Tobacco Smoking Status Former Smoker Nishi rossMan [facility] 08/09/2024 13:24:47 What Is Your Level Of Caffeine Consumption? Moderate Information not available 08/09/2024 What Is The Highest Grade Or Level Of School You Have Completed Or The Highest Degree You Have Received? [id number] Information not available 08/09/2024 Which Of Your [...] 13:23:45 Medical History Condition Response Claustrophobia N Head Trauma/Injury N Hospitalizations N High Blood Pressure or Hypertension Y Thyroid Problems N Depression N Brain Tumors N Lung Disease N COPD or emphysema N Encephalitis N PTSD N Vitamin B12 deficiency Y Heart Attack (OR) N Spine Problems N Obstructive Sleep Apnea N Alcoholism N Diabetes Y Autoimmune disease N Bleeding Disorder N Arthritis N Cerebral Palsy N Tuberculosis N Developmental Problems N Neck Problems N Cancer N Back Problems N Stroke N Asthma Y Heartburn, acid reflux, GERD N Vitamin D Deficiency Y Epilepsy/Seizures N Bipolar Disorder N Sleep Disorder N Aneurysm N Hepatitis N Liver Disease N Heart Disease N Fibromyalgia N Headaches N High Cholesterol or Hyperlipidemia N Osteoporosis N Kidney Disease N Past Encounters Encounter ID Performer Location Encounter Start Date Encounter Closed Date Diagnosis/Indication Diagnosis SNOMED-CT Code Diagnosis ICD10 Code Diagnosis IMO Codes Diagnosis Note [id number] Mingo Diggs MD [facility] [address] [place] [address] [place] [address] 08/09/2024 13:02:07 08/09/2024 16:43:25 Essential tremor [id number] G25.0 12238 Health Concerns Section Related Observation LastModified by Organization Detai ls LastModified Time None Recorded Concern Status LastModified by Organization Details LastModified Time None Recorded Advance Directives Directive None Recorded Payers Insurance Date Sequence Insurance Name Policy Number Policy Enciso Covered Member ID Enciso Member ID Guarantor Name 08/17/2024 1 MEDICARE B-MS: [email or web address] Keith Camacho [id number] Keith Camacho 08/17/2024 2 [facility] [id number] Keith Camacho [id number] Keith Camacho Notes Date Note Type Note [...] glass of liquid in his left hand h e has not dropped any glasses but he often has to quickly hold the glass with two hands. He has trouble with the computer, mostly with typing h is fingers double type by mistake. The mouse is less of a problem. The tremor does not embarrass him.He has had trouble walking since around the time of his two back surgeries ~1577-4647. He had his first back surgery when [...] he had back surgery. Mingo Diggs MD [address] [place] [address] [place], [phone], [facility] 08/09/2024 14:28:44
--- OUTSIDE RECORDS SUMMARY | 2024-12-29 06:41 | XMS_ITS | Encounter Summary ---
Author Organization [facility] Address [address] [facility] [address] [place] [address] Phone Care Team Providers Care Deputy Juvenile Officer Name Role Phone Vijay Hampton MD Primary Care Provider [phone] Jyothi Stark CNP Primary Care Provider Jyothi Stark [facility] Primary Care Provider Carlos Bullock MD Unavailable [phone] Carlos Bullock MD Primary Care Provider [phone] Jyothi Stark CNP Primary Care Provider Jose D Almeida MD Unavailable Carlos Bullock MD Unavailable [phone] Conor Arroyo MD Unavailable [phone] Carlos Bullock MD Primary Care Provider [phone] Shaista Magaña [facility] Primary Care Provid er Encounter Details Date Type Department Care Team (Late st Contact Info) Description 06/15/2017 Procedure Pass [facility],Outside Imaging [address] [place] [address] Social History Tobacco Use Types [...] 01/04/2025 10:00 AM EDT Office Visit [facility] [address] [facility] [place] [address] Shaista Magaña CNP [address] [facility], 2nd [place] [address] documented as of this encounter Visit Diagnoses Not on filedocumented in this encounter Care Teams Deputy Juvenile Officer Relationship Specialty Start Date End Date Vijay Hampton MD [address] [facility] [address] [place] [address] PCP - General Internal Medicine 04/29/17 11/30/17 Jyothi Stark CNP [address] [place] [address] PCP - General Internal Medicine 12/01/17 03/08/19 Jyothi Stark CNP [address] [place] [address] PCP - General Internal Medicine 03/09/19 11/16/19 Carlos Bullock MD [address] [place] [address] PCP - General Internal Medicine 11/17/19 11/21/19 Jyothi Stark CNP [address] [place] [address] PCP - General Internal Medicine 11/22/19 09/08/22 Carlos Bullock MD [address] [place] [address] PCP - General Internal Medicine 09/09/22 11/10/22 Shaista Magaña CNP [address] [place] [address], 2nd [place] [address] PCP - General Family Medicine 11/11/22 Carlos Bullock MD [address] [place] [address] Insurance Assigned Provider 07/13/19 04/14/20 Jose D Almeida MD [address] [place] [address] Ophthalmology 12/05/20 Carlos Bullock MD [address] [place] [address] Insurance Assigned Provider 07/11/23 04/11/24 Conor Arroyo MD [address] [place] [address] Interventional Pain Management 07/16/22 documented as of this encounter Additional Source Comments The information contained in this document represents components of the legal health record. It is not the complete legal health record.[facility]
--- OUTSIDE RECORDS SUMMARY | 2024-12-29 06:41 | XMS_ITS | Encounter Summary ---
Author Organization [facility] Address [address] [facility] [address] [place] [address] Phone Care Team Providers Care Trans Router Name Role Phone Jose D Almeida MD Unavailable Conor Arroyo MD Unavailable [phone] Shaista Magaña CNP Primary Care Provid er Reason for Visit * Reason Comments Medication Refill Encounter Details Date Type Department Care Team (Late st Contact Info) Description 12/26/2024 Refill [facility] [address] [place] [address] Shaista Magaña, MAE [address] [facility], 2nd [place] [address] [email or web address] Medication Refill Social History Tobacco Use Types [...] Progress Notes * Kolton Zhao, AB - 12/27/2024 1:40 PM EDT Images from the original note were not included. Rx Care Gap Status - Instructions for Clinical Staff (prescriber discretion applies): > Mismatch review guide > Check PDMP for all controlled medication requests. Visit Info Last visit: 08/03/2024 Shaista Magaña CNP - [facility] > Requested f/u: Return in about 5 months (around 01/03/2025) for Next scheduled follow up. Upcoming visit: 01/04/2025 Shaista Magaña CNP - [facility] ACTIONS TAKEN BY Kolton Zhao CMA - Checked PDMP/[place]. Non-Opioid Controlled Substance With PDMP Rx Protocol - lorazepam Renewal is at prescriber discretion. Visit in the past 12 months: Yes documented in this encounter Plan of Treatment Upcoming Encounters Date Type Department Care Team (Late st Contact Info) Description 01/04/2025 10:00 AM EDT Office Visit [facility] [address] [address] Shaista Magaña CNP [address] [place] [address] [email or web address] documented as of this encounter Visit Diagnoses Diagnosis IRVING (generalized anxiety disorder) Generalized anxiety disorder documented in this encounter Additional Health Concerns Assessment Noted Time PHQ-2 Depression Total Score: 1 07/01/19 25 1:10 PM EDT documented as of this encounter Care Teams Trans Router Relationship Specialty Start Date End Date Shaista Magaña CNP [address] [place] [address] [email or web address] PCP - General Family Medicine 11/11/22 Jose D Almeida MD [email or web address] Ophthalmology 12/05/20 Conor Arroyo MD [address] [place] [address] Interventional Pain Management 07/16/22 documented as of this encounter Additional Source Comments The information contained in this document represents components of the legal health record. It is not the complete legal health record.[facility]
--- OUTSIDE RECORDS SUMMARY | 2024-12-29 06:41 | XMS_ITS | Encounter Summary ---
Author Organization [facility] Address [address] [facility] [address] [place] [address] Phone Care Team Providers Care Last Waxer Name Role Phone Jyothi Stark CNP Primary Care Provider Jyothi Stark CNP Primary Care Provider Carlos Bullock MD Unavailable [phone] Carlos Bullock MD Primary Care Provider Jyothi Stark CNP Primary Care Provider Jose D Almeida MD Unavailable Carlos Bullock MD Unavailable [phone] Conor Arroyo MD Unavailable [phone] Carlos Bullock MD Primary Care Provider [phone] Shaista Magaña [facility] Primary Care Provid er Encounter Details Date Type Department Care Team (Latest Contact Info) Description 01/13/2018 Transcribe Orders [facility] [address] [place], [place] [id number] Jyothi Stark AERODYNAMICIST [address] [place], [place] [id number] [email or web address] Routine [...] Description 01/04/2025 10:00 AM EDT Office Visit [facility] [address] [place] [address] [place] [address] Shaista Magaña CNP [address] [facility], 2nd [place] [address] [email or web address] documented as of this encounter Visit Diagnoses Diagnosis Routine check-up- Primary Routine general medical examination at a health care facility documented in this encounter Care Teams Last Waxer Relationship Specialty Start Date End Date Jyothi Stark CNP [address] [place] [address] [email or web address] PCP - General Internal Medicine 12/01/17 03/08/19 Jyothi Stark CNP [address] [place] [address] [email or web address] PCP - General Internal Medicine 03/09/19 11/16/19 Carlos Bullock MD [address] [place], [place] [phone] [email or web address] PCP - General Internal Medicine 11/17/19 11/21/19 Jyothi Stark CNP [address] [place] [address] PCP - General Internal Medicine 11/22/19 09/08/22 Carlos Bullock MD [address] [place] [address] PCP - General Internal Medicine 09/09/22 11/10/22 Shaista Magaña CNP [address] [place] [address], 2[address] [place] [address] PCP - General Family Medicine 11/11/22 Carlos Bullock MD [address] [place] [address] Insurance Assigned Provider 07/13/19 04/14/20 Jose D Almeida MD [address] [place] [address] Ophthalmology 12/05/20 Carlos Bullock MD [address] [place] [address] Insurance Assigned Provider 07/11/23 04/11/24 Conor Arroyo MD [address] [place] [address] Interventional Pain Management 07/16/22 documented as of this encounter Additional Source Comments The information contained in this document represents components of the legal health record. It is not the complete legal health record.[facility]
--- OUTSIDE RECORDS SUMMARY | 2024-12-29 06:41 | XMS_ITS | Encounter Summary ---
Author Organization [facility] Address [address] [facility] [address] [place] [address] Phone Care Team Providers Care Administrative Operations Coordinator Name Role Phone [email or web address] [facility] Primary Care Provider Jose D Almeida MD Unavailable Carlos Bullock MD Unavailable [phone] Conor Arroyo MD Unavailable [phone] Carlos Bullock MD Primary Care Provider [phone] Shaista Magaña [facility] Primary Care Provid er Encounter Details Date Type Department Care Team (Late st Contact Info) Description 02/24/2022 Procedure Pass [facility], Ct Scan - [address] [address] Social History Tobacco Use Types Packs/Day Years [...] Description 01/04/2025 10:00 AM EDT Office Visit [facility] [address] [place] [address] Shaista Magaña CNP [address] [place] [address], [address] [place] [address] [email or web address] documented as of this encounter Visit Diagnoses Not on filedocumented in this encounter Additional Health Concerns Assessment Noted Time PHQ-2 Depression Total Score: 1 06/16/19 22 11:12 AM EST documented as of this encounter Care Teams Administrative Operations Coordinator Relationship Specialty Start Date End Date Jyothi Stark CNP [address] [place] [address] [email or web address] PCP - General Internal Medicine 11/22/19 09/08/22 Carlos Bullock MD [address] [place] [address] PCP - General Internal Medicine 09/09/22 11/10/22 Shaista Magaña CNP [address] [place] [address], [address] [place] [address] [email or web address] PCP - General Family Medicine 11/11/22 Jose D Almeida MD [address] [place] [address] Ophthalmology 12/05/20 Carlos Bullock MD [address] [place] [address] Insurance Assigned Provider 07/11/23 04/11/24 Conor Arroyo MD [address] [place] [address] Interventional Pain Management 07/16/22 documented as of this encounter Additional Source Comments The information contained in this document represents components of the legal health record. It is not the complete legal health record.[facility]
== END 2024-12-29 06:29 | disposition home or self-care (01) ==
LOC: CF 06:28
PROVIDERS: Visit Provider Internal Medicine
DX: Z13.89 Encounter for screening for other disorder (principal)